=== PATIENT | female | born 1955 ===

== ENCOUNTER 2017-07-23 01:31 | Inpatient (IN) | payer OTHER, MEDICAID ==
[2017-07-23 01:32] VITALS: BMI 24.2
--- NOTE | 2017-07-23 02:06 | C.PDOC ---
History Of Present Illness <Lj Wood - Last Filed: 07/24/17 11:40> <Nely Balderrama - Last Filed: 07/27/17 14:48> 62 year old female with a Hx of metastatic ca presents to the ER with a complaint of intermittent abdominal pain for the past few hours. Patient states it feels like a "accordion is opening and closing" in her abdomen. Denies fever or other complaints at this time. (Lj Wood) History Per: Patient History/Exam Limitations: no limitations Onset/Duration Of Symptoms: Hrs Current Symptoms Are (Timing): Still Present Recent travel outside of the [place]: No <Lj Wood - Last Filed: 07/24/17 11:40> <Nely Balderrama - Last Filed: 07/27/17 14:48> Time Seen by Provider: 07/23/17 02:03 Chief Complaint (Nursing): Medical Clearance Past Medical History Reviewed: Historical Data, Nursing Documentation, Vital Signs - Medical History PMH: Anxiety, Asthma (WHEN ANXIOUS ON ONHALERS LAST ATTACK 5 YRS AGO), Colonic Polyps Surgical History: Family History: States: Unknown Family Hx - Social History Hx Tobacco Use: No Hx Alcohol Use: Yes Hx Substance Use: No - Immunization History Hx Tetanus Toxoid Vaccination: No Hx Influenza Vaccination: No Hx Pneumococcal Vaccination: No <Lj Wood - Last Filed: 07/24/17 11:40> Vital Signs: Last Vital Signs Temp 97.9 F 07/26/17 15:42 Pulse 95 H 07/26/17 15:42 Resp 20 07/26/17 15:42 BP 114/61 07/26/17 15:42 Pulse Ox 97 07/26/17 15:42 Review Of Systems Constitutional: Negative for: Fever, Chills Cardiovascular: Negative for: Chest Pain, Palpitations Gastrointestinal: Positive for: Abdominal Pain. Negative for: Nausea, Vomiting <Lj Wood - Last Filed: 07/24/17 11:40> Physical Exam - Physical Exam Appears: Non-toxic, No Acute Distress Skin: Normal Color, Warm, Dry Head: Atraumatic, Normacephalic Eye(s): bilateral: Normal Inspection Oral Mucosa: Moist Chest: Symmetrical, No Tenderness Cardiovascular: Rhythm Regular Respiratory: Normal Breath Sounds, No Rales, No Rhonchi, No Wheezing Gastrointestinal/Abdominal: Soft, No Tenderness, Distention Neurological/Psych: Oriented x3, Normal Speech, Other (No focal deficits) <Lj Wood - Last Filed: 07/24/17 11:40> ED Course And Treatment - Laboratory Results Result Diagrams: 07/23/17 02:57 07/23/17 15:22 O2 Sat by Pulse Oximetry: 97 (room air) Pulse Ox Interpretation: Normal <Lj Wood - Last Filed: 07/24/17 11:40> - Laboratory Results Result Diagrams: 07/25/17 06:54 07/25/17 06:54 - Physician Consult Information Physician Contacted: Jarad Luna <Nely Balderrama - Last Filed: 07/27/17 14:48> Medical Decision Making <Lj Wood - Last Filed: 07/24/17 11:40> <Nely Balderrama - Last Filed: 07/27/17 14:48> Medical Decision Making: Blood work and urinalysis ordered. Patient refuses pain medication at this time. 7: endorsed to day shift, pending ct and final dispo (Lj Wood) Disposition - Disposition Disposition Time: 07:00 <Lj Wood - Last Filed: 07/24/17 11:40> - Disposition Disposition Time: 11:24 <Nely Balderrama - Last Filed: 07/27/17 14:48> - Disposition Disposition: HOSPITALIZED Condition: FAIR - Clinical Impression Clinical Impression: Failure to thrive, Generalized weakness, Medical assessment, Metastatic cancer , Abdominal pain - Scribe Statement The provider has reviewed the documentation as recorded by the Scribe <Lj Wood - Last Filed: 07/24/17 11:40> <Nely Balderrama - Last Filed: 07/27/17 14:48> - Scribe Statement Hima Weeks All medical record entries made by the Scribe were at my direction and personally dictated by me. I have reviewed the chart and agree that the record accurately reflects my personal performance of the history, physical exam, medical decision making, and the department course for this patient. I have also personally directed, reviewed, and agree with the discharge instructions and disposition. (Lj Wood) Addendum <Lj Wood - Last Filed: 07/24/17 11:40> <Nely Balderrama Trey - Last Filed: 07/27/17 14:48> Addendum: 07/23/17 11:09 Accession No. : [id number] Patient Name / ID : MERLYN PALMER / [id number] Exam Date : 07/23/2017 08:18:55 ( Approved ) Study Comment : Sex / Age : F / 62Y Creator : Patricio Hall MD Dictator : Analytical Engineer : Public Health Director : Patricio Hall MD Approver2 : Report Date : 07/23/2017 11:08:42 My Comment : This report is currently processing and HAS NOT BEEN OFFICIALLY SIGNED BY THE PHYSICIAN - ESTIMATED TIME OF APPROVAL IS 07/23/2017 11:13. PROCEDURE: CT scan of the abdomen pelvis dated 01/13/2017 HISTORY: Abdominal pain. History of malignancy. COMPARISON: Comparison made with CT scan of the abdomen pelvis 01/13/2017 TECHNIQUE: Contiguous axial images of the abdomen pelvis performed following intravenous contrast injection. Oral contrast material not given. Sagittal and coronal reformats provided. This CT exam was performed using one or more of the following dose reduction techniques: Automated exposure control, adjustment of the mA and/or kV according to patient size, and/or use of iterative reconstruction technique. Contrast dose: 100 cc Visipaque 300 contrast material Radiation dose: Total exam DLP = 325.06 mGy-cm. FINDINGS: LOWER THORAX: . There is a small left-sided effusion. Minor bibasilar atelectasis and probably some linear scarring changes are felt to be present. No basilar pneumothorax. Heart size within range of normal. No significant pericardial effusion. LIVER: Liver exhibits relatively normal size measuring approximately 12 cm in CC dimension. Minor diffuse fatty hepatic infiltration. Portal and splenic veins are opacified. Mild central intrahepatic biliary ductal dilatation likely due to mass effect by a very large mass within the nadeen hepatis region that has increased in size. This lesion exhibits some heterogeneous peripheral margins and areas of central and eccentric low-attenuation. The overall size of this lesion measures approximately 14 cm trans times 10 cm AP x 7.6 cm cc. GALLBLADDER AND BILE DUCTS: There is inferolateral displacement of the gallbladder. . PANCREAS: Pancreas is medially compressed and displaced by the aforementioned large metastatic lesion. No obvious significant pancreatic ductal dilatation so far as can be seen. SPLEEN: Spleen exhibits normal size and attenuation pattern. ADRENALS: Unremarkable. KIDNEYS AND URETERS: Kidneys demonstrate symmetric nephrograms. No evidence of nephrolithiasis or hydronephrosis. BLADDER: Grossly unremarkable. REPRODUCTIVE: Enlarged of lobulated bulky uterus with multiple calcifications consistent with uterine fibroids indistinguishable from this patient's history of endometrial carcinoma. There are adjacent bilateral on cystic and/or necrotic peritoneal metastatic implants. APPENDIX: Appendix is not seen with any certainty however no evidence to suggest acute appendicitis BOWEL: Evaluation of the bowel is quite limited due to the lack of oral contrast material as well as multiple metastatic peritoneal implants some of which may make loops of bowel. . Stomach is incompletely distended. . No evidence acute mechanical small bowel obstruction. Stool and air seen throughout the colon. PERITONEUM: Multiple round and elliptical shaped peritoneal implants are again noted some of which have increased in size and others are new since prior study. Findings are consistent with this patient's history of metastatic endometrial carcinoma. . There is moderate amount of free fluid seen within the left upper quadrant of the abdomen and to a lesser degree right upper abdomen surrounding the gallbladder and inferior margin of the liver extending into Murillo's pouch. LYMPH NODES: Probable enlarged some necrotic and or cystic bilateral pelvic sidewall lymphadenopathy/peritoneal implants VASCULATURE: Unremarkable. No aortic aneurysm. . There appears to be compression of the IVC by aforementioned large mass. BONES: Multilevel degenerative spondylosis of the lower thoracic and lumbar spine. . ORIF changes right proximal femur. . There is shallow right acetabulum with the superior subluxation of the right femoral head. OTHER FINDINGS: None. IMPRESSION: There are multiple varying sized predominately rounded intraperitoneal and mesenteric metastatic lesions some of which have increased in size and others no new since prior exam consistent with this patient's history of metastatic endometrial carcinoma. The largest lesion in the nadeen hepatis region compresses the liver, pancreas, gallbladder and IVC. Moderate amount of ascites. Mild central intrahepatic biliary ductal dilatation. Markedly enlarged bulky heterogeneous uterus with numerous calcifications consistent with underlying fibroids as well. Small left effusion. No evidence of acute mechanical bowel obstruction. Discussed patient with hospitalist, agrees with admission to her service for worsening metastatic endometrial cancer, abdominal pain, failure to thrive, generalized weakness. Dr. Kris Lemos consulted and spoken with. (Nely Balderrama) Decision To Admit <Lj Wood - Last Filed: 07/24/17 11:40> - Pt Status Changed To: Hospital Disposition Of: Inpatient - Admit Certification Admit to Inpatient:: After my assessment, the patient will require hospitalization for at least two midnights. This is because of the severity of symptoms shown, intensity of services needed, and/or the medical risk in this patient being treated as an outpatient. - InPatient: Physician Admission Certification: I certify that this patient requires 2 or more midnights of care for the following reason:: see notes - . Bed Request Type: Regular Admitting Physician: Jarad Luna <Nely Balderrama - Last Filed: 07/27/17 14:48> - . Patient Diagnosis: Metastatic cancer, Abdominal pain, Failure to thrive, Generalized weakness
[2017-07-23 03:01] LABS: BASO % 1.3 % (0.0-2.0); EOS % 2.6 % (0.0-4.0); HEMATOCRIT 27.8 % (34.0-47.0); LYMPH # 0.5 K/uL (1.0-4.3); LYMPH % 26.2 % (20.0-40.0); MEAN CELL VOLUME 88.6 fL (81.0-99.0); MEAN CORPUSCULAR HEMOGLOBIN 28.9 pg (27.0-31.0); MEAN CORPUSCULAR HGB CONC 32.6 g/dL (33.0-37.0); MEAN PLATELET VOLUME 7.5 fL (7.2-11.7); MONO # 0.6 K/uL (0.0-0.8); MONO % 37.4 % (0.0-10.0); NRBC % 0.9 % (0.0-2.0); PLATELET COUNT 242 K/uL (130-400); RED CELL DISTRIBUTION WIDTH 20.1 % (11.5-14.5)
[2017-07-23 03:11] LABS: INR 1.2
[2017-07-23 03:17] LABS: WHITE BLOOD COUNT 1.7 K/uL (4.8-10.8)
[2017-07-23 03:34] LABS: ALB/GLOB RATIO 0.8 (1.0-2.1); ALKALINE PHOSPHATASE 702 U/L (38-126); ALT/SGPT 62 U/L (9-52); AST/SGOT 103 U/L (14-36); BILIRUBIN,TOTAL 0.5 mg/dL (0.2-1.3); BLOOD UREA NITROGEN 4 mg/dL (7-17); CARBON DIOXIDE 25 mmol/L (22-30); CHLORIDE 102 mmol/L (98-107); GFR AFRICAN-AMERICAN > 60; GLUCOSE,RANDOM 114 mg/dL (65-105); POTASSIUM 2.8 mmol/L (3.6-5.2); SODIUM 136 mmol/L (132-148); TOTAL PROTEIN 8.2 g/dL (6.3-8.3)
[2017-07-23 03:35] LABS: URINE BILIRUBIN NEGATIVE (NEGATIVE); URINE COLOR Yellow (YELLOW); URINE GLUCOSE (UA) 3+ mg/dL (Normal); URINE KETONE NEGATIVE (NEGATIVE); URINE LEUKOCYTE ESTERASE NEG Leu/uL (Negative); URINE PROTEIN 2+ mg/dL (NEGATIVE); URINE UROBILINOGEN NORMAL mg/dL (0.2-1.0); WBC URINE 5 /hpf (0-5)
[2017-07-23] MEDS ORDERED: Potassium Chloride 20 mEq ER Tab PO STA (03:37)
[2017-07-23] MEDS ORDERED: Potassium Chloride 20 mEq ER Tab PO ONE ×3 (03:43→15:13)
[2017-07-23] MEDS ORDERED: Potassium Chloride 20 mEq 0 MEQ/0 ML BAG IVPB ONE (03:43)
[2017-07-23 03:48] LABS: BASOPHIL 2 % (0-2); EOSINOPHIL 1 % (0-4); LARGE PLATELETS PRESENT; NEUTROPHIL 38 % (50-75); TOTAL CELLS COUNTED 100
[2017-07-23 04:04] LABS: URINE BLOOD NEGATIVE (NEGATIVE)
[2017-07-23] MEDS ORDERED: Iodixanol 320 mg/ml 150 ml Bottle IV ONE (07:13)
--- NOTE | 2017-07-23 11:10 | CT ---
PROCEDURE: CT scan of the abdomen pelvis dated 01/13/2017 HISTORY: Abdominal pain. History of malignancy. COMPARISON: Comparison made with CT scan of the abdomen pelvis 01/13/2017 TECHNIQUE: Contiguous axial images of the abdomen pelvis performed following intravenous contrast injection. Oral contrast material not given. Sagittal and coronal reformats provided. This CT exam was performed using one or more of the following dose reduction techniques: Automated exposure control, adjustment of the mA and/or kV according to patient size, and/or use of iterative reconstruction technique. Contrast dose: 100 cc Visipaque 300 contrast material Radiation dose: Total exam DLP = 325.06 mGy-cm. FINDINGS: LOWER THORAX: . There is a small left-sided effusion. Minor bibasilar atelectasis and probably some linear scarring changes are felt to be present. No basilar pneumothorax. Heart size within range of normal. No significant pericardial effusion. LIVER: Liver exhibits relatively normal size measuring approximately 12 cm in CC dimension. Minor diffuse fatty hepatic infiltration. Portal and splenic veins are opacified. Mild central intrahepatic biliary ductal dilatation likely due to mass effect by a very large mass within the nadeen hepatis region that has increased in size. This lesion exhibits some heterogeneous peripheral margins and areas of central and eccentric low-attenuation. The overall size of this lesion measures approximately 14 cm trans times 10 cm AP x 7.6 cm cc. GALLBLADDER AND BILE DUCTS: There is inferolateral displacement of the gallbladder. . PANCREAS: Pancreas is medially compressed and displaced by the aforementioned large metastatic lesion. No obvious significant pancreatic ductal dilatation so far as can be seen. SPLEEN: Spleen exhibits normal size and attenuation pattern. ADRENALS: Unremarkable. KIDNEYS AND URETERS: Kidneys demonstrate symmetric nephrograms. No evidence of nephrolithiasis or hydronephrosis. BLADDER: Grossly unremarkable. REPRODUCTIVE: Enlarged of lobulated bulky uterus with multiple calcifications consistent with uterine fibroids indistinguishable from this patient's history of endometrial carcinoma. There are adjacent bilateral on cystic and/or necrotic peritoneal metastatic implants. APPENDIX: Appendix is not seen with any certainty however no evidence to suggest acute appendicitis BOWEL: Evaluation of the bowel is quite limited due to the lack of oral contrast material as well as multiple metastatic peritoneal implants some of which may make loops of bowel. . Stomach is incompletely distended. . No evidence acute mechanical small bowel obstruction. Stool and air seen throughout the colon. PERITONEUM: Multiple round and elliptical shaped peritoneal implants are again noted some of which have increased in size and others are new since prior study. Findings are consistent with this patient's history of metastatic endometrial carcinoma. . There is moderate amount of free fluid seen within the left upper quadrant of the abdomen and to a lesser degree right upper abdomen surrounding the gallbladder and inferior margin of the liver extending into Murillo's pouch. LYMPH NODES: Probable enlarged some necrotic and or cystic bilateral pelvic sidewall lymphadenopathy/peritoneal implants VASCULATURE: Unremarkable. No aortic aneurysm. . There appears to be compression of the IVC by aforementioned large mass. BONES: Multilevel degenerative spondylosis of the lower thoracic and lumbar spine. . ORIF changes right proximal femur. . There is shallow right acetabulum with the superior subluxation of the right femoral head. OTHER FINDINGS: None. IMPRESSION: There are multiple varying sized predominately rounded intraperitoneal and mesenteric metastatic lesions some of which have increased in size and others no new since prior exam consistent with this patient's history of metastatic endometrial carcinoma. The largest lesion in the nadeen hepatis region compresses the liver, pancreas, gallbladder and IVC. Moderate amount of ascites. Mild central intrahepatic biliary ductal dilatation. Markedly enlarged bulky heterogeneous uterus with numerous calcifications consistent with underlying fibroids as well. Small left effusion. No evidence of acute mechanical bowel obstruction.
--- NOTE | 2017-07-23 14:44 | CP.PCM.HP ---
<Naz Espinal - Last Filed: 07/23/17 19:38> History of Present Illness - History of Present Illness History of Present Illness: CC: abdominal pain, SOB HPI: Patient is a 62 year old female with a past medical history of metastatic endometrial cancer, breast cancer, ovarian cysts, who presents to the ED with abdominal pain that "feels like an accordion- I don't know how to explain it". Patient also reports having abdominal pain with deep inspiration. These symtpoms started last night, which woke her up. Patient reports she had to milder episodes one week ago that went away quickly. She states that sitting up and laying on her right side lessens her symptoms. Patient denies having chest pain, cough, shortness of breath, nausea, vomiting, leg pain/swelling, and fevers. Heme/Onc: Dr. Lemos PMHx: ovarian cyst; breast cancer (2003), metastatic endometrial cancer ( diagnosed in 2015 when she came into the hospital for abdominal pain) SurgHx: ovarian cyst(s), breast cancer- lump removal (2003), hip surgery ( 1960s) Allergies: PCN Medications: see EMR Present on Admission - Present on Admission Any Indicators Present on Admission: No Review of Systems - Constitutional Constitutional: absent: Fever, Headache, Lethargy - Cardiovascular Cardiovascular: absent: Chest Pain, Dyspnea, Leg Edema, Lightheadedness, Palpitations - Respiratory Respiratory: Pain on Inspiration. absent: Cough, Dyspnea, Excessive Mucous Production - Gastrointestinal Gastrointestinal: Abdominal Pain. absent: Constipation, Diarrhea, Nausea, Vomiting - Musculoskeletal Musculoskeletal: Limited Range of Motion (abdominal pain increased when laying down or laying on left side). absent: Back Pain - Integumentary Integumentary: absent: Rash, Swelling - Neurological Neurological: absent: Dizziness, Headaches, Weakness - Endocrine Endocrine: absent: Fatigue, Palpitations Past Patient History - Past Medical History & Family History Past Medical History?: Yes - Past Social History Smoking Status: Never Smoked - CARDIAC Hx Pacemaker: No - PULMONARY Hx Asthma: Yes (WHEN ANXIOUS ON ONHALERS LAST ATTACK 5 YRS AGO) - NEUROLOGICAL Hx Paralysis: Yes (POLIO) - HEENT Hx HEENT Problems: Yes (TINNITUS) Other/Comment: pt has very dry mouth sts tongue gets stuck to roof of mouth - RENAL Hx Chronic Kidney Disease: No - ENDOCRINE/METABOLIC Hx Endocrine Disorders: No - HEMATOLOGICAL/ONCOLOGICAL Hx Blood Transfusions: No Hx Blood Transfusion Reaction: No - INTEGUMENTARY Hx Dermatological Problems: No - MUSCULOSKELETAL/RHEUMATOLOGICAL Hx Musculoskeletal Disorders: Yes Other/Comment: poliomyelitis - GASTROINTESTINAL Hx Gastrointestinal Disorders: Yes (ABD PAIN) - GENITOURINARY/GYNECOLOGICAL Hx Genitourinary Disorders: Yes Hx Reproductive Disorders: Yes (OVARIAN CYST) Hx Uterine Cancer: Yes - PSYCHIATRIC Hx Anxiety: Yes Hx Substance Use: No - SURGICAL HISTORY Hx Surgeries: Yes (R BREAST, L HIP) - ANESTHESIA Hx Anesthesia Reactions: No Hx Malignant Hyperthermia: No Meds Allergies/Adverse Reactions: Allergies Allergy/AdvReac Type Severity Reaction Status Date / Time penicillin G AdvReac RASH Verified 09/25/15 07:50 Physical Exam - Constitutional Appears: No Acute Distress - Head Exam Head Exam: ATRAUMATIC, NORMAL INSPECTION - Eye Exam Eye Exam: EOMI, Normal appearance - ENT Exam ENT Exam: Mucous Membranes Moist - Respiratory Exam Respiratory Exam: Clear to Auscultation Bilateral, NORMAL BREATHING PATTERN. absent: Rales, Rhonchi, Wheezes, Respiratory Distress - Cardiovascular Exam Cardiovascular Exam: REGULAR RHYTHM, +S1, +S2 - GI/Abdominal Exam GI & Abdominal Exam: Distended (mild distension), Normal Bowel Sounds, Soft. absent: Firm, Guarding, Tenderness - Extremities Exam Extremities exam: Positive for: pedal edema (pitting edema bilaterally), pedal pulses present (diminished). Negative for: calf tenderness, normal inspection - Neurological Exam Neurological exam: Alert, Oriented x3 - Psychiatric Exam Psychiatric exam: Normal Affect, Normal Mood - Skin Skin Exam: Dry, Intact, Normal Color, Warm Results - Vital Signs Recent Vital Signs: Last Vital Signs Temp 97 F L 07/23/17 13:02 Pulse 100 H 07/23/17 13:02 Resp 14 07/23/17 13:02 BP 124/66 07/23/17 13:02 Pulse Ox 100 07/23/17 13:02 - Labs Result Diagrams: 07/23/17 02:57 07/23/17 15:22 Labs: Laboratory Results - last 24 hr 07/23/17 07/23/17 07/23/17 02:07 02:57 02:57 WBC 1.7 L* D RBC 3.14 L Hgb 9.1 L Hct 27.8 L MCV 88.6 MCH 28.9 MCHC 32.6 L RDW 20.1 H Plt Count 242 D MPV 7.5 Neut % (Auto) 32.5 L Lymph % (Auto) 26.2 [place] % (Auto) 37.4 H Eos % (Auto) 2.6 Baso % (Auto) 1.3 Neut # 0.6 L Lymph # 0.5 L [place] # 0.6 Eos # 0.0 Baso # 0.0 Neutrophils % (Manual) 38 L Band Neutrophils % 1 Lymphocytes % (Manual) 27 Monocytes % (Manual) 31 H Eosinophils % (Manual) 1 Basophils % (Manual) 2 Platelet Estimate Normal Large Platelets Present Polychromasia Slight Hypochromasia (manual) Slight Poikilocytosis (manual Slight Anisocytosis (manual) Marked Target Cells Slight PT INR APTT Sodium 136 Potassium 2.8 L Chloride 102 Carbon Dioxide 25 Anion Gap 13 BUN 4 L Creatinine 0.6 L Est GFR ( Amer) > 60 Est GFR (Non-Af Amer) > 60 Random Glucose 114 H Calcium 8.0 L Total Bilirubin 0.5 AST 103 H D ALT 62 H D Alkaline Phosphatase 702 H D Total Protein 8.2 Albumin 3.6 Globulin 4.6 H Albumin/Globulin Ratio 0.8 L Lipase 222 Urine Color Yellow Urine Clarity Clear Urine pH 6.0 Ur Specific [place] 1.011 Urine Protein 2+ H Urine Glucose (UA) 3+ H Urine Ketones Negative Urine Blood Negative Urine Nitrate Negative Urine Bilirubin Negative Urine Urobilinogen Normal Ur Leukocyte Esterase Neg Urine WBC (Auto) 5 Ur Squamous Epith Cells < 1 07/23/17 02:57 WBC RBC Hgb Hct MCV MCH MCHC RDW Plt Count MPV Neut % (Auto) Lymph % (Auto) [place] % (Auto) Eos % (Auto) Baso % (Auto) Neut # Lymph # [place] # Eos # Baso # Neutrophils % (Manual) Band Neutrophils % Lymphocytes % (Manual) Monocytes % (Manual) Eosinophils % (Manual) Basophils % (Manual) Platelet Estimate Large Platelets Polychromasia Hypochromasia (manual) Poikilocytosis (manual Anisocytosis (manual) Target Cells PT 13.4 H INR 1.2 APTT 26 Sodium Potassium Chloride Carbon Dioxide Anion Gap BUN Creatinine Est GFR ( Amer) Est GFR (Non-Af Amer) Random Glucose Calcium Total Bilirubin AST ALT Alkaline Phosphatase Total Protein Albumin Globulin Albumin/Globulin Ratio Lipase Urine Color Urine Clarity Urine pH Ur Specific [place] Urine Protein Urine Glucose (UA) Urine Ketones Urine Blood Urine Nitrate Urine Bilirubin Urine Urobilinogen Ur Leukocyte Esterase Urine WBC (Auto) Ur Squamous Epith Cells Assessment & Plan (1) Shortness of breath Assessment and Plan: R/O PE D-dimer: >5250 CXR: suspect minor bibasilar atelectasis V/Q Scan: ordered; follow up results Consider CT Angio for tomorrow; not ordered today as patient had CT with contrast in the morning. O2 via nasal cannula as needed Status: Acute (2) Abdominal pain Assessment and Plan: Likely secondary to metastatic endometrial cancer. * Abdominal/pelvic CT: intraperitoneal and mesenteric metastatic lesions some of which have increased in size; largest lesion in the nadeen hepatis region compresses the liver, pancreas, gallbladder and IVC; moderate amount of ascites ; mild central intrahepatic biliary ductal dilatation; markedly enlarged bulky heterogenous uterus with numerous calcifications consistent with underlying fibroids; small left effusions; no evidence of acute mechanical bowel obstruction. Status: Acute (3) Metastatic cancer Assessment and Plan: Hem/Onc consulted- Dr. Lemos, help appreciated Status: Acute (4) Change of skin color Assessment and Plan: Jamar complexion of feet bilaterally Vascular surgery consulted- Dr. Eddy, help appreciated Venous dopplers: f/u results Arterial PVR: f/u results Status: Acute (5) Prophylactic measure Assessment and Plan: Lead Care Manager referral Heart healthy diet O2 as needed SCD- hold due to LE edema?skin color changes; r/o DVT/vascular disease PT/OT Status: Acute <Court Timmons V - Last Filed: 07/23/17 22:30> Results - Vital Signs Recent Vital Signs: Last Vital Signs Temp 98.2 F 07/23/17 19:44 Pulse 96 H 07/23/17 22:07 Resp 17 07/23/17 22:07 BP 111/60 07/23/17 22:07 Pulse Ox 98 07/23/17 22:07 - Labs Result Diagrams: 07/23/17 02:57 07/23/17 15:22 Labs: Laboratory Results - last 24 hr 07/23/17 07/23/17 07/23/17 02:07 02:57 02:57 WBC 1.7 L* D RBC 3.14 L Hgb 9.1 L Hct 27.8 L MCV 88.6 MCH 28.9 MCHC 32.6 L RDW 20.1 H Plt Count 242 D MPV 7.5 Neut % (Auto) 32.5 L Lymph % (Auto) 26.2 [place] % (Auto) 37.4 H Eos % (Auto) 2.6 Baso % (Auto) 1.3 Neut # 0.6 L Lymph # 0.5 L [place] # 0.6 Eos # 0.0 Baso # 0.0 Neutrophils % (Manual) 38 L Band Neutrophils % 1 Lymphocytes % (Manual) 27 Monocytes % (Manual) 31 H Eosinophils % (Manual) 1 Basophils % (Manual) 2 Platelet Estimate Normal Large Platelets Present Polychromasia Slight Hypochromasia (manual) Slight Poikilocytosis (manual Slight Anisocytosis (manual) Marked Target Cells Slight PT INR APTT D-Dimer, Quantitative Sodium 136 Potassium 2.8 L Chloride 102 Carbon Dioxide 25 Anion Gap 13 BUN 4 L Creatinine 0.6 L Est GFR ( Amer) > 60 Est GFR (Non-Af Amer) > 60 Random Glucose 114 H Calcium 8.0 L Magnesium Total Bilirubin 0.5 AST 103 H D ALT 62 H D Alkaline Phosphatase 702 H D NT-Pro-B Natriuret Pep Total Protein 8.2 Albumin 3.6 Globulin 4.6 H Albumin/Globulin Ratio 0.8 L Lipase 222 Urine Color Yellow Urine Clarity Clear Urine pH 6.0 Ur Specific [place] 1.011 Urine Protein 2+ H Urine Glucose (UA) 3+ H Urine Ketones Negative Urine Blood Negative Urine Nitrate Negative Urine Bilirubin Negative Urine Urobilinogen Normal Ur Leukocyte Esterase Neg Urine WBC (Auto) 5 Ur Squamous Epith Cells < 1 07/23/17 07/23/17 07/23/17 02:57 02:57 15:15 WBC RBC Hgb Hct MCV MCH MCHC RDW Plt Count MPV Neut % (Auto) Lymph % (Auto) [place] % (Auto) Eos % (Auto) Baso % (Auto) Neut # Lymph # [place] # Eos # Baso # Neutrophils % (Manual) Band Neutrophils % Lymphocytes % (Manual) Monocytes % (Manual) Eosinophils % (Manual) Basophils % (Manual) Platelet Estimate Large Platelets Polychromasia Hypochromasia (manual) Poikilocytosis (manual Anisocytosis (manual) Target Cells PT 13.4 H INR 1.2 APTT 26 D-Dimer, Quantitative > 5250 H Sodium Potassium Chloride Carbon Dioxide Anion Gap BUN Creatinine Est GFR ( Amer) Est GFR (Non-Af Amer) Random Glucose Calcium Magnesium 2.5 H Total Bilirubin AST ALT Alkaline Phosphatase NT-Pro-B Natriuret Pep 183 Total Protein Albumin Globulin Albumin/Globulin Ratio Lipase Urine Color Urine Clarity Urine pH Ur Specific [place] Urine Protein Urine Glucose (UA) Urine Ketones Urine Blood Urine Nitrate Urine Bilirubin Urine Urobilinogen Ur Leukocyte Esterase Urine WBC (Auto) Ur Squamous Epith Cells 07/23/17 15:22 WBC RBC Hgb Hct MCV MCH MCHC RDW Plt Count MPV Neut % (Auto) Lymph % (Auto) [place] % (Auto) Eos % (Auto) Baso % (Auto) Neut # Lymph # [place] # Eos # Baso # Neutrophils % (Manual) Band Neutrophils % Lymphocytes % (Manual) Monocytes % (Manual) Eosinophils % (Manual) Basophils % (Manual) Platelet Estimate Large Platelets Polychromasia Hypochromasia (manual) Poikilocytosis (manual Anisocytosis (manual) Target Cells PT INR APTT D-Dimer, Quantitative Sodium 135 Potassium 3.5 L Chloride 103 Carbon Dioxide 26 Anion Gap 9 L BUN 3 L Creatinine 0.6 L Est GFR ( Amer) > 60 Est GFR (Non-Af Amer) > 60 Random Glucose 92 Calcium 8.0 L Magnesium 2.4 H Total Bilirubin AST ALT Alkaline Phosphatase NT-Pro-B Natriuret Pep Total Protein Albumin Globulin Albumin/Globulin Ratio Lipase Urine Color Urine Clarity Urine pH Ur Specific [place] Urine Protein Urine Glucose (UA) Urine Ketones Urine Blood Urine Nitrate Urine Bilirubin Urine Urobilinogen Ur Leukocyte Esterase Urine WBC (Auto) Ur Squamous Epith Cells Attending/Attestation - Attestation I have personally seen and examined this patient.: Yes I have fully participated in the care of the patient.: Yes I have reviewed all pertinent clinical information: Yes Notes (Text): Patient seen, examined and case discussed with day-time resident. Patient seen with her sister, Jessica, who she permits me to speak her medical information with. Patient diagnosed with endometrial cancer? in 2014 based on an ED admission. Patient completed last chemootherapy, last session last Monday , comes in for abdominal pain, which she describes as this odd feeling. Patient reports it bothers her and she needs to take shallow breathes for it correct itself. Patient reports the jamar appearance of her feet is not new but the whites of the nail bed are new. Patient's potassium repleted while in the ED, Repeat BMP shows K+ improved. Patient had completed CT abdomen w IV contrast at 8am this morning. Given hx of cancer, shortness of breathe would like to rule out PE, d-dimer is positive, patient is not hypoxic on the screen, order for V/Q scan in lieu of CT angio r/o given increased exposure to dye in less than 24 hours. Will need to follow-up with heme-onc in regards to metastatic cancer; if this is a change or not; what type of prognosis she has. Patient's niece who I spoke with later in the evening, gives me the impression that this is palliative chemo treatment. Family has not had a formal code status talk with their sister. Assessment/Plan (1) Shortness of breath Assessment and Plan: * R/O PE * D-dimer: >5250 * CXR: suspect minor bibasilar atelectasis * V/Q Scan: ordered; follow up results; unable to order CT angio given endometrial carcinoma? * O2 via nasal cannula as needed Status: Acute (2) Abdominal pain Assessment and Plan: Likely secondary to metastatic endometrial cancer. * Abdominal/pelvic CT: intraperitoneal and mesenteric metastatic lesions some of which have increased in size; largest lesion in the nadeen hepatis region compresses the liver, pancreas, gallbladder and IVC; moderate amount of ascites ; mild central intrahepatic biliary ductal dilatation; markedly enlarged bulky heterogenous uterus with numerous calcifications consistent with underlying fibroids; small left effusions; no evidence of acute mechanical bowel obstruction. Status: Acute (3) Metastatic cancer Assessment and Plan: * Hem/Onc consulted- Dr. Lemos, help appreciated Status: Acute (4) Change of skin color over the feet Assessment and Plan: * Jamar complexion of feet bilaterally * Vascular surgery consulted- Dr. Eddy, help appreciated * Venous dopplers: f/u results * Arterial PVR: f/u results * on exam, appears to have palpable pedal pulses, sensation intact Status: Acute (5) Electrolyte abnormalities Assessment and Plan: * replete and follow=up Status: Acute (6) Prophylactic measure Assessment and Plan: * Lead Care Manager referral * Heart healthy diet * O2 as needed * SCD- hold due to LE edema?skin color changes; r/o DVT/vascular disease * PT/OT Status: Acute
[2017-07-23 14:59] LABS: MAGNESIUM 2.5 mg/dL (1.6-2.3)
[2017-07-23 16:10] LABS: BLOOD UREA NITROGEN 3 mg/dL (7-17); CARBON DIOXIDE 26 mmol/L (22-30); CHLORIDE 103 mmol/L (98-107); GFR AFRICAN-AMERICAN > 60; GLUCOSE,RANDOM 92 mg/dL (65-105); MAGNESIUM 2.4 mg/dL (1.6-2.3); POTASSIUM 3.5 mmol/L (3.6-5.2); SODIUM 135 mmol/L (132-148)
--- NOTE | 2017-07-23 16:59 | RAD ---
HISTORY: confirm placement of port a cath COMPARISON: No prior. FINDINGS: No change in-situ of right left subclavians left subclavian MediPort tip in the SVC. LUNGS: Suspect minor bibasilar atelectasis. PLEURA: No significant pleural effusion identified, no pneumothorax apparent. CARDIOVASCULAR: Normal. OSSEOUS STRUCTURES: No significant abnormalities. VISUALIZED UPPER ABDOMEN: Normal. OTHER FINDINGS: None. IMPRESSION: Suspect minor bibasilar atelectasis.
--- NOTE | 2017-07-23 19:23 | RAD ---
PROCEDURE: Bilateral feet dated 07/23/2017. HISTORY: Jamar/blue bilateral feet COMPARISON: No prior study available for comparison FINDINGS: BONES: No evidence of acute displaced evidence fracture nor dislocation. . No cortical destructive changes are identified. Diffuse demineralization. The. The diffuse soft tissue swelling left greater than right. If symptoms persist, cellulitis or early osteomyelitis suspected clinically consider followup MRI. Multi articular degenerative osteoarthritis. IMPRESSION: Diffuse soft tissue swelling. Rule out cellulitis. No evidence of acute displaced fracture or dislocation. No definitive cortical destructive changes. Diffuse soft tissue swelling left greater than right. Consider followup MRI if symptoms persist cellulitis or early osteomyelitis suspected clinically.
--- NOTE | 2017-07-23 23:55 | CP.PCM.CON ---
History of Present Illness - History of Present Illness History of Present Illness: Vascular Surgery- Dr. Eddy 62F pmhx of metastatic endometrial cancer currently undergoing chemotherapy, breast, ca, presented to [facility] ED w/ generalized abdominal pain w/ deep inspiration. Pt had similar episodes previously. Surgery was consulted due to cold lower extremities and to asses vascular supply. Pt states hx of numbness along lateral side f R foot. Pt ambulates by wheelchair. Denies hx of leg ulcers , chest pain, shortness of breath, nausea, vomiting, fevers PMH: metastatic endometrial cancer (currently still undergoing chemotherapy; pt unable to remember current drug), breast Ca, ovarian cyst PSH: lumpectomy (2003), ovarian cyst, hip sgx ALL: PCN SocialHx: denies etoh, tobacco, recreational drug use HemeOnc: Dr. Lemos does not see PMD Review of Systems - Review of Systems All systems: reviewed and no additional remarkable complaints except - Constitutional Constitutional: As Per HPI Past Patient History - Past Medical History & Family History Past Medical History?: Yes - Past Social History Smoking Status: Never Smoked - CARDIAC Hx Pacemaker: No - PULMONARY Hx Asthma: Yes (WHEN ANXIOUS ON ONHALERS LAST ATTACK 5 YRS AGO) - NEUROLOGICAL Hx Paralysis: Yes (POLIO) - HEENT Hx HEENT Problems: Yes (TINNITUS) Other/Comment: pt has very dry mouth sts tongue gets stuck to roof of mouth - RENAL Hx Chronic Kidney Disease: No - ENDOCRINE/METABOLIC Hx Endocrine Disorders: No - HEMATOLOGICAL/ONCOLOGICAL Hx Blood Transfusions: No Hx Blood Transfusion Reaction: No - INTEGUMENTARY Hx Dermatological Problems: No - MUSCULOSKELETAL/RHEUMATOLOGICAL Hx Musculoskeletal Disorders: Yes Other/Comment: poliomyelitis - GASTROINTESTINAL Hx Gastrointestinal Disorders: Yes (ABD PAIN) - GENITOURINARY/GYNECOLOGICAL Hx Genitourinary Disorders: Yes Hx Reproductive Disorders: Yes (OVARIAN CYST) Hx Uterine Cancer: Yes - PSYCHIATRIC Hx Anxiety: Yes Hx Substance Use: No - SURGICAL HISTORY Hx Surgeries: Yes (R BREAST, L HIP) - ANESTHESIA Hx Anesthesia Reactions: No Hx Malignant Hyperthermia: No Meds Allergies/Adverse Reactions: Allergies Allergy/AdvReac Type Severity Reaction Status Date / Time penicillin G AdvReac RASH Verified 09/25/15 07:50 - Medications Medications: Current Medications Heparin Sodium (Porcine) (Heparin) 5,000 units SC Q8 HAN Last Admin: 07/23/17 21:38 Dose: 5,000 units Ondansetron HCl (Zofran Inj) 4 mg IVP Q6H PRN PRN Reason: Nausea/Vomiting Physical Exam - Constitutional Appears: Non-toxic, No Acute Distress - Head Exam Head Exam: ATRAUMATIC - Eye Exam Eye Exam: EOMI. absent: Scleral icterus - ENT Exam ENT Exam: Mucous Membranes Moist - Respiratory Exam Respiratory Exam: NORMAL BREATHING PATTERN. absent: Accessory Muscle Use, Chest Wall Tenderness - Cardiovascular Exam Cardiovascular Exam: +S1, +S2. absent: Bradycardia, Tachycardia - GI/Abdominal Exam GI & Abdominal Exam: Soft, Tenderness. absent: Distended, Firm, Guarding, Rigid - Extremities Exam Extremities exam: Positive for: pedal pulses present. Negative for: calf tenderness Additional comments: decreased sensation to light touch around right lateral malleolus +1 pulses DP and popliteal bilateral no signs of feet/leg ulcers bilateral - Neurological Exam Neurological exam: Alert, Oriented x3 - Psychiatric Exam Psychiatric exam: Normal Affect - Skin Skin Exam: Intact, Warm Results - Vital Signs Recent Vital Signs: Last Vital Signs Temp 98.2 F 07/23/17 19:44 Pulse 96 H 07/23/17 22:07 Resp 17 07/23/17 22:07 BP 111/60 07/23/17 22:07 Pulse Ox 98 07/23/17 22:07 - Labs Result Diagrams: 07/23/17 02:57 07/23/17 15:22 Labs: Laboratory Results - last 24 hr 07/23/17 07/23/17 07/23/17 02:07 02:57 02:57 WBC 1.7 L* D RBC 3.14 L Hgb 9.1 L Hct 27.8 L MCV 88.6 MCH 28.9 MCHC 32.6 L RDW 20.1 H Plt Count 242 D MPV 7.5 Neut % (Auto) 32.5 L Lymph % (Auto) 26.2 [place] % (Auto) 37.4 H Eos % (Auto) 2.6 Baso % (Auto) 1.3 Neut # 0.6 L Lymph # 0.5 L [place] # 0.6 Eos # 0.0 Baso # 0.0 Neutrophils % (Manual) 38 L Band Neutrophils % 1 Lymphocytes % (Manual) 27 Monocytes % (Manual) 31 H Eosinophils % (Manual) 1 Basophils % (Manual) 2 Platelet Estimate Normal Large Platelets Present Polychromasia Slight Hypochromasia (manual) Slight Poikilocytosis (manual Slight Anisocytosis (manual) Marked Target Cells Slight PT INR APTT D-Dimer, Quantitative Sodium 136 Potassium 2.8 L Chloride 102 Carbon Dioxide 25 Anion Gap 13 BUN 4 L Creatinine 0.6 L Est GFR ( Amer) > 60 Est GFR (Non-Af Amer) > 60 Random Glucose 114 H Calcium 8.0 L Magnesium Total Bilirubin 0.5 AST 103 H D ALT 62 H D Alkaline Phosphatase 702 H D NT-Pro-B Natriuret Pep Total Protein 8.2 Albumin 3.6 Globulin 4.6 H Albumin/Globulin Ratio 0.8 L Lipase 222 Urine Color Yellow Urine Clarity Clear Urine pH 6.0 Ur Specific [place] 1.011 Urine Protein 2+ H Urine Glucose (UA) 3+ H Urine Ketones Negative Urine Blood Negative Urine Nitrate Negative Urine Bilirubin Negative Urine Urobilinogen Normal Ur Leukocyte Esterase Neg Urine WBC (Auto) 5 Ur Squamous Epith Cells < 1 07/23/17 07/23/17 07/23/17 02:57 02:57 15:15 WBC RBC Hgb Hct MCV MCH MCHC RDW Plt Count MPV Neut % (Auto) Lymph % (Auto) [place] % (Auto) Eos % (Auto) Baso % (Auto) Neut # Lymph # [place] # Eos # Baso # Neutrophils % (Manual) Band Neutrophils % Lymphocytes % (Manual) Monocytes % (Manual) Eosinophils % (Manual) Basophils % (Manual) Platelet Estimate Large Platelets Polychromasia Hypochromasia (manual) Poikilocytosis (manual Anisocytosis (manual) Target Cells PT 13.4 H INR 1.2 APTT 26 D-Dimer, Quantitative > 5250 H Sodium Potassium Chloride Carbon Dioxide Anion Gap BUN Creatinine Est GFR ( Amer) Est GFR (Non-Af Amer) Random Glucose Calcium Magnesium 2.5 H Total Bilirubin AST ALT Alkaline Phosphatase NT-Pro-B Natriuret Pep 183 Total Protein Albumin Globulin Albumin/Globulin Ratio Lipase Urine Color Urine Clarity Urine pH Ur Specific [place] Urine Protein Urine Glucose (UA) Urine Ketones Urine Blood Urine Nitrate Urine Bilirubin Urine Urobilinogen Ur Leukocyte Esterase Urine WBC (Auto) Ur Squamous Epith Cells 07/23/17 15:22 WBC RBC Hgb Hct MCV MCH MCHC RDW Plt Count MPV Neut % (Auto) Lymph % (Auto) [place] % (Auto) Eos % (Auto) Baso % (Auto) Neut # Lymph # [place] # Eos # Baso # Neutrophils % (Manual) Band Neutrophils % Lymphocytes % (Manual) Monocytes % (Manual) Eosinophils % (Manual) Basophils % (Manual) Platelet Estimate Large Platelets Polychromasia Hypochromasia (manual) Poikilocytosis (manual Anisocytosis (manual) Target Cells PT INR APTT D-Dimer, Quantitative Sodium 135 Potassium 3.5 L Chloride 103 Carbon Dioxide 26 Anion Gap 9 L BUN 3 L Creatinine 0.6 L Est GFR ( Amer) > 60 Est GFR (Non-Af Amer) > 60 Random Glucose 92 Calcium 8.0 L Magnesium 2.4 H Total Bilirubin AST ALT Alkaline Phosphatase NT-Pro-B Natriuret Pep Total Protein Albumin Globulin Albumin/Globulin Ratio Lipase Urine Color Urine Clarity Urine pH Ur Specific [place] Urine Protein Urine Glucose (UA) Urine Ketones Urine Blood Urine Nitrate Urine Bilirubin Urine Urobilinogen Ur Leukocyte Esterase Urine WBC (Auto) Ur Squamous Epith Cells Assessment & Plan - Assessment and Plan (Free Text) Assessment: 62F 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 Surjit Rae PGY1
--- NOTE | 2017-07-24 01:20 | NM ---
EXAM: NM Lung Perfusion and Ventilation Scan CLINICAL HISTORY: 62 years old, female; Screening exam; Other screening; Additional info: Elevated d-dimer, HX of cancer, shortness of breat TECHNIQUE: Nuclear Medicine ventilation and perfusion images of the lungs were obtained in multiple projections following inhalation of and injection of Tc99m MAA. 14 mCi of xenon-133 was administered via inhalation. 4 mCi of technetium MAA was administered. COMPARISON: No relevant prior studies available. FINDINGS: Ventilation: Unremarkable. No ventilation defects. Perfusion: Unremarkable. No perfusion defects. Chest x-ray:There is bibasilar atelectasis. IMPRESSION: No findings to suggest pulmonary embolism.
--- NOTE | 2017-07-24 09:51 | CP.PCM.PN ---
<Naz Espinal - Last Filed: 07/24/17 16:04> Subjective - Date & Time of Evaluation Date of Evaluation: 07/24/17 Time of Evaluation: 09:51 - Subjective Subjective: Medicine Progress Note for Dr. Wells Patient was seen and examined at bedside in no acute distress. Patient was sitting up comfortably in bed. Patient reports she has no appetite because her "taste buds are bad and makes food taste bad". Patient reports she has not had a bowel movement in 3 days. Patient denies having chest pain, shortness of breath, abdominal pain, nausea, vomiting, fevers, and headaches. Objective - Vital Signs/Intake and Output Vital Signs (last 24 hours): Temp Pulse Resp BP Pulse Ox 97.7 F 106 H 20 138/75 97 07/24/17 08:49 07/24/17 08:49 07/24/17 08:49 07/24/17 08:49 07/24/17 08:49 Intake and Output: 07/24/17 07/24/17 06:59 18:59 Intake Total 580 Output Total 800 Balance -220 - Medications Medications: Current Medications Heparin Sodium (Porcine) (Heparin) 5,000 units SC Q8 HAN Last Admin: 07/24/17 05:07 Dose: 5,000 units Ondansetron HCl (Zofran Inj) 4 mg IVP Q6H PRN PRN Reason: Nausea/Vomiting - Labs Labs: 07/23/17 02:57 07/23/17 15:22 PT 13.4 SECONDS (9.7-12.2) H 07/23/17 02:57 INR 1.2 07/23/17 02:57 APTT 26 SECONDS (21-34) 07/23/17 02:57 - Constitutional Appears: No Acute Distress - Head Exam Head Exam: ATRAUMATIC, NORMAL INSPECTION - Eye Exam Eye Exam: EOMI, Normal appearance - ENT Exam ENT Exam: Mucous Membranes Moist - Respiratory Exam Respiratory Exam: Clear to Ausculation Bilateral, NORMAL BREATHING PATTERN. absent: Rales, Rhonchi, Wheezes, Respiratory Distress - Cardiovascular Exam Cardiovascular Exam: REGULAR RHYTHM, +S1, +S2 - GI/Abdominal Exam GI & Abdominal Exam: Soft, Tenderness (diffuse mild tenderness with deep palpation ), Normal Bowel Sounds - Extremities Exam Extremities Exam: Pedal Edema. absent: Full ROM (Hx of Polio), Tenderness Additional comments: Skin color changes on feet, bilaterally; toenail abnormalities bilaterally. - Neurological Exam Neurological Exam: Alert, Awake, Oriented x3 - Psychiatric Exam Psychiatric exam: Normal Affect, Normal Mood - Skin Skin Exam: Dry, Intact, Warm Assessment and Plan (1) Shortness of breath Status: Acute (2) Abdominal pain Status: Acute (3) Metastatic cancer Status: Acute (4) Change of skin color Status: Acute (5) Right femoral vein DVT Status: Acute (6) Electrolyte abnormality Status: Acute (7) History of poliomyelitis Status: Acute (8) Prophylactic measure Status: Acute - Assessment and Plan (Free Text) Plan: Assessment & Plan (1) Shortness of breath Assessment and Plan: D-dimer: >5250 CXR: suspect minor bibasilar atelectasis V/Q Scan: no PE Consider CT Angio for tomorrow; not ordered today as patient had CT with contrast in the morning. O2 via nasal cannula as needed Status: Resolved (2) Abdominal pain Assessment and Plan: Likely secondary to metastatic endometrial cancer. * Abdominal/pelvic CT: intraperitoneal and mesenteric metastatic lesions some of which have increased in size; largest lesion in the nadeen hepatis region compresses the liver, pancreas, gallbladder and IVC; moderate amount of ascites ; mild central intrahepatic biliary ductal dilatation; markedly enlarged bulky heterogenous uterus with numerous calcifications consistent with underlying fibroids; small left effusions; no evidence of acute mechanical bowel obstruction. Status: Resovled (3) Metastatic cancer Assessment and Plan: * Hem/Onc consulted- Dr. Lemos, help appreciated Status: Acute (4) Change of skin color (feet) Assessment and Plan: * Jamar complexion of feet bilaterally * Foot Xray: diffuse soft tissue swelling; swelling left greater than right * Vascular surgery consulted- Dr. Eddy, help appreciated * Venous dopplers: right femoral DVT; Left LE-no DVT * Started therapeutic lovenox on 07/24/17 * Arterial PVR: f/u results * Podiatry consulted, Dr. Pino, for toenail care; help appreciated Status: Acute (5) Right femoral vein DVT Assessment and Plan: * Vascular surgery consulted- Dr. Eddy, help appreciated * Venous dopplers: right femoral DVT; Left LE-no DVT * Started therapeutic Lovenox on 07/24/17 * Arterial PVR: f/u results Status: Acute (6) Electrolyte abnormalities Assessment and Plan: * Repleted * Follow up repeat labs Status: Acute (7) History of poliomyelitis Assessment and Plan: * Leg length and upper extremity length discrepancies. Patient used crutches and braces at home for mobility; however, one of the braces does not fit properly at this time. Status: Acute (8) Prophylactic measure Assessment and Plan: * [facility] referral * Heart healthy diet * O2 as needed * C/I SCDs- DVT * PT/OT * Palliative care consult, help appreciated. * Goals of care/Code status discussed with patient; However, Patient does not want to discuss at this time. Status: Acute <Raymon Wells - Last Filed: 07/24/17 20:57> Objective - Vital Signs/Intake and Output Vital Signs (last 24 hours): Temp Pulse Resp BP Pulse Ox 97.9 F 88 20 133/86 100 07/24/17 16:11 07/24/17 18:00 07/24/17 16:11 07/24/17 16:11 07/24/17 16:11 Intake and Output: 07/24/17 07/25/17 18:59 06:59 Intake Total 500 Balance 500 - Medications Medications: Current Medications Enoxaparin Sodium (Lovenox) 60 mg SC Q12 HAN Home Med (Home Med) 1 unit PO DAILY [facility] Potassium Phosphate 15 mmole/ (Sodium Chloride) 255 mls @ 42 mls/hr IV ONCE ONE Stop: 07/24/17 23:48 Ondansetron HCl (Zofran Inj) 4 mg IVP Q6H PRN PRN Reason: Nausea/Vomiting - Labs Labs: 07/24/17 16:36 07/24/17 16:36 PT 13.4 SECONDS (9.7-12.2) H 07/23/17 02:57 INR 1.2 07/23/17 02:57 APTT 26 SECONDS (21-34) 07/23/17 02:57 Attending/Attestation - Attestation I have personally seen and examined this patient.: Yes I have fully participated in the care of the patient.: Yes I have reviewed all pertinent clinical information, including history, physical exam and plan: Yes Notes (Text): 07/24/17 20:50 Patient was seen and examined at 2:30 PM 07/24/17 569 B Exam, assessment and plan were thoroughly gone over with the resident. Also on ROS: NO SOB/Cough NO Abdominal Pain NO n/v/d NO chest pain NO loss of sensation Can not taste her food which leads to her not wanting to eat Also on Exam: Respiratory: Chest Port Cath on Left GI: mildly distended, mild tenderness to palpation diffusely but no guarding/ rebound tenderenss Ext: Left Leg longer than Right Leg, Right Lower Leg greater in circumference than the Left Lower Leg, Left Arm longer than the Right Arm Also on Assessment/Plan: 1). Hypophosphotemia: KPhos 15 mmol IV over 6 hours x 1 dose ordered 2). Hx Bilateral Polio: ambulates using crutches and braces and uses wheelchair. Sensation intact Spoke at length with patient concerning her end of life wishes as well as code status and the importance of thinking about this considering her diagnosis. Patient stated that she did not want to think about it. I explained to patient that I had spoken to Palliative Care Nurse Elizabeth and that she will be by to see her to discuss these issues with her. However, if she did not want to, she did not have to. Raymon Wells D.O.
[2017-07-24 16:59] LABS: EOS # 0.1 K/uL (0.0-0.7); EOS % 2.5 % (0.0-4.0); LYMPH # 0.4 K/uL (1.0-4.3); LYMPH % 16.9 % (20.0-40.0); MEAN CELL VOLUME 89.4 fL (81.0-99.0); MEAN CORPUSCULAR HEMOGLOBIN 28.8 pg (27.0-31.0); MEAN CORPUSCULAR HGB CONC 32.2 g/dL (33.0-37.0); MEAN PLATELET VOLUME 7.6 fL (7.2-11.7); MONO # 0.6 K/uL (0.0-0.8); MONO % 20.8 % (0.0-10.0); PLATELET COUNT 281 K/uL (130-400); RED CELL DISTRIBUTION WIDTH 20.5 % (11.5-14.5); WHITE BLOOD COUNT 2.6 K/uL (4.8-10.8)
[2017-07-24] MEDS ORDERED: Potassium Phosphate 15 MMOLE in Sodium Chloride 0.9% 250 ML IV ONE (17:44)
[2017-07-24 17:45] LABS: ALB/GLOB RATIO 0.9 (1.0-2.1); ALKALINE PHOSPHATASE 908 U/L (38-126); ALT/SGPT 64 U/L (9-52); AST/SGOT 150 U/L (14-36); BILIRUBIN,TOTAL 1.1 mg/dL (0.2-1.3); BLOOD UREA NITROGEN 3 mg/dL (7-17); CALCIUM 8.2 mg/dl (8.6-10.4); CARBON DIOXIDE 23 mmol/L (22-30); CHLORIDE 105 mmol/L (98-107); GFR AFRICAN-AMERICAN > 60; GLUCOSE,RANDOM 86 mg/dL (65-105); POTASSIUM 4.2 mmol/L (3.6-5.2); SODIUM 135 mmol/L (132-148); TOTAL PROTEIN 7.1 g/dL (6.3-8.3)
[2017-07-24 18:46] LABS: EOSINOPHIL 2 % (0-4); NEUTROPHIL 58 % (50-75); TOTAL CELLS COUNTED 100
[2017-07-24] MEDS: Enoxaparin 60 mg Syringe SC SCH (21:41)
[2017-07-25 07:04] LABS: BASO % 0.7 % (0.0-2.0); EOS # 0.1 K/uL (0.0-0.7); EOS % 2.6 % (0.0-4.0); HEMATOCRIT 27.2 % (34.0-47.0); LYMPH # 0.6 K/uL (1.0-4.3); LYMPH % 18.1 % (20.0-40.0); MEAN CELL VOLUME 89.5 fL (81.0-99.0); MEAN CORPUSCULAR HEMOGLOBIN 28.9 pg (27.0-31.0); MEAN CORPUSCULAR HGB CONC 32.3 g/dL (33.0-37.0); MEAN PLATELET VOLUME 7.7 fL (7.2-11.7); MONO # 0.6 K/uL (0.0-0.8); MONO % 18.7 % (0.0-10.0); NRBC % 0.1 % (0.0-2.0); RED CELL DISTRIBUTION WIDTH 20.7 % (11.5-14.5); WHITE BLOOD COUNT 3.1 K/uL (4.8-10.8)
[2017-07-25 07:30] LABS: ALKALINE PHOSPHATASE 782 U/L (38-126); ALT/SGPT 60 U/L (9-52); AST/SGOT 103 U/L (14-36); CALCIUM 7.9 mg/dl (8.6-10.4); CARBON DIOXIDE 22 mmol/L (22-30); CHLORIDE 107 mmol/L (98-107); GFR AFRICAN-AMERICAN > 60; GLUCOSE,RANDOM 83 mg/dL (65-105); POTASSIUM 3.9 mmol/L (3.6-5.2); SODIUM 135 mmol/L (132-148); TOTAL PROTEIN 6.8 g/dL (6.3-8.3)
[2017-07-25 08:20] LABS: BLOOD UREA NITROGEN < 2 mg/dL (7-17)
--- NOTE | 2017-07-25 09:29 | CP.PCM.PN ---
<Naz Espinal - Last Filed: 07/25/17 15:35> Subjective - Date & Time of Evaluation Date of Evaluation: 07/25/17 Time of Evaluation: 09:29 - Subjective Subjective: Medicine Progress Note for Dr. Wells Patient was seen and examined at bedside in no acute distress. Patient was sitting up comfortably in bed. Patient reports she has no pain and feels a little better today. She reports she only has pain when she lays on her right side, and that the pain extends to her abdomen and back. Patient states she still had decreased appetite due to lack of taste. Patient denies having chest pain, palpitations, abdominal pain, nausea, vomiting, fevers, and headaches. Objective - Vital Signs/Intake and Output Vital Signs (last 24 hours): Temp Pulse Resp BP Pulse Ox 97.7 F 90 18 108/58 L 97 07/25/17 08:01 07/25/17 08:01 07/25/17 08:01 07/25/17 08:01 07/25/17 08:01 - Medications Medications: Current Medications Calcium Acetate (Phoslo) 667 mg PO BIDCC HAN Docusate Sodium (Colace) 100 mg PO TID HAN Enoxaparin Sodium (Lovenox) 60 mg SC Q12 HAN Last Admin: 07/24/17 21:41 Dose: 60 mg Home Med (Home Med) 1 unit PO DAILY [facility] Ondansetron HCl (Zofran Inj) 4 mg IVP Q6H PRN PRN Reason: Nausea/Vomiting - Labs Labs: 07/25/17 06:54 07/25/17 06:54 PT 13.4 SECONDS (9.7-12.2) H 07/23/17 02:57 INR 1.2 07/23/17 02:57 APTT 26 SECONDS (21-34) 07/23/17 02:57 - Additional Findings Additional findings: - Constitutional Appears: No Acute Distress - Head Exam Head Exam: ATRAUMATIC, NORMAL INSPECTION - Eye Exam Eye Exam: EOMI, Normal appearance - ENT Exam ENT Exam: Mucous Membranes Moist - Respiratory Exam Respiratory Exam: Clear to Ausculation Bilateral, NORMAL BREATHING PATTERN. absent: Rales, Rhonchi, Wheezes, Respiratory Distress - Cardiovascular Exam Cardiovascular Exam: REGULAR RHYTHM, +S1, +S2 - GI/Abdominal Exam GI & Abdominal Exam: Soft, Tenderness (diffuse mild tenderness with deep palpation ), Normal Bowel Sounds - Extremities Exam Extremities Exam: Pedal Edema. absent: Full ROM (Hx of Polio), Tenderness Additional comments: Skin color changes on feet, bilaterally; toenail abnormalities bilaterally. Left leg and left arm longer than right; right leg is larger in circumference than left. - Neurological Exam Neurological Exam: Alert, Awake, Oriented x3 - Psychiatric Exam Psychiatric exam: Normal Affect, Normal Mood - Skin Skin Exam: Dry, Intact, Warm Assessment and Plan (1) Shortness of breath Status: Acute (2) Abdominal pain Status: Resolved (3) Metastatic cancer Status: Chronic (4) Change of skin color Status: Acute (5) Right femoral vein DVT Status: Acute (6) Electrolyte abnormality Status: Acute (7) History of poliomyelitis Status: Chronic (8) Hypophosphatemia Status: Acute (9) Prophylactic measure Status: Acute - Assessment and Plan (Free Text) Plan: (1) Shortness of breath Assessment and Plan: D-dimer: >5250 CXR: suspect minor bibasilar atelectasis V/Q Scan: no PE Consider CT Angio for tomorrow; not ordered today as patient had CT with contrast in the morning. O2 via nasal cannula as needed Status: Resolved (2) Abdominal pain Assessment and Plan: Likely secondary to metastatic endometrial cancer. * Abdominal/pelvic CT: intraperitoneal and mesenteric metastatic lesions some of which have increased in size; largest lesion in the nadeen hepatis region compresses the liver, pancreas, gallbladder and IVC; moderate amount of ascites ; mild central intrahepatic biliary ductal dilatation; markedly enlarged bulky heterogenous uterus with numerous calcifications consistent with underlying fibroids; small left effusions; no evidence of acute mechanical bowel obstruction. Status: Resolved (3) Metastatic cancer Assessment and Plan: * Hem/Onc consulted- Dr. Lemos, help appreciated Status: Chronic (4) Change of skin color (feet) Assessment and Plan: * Jamar complexion of feet bilaterally * Foot Xray: diffuse soft tissue swelling; swelling left greater than right * Vascular surgery consulted- Dr. Eddy, help appreciated * no intervention at this time * Venous dopplers: right femoral DVT; Left LE-no DVT * Started therapeutic lovenox on 07/24/17 * Arterial PVR: f/u results * Podiatry consulted, Dr. Pino, for toenail care; help appreciated Status: Acute (5) Right femoral vein DVT Assessment and Plan: * Vascular surgery consulted- Dr. Eddy, help appreciated * No intervention at this time * Venous dopplers: right femoral DVT; Left LE-no DVT * Started therapeutic Lovenox on 07/24/17 * Right: acute thrombosis of right proximal femoral vein with mild reduction of venous return. * Left: no DVT Status: Acute (6) Electrolyte abnormalities Assessment and Plan: * Repleted * Follow up repeat labs Status: Acute (7) History of poliomyelitis Assessment and Plan: * Leg length and upper extremity length discrepancies. Patient used crutches and braces at home for mobility; however, one of the braces does not fit properly at this time. Status: Chronic (8) Hypophosphatemia Assessment and Plan: * At admission: 1.0 * Patient was given KPhos 15 mmol IV over 6 hours x 1 dose given on 07/24/17 * Ordered neutraphos once on 07/25/17 * Repeat labs on 07/25/17 showed phosphorous increased to 1.9 * Continue to monitor on AM labs (9) Prophylactic measure Assessment and Plan: * Pediatric Oncologist referral * Heart healthy diet * O2 as needed * C/I SCDs- DVT * PT/OT * Palliative care consult, help appreciated. * Goals of care/Code status discussed with patient; However, Patient does not want to discuss at this time. Status: Acute <Raymon Wells - Last Filed: 07/25/17 19:35> Objective - Vital Signs/Intake and Output Vital Signs (last 24 hours): Temp Pulse Resp BP Pulse Ox 98.9 F 98 H 20 125/71 97 07/25/17 15:40 07/25/17 15:40 07/25/17 15:40 07/25/17 15:40 07/25/17 15:40 Intake and Output: 07/25/17 07/26/17 18:59 06:59 Intake Total 220 Balance 220 - Medications Medications: Current Medications Docusate Sodium (Colace) 100 mg PO TID [facility] Last Admin: 07/25/17 17:38 Dose: Not Given Enoxaparin Sodium (Lovenox) 60 mg SC Q12 [facility] Last Admin: 07/25/17 10:47 Dose: 60 mg Home Med (Home Med) 1 unit PO DAILY [facility] Last Admin: 07/25/17 10:47 Dose: 1 unit Ondansetron HCl (Zofran Inj) 4 mg IVP Q6H PRN PRN Reason: Nausea/Vomiting - Labs Labs: 07/25/17 06:54 07/25/17 06:54 PT 13.4 SECONDS (9.7-12.2) H 07/23/17 02:57 INR 1.2 07/23/17 02:57 APTT 26 SECONDS (21-34) 07/23/17 02:57 Attending/Attestation - Attestation I have personally seen and examined this patient.: Yes I have fully participated in the care of the patient.: Yes I have reviewed all pertinent clinical information, including history, physical exam and plan: Yes Notes (Text): 07/25/17 19:20 Patient was seen and examined at 5:20 PM 07/25/17 569 B Exam, assessment and plan were thoroughly gone over with the resident. Also on ROS: NO SOB/Cough NO Abdominal Pain NO n/v/d NO chest pain NO loss of sensation Can not taste her food which leads to her not wanting to eat. She is tolerating the Ensure Shakes and is requesting more Also on Exam: Respiratory: Chest Port Cath on Left GI: mildly distended, mild tenderness to palpation diffusely but no guarding/ rebound tenderenss Ext: Left Leg longer than Right Leg, Right Lower Leg greater in circumference than the Left Lower Leg, Left Arm longer than the Right Arm Assessments: 1). SOB: resolved 2). Abdominal Pain: mostly if she lays on the Right Side otherwise not present. Likely secondary to metastasis to liver 3). Metastatic Endometrial CA: Exemestane 25 mg PO 1x/day. Next Chemotherapy is scheduled for 07/31/17 at the [facility] 4). Right Femoral DVT: Lovenox 60 mg SC 2x/day. Explained to patient that she will be taught how to administer the Lovenox 07/26/17 and not able to inject herself then will provide Rx for Eliquis. 5). Hypokalemia: resolved 6). Hypophosphotemia: given 15 mmol KPhos 07/24/19 and improved to 1.9. Given Neutrophos x 1 dose 07/25/17. 7). Elevated LFTs: likely secondary to metastasis 8). Leukopenia: likely secondary to chemotherapy. WBC improved to 3.1 07/25/17. 9). Hx Polio: Podiatry has ordered MRI of Right LE for evaluation of peroneal tendons and fascial compartments 10). Anemia of Chronic Disease: likely secondary to the Chemotherapy/Metastatic CA. HgB/Hct are stable 11). Prophylaxis: Colace, Zofran, Protonix, Lovenox Palliative Care Nurse Elizabeth spoke with patient about her wishes. Please see Nurse Bradshaw's full note. Disposition: plan for discharge on 07/26/17 after patient is educated on Lovenox administration. If patient is able to administer Lovenox then we will discharge her on 1.5 mg/kg single daily dose (90 mg). If she is not able to administer the Lovenox then we will discharge on Eliquis. Raymon Wells D.O.
[2017-07-25 09:44] LABS: MAGNESIUM 1.9 mg/dL (1.6-2.3); PHOSPHOROUS 1.9 mg/dL (2.5-4.5)
[2017-07-25] MEDS ORDERED: EXEMESTANE 25 MG PO SCH (10:00)
--- NOTE | 2017-07-25 10:46 | CP.PCM.PN ---
Subjective - Date & Time of Evaluation Date of Evaluation: 07/25/17 Time of Evaluation: 06:45 - Subjective Subjective: Vascular Surgery Pt S&E, NAEO. No compaints at this time. Objective - Vital Signs/Intake and Output Vital Signs (last 24 hours): Temp Pulse Resp BP Pulse Ox 97.7 F 90 18 108/58 L 97 07/25/17 08:01 07/25/17 08:01 07/25/17 08:01 07/25/17 08:01 07/25/17 08:01 - Medications Medications: Current Medications Calcium Acetate (Phoslo) 667 mg PO BIDCC HAN Docusate Sodium (Colace) 100 mg PO TID [facility]AN Enoxaparin Sodium (Lovenox) 60 mg SC Q12 [facility]AN Last Admin: 07/24/17 21:41 Dose: 60 mg Home Med (Home Med) 1 unit PO DAILY [facility] Ondansetron HCl (Zofran Inj) 4 mg IVP Q6H PRN PRN Reason: Nausea/Vomiting - Labs Labs: 07/25/17 06:54 07/25/17 06:54 PT 13.4 SECONDS (9.7-12.2) H 07/23/17 02:57 INR 1.2 07/23/17 02:57 APTT 26 SECONDS (21-34) 07/23/17 02:57 - Constitutional Appears: Non-toxic, No Acute Distress - Head Exam Head Exam: ATRAUMATIC, NORMOCEPHALIC - Eye Exam Eye Exam: EOMI. absent: Scleral icterus - Respiratory Exam Respiratory Exam: NORMAL BREATHING PATTERN. absent: Respiratory Distress - GI/Abdominal Exam GI & Abdominal Exam: Soft. absent: Distended, Tenderness - Extremities Exam Additional comments: +1 pulses DP and popliteal bilateral - Neurological Exam Neurological Exam: Alert, Awake - Skin Skin Exam: Dry, Warm Assessment and Plan - Assessment and Plan (Free Text) Assessment: 62F with RLE DVT and PVD vs chemotherapy neuropathy Plan: US reviewed, DVT in RLE Medical management for DVT Pulses palpable No vascular intervention at this time. D/W Dr. Surjit Sousa PGY4
[2017-07-25] MEDS: Enoxaparin 60 mg Syringe SC SCH ×2 (10:47→21:19)
[2017-07-25] MEDS: EXEMESTANE 25 MG PO SCH (10:47)
--- NOTE | 2017-07-25 11:36 | VASCLAB ---
PROCEDURE: Lower Extremity Venous Duplex Exam. HISTORY: grant complexion of both feet PRIORS: None. TECHNIQUE: Bilateral common femoral, femoral, popliteal and posterior tibial, peroneal and great saphenous veins were evaluated. Flow was assessed with color Doppler, compressibility, assessment of phasic flow and augmentation response. Report prepared by Hima Chou, CHELLY, RVT FINDINGS: RIGHT: 1. Common Femoral Vein: 1.1. Compressibility - Fully compressible: Thrombus - None : Flow - Phasic: Augmentation -Normal: Reflux - None. 2. Femoral Vein: 2.1. Compressibility - Partial: Thrombus - Acute : Flow - Reduced : Augmentation -Reduced: Reflux - None. 3. Popliteal Vein: 3.1. Compressibility - Fully compressible: Thrombus - None : Flow - Phasic: Augmentation -Normal: Reflux - None. 4. Posterior Tibial Vein: 4.1. Compressibility - Fully compressible: Thrombus - None: Flow - Phasic: Augmentation -Normal: Reflux - None. 5. Peroneal Vein: 5.1. Compressibility - Fully compressible: Thrombus - None: Flow - Phasic: Augmentation -Normal: Reflux - None. 6. Great Saphenous Vein: 6.1. Compressibility - Fully compressible: Thrombus - None: Flow - Phasic: Augmentation - Normal: Reflux - None. LEFT: 1. Common Femoral Vein: 1.1. Compressibility - Fully compressible: Thrombus - None: Flow - Phasic: Augmentation -Normal: Reflux - None. 2. Femoral Vein: 2.1. Compressibility - Fully compressible: Thrombus - None: Flow - Phasic: Augmentation -Normal: Reflux - None. 3. Popliteal Vein: 3.1. Compressibility - Fully compressible: Thrombus - None : Flow - Phasic: Augmentation -Normal: Reflux - None. 4. Posterior Tibial Vein: 4.1. Compressibility - Fully compressible: Thrombus - None: Flow - Phasic: Augmentation -Normal: Reflux - None. 5. Peroneal Vein: 5.1. Compressibility - Fully compressible: Thrombus - None: Flow - Phasic: Augmentation -Normal: Reflux - None. 6. Great Saphenous Vein: 6.1. Compressibility - Fully compressible: Thrombus - None: Flow - Phasic: Augmentation - Normal: Reflux - None. OTHER FINDINGS: ANETA Madrigal notified about the findings. Normal flow velocities noted in both anterior and posterior tibial arteries. IMPRESSION: Right: Acute thrombosis of the right proximal femoral vein with mild reduction of the venous return. Left: No evidence of deep or superficial vein thrombosis of the left lower extremity. Normal valve function noted of the left side.
--- NOTE | 2017-07-25 15:03 | CP.PCM.CON ---
History of Present Illness - History of Present Illness History of Present Illness: 62 year old female seen at bedside concerning elongated nails. Pt also reports pedal complaint of right foot pain. Pt has had intermittent periods of pain, graded 4/10 for the last year localized to the outer right foot. Pt has no recall of traumatic injury and no recurrent identifiable causative stimuli. Pt is ambulatory with use of braces bilaterally, and intermittent use of motorized scooter or wheelchair. Pt has been tolerating right side braces less over the past 2 months and is more reliant on scooter and wheel chair. Pt has no other pedal complaints at this time. Past Patient History - Past Medical History & Family History Past Medical History?: Yes - Past Social History Smoking Status: Never Smoked - CARDIAC Hx Cardiac Disorders: No - PULMONARY Hx Asthma: Yes (WHEN ANXIOUS ON ONHALERS LAST ATTACK 5 YRS AGO) - NEUROLOGICAL Hx Paralysis: Yes (POLIO) - HEENT Hx HEENT Problems: Yes (TINNITUS) Other/Comment: pt has very dry mouth sts tongue gets stuck to roof of mouth - RENAL Hx Chronic Kidney Disease: No - ENDOCRINE/METABOLIC Hx Endocrine Disorders: No - HEMATOLOGICAL/ONCOLOGICAL Hx Blood Transfusions: No Hx Blood Transfusion Reaction: No - INTEGUMENTARY Hx Dermatological Problems: No - MUSCULOSKELETAL/RHEUMATOLOGICAL Hx Musculoskeletal Disorders: Yes Hx Falls: No Other/Comment: poliomyelitis - GASTROINTESTINAL Hx Gastrointestinal Disorders: Yes (ABD PAIN) - GENITOURINARY/GYNECOLOGICAL Hx Genitourinary Disorders: Yes Hx Reproductive Disorders: Yes (OVARIAN CYST) Hx Uterine Cancer: Yes - PSYCHIATRIC Hx Anxiety: Yes Hx Substance Use: No - SURGICAL HISTORY Hx Surgeries: Yes (R BREAST, L HIP) - ANESTHESIA Hx Anesthesia Reactions: No Hx Malignant Hyperthermia: No Meds Home Medications: Home Medication List Medication Instructions Recorded Confirmed Type Enoxaparin [Lovenox] 90 mg SQ DAILY #30 syr 07/26/17 Rx Exemestane [Aromasin] 25 mg PO DAILY #30 tab 07/26/17 Rx Allergies/Adverse Reactions: Allergies Allergy/AdvReac Type Severity Reaction Status Date / Time penicillin G AdvReac RASH Verified 09/25/15 07:50 - Medications Medications: Current Medications Docusate Sodium (Colace) 100 mg PO TID [facility] Last Admin: 07/25/17 14:14 Dose: 100 mg Enoxaparin Sodium (Lovenox) 60 mg SC Q12 [facility] Last Admin: 07/25/17 10:47 Dose: 60 mg Home Med (Home Med) 1 unit PO DAILY [facility] Last Admin: 07/25/17 10:47 Dose: 1 unit Ondansetron HCl (Zofran Inj) 4 mg IVP Q6H PRN PRN Reason: Nausea/Vomiting Physical Exam - Constitutional Appears: Well, Non-toxic, No Acute Distress - Extremities Exam Additional comments: Lower extremity focused. DERM: Right foot plantar lateral and weightbearing surface have noted non- blanchable erythematous presentation, which extends to dorso-lateral surface of foot, terminating inferior to ankle joint. This patch is absent callor and fluctuance. Tender to palpation along this dermatological course. No open wounds , lesion, or macerations. Elongated, non-thickened, nail plates noted with mild longitudinal splitting to all 10 nail plates. VASC: DP and PT pulses fully palpable bilaterally. No edema noted bilaterally. Absent pedal hair growth. Neuro: Hypersensation noted to lateral aspect of right foot, disproportionate to stimuli. Protective sensation grossly diminshed bilaterally. MUSK: Bilateral significantly increased arch height with for foot inversion. Significantly decreased muscle strength to pedal, upper leg, and lower leg muscle strength in all 4 cardinal plans. - Neurological Exam Neurological exam: Alert, Oriented x3 - Psychiatric Exam Psychiatric exam: Normal Affect, Normal Mood Results - Vital Signs Recent Vital Signs: Last Vital Signs Temp 97.7 F 07/25/17 08:01 Pulse 90 07/25/17 08:01 Resp 18 07/25/17 08:01 BP 108/58 L 07/25/17 08:01 Pulse Ox 97 07/25/17 08:01 - Labs Result Diagrams: 07/25/17 06:54 07/25/17 06:54 Labs: Laboratory Results - last 24 hr 07/23/17 07/24/17 07/24/17 02:57 16:36 16:36 WBC RBC Hgb Hct MCV MCH MCHC RDW Plt Count MPV Neut % (Auto) Lymph % (Auto) [place] % (Auto) Eos % (Auto) Baso % (Auto) Neut # Lymph # [place] # Eos # Baso # Neutrophils % (Manual) Lymphocytes % (Manual) Monocytes % (Manual) Eosinophils % (Manual) Platelet Estimate Poikilocytosis (manual Anisocytosis (manual) Smear Path Review Sodium 135 Potassium 4.2 Chloride 105 Carbon Dioxide 23 Anion Gap 12 BUN 3 L Creatinine 0.5 L Est GFR ( Amer) > 60 Est GFR (Non-Af Amer) > 60 Random Glucose 86 Calcium 8.2 L Phosphorus 1.0 L* Magnesium 2.0 Total Bilirubin 1.1 AST 150 H D ALT 64 H Alkaline Phosphatase 908 H D Total Protein 7.1 Albumin 3.5 Globulin 3.7 Albumin/Globulin Ratio 0.9 L 07/24/17 07/25/17 07/25/17 16:36 06:54 06:54 WBC 2.6 L D 3.1 L RBC 3.02 L 3.04 L Hgb 8.7 L 8.8 L Hct 27.0 L 27.2 L MCV 89.4 89.5 MCH 28.8 28.9 MCHC 32.2 L 32.3 L RDW 20.5 H 20.7 H Plt Count 281 292 MPV 7.6 7.7 Neut % (Auto) 58.8 59.9 Lymph % (Auto) 16.9 L 18.1 L [place] % (Auto) 20.8 H 18.7 H Eos % (Auto) 2.5 2.6 Baso % (Auto) 1.0 0.7 Neut # 1.6 L 1.8 Lymph # 0.4 L 0.6 L [place] # 0.6 0.6 Eos # 0.1 0.1 Baso # 0.0 0.0 Neutrophils % (Manual) 58 Lymphocytes % (Manual) 22 Monocytes % (Manual) 18 H Eosinophils % (Manual) 2 Platelet Estimate Normal Poikilocytosis (manual Slight Anisocytosis (manual) Slight Smear Path Review Sodium 135 Potassium 3.9 Chloride 107 Carbon Dioxide 22 Anion Gap 11 BUN < 2 L Creatinine 0.5 L Est GFR ( Amer) > 60 Est GFR (Non-Af Amer) > 60 Random Glucose 83 Calcium 7.9 L Phosphorus 1.9 L Magnesium 1.9 Total Bilirubin 1.0 AST 103 H D ALT 60 H Alkaline Phosphatase 782 H Total Protein 6.8 Albumin 3.3 L Globulin 3.5 Albumin/Globulin Ratio 1.0 Assessment & Plan - Assessment and Plan (Free Text) Assessment: 62 year old female with 1) cavus foot type bilaterally 2) elongated nails bilatrally 3) right foot potential neuropraxia Plan: Pt seen and evaluated. Chart, labs, and vitals reviewed. MRI ordered. Discussed with attending, Dr. Pino MRI ordered of right foot to assess musculature of lower exremity All 10 nail plates aseptically debrided to hygienic length. Thank you for allowing podiatry service to partake in the care of this patient. Will continue to follow patient while inhouse. - Date & Time Date: 07/25/17 Time: 11:30
--- NOTE | 2017-07-25 15:47 | CP.PCM.CON ---
History of Present Illness - History of Present Illness History of Present Illness: Palliative care requested for goals of care discussion Patient is a 62 yo female admitted from home with intermittent abdominal pain X few hours. The CT abdomen upon admission was significant for mets. patient also complained of numbness of right lateral foot and cool sensation to touch. The Doppler find thromb to right proximal femoral vein. Vascular surgeon was contacted and no surgical interventions were suggested. Patient is treated empirically. Patient has known Hx of endometrial metastatic cancer diagnosed in 2014. Patient has been on chemo Tx ever since. PMH: metastatic endometrial cancer, anxiety, asthma Soc. Hx: single, lives alone, no children, siblings very supportive Fam. Hx: uncle from lung [place] Review of Systems - Constitutional Constitutional: Weakness - EENT Eyes: absent: As Per HPI, Blind Spots, Blurred Vision, Change in Vision, Decreased Night Vision, Diplopia, Discharge, Dry Eye, Exophthalmos, Floaters, Irritation, Itchy Eyes, Loss of Peripheral Vision, Pain, Photophobia, Requires Corrective Lenses, Sees Flashes, Spots in Vision, Tunnel Vision, Other Visual Disturbances, Loss of Vision, Other Ears: absent: As Per HPI, Decreased Hearing, Ear Discharge, Ear Pain, Tinnitus, Abnormal Hearing, Disequilibrium, Dizziness, Other Nose/Mouth/Throat: absent: As Per HPI, Epistaxis, Nasal Congestion, Nasal Discharge, Nasal Obstruction, Nasal Trauma, Nose Pain, Post Nasal Drip, Sinus Pain, Sinus Pressure, Bleeding Gums, Change in Voice, Dental Pain, Dry Mouth, Dysphagia, Halitosis, Hoarsness, Lip Swelling, Mouth Lesions, Mouth Pain, Odynophagia, Sore Throat, Throat Swelling, Tongue Swelling, Facial Pain, Neck Pain, Neck Mass, Other - Breasts Breasts: absent: As Per HPI, Change in Shape, Mass, Pain, Nipple Discharge, Nipple Inversion, Skin Changes, Swelling, Other - Cardiovascular Cardiovascular: absent: As Per HPI, Acrocyanosis, Chest Pain, Chest Pain at Rest , Chest Pain with Activity, Claudication, Diaphoresis, Dyspnea, Dyspnea on Exertion, Edema, Irregular Heart Rhythm, Pain Radiating to Arm/Neck/Jaw, Leg Edema, Leg Ulcers, Lightheadedness, Orthopnea, Palpitations, Paroxysmal Nocturnal Dyspnea, Pedal Edema, Radiating Pain, Rapid Heart Rate, Slow Heart Rate, Syncope, Other - Respiratory Respiratory: absent: As Per HPI, Cough, Dyspnea, Hemoptysis, Dyspnea on Exertion , Wheezing, Snoring, Stridor, Pain on Inspiration, Chest Congestion, Excessive Mucous Production, Change in Mucous Color, Pain with Coughing, Other - Gastrointestinal Gastrointestinal: Nausea - Genitourinary Genitourinary: absent: As Per HPI, Change in Urinary Stream, Difficulty Urinating, Dysuria, Flank Pain, Hematuria, Pyuria, Nocturia, Urinary Incontinence, Urinary Frequency, Urinary Hesitance, Urinary Urgency, Voiding Freq/Small Amts, Freq UTI, Hx Renal/Bladder Calculi, Hx /Renal Surgery, Bladder Distension, Other - Reproductive: Female Reproductive:Female: Post Menopausal - Menstruation Menstruation: Post Menopausal - Musculoskeletal Musculoskeletal: Numbness, Radiating Pain into Limb - Integumentary Integumentary: Change in Hair - Neurological Neurological: absent: As Per HPI, Abnormal Gait, Abnormal Hearing, Abnormal Movements, Abnormal Speech, Behavioral Changes, Burning Sensations, Confusion, Convulsions, Disequilibrium, Dizziness, Numbness, Focal Weakness, Frequent Falls , Headaches, Lack of Coordination, Loss of Vision, Memory Loss, Paresthesias, Radicular Pain, Restless Legs, Sensory Deficit, Syncope, Tingling, Tremor, Vertigo, Weakness, Other Visual Disturbances, Other - Psychiatric Psychiatric: Anxiety - Endocrine Endocrine: Change in Body Appearance - Hematologic/Lymphatic Hematologic: Easy Bleeding Past Patient History - Past Medical History & Family History Past Medical History?: Yes - Past Social History Smoking Status: Never Smoked - CARDIAC Hx Cardiac Disorders: No - PULMONARY Hx Asthma: Yes (WHEN ANXIOUS ON ONHALERS LAST ATTACK 5 YRS AGO) - NEUROLOGICAL Hx Paralysis: Yes (POLIO) - HEENT Hx HEENT Problems: Yes (TINNITUS) Other/Comment: pt has very dry mouth sts tongue gets stuck to roof of mouth - RENAL Hx Chronic Kidney Disease: No - ENDOCRINE/METABOLIC Hx Endocrine Disorders: No - HEMATOLOGICAL/ONCOLOGICAL Hx Blood Transfusions: No Hx Blood Transfusion Reaction: No - INTEGUMENTARY Hx Dermatological Problems: No - MUSCULOSKELETAL/RHEUMATOLOGICAL Hx Musculoskeletal Disorders: Yes Hx Falls: No Other/Comment: poliomyelitis - GASTROINTESTINAL Hx Gastrointestinal Disorders: Yes (ABD PAIN) - GENITOURINARY/GYNECOLOGICAL Hx Genitourinary Disorders: Yes Hx Reproductive Disorders: Yes (OVARIAN CYST) Hx Uterine Cancer: Yes - PSYCHIATRIC Hx Anxiety: Yes Hx Substance Use: No - SURGICAL HISTORY Hx Surgeries: Yes (R BREAST, L HIP) - ANESTHESIA Hx Anesthesia Reactions: No Hx Malignant Hyperthermia: No Meds Allergies/Adverse Reactions: Allergies Allergy/AdvReac Type Severity Reaction Status Date / Time penicillin G AdvReac RASH Verified 09/25/15 07:50 - Medications Medications: Current Medications Docusate Sodium (Colace) 100 mg PO TID [facility] Last Admin: 07/25/17 14:14 Dose: 100 mg Enoxaparin Sodium (Lovenox) 60 mg SC Q12 [facility] Last Admin: 07/25/17 10:47 Dose: 60 mg Home Med (Home Med) 1 unit PO DAILY [facility] Last Admin: 07/25/17 10:47 Dose: 1 unit Ondansetron HCl (Zofran Inj) 4 mg IVP Q6H PRN PRN Reason: Nausea/Vomiting Physical Exam - Constitutional Appears: Chronically Ill - Head Exam Head Exam: ATRAUMATIC, NORMAL INSPECTION, NORMOCEPHALIC - Eye Exam Eye Exam: EOMI, Normal appearance, PERRL Pupil Exam: NORMAL ACCOMODATION, PERRL - ENT Exam ENT Exam: Mucous Membranes Moist, Normal Exam - Neck Exam Neck exam: Positive for: Normal Inspection - Respiratory Exam Respiratory Exam: Clear to Auscultation Bilateral, NORMAL BREATHING PATTERN - Cardiovascular Exam Cardiovascular Exam: Tachycardia, REGULAR RHYTHM - GI/Abdominal Exam GI & Abdominal Exam: Distended, Soft - Rectal Exam Rectal Exam: Deferred - Extremities Exam Extremities exam: Positive for: pedal edema Additional comments: right lateral foot, subjective poor sensation - Back Exam Back exam: NORMAL INSPECTION - Neurological Exam Neurological exam: Alert, Oriented x3 - Psychiatric Exam Psychiatric exam: Normal Affect, Normal Mood - Skin Skin Exam: Pallor Results - Vital Signs Recent Vital Signs: Last Vital Signs Temp 97.7 F 07/25/17 08:01 Pulse 90 07/25/17 08:01 Resp 18 07/25/17 08:01 BP 108/58 L 07/25/17 08:01 Pulse Ox 97 07/25/17 08:01 - Labs Result Diagrams: 07/25/17 06:54 07/25/17 06:54 Labs: Laboratory Results - last 24 hr 07/24/17 07/24/17 07/24/17 16:36 16:36 16:36 WBC 2.6 L D RBC 3.02 L Hgb 8.7 L Hct 27.0 L MCV 89.4 MCH 28.8 MCHC 32.2 L RDW 20.5 H Plt Count 281 MPV 7.6 Neut % (Auto) 58.8 Lymph % (Auto) 16.9 L [place] % (Auto) 20.8 H Eos % (Auto) 2.5 Baso % (Auto) 1.0 Neut # 1.6 L Lymph # 0.4 L [place] # 0.6 Eos # 0.1 Baso # 0.0 Neutrophils % (Manual) 58 Lymphocytes % (Manual) 22 Monocytes % (Manual) 18 H Eosinophils % (Manual) 2 Platelet Estimate Normal Poikilocytosis (manual Slight Anisocytosis (manual) Slight Sodium 135 Potassium 4.2 Chloride 105 Carbon Dioxide 23 Anion Gap 12 BUN 3 L Creatinine 0.5 L Est GFR ( Amer) > 60 Est GFR (Non-Af Amer) > 60 Random Glucose 86 Calcium 8.2 L Phosphorus 1.0 L* Magnesium 2.0 Total Bilirubin 1.1 AST 150 H D ALT 64 H Alkaline Phosphatase 908 H D Total Protein 7.1 Albumin 3.5 Globulin 3.7 Albumin/Globulin Ratio 0.9 L 07/25/17 07/25/17 06:54 06:54 WBC 3.1 L RBC 3.04 L Hgb 8.8 L Hct 27.2 L MCV 89.5 MCH 28.9 MCHC 32.3 L RDW 20.7 H Plt Count 292 MPV 7.7 Neut % (Auto) 59.9 Lymph % (Auto) 18.1 L [place] % (Auto) 18.7 H Eos % (Auto) 2.6 Baso % (Auto) 0.7 Neut # 1.8 Lymph # 0.6 L [place] # 0.6 Eos # 0.1 Baso # 0.0 Neutrophils % (Manual) Lymphocytes % (Manual) Monocytes % (Manual) Eosinophils % (Manual) Platelet Estimate Poikilocytosis (manual Anisocytosis (manual) Sodium 135 Potassium 3.9 Chloride 107 Carbon Dioxide 22 Anion Gap 11 BUN < 2 L Creatinine 0.5 L Est GFR ( Amer) > 60 Est GFR (Non-Af Amer) > 60 Random Glucose 83 Calcium 7.9 L Phosphorus 1.9 L Magnesium 1.9 Total Bilirubin 1.0 AST 103 H D ALT 60 H Alkaline Phosphatase 782 H Total Protein 6.8 Albumin 3.3 L Globulin 3.5 Albumin/Globulin Ratio 1.0 Assessment & Plan - Assessment and Plan (Free Text) Plan: Palliative consult There is no Advance directive/ Living Will on chart, PPS 40% I reviewed medical records, all diagnostic studies, examined and interviwed patient in the bed. Patient is alert, oriented X 3, in no acute distress, looking chronically ill. Patient denied any acute symptoms. There is a hair loss post chemo Tx. Breath sounds are regular and unlabored. Abdomen is softly distended. Denies constipation. patient reports poor appetite, " eating very, very little". Patient understands those were side effects from chemo Tx. Patient denied abdominal pain. The right foot is with decreased ROM and sensation,but no pain. BP 108/58. WBC 3.1. Goals of care discussed. patient is looking forward more chemo Tx and states not feeling sick. Patient lives alone and reports good support from her siblings. Patient reports being able to attend her own needs such as cooking and cleaning and also taking bus to go for chemo. Code status discussed. Patient was not ready to decide on it but wanted her sister Jessica to be called in case patient loses decision making ability. Impression * This is chronically ill women with advanced cancer * Patient is very stoic and private woman and determined to continue fighting disease * Patient reports good support system at home when she needs it; her siblings are supporting her * Code status discussed but not decided upon yet; patient wants her sister Jessica [phone], to a surrogte decision maker [facility] Suggestion * Would apply all measures to support life * Full Code * Regular discharge home * [place] up as an outpatient with Doctor Lemos.
[2017-07-25 16:58] VITALS: RESP 20
[2017-07-25] MEDS: Potassium & Sodium Phosphate PO ONE ×2 (17:38→21:23)
--- NOTE | 2017-07-25 20:02 | CP.PCM.CON ---
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 The patient recently underwent a change of her chemotherapy due to rising CA125 to ifosfamide. She has been tolerating her treatment fairly well. She does note to a change in taste which has limited her appetite. A CT of the A/P was done in the ER which revealed enlarging intraperitoneal and mesenteric masses causing mass effect in the abdomen. Her abdominal pain has resolved. Past medical history: Stage IV mullerian tract tumor, polio Past surgical history: Portacath Family history: Denies hematologic and oncologic problems Social history: Denies tobacco, alcohol, and illicit drug use. Allergies: Penicillin G Review of systems: All remaining review of systems including HEENT, cardiovacular, respiratory, gastrointestinal, genitourinary, musculoskeletal, dermatologic, neurologic, and psychiatric are negative unless mentioned in the HPI. Past Patient History - Past Medical History & Family History Past Medical History?: Yes - Past Social History Smoking Status: Never Smoked - CARDIAC Hx Cardiac Disorders: No - PULMONARY Hx Asthma: Yes (WHEN ANXIOUS ON ONHALERS LAST ATTACK 5 YRS AGO) - NEUROLOGICAL Hx Paralysis: Yes (POLIO) - HEENT Hx HEENT Problems: Yes (TINNITUS) Other/Comment: pt has very dry mouth sts tongue gets stuck to roof of mouth - RENAL Hx Chronic Kidney Disease: No - ENDOCRINE/METABOLIC Hx Endocrine Disorders: No - HEMATOLOGICAL/ONCOLOGICAL Hx Blood Transfusions: No Hx Blood Transfusion Reaction: No - INTEGUMENTARY Hx Dermatological Problems: No - MUSCULOSKELETAL/RHEUMATOLOGICAL Hx Musculoskeletal Disorders: Yes Hx Falls: No Other/Comment: poliomyelitis - GASTROINTESTINAL Hx Gastrointestinal Disorders: Yes (ABD PAIN) - GENITOURINARY/GYNECOLOGICAL Hx Genitourinary Disorders: Yes Hx Reproductive Disorders: Yes (OVARIAN CYST) Hx Uterine Cancer: Yes - PSYCHIATRIC Hx Anxiety: Yes Hx Substance Use: No - SURGICAL HISTORY Hx Surgeries: Yes (R BREAST, L HIP) - ANESTHESIA Hx Anesthesia Reactions: No Hx Malignant Hyperthermia: No Meds Allergies/Adverse Reactions: Allergies Allergy/AdvReac Type Severity Reaction Status Date / Time penicillin G AdvReac RASH Verified 09/25/15 07:50 - Medications Medications: Current Medications Docusate Sodium (Colace) 100 mg PO TID [facility] Last Admin: 07/25/17 17:38 Dose: Not Given Enoxaparin Sodium (Lovenox) 60 mg SC Q12 [facility] Last Admin: 07/25/17 10:47 Dose: 60 mg Home Med (Home Med) 1 unit PO DAILY [facility] Last Admin: 07/25/17 10:47 Dose: 1 unit Ondansetron HCl (Zofran Inj) 4 mg IVP Q6H PRN PRN Reason: Nausea/Vomiting Pantoprazole Sodium (Protonix Ec Tab) 40 mg PO DAILY [facility] Physical Exam - Head Exam Head Exam: ATRAUMATIC - Eye Exam Eye Exam: Normal appearance - ENT Exam ENT Exam: Mucous Membranes Dry - Respiratory Exam Respiratory Exam: NORMAL BREATHING PATTERN - Cardiovascular Exam Cardiovascular Exam: +S1, +S2 - GI/Abdominal Exam GI & Abdominal Exam: Normal Bowel Sounds - Neurological Exam Neurological exam: Oriented x3 - Psychiatric Exam Psychiatric exam: Normal Affect, Normal Mood - Skin Skin Exam: Warm Results - Vital Signs Recent Vital Signs: Last Vital Signs Temp 98.9 F 07/25/17 15:40 Pulse 98 H 07/25/17 15:40 Resp 20 07/25/17 15:40 BP 125/71 07/25/17 15:40 Pulse Ox 97 07/25/17 15:40 - Labs Result Diagrams: 07/25/17 06:54 07/25/17 06:54 Labs: Laboratory Results - last 24 hr 07/25/17 07/25/17 06:54 06:54 WBC 3.1 L RBC 3.04 L Hgb 8.8 L Hct 27.2 L MCV 89.5 MCH 28.9 MCHC 32.3 L RDW 20.7 H Plt Count 292 MPV 7.7 Neut % (Auto) 59.9 Lymph % (Auto) 18.1 L [place] % (Auto) 18.7 H Eos % (Auto) 2.6 Baso % (Auto) 0.7 Neut # 1.8 Lymph # 0.6 L [place] # 0.6 Eos # 0.1 Baso # 0.0 Sodium 135 Potassium 3.9 Chloride 107 Carbon Dioxide 22 Anion Gap 11 BUN < 2 L Creatinine 0.5 L Est GFR ( Amer) > 60 Est GFR (Non-Af Amer) > 60 Random Glucose 83 Calcium 7.9 L Phosphorus 1.9 L Magnesium 1.9 Total Bilirubin 1.0 AST 103 H D ALT 60 H Alkaline Phosphatase 782 H Total Protein 6.8 Albumin 3.3 L Globulin 3.5 Albumin/Globulin Ratio 1.0 Assessment & Plan (1) Right femoral vein DVT Assessment and Plan: provoked from malignancy agree with therapeutic anticoagulation Status: Acute (2) Leukopenia Assessment and Plan: secondary to chemotherapy improving Status: Acute (3) Anemia Assessment and Plan: chronic disease from malignancy and chemotherapy transfusion support PRN Status: Acute (4) Uterine cancer Assessment and Plan: stage IV CA125 declining on ifosfamide outpatient chemotherapy Thank you for this interesting consult. Status: Acute
--- NOTE | 2017-07-26 07:18 | CP.PCM.DIS ---
<Naz Espinal - Last Filed: 07/26/17 16:11> Provider - Provider Date of Admission: 07/23/17 11:54 Attending physician: Jarad Luna MD Consults: Hem/Onc: Dr. Lemos Vascular Surgery: Dr. Eddy Time Spent in preparation of Discharge (in minutes): 45 Diagnosis - Discharge Diagnosis (1) Shortness of breath Status: Acute (2) Abdominal pain Status: Resolved (3) Metastatic cancer Status: Chronic (4) Change of skin color Status: Acute (5) Right femoral vein DVT Status: Acute (6) Electrolyte abnormality Status: Acute (7) History of poliomyelitis Status: Chronic (8) Hypophosphatemia Status: Acute (9) Prophylactic measure Status: Acute Hospital Course - Lab Results Lab Results: Most Recent Lab Values WBC 3.1 K/uL (4.8-10.8) L 07/25/17 06:54 RBC 3.04 Mil/uL (3.80-5.20) L 07/25/17 06:54 Hgb 8.8 g/dL (11.0-16.0) L 07/25/17 06:54 Hct 27.2 % (34.0-47.0) L 07/25/17 06:54 MCV 89.5 fL (81.0-99.0) 07/25/17 06:54 MCH 28.9 pg (27.0-31.0) 07/25/17 06:54 MCHC 32.3 g/dL (33.0-37.0) L 07/25/17 06:54 RDW 20.7 % (11.5-14.5) H 07/25/17 06:54 Plt Count 292 K/uL (130-400) 07/25/17 06:54 MPV 7.7 fL (7.2-11.7) 07/25/17 06:54 Neut % (Auto) 59.9 % (50.0-75.0) 07/25/17 06:54 Lymph % (Auto) 18.1 % (20.0-40.0) L 07/25/17 06:54 Menard % (Auto) 18.7 % (0.0-10.0) H 07/25/17 06:54 Eos % (Auto) 2.6 % (0.0-4.0) 07/25/17 06:54 Baso % (Auto) 0.7 % (0.0-2.0) 07/25/17 06:54 Neut # 1.8 K/uL (1.8-7.0) 07/25/17 06:54 Lymph # 0.6 K/uL (1.0-4.3) L 07/25/17 06:54 Menard # 0.6 K/uL (0.0-0.8) 07/25/17 06:54 Eos # 0.1 K/uL (0.0-0.7) 07/25/17 06:54 Baso # 0.0 K/uL (0.0-0.2) 07/25/17 06:54 Neutrophils % (Manual) 58 % (50-75) 07/24/17 16:36 Band Neutrophils % 1 % (0-2) 07/23/17 02:57 Lymphocytes % (Manual) 22 % (20-40) 07/24/17 16:36 Monocytes % (Manual) 18 % (0-10) H 07/24/17 16:36 Eosinophils % (Manual) 2 % (0-4) 07/24/17 16:36 Basophils % (Manual) 2 % (0-2) 07/23/17 02:57 Platelet Estimate Normal (NORMAL) 07/24/17 16:36 Large Platelets Present 07/23/17 02:57 Polychromasia Slight 07/23/17 02:57 Hypochromasia (manual) Slight 07/23/17 02:57 Poikilocytosis (manual Slight 07/24/17 16:36 Anisocytosis (manual) Slight 07/24/17 16:36 Target Cells Slight 07/23/17 02:57 Smear Path Review 07/23/17 02:57 PT 13.4 SECONDS (9.7-12.2) H 07/23/17 02:57 INR 1.2 07/23/17 02:57 APTT 26 SECONDS (21-34) 07/23/17 02:57 D-Dimer, Quantitative > 5250 ng/mlDDU (0-243) H 07/23/17 15:15 Sodium 135 mmol/L (132-148) 07/25/17 06:54 Potassium 3.9 mmol/L (3.6-5.2) 07/25/17 06:54 Chloride 107 mmol/L (98-107) 07/25/17 06:54 Carbon Dioxide 22 mmol/L (22-30) 07/25/17 06:54 Anion Gap 11 (10-20) 07/25/17 06:54 BUN < 2 mg/dL (7-17) L 07/25/17 06:54 Creatinine 0.5 mg/dL (0.7-1.2) L 07/25/17 06:54 Est GFR ( Amer) > 60 07/25/17 06:54 Est GFR (Non-Af Amer) > 60 07/25/17 06:54 Random Glucose 83 mg/dL (65-105) 07/25/17 06:54 Calcium 7.9 mg/dl (8.6-10.4) L 07/25/17 06:54 Phosphorus 1.9 mg/dL (2.5-4.5) L 07/25/17 06:54 Magnesium 1.9 mg/dL (1.6-2.3) 07/25/17 06:54 Total Bilirubin 1.0 mg/dL (0.2-1.3) 07/25/17 06:54 AST 103 U/L (14-36) H D 07/25/17 06:54 ALT 60 U/L (9-52) H 07/25/17 06:54 Alkaline Phosphatase 782 U/L (38-126) H 07/25/17 06:54 NT-Pro-B Natriuret Pep 183 pg/mL (0-900) 07/23/17 02:57 Total Protein 6.8 g/dL (6.3-8.3) 07/25/17 06:54 Albumin 3.3 g/dL (3.5-5.0) L 07/25/17 06:54 Globulin 3.5 gm/dL (2.2-3.9) 07/25/17 06:54 Albumin/Globulin Ratio 1.0 (1.0-2.1) 07/25/17 06:54 Lipase 222 U/L (23-300) 07/23/17 02:57 Urine Color Yellow (YELLOW) 07/23/17 02:07 Urine Clarity Clear (Clear) 07/23/17 02:07 Urine pH 6.0 (5.0-8.0) 07/23/17 02:07 Ur Specific [place] 1.011 (1.003-1.030) 07/23/17 02:07 Urine Protein 2+ mg/dL (NEGATIVE) H 07/23/17 02:07 Urine Glucose (UA) 3+ mg/dL (Normal) H 07/23/17 02:07 Urine Ketones Negative mg/dL (NEGATIVE) 07/23/17 02:07 Urine Blood Negative (NEGATIVE) 07/23/17 02:07 Urine Nitrate Negative (NEGATIVE) 07/23/17 02:07 Urine Bilirubin Negative (NEGATIVE) 07/23/17 02:07 Urine Urobilinogen Normal mg/dL (0.2-1.0) 07/23/17 02:07 Ur Leukocyte Esterase Neg Agustín/uL (Negative) 07/23/17 02:07 Urine WBC (Auto) 5 /hpf (0-5) 07/23/17 02:07 Ur Squamous Epith Cells < 1 /hpf (0-5) 07/23/17 02:07 - Hospital Course Hospital Course: CC: abdominal pain, SOB HPI: Patient is a 62 year old female with a past medical history of metastatic endometrial cancer, breast cancer, ovarian cysts, who presents to the ED with abdominal pain that "feels like an accordion- I don't know how to explain it". Patient also reports having abdominal pain with deep inspiration. These symtpoms started last night, which woke her up. Patient reports she had to milder episodes one week ago that went away quickly. She states that sitting up and laying on her right side lessens her symptoms. Patient denies having chest pain, cough, shortness of breath, nausea, vomiting, leg pain/swelling, and fevers. Heme/Onc: Dr. Lemos PMHx: poliomyelitis; ovarian cyst; breast cancer (2004), metastatic endometrial cancer (diagnosed in 2014 when she came into the hospital for abdominal pain) SurgHx: ovarian cyst(1979's), breast cancer- lump removal (2003), hip surgery ( 1960s) Allergies: PCN Medications: see EMR Hospital Course: Patient was admitted on 07/23/17 for abdominal pain and SOB. When examined in the ED, patient complained of abdominal pain that worsened with Inspiration. D-dimer was ordered and results showed elevated d-dimer. VQ scan was ordered (not CTA because patient just previously had abdominal pelvic CT with contrast). VQ scan was negative for PE. Abdominal/pelvic CT was ordered and showed intraperitoneal and mesenteric metastatic lesions some of which have increased in size; largest lesion in the nadeen hepatis region compresses the liver, pancreas, gallbladder and IVC; moderate amount of ascites ; mild central intrahepatic biliary ductal dilatation; markedly enlarged bulky heterogenous uterus with numerous calcifications consistent with underlying fibroids; small left effusions; no evidence of acute mechanical bowel obstruction. Oncology, Dr. Lemos, was consulted for patient's history of metastatic cancer. Patient's abdominal pain resolved shortly after admission. During examination in the ED, patient's lower extremities had a grant complexion. Vascular surgeon, Dr. Eddy was consulted. Venous dopplers were ordered. Patient was found to have a right femoral DVT on dopplers. Therapeutic Lovenox was started. Vascular surgery decided no surgical intervention at this time. On 07/25/17, patient had no complaints and felt well. She stated she still has decreased appetite, therefore, patient was given Ensure. Patient was able to tolerate Ensure and encourage to continue once discharged home. Labs showed the patient was hypokalemic and hypophosphatemic. Patient was given IV and oral supplementation and repeat labs showed improvement in electrolytes. Palliative care was consulted to discuss goals of care with patients. Patient did not want to discuss at length. Patient was seen and examined at bedside in no acute distress today, 07/26/17. Patient feels well and has no complaints. Patient is stable for discharge to home. Patient must continue taking Lovenox daily for right femoral DVT. Nurse instructed patient on how to administer Lovenox. Patient is scheduled for next chemotherapy session next week at [facility]. This is a brief summary of the hospital course. Please see EMR for more details. Discharge Exam - Head Exam Head Exam: ATRAUMATIC - Eye Exam Eye Exam: EOMI, Normal appearance - ENT Exam ENT Exam: Mucous Membranes Moist - Respiratory Exam Respiratory Exam: Clear to PA & Lateral, NORMAL BREATHING PATTERN, UNREMARKABLE. absent: Rales, Rhonchi, Wheezes, Respiratory Distress - Cardiovascular Exam Cardiovascular Exam: REGULAR RHYTHM, +S1, +S2 - GI/Abdominal Exam GI & Abdominal Exam: Normal Bowel Sounds, Soft. absent: Distended, Guarding, Tenderness - Extremities Exam Extremities exam: pedal edema, pedal pulses present Additional comments: Hx/ poliomyelitis; decreased ROM (uses crutches/braces); chronic skin color changes - Neurological Exam Neurological exam: Alert, Oriented x3 - Psychiatric Exam Psychiatric exam: Normal Affect, Normal Mood - Skin Skin Exam: Dry, Intact, Normal Color, Warm Discharge Plan - Discharge Medications Prescriptions: Enoxaparin [Lovenox] 90 mg SQ DAILY #30 syr Exemestane [Aromasin] 25 mg PO DAILY #30 tab - Follow Up Plan Condition: FAIR Disposition: HOME/ ROUTINE Instructions: Enoxaparin (By injection), Exemestane (By mouth), Deep Venous Thrombosis (DC), Ascites (DC), Anemia (DC) Additional Instructions: Patient is stable for discharge to home. Patient must continue all home medications. Patient must start new medication listed below: Lovenox 90mg SC daily- subcutaneous injection daily. (Patient instructed on how to use properly by nurse) Patient is scheduled for next chemotherapy session at [facility] infusion center next week. Patient must follow up with their oncologist, Dr. Lemos, within one week of discharge. Patient must follow up with their PMD within one week of discharge. If symptoms reoccur or worsen, patient should return to the ED. Referrals: Jarad Luna MD [Staff Provider] - <Raymon Wells - Last Filed: 07/26/17 18:47> Provider - Provider Date of Admission: 07/23/17 11:54 Attending physician: Jarad Luna MD Hospital Course - Lab Results Lab Results: Most Recent Lab Values WBC 3.1 K/uL (4.8-10.8) L 07/25/17 06:54 RBC 3.04 Mil/uL (3.80-5.20) L 07/25/17 06:54 Hgb 8.8 g/dL (11.0-16.0) L 07/25/17 06:54 Hct 27.2 % (34.0-47.0) L 07/25/17 06:54 MCV 89.5 fL (81.0-99.0) 07/25/17 06:54 MCH 28.9 pg (27.0-31.0) 07/25/17 06:54 MCHC 32.3 g/dL (33.0-37.0) L 07/25/17 06:54 RDW 20.7 % (11.5-14.5) H 07/25/17 06:54 Plt Count 292 K/uL (130-400) 07/25/17 06:54 MPV 7.7 fL (7.2-11.7) 07/25/17 06:54 Neut % (Auto) 59.9 % (50.0-75.0) 07/25/17 06:54 Lymph % (Auto) 18.1 % (20.0-40.0) L 07/25/17 06:54 Menard % (Auto) 18.7 % (0.0-10.0) H 07/25/17 06:54 Eos % (Auto) 2.6 % (0.0-4.0) 07/25/17 06:54 Baso % (Auto) 0.7 % (0.0-2.0) 07/25/17 06:54 Neut # 1.8 K/uL (1.8-7.0) 07/25/17 06:54 Lymph # 0.6 K/uL (1.0-4.3) L 07/25/17 06:54 Menard # 0.6 K/uL (0.0-0.8) 07/25/17 06:54 Eos # 0.1 K/uL (0.0-0.7) 07/25/17 06:54 Baso # 0.0 K/uL (0.0-0.2) 07/25/17 06:54 Neutrophils % (Manual) 58 % (50-75) 07/24/17 16:36 Band Neutrophils % 1 % (0-2) 07/23/17 02:57 Lymphocytes % (Manual) 22 % (20-40) 07/24/17 16:36 Monocytes % (Manual) 18 % (0-10) H 07/24/17 16:36 Eosinophils % (Manual) 2 % (0-4) 07/24/17 16:36 Basophils % (Manual) 2 % (0-2) 07/23/17 02:57 Platelet Estimate Normal (NORMAL) 07/24/17 16:36 Large Platelets Present 07/23/17 02:57 Polychromasia Slight 07/23/17 02:57 Hypochromasia (manual) Slight 07/23/17 02:57 Poikilocytosis (manual Slight 07/24/17 16:36 Anisocytosis (manual) Slight 07/24/17 16:36 Target Cells Slight 07/23/17 02:57 Smear Path Review 07/23/17 02:57 PT 13.4 SECONDS (9.7-12.2) H 07/23/17 02:57 INR 1.2 07/23/17 02:57 APTT 26 SECONDS (21-34) 07/23/17 02:57 D-Dimer, Quantitative > 5250 ng/mlDDU (0-243) H 07/23/17 15:15 Sodium 135 mmol/L (132-148) 07/25/17 06:54 Potassium 3.9 mmol/L (3.6-5.2) 07/25/17 06:54 Chloride 107 mmol/L (98-107) 07/25/17 06:54 Carbon Dioxide 22 mmol/L (22-30) 07/25/17 06:54 Anion Gap 11 (10-20) 07/25/17 06:54 BUN < 2 mg/dL (7-17) L 07/25/17 06:54 Creatinine 0.5 mg/dL (0.7-1.2) L 07/25/17 06:54 Est GFR ( Amer) > 60 07/25/17 06:54 Est GFR (Non-Af Amer) > 60 07/25/17 06:54 Random Glucose 83 mg/dL (65-105) 07/25/17 06:54 Calcium 7.9 mg/dl (8.6-10.4) L 07/25/17 06:54 Phosphorus 1.9 mg/dL (2.5-4.5) L 07/25/17 06:54 Magnesium 1.9 mg/dL (1.6-2.3) 07/25/17 06:54 Total Bilirubin 1.0 mg/dL (0.2-1.3) 07/25/17 06:54 AST 103 U/L (14-36) H D 07/25/17 06:54 ALT 60 U/L (9-52) H 07/25/17 06:54 Alkaline Phosphatase 782 U/L (38-126) H 07/25/17 06:54 NT-Pro-B Natriuret Pep 183 pg/mL (0-900) 07/23/17 02:57 Total Protein 6.8 g/dL (6.3-8.3) 07/25/17 06:54 Albumin 3.3 g/dL (3.5-5.0) L 07/25/17 06:54 Globulin 3.5 gm/dL (2.2-3.9) 07/25/17 06:54 Albumin/Globulin Ratio 1.0 (1.0-2.1) 07/25/17 06:54 Lipase 222 U/L (23-300) 07/23/17 02:57 Urine Color Yellow (YELLOW) 07/23/17 02:07 Urine Clarity Clear (Clear) 07/23/17 02:07 Urine pH 6.0 (5.0-8.0) 07/23/17 02:07 Ur Specific [place] 1.011 (1.003-1.030) 07/23/17 02:07 Urine Protein 2+ mg/dL (NEGATIVE) H 07/23/17 02:07 Urine Glucose (UA) 3+ mg/dL (Normal) H 07/23/17 02:07 Urine Ketones Negative mg/dL (NEGATIVE) 07/23/17 02:07 Urine Blood Negative (NEGATIVE) 07/23/17 02:07 Urine Nitrate Negative (NEGATIVE) 07/23/17 02:07 Urine Bilirubin Negative (NEGATIVE) 07/23/17 02:07 Urine Urobilinogen Normal mg/dL (0.2-1.0) 07/23/17 02:07 Ur Leukocyte Esterase Neg Agustín/uL (Negative) 07/23/17 02:07 Urine WBC (Auto) 5 /hpf (0-5) 07/23/17 02:07 Ur Squamous Epith Cells < 1 /hpf (0-5) 07/23/17 02:07 Attending/Attestation - Attestation I have personally seen and examined this patient.: Yes I have fully participated in the care of the patient.: Yes I have reviewed all pertinent clinical information, including history, physical exam and plan: Yes Notes (Text): 07/26/17 18:45 Patient was seen and examined at 8:30 AM 07/26/17. Exam, Assessment/Plan, and Discharge Instructions were thoroughly gone over with the resident. Confirmed with patient that she had enough of her home medication. Confirmed with patien that she was to come to infusion center here at [facility] at already scheduled time on 07/31/17 for her next Chemotherapy. Raymon Wells D.O.
[2017-07-26] MEDS ORDERED: Pantoprazole 40 mg EC Tab PO SCH (10:00)
[2017-07-26] MEDS: EXEMESTANE 25 MG PO SCH (11:10)
[2017-07-26] MEDS: Enoxaparin 60 mg Syringe SC SCH (11:11)
--- NOTE | 2017-07-26 11:38 | CP.PCM.PN ---
Subjective - Date & Time of Evaluation Date of Evaluation: 07/26/17 Time of Evaluation: 13:15 - Subjective Subjective: Progress note for Dr. Lemos Patient seen and examined. Patient reports trying to eat more today. Patient reports back pain. Objective - Vital Signs/Intake and Output Vital Signs (last 24 hours): Temp Pulse Resp BP Pulse Ox 98 F 93 H 20 115/71 99 07/26/17 08:31 07/26/17 08:31 07/26/17 08:31 07/26/17 08:31 07/26/17 08:31 - Medications Medications: Current Medications Docusate Sodium (Colace) 100 mg PO TID [facility] Last Admin: 07/26/17 11:10 Dose: 100 mg Enoxaparin Sodium (Lovenox) 60 mg SC Q12 [facility] Last Admin: 07/26/17 11:11 Dose: 60 mg Home Med (Home Med) 1 unit PO DAILY [facility] Last Admin: 07/26/17 11:10 Dose: 1 unit Ondansetron HCl (Zofran Inj) 4 mg IVP Q6H PRN PRN Reason: Nausea/Vomiting Pantoprazole Sodium (Protonix Ec Tab) 40 mg PO DAILY [facility] Last Admin: 07/26/17 11:10 Dose: 40 mg - Labs Labs: 07/25/17 06:54 07/25/17 06:54 PT 13.4 SECONDS (9.7-12.2) H 07/23/17 02:57 INR 1.2 07/23/17 02:57 APTT 26 SECONDS (21-34) 07/23/17 02:57 - Constitutional Appears: Chronically Ill - Head Exam Head Exam: ATRAUMATIC - Eye Exam Eye Exam: EOMI - ENT Exam ENT Exam: Mucous Membranes Moist - Respiratory Exam Respiratory Exam: NORMAL BREATHING PATTERN - Cardiovascular Exam Cardiovascular Exam: +S1, +S2 - GI/Abdominal Exam GI & Abdominal Exam: Soft - Extremities Exam Additional comments: skin color changes to right foot - Neurological Exam Neurological Exam: Alert, Awake - Psychiatric Exam Psychiatric exam: Normal Affect - Skin Skin Exam: Warm Assessment and Plan - Assessment and Plan (Free Text) Assessment: Right femoral vein DVT provoked from malignancy continue therapeutic anticoagulation Leukopenia secondary to chemotherapy improving Anemia chronic disease from malignancy and chemotherapy transfusion support PRN Uterine cancer stage IV CA125 declining on ifosfamide outpatient chemotherapy Patient encouraged to continue dietary supplementation for nutritional support Patient to follow with Dr. Lemos in the office for chemotherapy treatment Plan as per Dr. Lemos
[2017-07-26] MEDS ORDERED: Pneumococcal 23-Valent Vaccine IM ONE (14:21)
[2017-07-26 15:42] VITALS: BP 114/61; PULSE 95; TEMP 97.9; O2SAT 97
--- NOTE | 2017-07-27 14:13 | MRI ---
PROCEDURE: MRI Right Ankle HISTORY: Pain. COMPARISON: None available. TECHNIQUE: Multiecho multiplanar sequences were performed through the right ankle without the use of intravenous contrast. FINDINGS: ANTERIOR EXTENSOR TENDONS: Intact without definitive tear.. MEDIAL FLEXOR TENDONS: Intact without definitive tear.. PERONEAL TENDONS: The upper peroneus brevis tendon is very thin and may be postoperative. The peroneus longus tendon is unremarkable in intrinsic signal overall. The peroneal retinaculum however is mildly edematous potentially reflecting strain or partial tear of the retinaculum. ANTERIOR INFERIOR TIBIOFIBULAR (SYNDESMOSIS): Intact without tear. POSTERIOR INFERIOR TIBIOFIBULAR (SYNDESMOSIS): Intact without tear. ANTERIOR TALOFIBULAR LIGAMENT: Intact without tear. POSTERIOR TALOFIBULAR LIGAMENT: Intact without tear. PLANTAR FASCIA: Unremarkable. SINUS TARSI: Unremarkable. ACHILLES TENDON: Intact without tear. DELTOID LIGAMENT COMPLEX - DEEP: Unremarkable. CALCANEOFIBULAR LIGAMENT: Unremarkable. SPRING (PLANTAR CALCANEO-NAVICULAR) LIGAMENT: Unremarkable. BONES: Normal marrow signal. CARTILAGE: Diminished diffusely throughout the joints of the ankle and hindfoot compatible degenerative joint disease. JOINT FLUID: Normal. MUSCLES: Generally atrophic throughout. OTHER FINDINGS: None . IMPRESSION: No definitive ligament or tendon tear is identified however the peroneal retinaculum appears sprained or possibly partially torn. The peroneus brevis tendon appears retroverted or postoperative. Concordant preliminary report from [facility], 07/26/2017.
--- NOTE | 2017-07-27 14:19 | MRI ---
PROCEDURE: MRI Right Foot HISTORY: Pain. COMPARISON: None available. TECHNIQUE: Multiecho multiplanar sequences were performed through the right foot without the use of intravenous contrast. FINDINGS: BONES: No fracture. Normal marrow signal. MUSCLES: Moderately atrophic but otherwise unremarkable. SOFT TISSUES: Nonspecific subcutaneous fatty edema is appreciated in the midfoot and hindfoot dorsally potentially reflection of limited cellulitis. LISFRANC LIGAMENT: Normal. PLANTAR PLATE: Normal. EXTENSOR TENDONS: Remarkable only for limited increased T2 signal in the sheath related the distal 5th extensor digitorum tendon at the level of the tendon sheath. Consider potential limited tenosynovitis. FLEXOR TENDONS: Intact with no acute tear evident. OTHER FINDINGS: None. IMPRESSION: Potential trace tenosynovitis distal 5th extensor digitorum tendon sheath. No tendon tear appreciated however. Trace cellulitis is identified at the mid and posterior dorsal foot subcutaneous fat/skin. Clinically correlate further. No fracture or bone contusion identified.
== END 2017-07-26 16:41 | disposition home or self-care (01) | DRG 375 ==
LOC: C.ER 01:31 → C.9E 11:54 → C.5S 23:04
PROVIDERS: ADMIT Internal Medicine; ATTEND Internal Medicine
DX: C78.6 Secondary malignant neoplasm of retroperitoneum and peritoneum (principal); C78.7 Secondary malignant neoplasm of liver and intrahepatic bile duct; R18.8 Other ascites; I82.411 Acute embolism and thrombosis of right femoral vein; D64.81 Anemia due to antineoplastic chemotherapy; E83.39 Other disorders of phosphorus metabolism; C54.1 Malignant neoplasm of endometrium; D72.819 Decreased white blood cell count, unspecified; D25.9 Leiomyoma of uterus, unspecified; T45.1X5A Adverse effect of antineoplastic and immunosuppressive drugs, initial encounter; E87.6 Hypokalemia; J45.909 Unspecified asthma, uncomplicated; M21.6X2 Other acquired deformities of left foot; M21.6X1 Other acquired deformities of right foot; L60.2 Onychogryphosis; R62.7 Adult failure to thrive; Z51.5 Encounter for palliative care; Z80.1 Family history of malignant neoplasm of trachea, bronchus and lung; Z85.3 Personal history of malignant neoplasm of breast; Z86.12 Personal history of poliomyelitis; I73.9 Peripheral vascular disease, unspecified; D63.0 Anemia in neoplastic disease

== ENCOUNTER 2017-08-24 12:40 | Inpatient (IN) | payer MEDICARE, MEDICAID ==
[2017-08-24 12:40] VITALS: BMI 30.5
[2017-08-24] MEDS ORDERED: Sodium Chloride 0.9% 1,000 ML IV STA ×2 (13:51→14:39)
--- NOTE | 2017-08-24 14:12 | RAD ---
PROCEDURE: CHEST RADIOGRAPH, 1 VIEW HISTORY: Lethargy, h/o metastatic CA COMPARISON: 07/23/2017 FINDINGS: LUNGS: Clear. PLEURA: No pneumothorax or pleural fluid seen. CARDIOVASCULAR: Normal heart size. Left-sided Port-A-Cath tip cavoatrial junction OSSEOUS STRUCTURES: Bilateral shoulder arthrosis. Diffuse thoracic spondylosis VISUALIZED UPPER ABDOMEN: Normal. OTHER FINDINGS: None. IMPRESSION: No interval acute cardiopulmonary pathology noted
[2017-08-24 14:18] LABS: INR 2.9; PROTHROMBIN TIME 33.9 SECONDS (9.7-12.2)
[2017-08-24 14:21] LABS: HEMOGLOBIN 8.1 g/dL (11.0-16.0); MEAN CORPUSCULAR HEMOGLOBIN 30.1 pg (27.0-31.0); MEAN CORPUSCULAR HGB CONC 31.7 g/dL (33.0-37.0); MEAN PLATELET VOLUME 8.3 fL (7.2-11.7); PLATELET COUNT 450 K/uL (130-400); RBC 2.68 Mil/uL (3.80-5.20)
[2017-08-24 14:22] LABS: MEAN CELL VOLUME 94.8 fL (81.0-99.0); WHITE BLOOD COUNT 21.1 K/uL (4.8-10.8)
--- NOTE | 2017-08-24 14:48 | CT ---
PROCEDURE: CT HEAD WITHOUT CONTRAST. HISTORY: Seizure like activity, lethargy, h/o met. CA. COMPARISON: None available. TECHNIQUE: Axial computed tomography images were obtained through the head/brain without intravenous contrast. Radiation dose: Total exam DLP = 857.63 mGy-cm. This CT exam was performed using one or more of the following dose reduction techniques: Automated exposure control, adjustment of the mA and/or kV according to patient size, and/or use of iterative reconstruction technique. FINDINGS: HEMORRHAGE: No intracranial hemorrhage. BRAIN: No mass effect or edema. Mild diffuse atrophy. No evidence of acute infarct. VENTRICLES: Unremarkable. No hydrocephalus. CALVARIUM: Unremarkable. PARANASAL SINUSES: Unremarkable as visualized. No significant inflammatory changes. MASTOID AIR CELLS: Unremarkable as visualized. No inflammatory changes. OTHER FINDINGS: None. IMPRESSION: No intracranial mass, hemorrhage or evidence of acute infarct.
[2017-08-24 15:01] LABS: LYMPH # 0.2 K/uL (1.0-4.3); MONO # 0.4 K/uL (0.0-0.8); NEUT # 20.5 K/uL (1.8-7.0)
[2017-08-24 15:03] LABS: ANISOCYTOSIS MODERATE; BANDS 1 % (0-2); LYMPHOCYTE 1 % (20-40); MONOCYTE 1 % (0-10); NEUTROPHIL 97 % (50-75); PLATELET ESTIMATE SLIGHTLY INCREASED (NORMAL); POIKILOCYTOSIS SLIGHT; TARGET CELLS SLIGHT; TOTAL CELLS COUNTED 100
[2017-08-24 15:04] LABS: VENOUS BLOOD GAS BASE EXCESS -13.5 mmol/L (0.0-2.0); VENOUS BLOOD GAS PCO2 41 mmHg (40-60); VENOUS BLOOD GAS PO2 27 mm/Hg (30-55); VENOUS BLOOD PH 7.16 (7.32-7.43)
[2017-08-24 15:04] LABS: ALB/GLOB RATIO 0.7 (1.0-2.1); ALBUMIN 2.8 g/dL (3.5-5.0); ALT/SGPT 432 U/L (9-52); BLOOD UREA NITROGEN 10 mg/dL (7-17); CALCIUM 7.4 mg/dl (8.6-10.4); GFR AFRICAN-AMERICAN > 60; GFR NON-AFRICAN AMERICAN > 60; OVALOCYTES SLIGHT
[2017-08-24 15:20] LABS: GRANULAR CAST 18 /lpf (0-1); SQUAMOUS EPITHIAL 1 /hpf (0-5); URINE BACTERIA RARE (<OCC); URINE BILIRUBIN NEGATIVE (NEGATIVE); URINE BLOOD 1+ (NEGATIVE); URINE CLARITY Hazy (Clear); URINE COLOR Yellow (YELLOW); URINE GLUCOSE (UA) 3+ mg/dL (Normal); URINE HYALINE CAST 0-2 /lpf (0-2); URINE LEUKOCYTE ESTERASE NEG Leu/uL (Negative); URINE NITRATE NEGATIVE (NEGATIVE); URINE PROTEIN 2+ mg/dL (NEGATIVE); URINE UROBILINOGEN NORMAL mg/dL (0.2-1.0)
[2017-08-24 15:28] LABS: AST/SGOT 1933 U/L (14-36)
[2017-08-24] MEDS ORDERED: Aztreonam 2 GM in Sodium Chloride 0.9% 100 ML IVPB STA (15:32)
--- NOTE | 2017-08-24 15:47 | CP.PCM.CON ---
<Makayla Espitia - Last Filed: 08/24/17 17:48> History of Present Illness - History of Present Illness History of Present Illness: HPI: 62 year old female with a history of endometrial cancer, breast cancer with ovarian cysts whose sister called EMS after patient was reportedly altered and tired. Sister at bedside states that she visited patient last night and noted that patient appeared to be in pain when she tried cleaning her after she was found incontinent of urine. Last night, she found patient on the floor sitting and moaning after she reportedly fell from her bed. This morning, patient reportedly seemed very tired and her eyes were rolling in the back of her head, which is unusual for her. Sister states that she has not spoken yesterday or today - she typically speaks and takes cares of herself. In the ED , she was found to be hypotensive, tachycardia, hypothermic and was not speaking. Patient was recently admitted here for abdominal pain on 07/23/17 for abdominal pain. She was found to have right femoral DVT at that time and discharged with Lovenox, with no surgical intervention warranted at that time. Abdominal/pelvic CT was ordered on last admission and showed intraperitoneal and mesenteric metastatic lesions some of which have increased in size; largest lesion in the nadeen hepatis region compresses the liver, pancreas, gallbladder and IVC; moderate amount of ascites; mild central intrahepatic biliary ductal dilatation ; markedly enlarged bulky heterogenous uterus with numerous calcifications consistent with underlying fibroids; small left effusions; no evidence of acute mechanical bowel obstruction Heme/Onc: Dr. Lemos PMHx: ovarian cyst; breast cancer (2003), metastatic endometrial cancer ( diagnosed in 2014 when she came into the hospital for abdominal pain), Poliomyelitis SurgHx: ovarian cyst(s), breast cancer- lump removal (2003), hip surgery ( 1960s) Allergies: PCN Medications: see EMR, on chemo (ifosfamide) Social hx: Lives by herself. Denies tobacco, alcohol and illicit drug use. 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 Patient typically takes care of herself, speaks Family hx: no hematologic or oncologic history Review of Systems - Review of Systems Systems not reviewed;Unavailable: Unstable Vital Signs, Altered Mental Status Past Patient History - Infectious Disease Hx of Infectious Diseases: None - Past Medical History & Family History Past Medical History?: Yes - Past Social History Smoking Status: Never Smoked - CARDIAC Hx Cardiac Disorders: No - PULMONARY Hx Asthma: Yes (WHEN ANXIOUS ON ONHALERS LAST ATTACK 5 YRS AGO) - NEUROLOGICAL Hx Paralysis: Yes (POLIO) - HEENT Hx HEENT Problems: Yes (TINNITUS) Other/Comment: pt has very dry mouth sts tongue gets stuck to roof of mouth - RENAL Hx Chronic Kidney Disease: No - ENDOCRINE/METABOLIC Hx Endocrine Disorders: No - HEMATOLOGICAL/ONCOLOGICAL Hx Blood Transfusions: No Hx Blood Transfusion Reaction: No - INTEGUMENTARY Hx Dermatological Problems: No - MUSCULOSKELETAL/RHEUMATOLOGICAL Hx Musculoskeletal Disorders: Yes Hx Falls: No Other/Comment: poliomyelitis - GASTROINTESTINAL Hx Gastrointestinal Disorders: Yes (ABD PAIN) - GENITOURINARY/GYNECOLOGICAL Hx Genitourinary Disorders: Yes Hx Reproductive Disorders: Yes (OVARIAN CYST) Hx Uterine Cancer: Yes - PSYCHIATRIC Hx Anxiety: Yes Hx Substance Use: No - SURGICAL HISTORY Hx Surgeries: Yes (R BREAST, L HIP) - ANESTHESIA Hx Anesthesia: Yes Hx Anesthesia Reactions: No Hx Malignant Hyperthermia: No Meds Allergies/Adverse Reactions: Allergies Allergy/AdvReac Type Severity Reaction Status Date / Time penicillin G AdvReac RASH Verified 08/24/17 12:56 - Medications Medications: Current Medications Aztreonam 2 gm/ Sodium (Chloride) 100 mls @ 200 mls/hr IVPB ONCE STA Stop: 08/24/17 16:01 Physical Exam - Constitutional Appears: Toxic, In Acute Distress (appeared uncomfortable/in pain ), Chronically Ill - Head Exam Head Exam: ATRAUMATIC, NORMAL INSPECTION, NORMOCEPHALIC - ENT Exam ENT Exam: Mucous Membranes Dry - Respiratory Exam Respiratory Exam: Wheezes (b/l ), NORMAL BREATHING PATTERN. absent: Accessory Muscle Use, Rales, Rhonchi - Cardiovascular Exam Cardiovascular Exam: Tachycardia, REGULAR RHYTHM, +S1, +S2 - GI/Abdominal Exam GI & Abdominal Exam: Distended, Normal Bowel Sounds, Soft, Tenderness ( generalized ). absent: Rigid Additional comments: post surgical vertical scar of the lower abdomen - Extremities Exam Extremities exam: Positive for: pedal edema, tenderness. Negative for: normal capillary refill (cap refill approx. 3-4 sec ) Additional comments: Mottling of b/l feet and LEs - Neurological Exam Neurological exam: Altered, Motor Sensory Deficit (history of poliomyelitis ) Additional comments: occasional twitching movements of the face - Skin Skin Exam: Dry, Intact, Mottled (LEs ), Warm (warming blanket on ) Results - Vital Signs Recent Vital Signs: Last Vital Signs Temp 95.2 F L 08/24/17 12:58 Pulse 114 H 08/24/17 15:34 Resp 16 08/24/17 15:34 BP 112/40 L 08/24/17 15:34 Pulse Ox 100 08/24/17 15:34 - Labs Result Diagrams: 08/24/17 14:04 08/24/17 14:04 Labs: Laboratory Results - last 24 hr 08/24/17 08/24/17 08/24/17 14:04 14:04 14:04 WBC 21.1 H D RBC 2.68 L Hgb 8.1 L Hct 25.4 L MCV 94.8 D MCH 30.1 MCHC 31.7 L RDW 29.0 H Plt Count 450 H MPV 8.3 Neut % (Auto) 97.0 H Lymph % (Auto) 1.0 L Henderson % (Auto) 2.0 Eos % (Auto) 0.0 Baso % (Auto) 0.0 Neut # 20.5 H Lymph # 0.2 L Henderson # 0.4 Eos # 0.0 Baso # 0.0 Neutrophils % (Manual) 97 H Band Neutrophils % 1 Lymphocytes % (Manual) 1 L Monocytes % (Manual) 1 Platelet Estimate Slightly increased H Poikilocytosis (manual Slight Anisocytosis (manual) Moderate Target Cells Slight Ovalocytes Slight PT 33.9 H* INR 2.9 APTT 35 H pO2 VBG pH VBG pCO2 VBG HCO3 VBG Total CO2 VBG O2 Sat (Calc) VBG Base Excess VBG Potassium Glucose Lactate Crit Value Called To Crit Value Called By Crit Value Read Back Blood Gas Notified Time Sodium 149 H Potassium 3.1 L Chloride 123 H Carbon Dioxide 16 L Anion Gap 13 BUN 10 Creatinine 0.9 Est GFR ( Amer) > 60 Est GFR (Non-Af Amer) > 60 Random Glucose 100 Calcium 7.4 L Phosphorus 2.5 Magnesium 2.0 Total Bilirubin 1.4 H AST 1933 H ALT 432 H D Alkaline Phosphatase 432 H Troponin I < 0.0120 Total Protein 6.6 Albumin 2.8 L Globulin 3.8 Albumin/Globulin Ratio 0.7 L Venous Blood Potassium Urine Color Urine Clarity Urine pH Ur Specific [place] Urine Protein Urine Glucose (UA) Urine Ketones Urine Blood Urine Nitrate Urine Bilirubin Urine Urobilinogen Ur Leukocyte Esterase Urine WBC (Auto) Urine RBC (Auto) Ur Squamous Epith Cells Urine Bacteria Hyaline Casts Granular Casts (Auto) 08/24/17 08/24/17 14:47 15:00 WBC RBC Hgb Hct MCV MCH MCHC RDW Plt Count MPV Neut % (Auto) Lymph % (Auto) Henderson % (Auto) Eos % (Auto) Baso % (Auto) Neut # Lymph # Henderson # Eos # Baso # Neutrophils % (Manual) Band Neutrophils % Lymphocytes % (Manual) Monocytes % (Manual) Platelet Estimate Poikilocytosis (manual Anisocytosis (manual) Target Cells Ovalocytes PT INR APTT pO2 27 L VBG pH 7.16 L* VBG pCO2 41 VBG HCO3 12.6 VBG Total CO2 15.9 L VBG O2 Sat (Calc) 44.4 VBG Base Excess -13.5 L VBG Potassium 3.1 L Glucose 85 Lactate 4.1 H* Crit Value Called To Bernadine krishnan rn Crit Value Called By Lupe Crit Value Read Back Y Blood Gas Notified Time 1503 Sodium 156.0 H Potassium Chloride 129.0 H Carbon Dioxide Anion Gap BUN Creatinine Est GFR ( Amer) Est GFR (Non-Af Amer) Random Glucose Calcium Phosphorus Magnesium Total Bilirubin AST ALT Alkaline Phosphatase Troponin I Total Protein Albumin Globulin Albumin/Globulin Ratio Venous Blood Potassium 3.1 L Urine Color Yellow Urine Clarity Hazy Urine pH 7.0 Ur Specific [place] 1.012 Urine Protein 2+ H Urine Glucose (UA) 3+ H Urine Ketones Trace Urine Blood 1+ H Urine Nitrate Negative Urine Bilirubin Negative Urine Urobilinogen Normal Ur Leukocyte Esterase Neg Urine WBC (Auto) 3 Urine RBC (Auto) 8 H Ur Squamous Epith Cells 1 Urine Bacteria Rare Hyaline Casts 0-2 Granular Casts (Auto) 18 Assessment & Plan - Assessment and Plan (Free Text) Assessment: 62F with PMH metastatic endometrial cancer, breast cancer, ovarian cysts, recent right femoral DVT on Lovenox, and poliomyelitis presenting with AMS and found to have sepsis of unknown cause at this time Plan: Infectious disease - Sepsis * Temp 95.2 - warming blanket given in ED * Hypotensive 86/54 - bolus 3L of NS * Tachycardic 119 * Lactate 4.1 * WBC 21.1 with bands of 1 * Aztreonam 2g IV Q8H * Blood culturesx2 ordered * Urine culture ordered. Neuro - AMS * Altered, not speaking although usually verbal at baseline * Hx of poliomyelitis - does not ambulate. ambulates with metal prosthesis and wheelchair at home. * CT head: No intracranial mass, hemorrhage or evidence of acute infarct. Cardiovascular - history of DVT * Hypotensive 86/54- bolus 3L of NS * Tachycardic 119 * EKG: Sinus tachycardia at 114 with short ND interval, nonspecific ST-T wave abnormalities * Arterial and venous dopplers of lower extremities ordered. * Vascular surgeon Dr. Eddy consulted, help appreciated. * Spoke with regional vice president surgical sales who says no intervention is likely needed at this time due to adequate arterial supply MSK - s/p fall * Pelvis X Ray: no acute fracture. remodeling of right acetabulum with superior subluxation right femoral head. Respiratory * 100% on O2 sat * VBG: pH 7.16 pCO2 41 pO2 27 HCO3 12.6 * CXR: No interval acute cardiopulmonary pathology noted Hematology/Onc - history of metastatic endometrial CA and breast CA; history of right femoral DVT * H&H 8.1/25.4 * Plt 450 * PT 33.9 * INR 2.9 * APTT 35 * Oncologist Dr. Lemos consulted, help appreciated. * hold home Lovenox 90mg SC daily Fluids, electrolytes and nutrition * Na 149 * K 3.1 * Cl 123 * HCO3 16 * Calcium 7.4 * Phosphorous 2.5 * Mag 2.0 * albumin 2.8 * NS IV fluids GI - intraperitoneal/mesenteric metastatic lesions * Abdominal US ordered * CT Abd/Pel from previous admission (07/23/17) showed intraperitoneal and mesenteric metastatic lesions some of which have increased in size; largest lesion in the nadeen hepatis region compresses the liver, pancreas, gallbladder and IVC Renal * Is & Os * BUN 10 * Cr 0.9 * UA - negative PPX: * GI: protonix 40 mg * 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 <Josue Mak - Last Filed: 08/24/17 18:50> Meds - Medications Medications: Current Medications Aztreonam 2 gm/ Sodium (Chloride) 100 mls @ 200 mls/hr IVPB Q8H HAN Sodium Chloride (Sodium Chloride 0.9%) 1,000 mls @ 100 mls/hr IV .Q10H HAN Last Admin: 08/24/17 18:09 Dose: 100 mls/hr Pantoprazole Sodium (Protonix Inj) 40 mg IVP DAILY [facility] Results - Vital Signs Recent Vital Signs: Last Vital Signs Temp 96.4 F L 08/24/17 15:58 Pulse 123 H 08/24/17 16:38 Resp 20 08/24/17 16:38 BP 119/44 L 08/24/17 16:38 Pulse Ox 100 08/24/17 16:38 - Labs Result Diagrams: 08/24/17 14:04 08/24/17 14:04 Labs: Laboratory Results - last 24 hr 08/24/17 08/24/17 08/24/17 14:04 14:04 14:04 WBC 21.1 H D RBC 2.68 L Hgb 8.1 L Hct 25.4 L MCV 94.8 D MCH 30.1 MCHC 31.7 L RDW 29.0 H Plt Count 450 H MPV 8.3 Neut % (Auto) 97.0 H Lymph % (Auto) 1.0 L Henderson % (Auto) 2.0 Eos % (Auto) 0.0 Baso % (Auto) 0.0 Neut # 20.5 H Lymph # 0.2 L Henderson # 0.4 Eos # 0.0 Baso # 0.0 Neutrophils % (Manual) 97 H Band Neutrophils % 1 Lymphocytes % (Manual) 1 L Monocytes % (Manual) 1 Platelet Estimate Slightly increased H Poikilocytosis (manual Slight Anisocytosis (manual) Moderate Target Cells Slight Ovalocytes Slight PT 33.9 H* INR 2.9 APTT 35 H pO2 VBG pH VBG pCO2 VBG HCO3 VBG Total CO2 VBG O2 Sat (Calc) VBG Base Excess VBG Potassium Glucose Lactate FiO2 Crit Value Called To Crit Value Called By Crit Value Read Back Blood Gas Notified Time Sodium 149 H Potassium 3.1 L Chloride 123 H Carbon Dioxide 16 L Anion Gap 13 BUN 10 Creatinine 0.9 Est GFR ( Amer) > 60 Est GFR (Non-Af Amer) > 60 Random Glucose 100 Calcium 7.4 L Phosphorus 2.5 Magnesium 2.0 Total Bilirubin 1.4 H AST 1933 H ALT 432 H D Alkaline Phosphatase 432 H Troponin I < 0.0120 Total Protein 6.6 Albumin 2.8 L Globulin 3.8 Albumin/Globulin Ratio 0.7 L Venous Blood Potassium Urine Color Urine Clarity Urine pH Ur Specific [place] Urine Protein Urine Glucose (UA) Urine Ketones Urine Blood Urine Nitrate Urine Bilirubin Urine Urobilinogen Ur Leukocyte Esterase Urine WBC (Auto) Urine RBC (Auto) Ur Squamous Epith Cells Urine Bacteria Hyaline Casts Granular Casts (Auto) 08/24/17 08/24/17 08/24/17 14:47 15:00 17:55 WBC RBC Hgb Hct MCV MCH MCHC RDW Plt Count MPV Neut % (Auto) Lymph % (Auto) Henderson % (Auto) Eos % (Auto) Baso % (Auto) Neut # Lymph # Henderson # Eos # Baso # Neutrophils % (Manual) Band Neutrophils % Lymphocytes % (Manual) Monocytes % (Manual) Platelet Estimate Poikilocytosis (manual Anisocytosis (manual) Target Cells Ovalocytes PT INR APTT pO2 27 L 48 VBG pH 7.16 L* 7.25 L VBG pCO2 41 34 L VBG HCO3 12.6 15.5 VBG Total CO2 15.9 L 15.9 L VBG O2 Sat (Calc) 44.4 86.7 H VBG Base Excess -13.5 L -11.3 L VBG Potassium 3.1 L 2.9 L Glucose 85 100 Lactate 4.1 H* 1.6 FiO2 21.0 Crit Value Called To Bernadine krishnan rn Crit Value Called By Lupe Crit Value Read Back Y Blood Gas Notified Time 1503 Sodium 156.0 H 154.0 H Potassium Chloride 129.0 H 130.0 H Carbon Dioxide Anion Gap BUN Creatinine Est GFR ( Amer) Est GFR (Non-Af Amer) Random Glucose Calcium Phosphorus Magnesium Total Bilirubin AST ALT Alkaline Phosphatase Troponin I Total Protein Albumin Globulin Albumin/Globulin Ratio Venous Blood Potassium 3.1 L 2.9 L Urine Color Yellow Urine Clarity Hazy Urine pH 7.0 Ur Specific [place] 1.012 Urine Protein 2+ H Urine Glucose (UA) 3+ H Urine Ketones Trace Urine Blood 1+ H Urine Nitrate Negative Urine Bilirubin Negative Urine Urobilinogen Normal Ur Leukocyte Esterase Neg Urine WBC (Auto) 3 Urine RBC (Auto) 8 H Ur Squamous Epith Cells 1 Urine Bacteria Rare Hyaline Casts 0-2 Granular Casts (Auto) 18 Attending/Attestation - Attestation I have personally seen and examined this patient.: Yes I have fully participated in the care of the patient.: Yes I have reviewed all pertinent clinical information: Yes Notes (Text): 08/24/17 18:49 Today: July The Patient was seen and examined at the bedside, Medical records reviewed, and management issues were discussed and formulated with the house staff. I have reviewed all the relevant clinical, laboratory, hemodynamic, radiographic data and medications Events reviewed Pain issues, skin care, head of the bed elevation, glycemic control were addressed. Agree with above resident's assessment and treatment plans of care as transcribed in Dr. Espitia note.
[2017-08-24] MEDS ORDERED: Sodium Chloride 0.9% 1,000 ML IV ONE (15:50)
[2017-08-24] MEDS ORDERED: Aztreonam 2 GM in Dextrose 5% In Water 100 ML IVPB STA (15:56)
--- NOTE | 2017-08-24 15:57 | PCM.SEPTIC ---
Sepsis Progress Note - Reassessment Type Date of Evaluation: 08/24/17 Time of Evaluation: 18:00 Reassessment Type: Non-invasive reassessment - Non Invasive Reassessment Were the most recent vital sign reviewed: Yes Vital Sign (Latest): Temp Pulse Resp BP Pulse Ox 95.2 F L 114 H 16 112/40 L 100 08/24/17 12:58 08/24/17 15:34 08/24/17 15:34 08/24/17 15:34 08/24/17 15:34 Cardiovascular: Yes: Tachycardia Respiratory: Yes: Normal Breath Sounds. No: Rales, Rhonchi, Wheezing Capillary Refill: Normal (Less than 2 sec) Skin: Normal Color, Warm, Mottled (LEs )
--- NOTE | 2017-08-24 16:01 | C.PDOC ---
Time Seen by Provider: 08/24/17 13:19 Chief Complaint (Nursing): Altered Mental Status History Per: Patient, Family History/Exam Limitations: Clinical Condition Onset/Duration Of Symptoms: Days (1) Current Symptoms Are (Timing): Still Present Usual Baseline: Alert Oriented, Wheelchair Bound Exacerbating Factor(s): Trauma (Fell from bed), Other (Metastatic Cancer) Use Of Anticoag/Antiplatelets: Yes Severity: Severe Recent travel outside of the [place]: No Additional History Per: Prior Records Associated Symptoms: Seizure (?), Disoriented, Confused, Falling, Weakness Past Medical History Reviewed: Historical Data, Nursing Documentation, Vital Signs Vital Signs: Last Vital Signs Temp 95.2 F L 08/24/17 12:58 Pulse 114 H 08/24/17 15:34 Resp 16 08/24/17 15:34 BP 112/40 L 08/24/17 15:34 Pulse Ox 100 08/24/17 15:34 - Medical History PMH: Anxiety, Asthma (WHEN ANXIOUS ON ONHALERS LAST ATTACK 5 YRS AGO), Colonic Polyps, Malignancy (Metastatic Speech Communication Professor cancer) Surgical History: Family History: States: Unknown Family Hx - Social History Hx Tobacco Use: No Hx Alcohol Use: Yes Hx Substance Use: No - Immunization History Hx Tetanus Toxoid Vaccination: No Hx Influenza Vaccination: No Hx Pneumococcal Vaccination: No Review Of Systems Constitutional: Positive for: Weakness Respiratory: Negative for: Cough Gastrointestinal: Negative for: Vomiting Neurological: Positive for: Seizures (?), Altered Mental Status Physical Exam - Physical Exam Appears: Confused, Chronically Ill, Other (Lethargic) Skin: Normal Color, Warm, Dry Head: Atraumatic Eye(s): bilateral: PERRL Oral Mucosa: Dry Neck: Normal ROM, No Step Off Deformity, Supple Cardiovascular: Rhythm Regular (tachycardia) Respiratory: Normal Breath Sounds, No Accessory Muscle Use Gastrointestinal/Abdominal: Tenderness, Distention Neurological/Psych: Eyes Open With Command, Other (Moving b/l extremities) Gait: Unable To Assess ED Course And Treatment - Laboratory Results Result Diagrams: 08/24/17 14:04 08/24/17 14:04 Lab Interpretation: Abnormal Interpretation Of Abnormal: Leukocytosis. Anemia. Lactic acidosis. ECG: Interpreted By Me, Viewed By Me ECG Rhythm: Sinus Tachycardia, Nonspecific Changes Rate From EC O2 Sat by Pulse Oximetry: 100 Pulse Ox Interpretation: Normal - Radiology CXR: Viewed By Me, Read By Radiologist CXR Interpretation: Yes: No Acute Disease Progress Note: Pt was found to be hypotensive, tachycardic and hypothermic in the ED. Code sepsis was activated. - Physician Consult Information Physician Contacted: Josue Mak Outcome Of Conversation: He evaluated pt in the ED and accepted to ICU. Progress - Interventions Interventions:: Observation, Intravenous fluid - Data Reviewed Data Reviewed: Lab, Diagnostic imaging, EKG, Old records - Patient Status Patient status: Partially improved - Critical Care Citical Care: Excluding Proc Time Critical Care Time: 60 minutes - Continuity of Care Discussed patient case with:: Patient, Family-HIPPA compliant, ED Nurse, PMD Discussed pt. case with corporate travel consultant/specialty: Oncology, Pulmonary/Crit. Care - Patient Plan Patient Plan: Admission, ICU Disposition Discussed With DrKurtis: [place] Comment: He accepted pt on his service. Doctor Will See Patient In The: Hospital Counseled Patient/Family Regarding: Studies Performed, Diagnosis - Disposition Disposition: HOSPITALIZED Disposition Time: 16:06 Condition: CRITICAL - Clinical Impression Clinical Impression: Sepsis, On antineoplastic chemotherapy
--- NOTE | 2017-08-24 16:04 | RAD ---
PROCEDURE: Radiographs of the pelvis. HISTORY: Fall COMPARISON: None. FINDINGS: BONES: Pelvic Bones: Unremarkable. Hips: There is remodeling of the right acetabulum with superior subluxation of the right femoral head. JOINTS: Sacroiliac Joints: Unremarkable. Pubic Symphysis: Unremarkable. OTHER FINDINGS: None. IMPRESSION: No acute fracture. Remodeling of right acetabulum with superior subluxation right femoral head.
[2017-08-24 17:58] LABS: VENOUS BLOOD GAS BASE EXCESS -11.3 mmol/L (0.0-2.0); VENOUS BLOOD GAS PCO2 34 mmHg (40-60); VENOUS BLOOD GAS PO2 48 mm/Hg (30-55); VENOUS BLOOD PH 7.25 (7.32-7.43)
--- NOTE | 2017-08-24 18:08 | CP.PCM.CON ---
History of Present Illness - History of Present Illness History of Present Illness: Vascular Surgery Dr. Eddy 62 yo F w/ extensive PMHx was BIBA after pt was found altered by sister. Pt is currently altered and unable to answer questions. History obtained from EMR. Per documentation, the patient seemed to be in pain and not herself last evening when the patient was visited by her sister. The patient was found in the floor and incontinent of urine last evening. This morning when the sister went to check on the patient, the patient was very lethargic, minimally arousable, and nonverbal. In the ED, pt was found to be hypothermic, hypotensive , and tachycardic. Pt was admitted for AMS and sepsis. Surgery is consulted for B/L LE edema and dusky legs. PMHx: ovarian cyst, breast cancer, metastatic endometrial cancer, Poliomyelitis , R femoral DVT Meds: reviewed in chart ALL: PCN PSHx: ovarian cystectomy, lumpectomy, hip surgery SHx: all ADLs, lives alone, wheelchair; denies tobacco, EtOH, drug use FHx: noncontributory Review of Systems - Review of Systems Systems not reviewed;Unavailable: Altered Mental Status Past Patient History - Infectious Disease Hx of Infectious Diseases: None - Past Medical History & Family History Past Medical History?: Yes - Past Social History Smoking Status: Never Smoked - CARDIAC Hx Cardiac Disorders: No - PULMONARY Hx Asthma: Yes (WHEN ANXIOUS ON ONHALERS LAST ATTACK 5 YRS AGO) - NEUROLOGICAL Hx Paralysis: Yes (POLIO) - HEENT Hx HEENT Problems: Yes (TINNITUS) Other/Comment: pt has very dry mouth sts tongue gets stuck to roof of mouth - RENAL Hx Chronic Kidney Disease: No - ENDOCRINE/METABOLIC Hx Endocrine Disorders: No - HEMATOLOGICAL/ONCOLOGICAL Hx Blood Transfusions: No Hx Blood Transfusion Reaction: No - INTEGUMENTARY Hx Dermatological Problems: No - MUSCULOSKELETAL/RHEUMATOLOGICAL Hx Musculoskeletal Disorders: Yes Hx Falls: No Other/Comment: poliomyelitis - GASTROINTESTINAL Hx Gastrointestinal Disorders: Yes (ABD PAIN) - GENITOURINARY/GYNECOLOGICAL Hx Genitourinary Disorders: Yes Hx Reproductive Disorders: Yes (OVARIAN CYST) Hx Uterine Cancer: Yes - PSYCHIATRIC Hx Anxiety: Yes Hx Substance Use: No - SURGICAL HISTORY Hx Surgeries: Yes (R BREAST, L HIP) - ANESTHESIA Hx Anesthesia: Yes Hx Anesthesia Reactions: No Hx Malignant Hyperthermia: No Meds Allergies/Adverse Reactions: Allergies Allergy/AdvReac Type Severity Reaction Status Date / Time penicillin G AdvReac RASH Verified 08/24/17 12:56 - Medications Medications: Current Medications Aztreonam 2 gm/ Sodium (Chloride) 100 mls @ 200 mls/hr IVPB Q8H HAN Sodium Chloride (Sodium Chloride 0.9%) 1,000 mls @ 100 mls/hr IV .Q10H HAN Physical Exam - Constitutional Appears: Non-toxic, Confused, Chronically Ill - Head Exam Head Exam: NORMAL INSPECTION - Eye Exam Eye Exam: Normal appearance, PERRL - ENT Exam ENT Exam: Mucous Membranes Moist - Respiratory Exam Respiratory Exam: NORMAL BREATHING PATTERN. absent: Accessory Muscle Use, Respiratory Distress - Cardiovascular Exam Cardiovascular Exam: Tachycardia - GI/Abdominal Exam GI & Abdominal Exam: Soft. absent: Distended - Extremities Exam Additional comments: 3+ pitting edema B/L palpable DP/PT pulses B/L delayed capillary refill toes dusky but warm B/L LE equally warm - Neurological Exam Neurological exam: Altered - Skin Skin Exam: Dry, Intact, Warm Results - Vital Signs Recent Vital Signs: Last Vital Signs Temp 96.4 F L 08/24/17 15:58 Pulse 123 H 08/24/17 16:38 Resp 20 08/24/17 16:38 BP 119/44 L 08/24/17 16:38 Pulse Ox 100 08/24/17 16:38 - Labs Result Diagrams: 08/24/17 14:04 08/24/17 14:04 Labs: Laboratory Results - last 24 hr 08/24/17 08/24/17 08/24/17 14:04 14:04 14:04 WBC 21.1 H D RBC 2.68 L Hgb 8.1 L Hct 25.4 L MCV 94.8 D MCH 30.1 MCHC 31.7 L RDW 29.0 H Plt Count 450 H MPV 8.3 Neut % (Auto) 97.0 H Lymph % (Auto) 1.0 L [place] % (Auto) 2.0 Eos % (Auto) 0.0 Baso % (Auto) 0.0 Neut # 20.5 H Lymph # 0.2 L [place] # 0.4 Eos # 0.0 Baso # 0.0 Neutrophils % (Manual) 97 H Band Neutrophils % 1 Lymphocytes % (Manual) 1 L Monocytes % (Manual) 1 Platelet Estimate Slightly increased H Poikilocytosis (manual Slight Anisocytosis (manual) Moderate Target Cells Slight Ovalocytes Slight PT 33.9 H* INR 2.9 APTT 35 H pO2 VBG pH VBG pCO2 VBG HCO3 VBG Total CO2 VBG O2 Sat (Calc) VBG Base Excess VBG Potassium Glucose Lactate Crit Value Called To Crit Value Called By Crit Value Read Back Blood Gas Notified Time Sodium 149 H Potassium 3.1 L Chloride 123 H Carbon Dioxide 16 L Anion Gap 13 BUN 10 Creatinine 0.9 Est GFR ( Amer) > 60 Est GFR (Non-Af Amer) > 60 Random Glucose 100 Calcium 7.4 L Phosphorus 2.5 Magnesium 2.0 Total Bilirubin 1.4 H AST 1933 H ALT 432 H D Alkaline Phosphatase 432 H Troponin I < 0.0120 Total Protein 6.6 Albumin 2.8 L Globulin 3.8 Albumin/Globulin Ratio 0.7 L Venous Blood Potassium Urine Color Urine Clarity Urine pH Ur Specific [place] Urine Protein Urine Glucose (UA) Urine Ketones Urine Blood Urine Nitrate Urine Bilirubin Urine Urobilinogen Ur Leukocyte Esterase Urine WBC (Auto) Urine RBC (Auto) Ur Squamous Epith Cells Urine Bacteria Hyaline Casts Granular Casts (Auto) 08/24/17 08/24/17 14:47 15:00 WBC RBC Hgb Hct MCV MCH MCHC RDW Plt Count MPV Neut % (Auto) Lymph % (Auto) [place] % (Auto) Eos % (Auto) Baso % (Auto) Neut # Lymph # [place] # Eos # Baso # Neutrophils % (Manual) Band Neutrophils % Lymphocytes % (Manual) Monocytes % (Manual) Platelet Estimate Poikilocytosis (manual Anisocytosis (manual) Target Cells Ovalocytes PT INR APTT pO2 27 L VBG pH 7.16 L* VBG pCO2 41 VBG HCO3 12.6 VBG Total CO2 15.9 L VBG O2 Sat (Calc) 44.4 VBG Base Excess -13.5 L VBG Potassium 3.1 L Glucose 85 Lactate 4.1 H* Crit Value Called To Bernadine krishnan rn Crit Value Called By Lupe Crit Value Read Back Y Blood Gas Notified Time 1503 Sodium 156.0 H Potassium Chloride 129.0 H Carbon Dioxide Anion Gap BUN Creatinine Est GFR ( Amer) Est GFR (Non-Af Amer) Random Glucose Calcium Phosphorus Magnesium Total Bilirubin AST ALT Alkaline Phosphatase Troponin I Total Protein Albumin Globulin Albumin/Globulin Ratio Venous Blood Potassium 3.1 L Urine Color Yellow Urine Clarity Hazy Urine pH 7.0 Ur Specific [place] 1.012 Urine Protein 2+ H Urine Glucose (UA) 3+ H Urine Ketones Trace Urine Blood 1+ H Urine Nitrate Negative Urine Bilirubin Negative Urine Urobilinogen Normal Ur Leukocyte Esterase Neg Urine WBC (Auto) 3 Urine RBC (Auto) 8 H Ur Squamous Epith Cells 1 Urine Bacteria Rare Hyaline Casts 0-2 Granular Casts (Auto) 18 - Imaging and Cardiology CT scan - head Status: Report reviewed by me Chest x-ray Status: Report reviewed by me Venous US Status: Pending US - abdomen Status: Pending CT scan - abdomen Status: Pending Assessment & Plan - Assessment and Plan (Free Text) Assessment: 62 y/o F w/ AMS consulted for B/L LE edema - Hx of R DVT - avoid SCDs - recommend starting anti-coagulation - f/u LE dopplers - ordered CTA, venous phase to assess IVC and iliac veins - f/u abd US - f/u repeat lactate - cont medical management Pt discussed w/ Dr. Surjit Bagley DO PGY2
[2017-08-24] MEDS: Sodium Chloride 0.9% 1,000 ML IV SCH (18:09)
--- NOTE | 2017-08-24 19:30 | CP.PCM.HP ---
Past Patient History - Infectious Disease Hx of Infectious Diseases: None - Past Medical History & Family History Past Medical History?: Yes - Past Social History Smoking Status: Never Smoked - CARDIAC Hx Cardiac Disorders: No - PULMONARY Hx Asthma: Yes (WHEN ANXIOUS ON ONHALERS LAST ATTACK 5 YRS AGO) - NEUROLOGICAL Hx Paralysis: Yes (POLIO) - HEENT Hx HEENT Problems: Yes (TINNITUS) Other/Comment: pt has very dry mouth sts tongue gets stuck to roof of mouth - RENAL Hx Chronic Kidney Disease: No - ENDOCRINE/METABOLIC Hx Endocrine Disorders: No - HEMATOLOGICAL/ONCOLOGICAL Hx Blood Transfusions: No Hx Blood Transfusion Reaction: No - INTEGUMENTARY Hx Dermatological Problems: No - MUSCULOSKELETAL/RHEUMATOLOGICAL Hx Musculoskeletal Disorders: Yes Hx Falls: No Other/Comment: poliomyelitis - GASTROINTESTINAL Hx Gastrointestinal Disorders: Yes (ABD PAIN) - GENITOURINARY/GYNECOLOGICAL Hx Genitourinary Disorders: Yes Hx Reproductive Disorders: Yes (OVARIAN CYST) Hx Uterine Cancer: Yes - PSYCHIATRIC Hx Anxiety: Yes Hx Substance Use: No - SURGICAL HISTORY Hx Surgeries: Yes (R BREAST, L HIP) - ANESTHESIA Hx Anesthesia: Yes Hx Anesthesia Reactions: No Hx Malignant Hyperthermia: No Meds Allergies/Adverse Reactions: Allergies Allergy/AdvReac Type Severity Reaction Status Date / Time penicillin G AdvReac RASH Verified 08/24/17 12:56 Physical Exam - Constitutional Appears: Well - Head Exam Head Exam: ATRAUMATIC, NORMAL INSPECTION, NORMOCEPHALIC - Eye Exam Eye Exam: EOMI, Normal appearance, PERRL Pupil Exam: NORMAL ACCOMODATION, PERRL - ENT Exam ENT Exam: Mucous Membranes Moist, Normal Exam - Neck Exam Neck exam: Positive for: Normal Inspection - Respiratory Exam Respiratory Exam: Decreased Breath Sounds - Cardiovascular Exam Cardiovascular Exam: REGULAR RHYTHM, +S1, +S2 - GI/Abdominal Exam GI & Abdominal Exam: Diminished Bowel Sounds, Soft - Rectal Exam Rectal Exam: Deferred Results - Vital Signs Recent Vital Signs: Last Vital Signs Temp 96.4 F L 08/24/17 15:58 Pulse 118 H 08/24/17 19:20 Resp 16 08/24/17 19:20 BP 115/36 L 08/24/17 19:04 Pulse Ox 100 08/24/17 19:00 - Labs Result Diagrams: 08/24/17 14:04 08/24/17 14:04 Labs: Laboratory Results - last 24 hr 08/24/17 08/24/17 08/24/17 14:04 14:04 14:04 WBC 21.1 H D RBC 2.68 L Hgb 8.1 L Hct 25.4 L MCV 94.8 D MCH 30.1 MCHC 31.7 L RDW 29.0 H Plt Count 450 H MPV 8.3 Neut % (Auto) 97.0 H Lymph % (Auto) 1.0 L [place] % (Auto) 2.0 Eos % (Auto) 0.0 Baso % (Auto) 0.0 Neut # 20.5 H Lymph # 0.2 L [place] # 0.4 Eos # 0.0 Baso # 0.0 Neutrophils % (Manual) 97 H Band Neutrophils % 1 Lymphocytes % (Manual) 1 L Monocytes % (Manual) 1 Platelet Estimate Slightly increased H Poikilocytosis (manual Slight Anisocytosis (manual) Moderate Target Cells Slight Ovalocytes Slight PT 33.9 H* INR 2.9 APTT 35 H pO2 VBG pH VBG pCO2 VBG HCO3 VBG Total CO2 VBG O2 Sat (Calc) VBG Base Excess VBG Potassium Glucose Lactate FiO2 Crit Value Called To Crit Value Called By Crit Value Read Back Blood Gas Notified Time Sodium 149 H Potassium 3.1 L Chloride 123 H Carbon Dioxide 16 L Anion Gap 13 BUN 10 Creatinine 0.9 Est GFR ( Amer) > 60 Est GFR (Non-Af Amer) > 60 Random Glucose 100 Calcium 7.4 L Phosphorus 2.5 Magnesium 2.0 Total Bilirubin 1.4 H AST 1933 H ALT 432 H D Alkaline Phosphatase 432 H Troponin I < 0.0120 Total Protein 6.6 Albumin 2.8 L Globulin 3.8 Albumin/Globulin Ratio 0.7 L Venous Blood Potassium Urine Color Urine Clarity Urine pH Ur Specific [place] Urine Protein Urine Glucose (UA) Urine Ketones Urine Blood Urine Nitrate Urine Bilirubin Urine Urobilinogen Ur Leukocyte Esterase Urine WBC (Auto) Urine RBC (Auto) Ur Squamous Epith Cells Urine Bacteria Hyaline Casts Granular Casts (Auto) 08/24/17 08/24/17 08/24/17 14:47 15:00 17:55 WBC RBC Hgb Hct MCV MCH MCHC RDW Plt Count MPV Neut % (Auto) Lymph % (Auto) [place] % (Auto) Eos % (Auto) Baso % (Auto) Neut # Lymph # [place] # Eos # Baso # Neutrophils % (Manual) Band Neutrophils % Lymphocytes % (Manual) Monocytes % (Manual) Platelet Estimate Poikilocytosis (manual Anisocytosis (manual) Target Cells Ovalocytes PT INR APTT pO2 27 L 48 VBG pH 7.16 L* 7.25 L VBG pCO2 41 34 L VBG HCO3 12.6 15.5 VBG Total CO2 15.9 L 15.9 L VBG O2 Sat (Calc) 44.4 86.7 H VBG Base Excess -13.5 L -11.3 L VBG Potassium 3.1 L 2.9 L Glucose 85 100 Lactate 4.1 H* 1.6 FiO2 21.0 Crit Value Called To Bernadine krishnan rn Crit Value Called By Lupe Crit Value Read Back Y Blood Gas Notified Time 1503 Sodium 156.0 H 154.0 H Potassium Chloride 129.0 H 130.0 H Carbon Dioxide Anion Gap BUN Creatinine Est GFR ( Amer) Est GFR (Non-Af Amer) Random Glucose Calcium Phosphorus Magnesium Total Bilirubin AST ALT Alkaline Phosphatase Troponin I Total Protein Albumin Globulin Albumin/Globulin Ratio Venous Blood Potassium 3.1 L 2.9 L Urine Color Yellow Urine Clarity Hazy Urine pH 7.0 Ur Specific [place] 1.012 Urine Protein 2+ H Urine Glucose (UA) 3+ H Urine Ketones Trace Urine Blood 1+ H Urine Nitrate Negative Urine Bilirubin Negative Urine Urobilinogen Normal Ur Leukocyte Esterase Neg Urine WBC (Auto) 3 Urine RBC (Auto) 8 H Ur Squamous Epith Cells 1 Urine Bacteria Rare Hyaline Casts 0-2 Granular Casts (Auto) 18
--- NOTE | 2017-08-24 20:01 | US ---
EXAM: US Abdomen Complete EXAM DATE/TIME: 08/24/2017 3:50 PM CLINICAL HISTORY: 62 years old, female; Pain; Abdominal pain; Generalized; Patient HX: [facility] CT 07-23-2017; Additional info: Abdominal pain and distension, poss ascites TECHNIQUE: Real-time ultrasound of the abdomen (complete) with image documentation. COMPARISON: Prior CT abdomen of 07/23/2017. FINDINGS: Gallbladder: Appears sludge-filled. Small amount of fluid seen adjacent to the gallbladder, most likely secondary to the generalized abdominal free fluid rather than representing pericholecystic fluid secondary to acute cholecystitis. No definite shadowing gallstones. No significant gallbladder wall thickening noted. Reportedly negative sonographic Vuong's sign. Common bile duct: Does not appear abnormally dilated, measuring less than 6 mm in diameter. Liver: Demonstrates diffusely increased parenchymal echogenicity, most compatible with fatty infiltration. Normal in size, measuring 14 cm in length. Normal flow seen in the main portal vein on color and Doppler imaging. Other findings: A large, heterogeneous mass measuring 13.8 x 13.6 x 7.2 cm is seen in the right abdomen, abutting the liver. This has a lobulated shape. It has small cystic areas within it centrally, but appears mostly solid. It does not demonstrate significant increased flow/vascularity on color imaging. This mass was also seen on the recent prior abdominal CT. It is of uncertain etiology. Pancreas: Poorly seen due to gas. Right kidney: Demonstrates mild pelviectasis, without randall hydronephrosis, of uncertain clinical significance. Otherwise within normal limits in appearance. Measures 10.8 cm in length. Left kidney: Within normal limits in appearance. Measures 10.9 cm in length. No evidence of hydronephrosis. Spleen: Grossly normal in appearance. Measures 6.6 cm in length. Aorta: Imaged portions appear unremarkable. The distal aorta is obscured by bowel gas. IVC: Poorly seen due to gas. Free fluid: A moderate amount of free fluid is seen, in all 4 quadrants of the abdomen. IMPRESSION: Large 13.8 x 13.6 cm heterogeneous, solid mass in the right abdomen, abutting the liver. This was also seen on a prior CT abdomen of 07/23/2017. It is of uncertain etiology. Neoplasm is not excluded. Moderate abdominal and pelvic free fluid. Sludge-filled gallbladder. There is fluid adjacent to the gallbladder, most likely secondary to the generalized abdominal free fluid. No evidence of gallbladder wall thickening or a positive sonographic Vuong's sign. Recommend clinical correlation. Mild pelviectasis of the right kidney, without randall hydronephrosis. See above for remaining findings.
[2017-08-24] MEDS ORDERED: Vancomycin 1 gm/NS 200 ml 1 GM/200 ML BAG IVPB STA (23:08)
--- NOTE | 2017-08-24 23:13 | CT ---
EXAM: CT Abdomen and Pelvis With Intravenous Contrast EXAM DATE/TIME: 08/24/2017 6:15 PM CLINICAL HISTORY: 62 years old, female; Condition or disease; Mass, lump or swelling and peripheral vascular disease; Generalized; Additional info: B/l le edema TECHNIQUE: Axial computed tomography images of the abdomen and pelvis with intravenous contrast during the arterial phase of enhancement. All CT scans at this facility use one or more dose reduction techniques, viz.: automated exposure control; ma/kV adjustment per patient size (including targeted exams where dose is matched to indication; i.e. head); or iterative reconstruction technique. 0 Coronal and sagittal reformatted images were created and reviewed. CONTRAST: 100 mL of visipaque 320 administered intravenously. COMPARISON: Prior CT abdomen and pelvis of 2017-07-23 FINDINGS: LIMITATIONS: Streak artifact from metallic hardware in the right proximal femur. LOWER THORAX: Small left pleural effusion. VASCULATURE: AORTA: Abdominal aorta is diffusely, mildly small in size, but appears patent. No evidence of aortic dissection. CELIAC TRUNK AND MESENTERIC ARTERIES: No occlusion or significant stenosis. RENAL ARTERIES: Atherosclerotic calcification of the left renal artery is noted, at its origin. No evidence of occlusion. ILIAC ARTERIES: Appear mildly, diffusely small in size, but are patent. No evidence of occlusion. ABDOMEN: LIVER: Liver enhances heterogeneously, most likely secondary to patchy fatty infiltration. This is a new finding. GALLBLADDER AND BILE DUCTS: Sludge in the gallbladder, as seen on the recent abdominal ultrasound. Fluid adjacent to the gallbladder, felt to be secondary to the generalized abdominal free fluid. No evidence of significant pericholecystic inflammatory changes. PANCREAS: See below. No acute abnormality of the pancreas identified. SPLEEN: No acute abnormality of the spleen identified. ADRENALS: No acute abnormality of the adrenal glands identified. KIDNEYS AND URETERS: Bilateral renal scarring. No evidence of hydroureteronephrosis. STOMACH AND BOWEL: No acute abnormality of the stomach, small bowel or colon identified. No evidence of bowel obstruction. APPENDIX: Normal appendix is not seen, however, there are no significant inflammatory changes visualized in the expected location of the appendix to suggest appendicitis. Recommend clinical correlation. PELVIS: BLADDER: Catheter noted within the bladder lumen. REPRODUCTIVE: Stable appearance of an enlarged uterus, containing extensive calcifications and having a lobulated contour. Findings are most likely secondary to uterine fibroids. ABDOMEN and PELVIS: INTRAPERITONEAL SPACE: Abdominal and pelvic free fluid/ascites, moderate to large in amount, and increased in amount compared to the prior CT. Again seen is a large, ovoid, heterogeneously enhancing soft tissue mass in the right abdomen. This abuts the liver inferiorly, the distal stomach on the right, the pancreatic head on the right, and measures 13 x 11 cm maximally. Compared to the prior exam, this mass is stable to mildly enlarged in size. It again displaces the pancreatic head and distal stomach to the left. Again seen are multiple additional, smaller round masses in the abdomen and pelvis. These masses are similar in appearance. There have low density centers and thick soft tissue rims. At least 11 are seen. The largest of these, located in the right pelvis, in the adnexal region, measures 5.7 x 5.0 cm. Compared to the prior CT, these masses are stable to mildly decreased in size. They are highly suspicious for peritoneal metastases. No free air. BONES/JOINTS: Metallic hardware in the right proximal femur. Bony structures appear demineralized. SOFT TISSUES: Diffuse subcutaneous edema/anasarca, a new finding. LYMPH NODES: Mild retroperitoneal lymphadenopathy, not significantly changed in appearance. IMPRESSION: - Compared to a CT of 07/23/2017, there is an increase in the amount of abdominal and pelvic free fluid/ascites, now moderate to large in amount. - Interval development of diffuse subcutaneous edema/anasarca. - Interval development of heterogeneous liver enhancement, most likely secondary to patchy fatty infiltration. - Otherwise, no significant change is seen compared to the prior exam. - Stable appearance of a large 13 x 11 cm heterogeneously enhancing soft tissue mass in the right abdomen, highly suspicious for neoplasm. - Stable appearance of multiple smaller, round masses throughout the abdomen and pelvis, highly suspicious for peritoneal metastases. - See above for remaining findings.
[2017-08-25] MEDS: Aztreonam 2 GM in Sodium Chloride 0.9% 100 ML IVPB SCH ×3 (01:12→17:00)
[2017-08-25] MEDS: Sodium Chloride 0.9% 1,000 ML IV SCH ×2 (03:18→18:31)
[2017-08-25 06:56] LABS: MEAN PLATELET VOLUME 8.3 fL (7.2-11.7)
[2017-08-25 07:34] LABS: INR 3.4
[2017-08-25 07:39] LABS: HEMOGLOBIN 7.1 g/dL (11.0-16.0); MEAN CELL VOLUME 94.6 fL (81.0-99.0); MEAN CORPUSCULAR HEMOGLOBIN 31.3 pg (27.0-31.0); MEAN CORPUSCULAR HGB CONC 33.1 g/dL (33.0-37.0); PLATELET COUNT 393 K/uL (130-400); RBC 2.29 Mil/uL (3.80-5.20); RED CELL DISTRIBUTION WIDTH 28.9 % (11.5-14.5); WHITE BLOOD COUNT 14.6 K/uL (4.8-10.8)
[2017-08-25 07:46] LABS: PROTHROMBIN TIME 40.2 SECONDS (9.7-12.2)
[2017-08-25 07:49] LABS: ALB/GLOB RATIO 0.7 (1.0-2.1); ALBUMIN 2.4 g/dL (3.5-5.0); ALT/SGPT 330 U/L (9-52); AST/SGOT > 750 U/L (14-36); BLOOD UREA NITROGEN 13 mg/dL (7-17); CALCIUM 6.5 mg/dl (8.6-10.4); GFR AFRICAN-AMERICAN > 60; GFR NON-AFRICAN AMERICAN > 60; MAGNESIUM 1.9 mg/dL (1.6-2.3)
--- NOTE | 2017-08-25 07:53 | CP.PCM.PN ---
Subjective - Date & Time of Evaluation Date of Evaluation: 08/25/17 Time of Evaluation: 08:11 - Subjective Subjective: Gen Surg: Dr Eddy Pt S&E. Pt remains disoriented, however is now verbally responding. During examination pt states "yes" to pain in legs and upper back/neck, but denies pain in the abdomen. Unclear if pt is understanding line of questioning as she does not answer anything else and is just continuously shaking. HR was in 140s during examination. Objective - Vital Signs/Intake and Output Vital Signs (last 24 hours): Temp Pulse Resp BP Pulse Ox 97.9 F 126 H 16 120/48 L 100 08/25/17 04:00 08/25/17 07:10 08/25/17 07:10 08/25/17 07:04 08/25/17 07:10 Intake and Output: 08/25/17 08/25/17 06:59 18:59 Intake Total 1300 100 Output Total 510 Balance 790 100 - Medications Medications: Current Medications Enoxaparin Sodium (Lovenox) 40 mg SC DAILY [facility] Gabapentin (Neurontin) 400 mg PO DAILY [facility] Home Med (Alpha Lipoic Acid [Alpha Lipoic Acid]) 300 mg PO BID [facility] Home Med (Exemestane [Aromasin]) 25 mg PO DAILY [facility] Aztreonam 2 gm/ Sodium (Chloride) 100 mls @ 200 mls/hr IVPB Q8H [facility] Last Admin: 08/25/17 01:12 Dose: 200 mls/hr Sodium Chloride (Sodium Chloride 0.9%) 1,000 mls @ 100 mls/hr IV .Q10H [facility] Last Admin: 08/25/17 03:18 Dose: 100 mls/hr Magnesium Oxide (Mag-Ox) 400 mg PO DAILY [facility] Ondansetron HCl (Zofran Tab) 4 mg PO Q4 [facility] Pantoprazole Sodium (Protonix Inj) 40 mg IVP DAILY [facility] - Labs Labs: 08/25/17 06:43 08/25/17 06:43 PT 40.2 SECONDS (9.7-12.2) H* D 08/25/17 06:43 INR 3.4 08/25/17 06:43 APTT 40 SECONDS (21-34) H D 08/25/17 06:43 - Constitutional Appears: Toxic, In Acute Distress - Respiratory Exam Respiratory Exam: absent: Respiratory Distress - Cardiovascular Exam Cardiovascular Exam: Tachycardia, REGULAR RHYTHM - GI/Abdominal Exam GI & Abdominal Exam: Soft. absent: Distended, Firm, Guarding, Rigid - Extremities Exam Extremities Exam: Pedal Edema. absent: Calf Tenderness, Joint Swelling Additional comments: warm b/l pulses palpable - Neurological Exam Neurological Exam: Awake. absent: Alert, Oriented x3 - Psychiatric Exam Psychiatric exam: Agitated - Skin Skin Exam: Normal Color, Warm Assessment and Plan - Assessment and Plan (Free Text) Assessment: 62F with sepsis from unknown source Plan: no active arterial disease noted on CTA edema may be 2/2 IVC compression from mets/cancer no immediate surgical intervention planned will cont to follow search for source of sepsis as per ICU team will d/w Dr Surjit Bowens, PGY3
--- NOTE | 2017-08-25 08:10 | CP.CCUPN ---
<Makayla Espitia - Last Filed: 08/25/17 10:44> CCU Subjective - Physician Review Subjective (Free Text): 08/25/17 10:44 Patient seen and examined at bedside. Patient resting in bed. No acute events over night. Patient with AMS and nonverbal at this time. ROS unattainable. CCU Objective - Vital Signs / Intake & Output Vital Signs (Last 4 hours): Vital Signs Temp Pulse Resp BP Pulse Ox 08/25/17 07:10 126 H 16 100 08/25/17 07:04 132 H 18 120/48 L 100 08/25/17 07:00 129 H 22 100 08/25/17 06:50 118 H 17 100 08/25/17 06:40 125 H 15 100 08/25/17 06:30 120 H 21 100 08/25/17 06:20 121 H 25 H 100 08/25/17 06:10 135 H 12 100 08/25/17 06:03 119 H 21 123/59 L 100 08/25/17 06:00 118 H 21 100 08/25/17 05:50 129 H 18 100 08/25/17 05:40 129 H 21 100 08/25/17 05:30 129 H 16 100 08/25/17 05:20 132 H 18 100 08/25/17 05:10 149 H 20 100 08/25/17 05:06 124 H 15 119/46 L 100 08/25/17 05:00 129 H 16 100 08/25/17 04:50 121 H 14 100 08/25/17 04:40 111 H 11 L 100 08/25/17 04:30 99 H 15 100 08/25/17 04:20 111 H 13 100 08/25/17 04:10 115 H 16 100 08/25/17 04:04 127 H 16 124/40 L 100 08/25/17 04:00 97.9 F 130 H 19 100 Intake and Output (Last 8hrs): Intake & Output 08/24/17 08/25/17 08/25/17 22:59 06:59 14:59 Intake Total 500 900 100 Output Total 350 360 Balance 150 540 100 Weight 120 lb 6.4 oz Intake: Intake, IV Amount 500 900 100 Left Port-A-Cath 500 900 100 Oral 0 Output: Urine 350 360 Urethral ([place]) 350 360 Other: Voiding Method Indwelling Catheter - Physical Exam Physical Exam Limitations: Positive for: Altered Mental Status Head: Positive for: Atraumatic, Normocephalic Extroacular Muscles: Negative for: Gaze Palsy Mouth: Positive for: Moist Mucous Membranes Neck: Negative for: JVD, Lymphadenopathy Respiratory/Chest: Positive for: Clear to Auscultation, Good Air Exchange. Negative for: Wheezes, Rales, Rhonchi Cardiovascular: Positive for: Normal S1, S2, Tachycardic Abdomen: Positive for: Tenderness, Distention, Normal Bowel Sounds. Negative for: Peritoneal Signs, Guarding Upper Extremity: Positive for: Normal Inspection, Tenderness (generalized ). Negative for: Cyanosis, Edema Lower Extremity: Positive for: Edema, Tenderness (generalized ) Neurological: Positive for: Other (GCS=10 ) Skin: Positive for: Warm, Dry, Erythematous (feet b/l ). Negative for: Rashes Psychiatric: Positive for: Alert - Medications Active Medications: Active Medications Generic Name Dose Route Start Last Admin Trade Name Freq PRN Reason Stop Dose Admin Enoxaparin Sodium 40 mg 08/25/17 10:00 Lovenox SC DAILY [facility] Gabapentin 400 mg 08/25/17 10:00 Neurontin PO DAILY HAN Home Med 300 mg 08/25/17 10:00 Alpha Lipoic Acid [Alpha Lipoic Acid] PO BID HAN Home Med 25 mg 08/25/17 10:00 Exemestane [Aromasin] PO DAILY HAN Aztreonam 2 gm/ Sodium 100 mls @ 200 mls/hr 08/25/17 01:00 08/25/17 01:12 Chloride IVPB 200 mls/hr Q8H HAN Administration Sodium Chloride 1,000 mls @ 100 mls/hr 08/24/17 18:00 08/25/17 03:18 Sodium Chloride 0.9% IV 100 mls/hr .Q10H HAN Administration Magnesium Oxide 400 mg 08/25/17 10:00 Mag-Ox PO DAILY HAN Ondansetron HCl 4 mg 08/25/17 00:00 Zofran Tab PO Q4 HAN Pantoprazole Sodium 40 mg 08/25/17 10:00 Protonix Inj IVP DAILY HAN - Patient Studies Lab Studies: Lab Studies 08/25/17 08/25/17 08/25/17 Range/Units 06:43 06:43 06:43 WBC 14.6 H (4.8-10.8) K/uL RBC 2.29 L (3.80-5.20) Mil/uL Hgb 7.1 L (11.0-16.0) g/dL Hct 21.6 L (34.0-47.0) % MCV 94.6 (81.0-99.0) fL MCH 31.3 H (27.0-31.0) pg MCHC 33.1 (33.0-37.0) g/dL RDW 28.9 H (11.5-14.5) % Plt Count 393 (130-400) K/uL MPV 8.3 (7.2-11.7) fL Neut % (Auto) (50.0-75.0) % Lymph % (Auto) (20.0-40.0) % Loving % (Auto) (0.0-10.0) % Eos % (Auto) (0.0-4.0) % Baso % (Auto) (0.0-2.0) % Neut # (1.8-7.0) K/uL Lymph # (1.0-4.3) K/uL Loving # (0.0-0.8) K/uL Eos # (0.0-0.7) K/uL Baso # (0.0-0.2) K/uL Neutrophils % (Manual) (50-75) % Band Neutrophils % (0-2) % Lymphocytes % (Manual) (20-40) % Monocytes % (Manual) (0-10) % Platelet Estimate (NORMAL) Poikilocytosis (manual Anisocytosis (manual) Target Cells Ovalocytes PT 40.2 H* D (9.7-12.2) SECONDS INR 3.4 APTT 40 H D (21-34) SECONDS pO2 (30-55) mm/Hg VBG pH (7.32-7.43) VBG pCO2 (40-60) mmHg VBG HCO3 mmol/L VBG Total CO2 (22-28) mmol/L VBG O2 Sat (Calc) (40-65) % VBG Base Excess (0.0-2.0) mmol/L VBG Potassium (3.6-5.2) mmol/L Glucose (65-105) mg/dl Lactate (0.7-2.1) mmol/L FiO2 % Crit Value Called To Crit Value Called By Crit Value Read Back Blood Gas Notified Time Sodium 151 H (132-148) mmol/L Potassium 2.9 L (3.6-5.2) mmol/L Chloride 130 H (98-107) mmol/L Carbon Dioxide 12 L (22-30) mmol/L Anion Gap 11 (10-20) BUN 13 (7-17) mg/dL Creatinine 0.9 (0.7-1.2) mg/dL Est GFR ( Amer) > 60 Est GFR (Non-Af Amer) > 60 Random Glucose 77 (65-105) mg/dL Calcium 6.5 L (8.6-10.4) mg/dl Phosphorus 2.1 L (2.5-4.5) mg/dL Magnesium 1.9 (1.6-2.3) mg/dL Total Bilirubin 1.0 (0.2-1.3) mg/dL AST > 750 H D (14-36) U/L ALT 330 H D (9-52) U/L Alkaline Phosphatase 360 H (38-126) U/L Troponin I (0.00-0.120) ng/mL Total Protein 5.7 L (6.3-8.3) g/dL Albumin 2.4 L (3.5-5.0) g/dL Globulin 3.3 (2.2-3.9) gm/dL Albumin/Globulin Ratio 0.7 L (1.0-2.1) Venous Blood Potassium (3.6-5.2) mmol/L Urine Color (YELLOW) Urine Clarity (Clear) Urine pH (5.0-8.0) Ur Specific Linch (1.003-1.030) Urine Protein (NEGATIVE) mg/dL Urine Glucose (UA) (Normal) mg/dL Urine Ketones (NEGATIVE) mg/dL Urine Blood (NEGATIVE) Urine Nitrate (NEGATIVE) Urine Bilirubin (NEGATIVE) Urine Urobilinogen (0.2-1.0) mg/dL Ur Leukocyte Esterase (Negative) Agustín/uL Urine WBC (Auto) (0-5) /hpf Urine RBC (Auto) (0-3) /hpf Ur Squamous Epith Cells (0-5) /hpf Urine Bacteria (<OCC) Hyaline Casts (0-2) /lpf Granular Casts (Auto) (0-1) /lpf 08/24/17 08/24/17 08/24/17 Range/Units 17:55 15:00 14:47 WBC (4.8-10.8) K/uL RBC (3.80-5.20) Mil/uL Hgb (11.0-16.0) g/dL Hct (34.0-47.0) % MCV (81.0-99.0) fL MCH (27.0-31.0) pg MCHC (33.0-37.0) g/dL RDW (11.5-14.5) % Plt Count (130-400) K/uL MPV (7.2-11.7) fL Neut % (Auto) (50.0-75.0) % Lymph % (Auto) (20.0-40.0) % Loving % (Auto) (0.0-10.0) % Eos % (Auto) (0.0-4.0) % Baso % (Auto) (0.0-2.0) % Neut # (1.8-7.0) K/uL Lymph # (1.0-4.3) K/uL Loving # (0.0-0.8) K/uL Eos # (0.0-0.7) K/uL Baso # (0.0-0.2) K/uL Neutrophils % (Manual) (50-75) % Band Neutrophils % (0-2) % Lymphocytes % (Manual) (20-40) % Monocytes % (Manual) (0-10) % Platelet Estimate (NORMAL) Poikilocytosis (manual Anisocytosis (manual) Target Cells Ovalocytes PT (9.7-12.2) SECONDS INR APTT (21-34) SECONDS pO2 48 27 L (30-55) mm/Hg VBG pH 7.25 L 7.16 L* (7.32-7.43) VBG pCO2 34 L 41 (40-60) mmHg VBG HCO3 15.5 12.6 mmol/L VBG Total CO2 15.9 L 15.9 L (22-28) mmol/L VBG O2 Sat (Calc) 86.7 H 44.4 (40-65) % VBG Base Excess -11.3 L -13.5 L (0.0-2.0) mmol/L VBG Potassium 2.9 L 3.1 L (3.6-5.2) mmol/L Glucose 100 85 (65-105) mg/dl Lactate 1.6 4.1 H* (0.7-2.1) mmol/L FiO2 21.0 % Crit Value Called To Bernadine krishnan rn Crit Value Called By Lupe Crit Value Read Back Y Blood Gas Notified Time 1503 Sodium 154.0 H 156.0 H (132-148) mmol/L Potassium (3.6-5.2) mmol/L Chloride 130.0 H 129.0 H (98-107) mmol/L Carbon Dioxide (22-30) mmol/L Anion Gap (10-20) BUN (7-17) mg/dL Creatinine (0.7-1.2) mg/dL Est GFR ( Amer) Est GFR (Non-Af Amer) Random Glucose (65-105) mg/dL Calcium (8.6-10.4) mg/dl Phosphorus (2.5-4.5) mg/dL Magnesium (1.6-2.3) mg/dL Total Bilirubin (0.2-1.3) mg/dL AST (14-36) U/L ALT (9-52) U/L Alkaline Phosphatase (38-126) U/L Troponin I (0.00-0.120) ng/mL Total Protein (6.3-8.3) g/dL Albumin (3.5-5.0) g/dL Globulin (2.2-3.9) gm/dL Albumin/Globulin Ratio (1.0-2.1) Venous Blood Potassium 2.9 L 3.1 L (3.6-5.2) mmol/L Urine Color Yellow (YELLOW) Urine Clarity Hazy (Clear) Urine pH 7.0 (5.0-8.0) Ur Specific Linch 1.012 (1.003-1.030) Urine Protein 2+ H (NEGATIVE) mg/dL Urine Glucose (UA) 3+ H (Normal) mg/dL Urine Ketones Trace (NEGATIVE) mg/dL Urine Blood 1+ H (NEGATIVE) Urine Nitrate Negative (NEGATIVE) Urine Bilirubin Negative (NEGATIVE) Urine Urobilinogen Normal (0.2-1.0) mg/dL Ur Leukocyte Esterase Neg (Negative) Agustín/uL Urine WBC (Auto) 3 (0-5) /hpf Urine RBC (Auto) 8 H (0-3) /hpf Ur Squamous Epith Cells 1 (0-5) /hpf Urine Bacteria Rare (<OCC) Hyaline Casts 0-2 (0-2) /lpf Granular Casts (Auto) 18 (0-1) /lpf 08/24/17 08/24/17 08/24/17 Range/Units 14:04 14:04 14:04 WBC 21.1 H D (4.8-10.8) K/uL RBC 2.68 L (3.80-5.20) Mil/uL Hgb 8.1 L (11.0-16.0) g/dL Hct 25.4 L (34.0-47.0) % MCV 94.8 D (81.0-99.0) fL MCH 30.1 (27.0-31.0) pg MCHC 31.7 L (33.0-37.0) g/dL RDW 29.0 H (11.5-14.5) % Plt Count 450 H (130-400) K/uL MPV 8.3 (7.2-11.7) fL Neut % (Auto) 97.0 H (50.0-75.0) % Lymph % (Auto) 1.0 L (20.0-40.0) % Loving % (Auto) 2.0 (0.0-10.0) % Eos % (Auto) 0.0 (0.0-4.0) % Baso % (Auto) 0.0 (0.0-2.0) % Neut # 20.5 H (1.8-7.0) K/uL Lymph # 0.2 L (1.0-4.3) K/uL Loving # 0.4 (0.0-0.8) K/uL Eos # 0.0 (0.0-0.7) K/uL Baso # 0.0 (0.0-0.2) K/uL Neutrophils % (Manual) 97 H (50-75) % Band Neutrophils % 1 (0-2) % Lymphocytes % (Manual) 1 L (20-40) % Monocytes % (Manual) 1 (0-10) % Platelet Estimate Slightly increased H (NORMAL) Poikilocytosis (manual Slight Anisocytosis (manual) Moderate Target Cells Slight Ovalocytes Slight PT 33.9 H* (9.7-12.2) SECONDS INR 2.9 APTT 35 H (21-34) SECONDS pO2 (30-55) mm/Hg VBG pH (7.32-7.43) VBG pCO2 (40-60) mmHg VBG HCO3 mmol/L VBG Total CO2 (22-28) mmol/L VBG O2 Sat (Calc) (40-65) % VBG Base Excess (0.0-2.0) mmol/L VBG Potassium (3.6-5.2) mmol/L Glucose (65-105) mg/dl Lactate (0.7-2.1) mmol/L FiO2 % Crit Value Called To Crit Value Called By Crit Value Read Back Blood Gas Notified Time Sodium 149 H (132-148) mmol/L Potassium 3.1 L (3.6-5.2) mmol/L Chloride 123 H (98-107) mmol/L Carbon Dioxide 16 L (22-30) mmol/L Anion Gap 13 (10-20) BUN 10 (7-17) mg/dL Creatinine 0.9 (0.7-1.2) mg/dL Est GFR ( Amer) > 60 Est GFR (Non-Af Amer) > 60 Random Glucose 100 (65-105) mg/dL Calcium 7.4 L (8.6-10.4) mg/dl Phosphorus 2.5 (2.5-4.5) mg/dL Magnesium 2.0 (1.6-2.3) mg/dL Total Bilirubin 1.4 H (0.2-1.3) mg/dL AST 1933 H (14-36) U/L ALT 432 H D (9-52) U/L Alkaline Phosphatase 432 H (38-126) U/L Troponin I < 0.0120 (0.00-0.120) ng/mL Total Protein 6.6 (6.3-8.3) g/dL Albumin 2.8 L (3.5-5.0) g/dL Globulin 3.8 (2.2-3.9) gm/dL Albumin/Globulin Ratio 0.7 L (1.0-2.1) Venous Blood Potassium (3.6-5.2) mmol/L Urine Color (YELLOW) Urine Clarity (Clear) Urine pH (5.0-8.0) Ur Specific Linch (1.003-1.030) Urine Protein (NEGATIVE) mg/dL Urine Glucose (UA) (Normal) mg/dL Urine Ketones (NEGATIVE) mg/dL Urine Blood (NEGATIVE) Urine Nitrate (NEGATIVE) Urine Bilirubin (NEGATIVE) Urine Urobilinogen (0.2-1.0) mg/dL Ur Leukocyte Esterase (Negative) Agustín/uL Urine WBC (Auto) (0-5) /hpf Urine RBC (Auto) (0-3) /hpf Ur Squamous Epith Cells (0-5) /hpf Urine Bacteria (<OCC) Hyaline Casts (0-2) /lpf Granular Casts (Auto) (0-1) /lpf Laboratory Results - last 24 hr 08/24/17 08/24/17 08/24/17 14:04 14:04 14:04 WBC 21.1 H D RBC 2.68 L Hgb 8.1 L Hct 25.4 L MCV 94.8 D MCH 30.1 MCHC 31.7 L RDW 29.0 H Plt Count 450 H MPV 8.3 Neut % (Auto) 97.0 H Lymph % (Auto) 1.0 L Loving % (Auto) 2.0 Eos % (Auto) 0.0 Baso % (Auto) 0.0 Neut # 20.5 H Lymph # 0.2 L Loving # 0.4 Eos # 0.0 Baso # 0.0 Neutrophils % (Manual) 97 H Band Neutrophils % 1 Lymphocytes % (Manual) 1 L Monocytes % (Manual) 1 Platelet Estimate Slightly increased H Poikilocytosis (manual Slight Anisocytosis (manual) Moderate Target Cells Slight Ovalocytes Slight PT 33.9 H* INR 2.9 APTT 35 H pO2 VBG pH VBG pCO2 VBG HCO3 VBG Total CO2 VBG O2 Sat (Calc) VBG Base Excess VBG Potassium Glucose Lactate FiO2 Crit Value Called To Crit Value Called By Crit Value Read Back Blood Gas Notified Time Sodium 149 H Potassium 3.1 L Chloride 123 H Carbon Dioxide 16 L Anion Gap 13 BUN 10 Creatinine 0.9 Est GFR ( Amer) > 60 Est GFR (Non-Af Amer) > 60 Random Glucose 100 Calcium 7.4 L Phosphorus 2.5 Magnesium 2.0 Total Bilirubin 1.4 H AST 1933 H ALT 432 H D Alkaline Phosphatase 432 H Troponin I < 0.0120 Total Protein 6.6 Albumin 2.8 L Globulin 3.8 Albumin/Globulin Ratio 0.7 L Venous Blood Potassium Urine Color Urine Clarity Urine pH Ur Specific Linch Urine Protein Urine Glucose (UA) Urine Ketones Urine Blood Urine Nitrate Urine Bilirubin Urine Urobilinogen Ur Leukocyte Esterase Urine WBC (Auto) Urine RBC (Auto) Ur Squamous Epith Cells Urine Bacteria Hyaline Casts Granular Casts (Auto) 08/24/17 08/24/17 08/24/17 14:47 15:00 17:55 WBC RBC Hgb Hct MCV MCH MCHC RDW Plt Count MPV Neut % (Auto) Lymph % (Auto) Loving % (Auto) Eos % (Auto) Baso % (Auto) Neut # Lymph # Loving # Eos # Baso # Neutrophils % (Manual) Band Neutrophils % Lymphocytes % (Manual) Monocytes % (Manual) Platelet Estimate Poikilocytosis (manual Anisocytosis (manual) Target Cells Ovalocytes PT INR APTT pO2 27 L 48 VBG pH 7.16 L* 7.25 L VBG pCO2 41 34 L VBG HCO3 12.6 15.5 VBG Total CO2 15.9 L 15.9 L VBG O2 Sat (Calc) 44.4 86.7 H VBG Base Excess -13.5 L -11.3 L VBG Potassium 3.1 L 2.9 L Glucose 85 100 Lactate 4.1 H* 1.6 FiO2 21.0 Crit Value Called To Bernadine krishnan rn Crit Value Called By Lupe Crit Value Read Back Y Blood Gas Notified Time 1503 Sodium 156.0 H 154.0 H Potassium Chloride 129.0 H 130.0 H Carbon Dioxide Anion Gap BUN Creatinine Est GFR ( Amer) Est GFR (Non-Af Amer) Random Glucose Calcium Phosphorus Magnesium Total Bilirubin AST ALT Alkaline Phosphatase Troponin I Total Protein Albumin Globulin Albumin/Globulin Ratio Venous Blood Potassium 3.1 L 2.9 L Urine Color Yellow Urine Clarity Hazy Urine pH 7.0 Ur Specific Linch 1.012 Urine Protein 2+ H Urine Glucose (UA) 3+ H Urine Ketones Trace Urine Blood 1+ H Urine Nitrate Negative Urine Bilirubin Negative Urine Urobilinogen Normal Ur Leukocyte Esterase Neg Urine WBC (Auto) 3 Urine RBC (Auto) 8 H Ur Squamous Epith Cells 1 Urine Bacteria Rare Hyaline Casts 0-2 Granular Casts (Auto) 18 08/25/17 08/25/17 08/25/17 06:43 06:43 06:43 WBC 14.6 H RBC 2.29 L Hgb 7.1 L Hct 21.6 L MCV 94.6 MCH 31.3 H MCHC 33.1 RDW 28.9 H Plt Count 393 MPV 8.3 Neut % (Auto) Lymph % (Auto) Loving % (Auto) Eos % (Auto) Baso % (Auto) Neut # Lymph # Loving # Eos # Baso # Neutrophils % (Manual) Band Neutrophils % Lymphocytes % (Manual) Monocytes % (Manual) Platelet Estimate Poikilocytosis (manual Anisocytosis (manual) Target Cells Ovalocytes PT 40.2 H* D INR 3.4 APTT 40 H D pO2 VBG pH VBG pCO2 VBG HCO3 VBG Total CO2 VBG O2 Sat (Calc) VBG Base Excess VBG Potassium Glucose Lactate FiO2 Crit Value Called To Crit Value Called By Crit Value Read Back Blood Gas Notified Time Sodium 151 H Potassium 2.9 L Chloride 130 H Carbon Dioxide 12 L Anion Gap 11 BUN 13 Creatinine 0.9 Est GFR ( Amer) > 60 Est GFR (Non-Af Amer) > 60 Random Glucose 77 Calcium 6.5 L Phosphorus 2.1 L Magnesium 1.9 Total Bilirubin 1.0 AST > 750 H D ALT 330 H D Alkaline Phosphatase 360 H Troponin I Total Protein 5.7 L Albumin 2.4 L Globulin 3.3 Albumin/Globulin Ratio 0.7 L Venous Blood Potassium Urine Color Urine Clarity Urine pH Ur Specific Linch Urine Protein Urine Glucose (UA) Urine Ketones Urine Blood Urine Nitrate Urine Bilirubin Urine Urobilinogen Ur Leukocyte Esterase Urine WBC (Auto) Urine RBC (Auto) Ur Squamous Epith Cells Urine Bacteria Hyaline Casts Granular Casts (Auto) EKG/Cardiology Studies: Cardiology / EKG Studies 08/24/17 13:52 ELECTROCARDIOGRAM Stat Comment: Mode Of Transportation: BED Reason For Exam: Lethargy, possible seizure Fingerstick Blood Sugar Results: 91 Review of Systems - Review of Systems Systems not reviewed;Unavailable: Altered Mental Status Assessment/Plan - Assessment and Plan (Free Text) Assessment: 62F with PMH metastatic endometrial cancer, breast cancer, ovarian cysts, recent right femoral DVT on Lovenox, and poliomyelitis presenting with AMS and found to have sepsis Plan: Infectious disease - Sepsis * Temp 97.9 * 08/24: 95.2 - warming blanket given in ED * BP improving since yesterday but still hypotensive * bolus 3L of NS in the ED on 08/24 * Tachycardic in the 120s * Lactate 1.6 * On arrival 08/24: 4.1 * WBC 14.6 * On arrival 08/24: 21.1 with bands 1% * f/u procal * ID consulted (Dr. Ibarra) - recs appreciated * Aztreonam 2g IV Q8H * Vanc 1g daily * Blood culturesx2 ordered * Urine culture ordered Neuro - AMS * Altered, not speaking although usually verbal at baseline * Hx of poliomyelitis - does not ambulate. ambulates with metal prosthesis and wheelchair at home. * CT head: No intracranial mass, hemorrhage or evidence of acute infarct. * f/u CSF studies * Ammonia: 51 - hold lactulose for now 2/2 low potassium * Gabapentin 400 mg PO daily Cardiovascular - history of DVT * Hypotensive 86/54- bolus 3L of NS * Tachycardic 119 * EKG: Sinus tachycardia at 114 with short [place] interval, nonspecific ST-T wave abnormalities * Arterial and venous dopplers of lower extremities ordered. * Vascular surgeon Dr. Eddy consulted, help appreciated. * Spoke with surgical scrub tech who says no intervention is likely needed at this time due to adequate arterial supply MSK - s/p fall * Pelvis X Ray: no acute fracture. remodeling of right acetabulum with superior subluxation right femoral head. Respiratory * 100% on RA * VBG 08/24: pH 7.16 pCO2 41 pO2 27 HCO3 12.6 * repeat 08/24: 7.25/34/48/15.5 * CXR: No interval acute cardiopulmonary pathology noted Hematology/Onc - history of metastatic endometrial CA and breast CA; history of right femoral DVT * H&H 7.1/21.6 * Plt 393 * PT/PTT/INR (08/24): 33.9/35/2.9 * repeat 08/25: 40.2/40/3.4 * Oncologist Dr. Lemos consulted, help appreciated. * hold home Lovenox 90mg SC daily Fluids, electrolytes and nutrition * Na 151 * K 2.9 - replaced * Cl 130 * HCO3 12 * Calcium 6.5 * Phosphorous 2.1 * Mag 1.9 * albumin 2.4 * NS IV fluids * NG tube - [facility] - intraperitoneal/mesenteric metastatic lesions * AST/ALT: 1933/432 * 08/25: >750/330 * TBili: 1.0 * Abdominal US (08/24): 13.8 x 13.6 cm heterogenous solid mass in the right abdomen, abutting the liver; moderate abdominal and pelvic free fluid; sludge filled gallbladder; pericholecystic fluid; no gallbladder wall thickening or sonographic Vuong's sign; milk pelviectasis of the right kidney without randall hydronephrosis * CT angio Abd/Pelvis (08/24): Compared to previous CT (resluts below), increase in abdominal/pelvic free fluid, now moderate/large amount; diffuse subcutaneous edema/anasarca; heterogenous liver enhancement, most likely due to patchy fatty infiltration * CT Abd/Pel from previous admission (07/23/17) showed intraperitoneal and mesenteric metastatic lesions some of which have increased in size; largest lesion in the nadeen hepatis region compresses the liver, pancreas, gallbladder and IVC * Zofran 4mg PRN Renal * Fluid balance: +690 * BUN 13 * Cr 0.9 * UA - negative * f/u urine culture PPX: * GI: protonix 40 mg * 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 * Lovenox 40 mg SC daily <Cyril Mojica S - Last Filed: 08/25/17 17:27> CCU Objective - Vital Signs / Intake & Output Vital Signs (Last 4 hours): Vital Signs Temp Pulse Resp BP Pulse Ox 08/25/17 17:04 109/51 L 08/25/17 17:03 130 H 16 100 08/25/17 16:03 139 H 21 120/55 L 98 08/25/17 16:00 98.4 F 08/25/17 15:03 139 H 20 116/57 L 98 08/25/17 14:03 140 H 22 110/51 L 99 Intake and Output (Last 8hrs): Intake & Output 08/25/17 08/25/17 08/25/17 06:59 14:59 22:59 Intake Total 900 1260 460 Output Total 360 280 120 Balance 540 980 340 Weight 120 lb 6.4 oz Intake: Intake, IV Amount 900 1200 400 Left Port-A-Cath 900 1200 400 Tube Feeding 60 60 Output: Urine 360 280 120 Urethral (Adair) 360 280 120 - Medications Active Medications: Active Medications Generic Name Dose Route Start Last Admin Trade Name Freq PRN Reason Stop Dose Admin Enoxaparin Sodium 40 mg 08/25/17 10:00 08/25/17 10:21 Lovenox SC Not Given DAILY [facility] Gabapentin 400 mg 08/25/17 10:00 08/25/17 10:23 Neurontin PO Not Given DAILY [facility] Home Med 300 mg 08/25/17 10:00 Alpha Lipoic Acid [Alpha Lipoic Acid] PO BID HAN Home Med 25 mg 08/25/17 10:00 Exemestane [Aromasin] PO DAILY [facility]AN Aztreonam 2 gm/ Sodium 100 mls @ 200 mls/hr 08/25/17 01:00 08/25/17 09:00 Chloride IVPB 200 mls/hr Q8H HAN Administration Sodium Chloride 1,000 mls @ 100 mls/hr 08/24/17 18:00 08/25/17 03:18 Sodium Chloride 0.9% IV 100 mls/hr .Q10H HAN Administration Potassium Chloride 20 meq/ 110 mls @ 55 mls/hr 08/25/17 12:00 08/25/17 11:30 Sodium Chloride IV 08/25/17 17:59 55 mls/hr Q4 HAN Administration Vancomycin/Sodium Chloride 1 gm in 200 mls @ 133.333 mls/hr 08/25/17 10:30 10:25 Vancomycin 1 Gm/Ns 200 Ml IVPB 08/30/17 10:31 133.333 mls/hr DAILY@1030 HAN Administration Magnesium Oxide 400 mg 08/25/17 10:00 08/25/17 10:23 Mag-Ox PO Not Given DAILY [facility] Ondansetron HCl 4 mg 08/25/17 00:00 Zofran Tab PO Q4 PRN NAUSEA/VOMITING Pantoprazole Sodium 40 mg 08/25/17 10:00 08/25/17 10:25 Protonix Inj IVP 40 mg DAILY HAN Administration - Patient Studies Lab Studies: Microbiology Studies 08/24/17 14:15 Blood Culture - Preliminary Blood NO GROWTH AFTER 24 HOURS 08/24/17 14:45 Blood Culture - Preliminary Blood NO GROWTH AFTER 24 HOURS 08/24/17 15:25 Urine Culture - Final Urine No Growth (<1,000 CFU/ML) Lab Studies 08/25/17 08/25/17 08/25/17 Range/Units 09:43 09:43 06:43 WBC (4.8-10.8) K/uL RBC (3.80-5.20) Mil/uL Hgb (11.0-16.0) g/dL Hct (34.0-47.0) % MCV (81.0-99.0) fL MCH (27.0-31.0) pg MCHC (33.0-37.0) g/dL RDW (11.5-14.5) % Plt Count (130-400) K/uL MPV (7.2-11.7) fL Neut % (Auto) (50.0-75.0) % Lymph % (Auto) (20.0-40.0) % Loving % (Auto) (0.0-10.0) % Eos % (Auto) (0.0-4.0) % Baso % (Auto) (0.0-2.0) % Neut # (1.8-7.0) K/uL Lymph # (1.0-4.3) K/uL Loving # (0.0-0.8) K/uL Eos # (0.0-0.7) K/uL Baso # (0.0-0.2) K/uL Neutrophils % (Manual) (50-75) % Lymphocytes % (Manual) (20-40) % Monocytes % (Manual) (0-10) % Platelet Estimate (NORMAL) Hypochromasia (manual) Poikilocytosis (manual Anisocytosis (manual) Target Cells Mariah Cells PT 40.2 H* D (9.7-12.2) SECONDS INR 3.4 APTT 40 H D (21-34) SECONDS pO2 (30-55) mm/Hg VBG pH (7.32-7.43) VBG pCO2 (40-60) mmHg VBG HCO3 mmol/L VBG Total CO2 (22-28) mmol/L VBG O2 Sat (Calc) (40-65) % VBG Base Excess (0.0-2.0) mmol/L VBG Potassium (3.6-5.2) mmol/L Sodium (132-148) mmol/l Chloride (98-107) mmol/L Glucose (65-105) mg/dl Lactate (0.7-2.1) mmol/L FiO2 % Potassium (3.6-5.2) mmol/L Carbon Dioxide (22-30) mmol/L Anion Gap (10-20) BUN (7-17) mg/dL Creatinine (0.7-1.2) mg/dL Est GFR ( Amer) Est GFR (Non-Af Amer) Random Glucose (65-105) mg/dL Calcium (8.6-10.4) mg/dl Phosphorus (2.5-4.5) mg/dL Magnesium (1.6-2.3) mg/dL Total Bilirubin (0.2-1.3) mg/dL AST (14-36) U/L ALT (9-52) U/L Alkaline Phosphatase (38-126) U/L Ammonia 51 H (9-33) umol/L Total Protein (6.3-8.3) g/dL Albumin (3.5-5.0) g/dL Globulin (2.2-3.9) gm/dL Albumin/Globulin Ratio (1.0-2.1) Procalcitonin 62.48 H (0.19-0.49) NG/ML Venous Blood Potassium (3.6-5.2) mmol/L 08/25/17 08/25/17 08/24/17 Range/Units 06:43 06:43 17:55 WBC 14.6 H (4.8-10.8) K/uL RBC 2.29 L (3.80-5.20) Mil/uL Hgb 7.1 L (11.0-16.0) g/dL Hct 21.6 L (34.0-47.0) % MCV 94.6 (81.0-99.0) fL MCH 31.3 H (27.0-31.0) pg MCHC 33.1 (33.0-37.0) g/dL RDW 28.9 H (11.5-14.5) % Plt Count 393 (130-400) K/uL MPV 8.3 (7.2-11.7) fL Neut % (Auto) 97.0 H (50.0-75.0) % Lymph % (Auto) 2.0 L (20.0-40.0) % Loving % (Auto) 1.0 (0.0-10.0) % Eos % (Auto) 0.0 (0.0-4.0) % Baso % (Auto) 0.0 (0.0-2.0) % Neut # 97.0 H (1.8-7.0) K/uL Lymph # 2.0 (1.0-4.3) K/uL Loving # 1.0 H (0.0-0.8) K/uL Eos # 0.0 (0.0-0.7) K/uL Baso # 0.0 (0.0-0.2) K/uL Neutrophils % (Manual) 97 H (50-75) % Lymphocytes % (Manual) 2 L (20-40) % Monocytes % (Manual) 1 (0-10) % Platelet Estimate Normal (NORMAL) Hypochromasia (manual) Slight Poikilocytosis (manual Slight Anisocytosis (manual) Slight Target Cells Slight Mariah Cells Slight PT (9.7-12.2) SECONDS INR APTT (21-34) SECONDS pO2 48 (30-55) mm/Hg VBG pH 7.25 L (7.32-7.43) VBG pCO2 34 L (40-60) mmHg VBG HCO3 15.5 mmol/L VBG Total CO2 15.9 L (22-28) mmol/L VBG O2 Sat (Calc) 86.7 H (40-65) % VBG Base Excess -11.3 L (0.0-2.0) mmol/L VBG Potassium 2.9 L (3.6-5.2) mmol/L Sodium 151 H 154.0 H (132-148) mmol/l Chloride 130 H 130.0 H (98-107) mmol/L Glucose 100 (65-105) mg/dl Lactate 1.6 (0.7-2.1) mmol/L FiO2 21.0 % Potassium 2.9 L (3.6-5.2) mmol/L Carbon Dioxide 12 L (22-30) mmol/L Anion Gap 11 (10-20) BUN 13 (7-17) mg/dL Creatinine 0.9 (0.7-1.2) mg/dL Est GFR ( Amer) > 60 Est GFR (Non-Af Amer) > 60 Random Glucose 77 (65-105) mg/dL Calcium 6.5 L (8.6-10.4) mg/dl Phosphorus 2.1 L (2.5-4.5) mg/dL Magnesium 1.9 (1.6-2.3) mg/dL Total Bilirubin 1.0 (0.2-1.3) mg/dL AST > 750 H D (14-36) U/L ALT 330 H D (9-52) U/L Alkaline Phosphatase 360 H (38-126) U/L Ammonia (9-33) umol/L Total Protein 5.7 L (6.3-8.3) g/dL Albumin 2.4 L (3.5-5.0) g/dL Globulin 3.3 (2.2-3.9) gm/dL Albumin/Globulin Ratio 0.7 L (1.0-2.1) Procalcitonin (0.19-0.49) NG/ML Venous Blood Potassium 2.9 L (3.6-5.2) mmol/L Laboratory Results - last 24 hr 08/24/17 08/25/17 08/25/17 17:55 06:43 06:43 WBC 14.6 H RBC 2.29 L Hgb 7.1 L Hct 21.6 L MCV 94.6 MCH 31.3 H MCHC 33.1 RDW 28.9 H Plt Count 393 MPV 8.3 Neut % (Auto) 97.0 H Lymph % (Auto) 2.0 L Loving % (Auto) 1.0 Eos % (Auto) 0.0 Baso % (Auto) 0.0 Neut # 97.0 H Lymph # 2.0 Loving # 1.0 H Eos # 0.0 Baso # 0.0 Neutrophils % (Manual) 97 H Lymphocytes % (Manual) 2 L Monocytes % (Manual) 1 Platelet Estimate Normal Hypochromasia (manual) Slight Poikilocytosis (manual Slight Anisocytosis (manual) Slight Target Cells Slight Mariah Cells Slight PT INR APTT pO2 48 VBG pH 7.25 L VBG pCO2 34 L VBG HCO3 15.5 VBG Total CO2 15.9 L VBG O2 Sat (Calc) 86.7 H VBG Base Excess -11.3 L VBG Potassium 2.9 L Sodium 154.0 H 151 H Chloride 130.0 H 130 H Glucose 100 Lactate 1.6 FiO2 21.0 Potassium 2.9 L Carbon Dioxide 12 L Anion Gap 11 BUN 13 Creatinine 0.9 Est GFR ( Amer) > 60 Est GFR (Non-Af Amer) > 60 Random Glucose 77 Calcium 6.5 L Phosphorus 2.1 L Magnesium 1.9 Total Bilirubin 1.0 AST > 750 H D ALT 330 H D Alkaline Phosphatase 360 H Ammonia Total Protein 5.7 L Albumin 2.4 L Globulin 3.3 Albumin/Globulin Ratio 0.7 L Procalcitonin Venous Blood Potassium 2.9 L 08/25/17 08/25/17 08/25/17 06:43 09:43 09:43 WBC RBC Hgb Hct MCV MCH MCHC RDW Plt Count MPV Neut % (Auto) Lymph % (Auto) Loving % (Auto) Eos % (Auto) Baso % (Auto) Neut # Lymph # Loving # Eos # Baso # Neutrophils % (Manual) Lymphocytes % (Manual) Monocytes % (Manual) Platelet Estimate Hypochromasia (manual) Poikilocytosis (manual Anisocytosis (manual) Target Cells Mariah Cells PT 40.2 H* D INR 3.4 APTT 40 H D pO2 VBG pH VBG pCO2 VBG HCO3 VBG Total CO2 VBG O2 Sat (Calc) VBG Base Excess VBG Potassium Sodium Chloride Glucose Lactate FiO2 Potassium Carbon Dioxide Anion Gap BUN Creatinine Est GFR ( Amer) Est GFR (Non-Af Amer) Random Glucose Calcium Phosphorus Magnesium Total Bilirubin AST ALT Alkaline Phosphatase Ammonia 51 H Total Protein Albumin Globulin Albumin/Globulin Ratio Procalcitonin 62.48 H Venous Blood Potassium Attending/Attestation - Attestation I have personally seen and examined this patient.: Yes I have fully participated in the care of the patient.: Yes I have reviewed all pertinent clinical information: Yes Notes (Text): 08/25/17 17:26 patient seen and examined in the intensive care unit. Case discussed with house staff in the morning around Neurology evaluation for change in mental status Continue IV antibiotics per infectious disease Follow-up culture and sensitivity Etiology of sepsis? Continue present treatment for now
[2017-08-25 09:48] LABS: ANISOCYTOSIS SLIGHT; BURR CELLS SLIGHT; HYPOCHROMIC SLIGHT; LYMPHOCYTE 2 % (20-40); MONOCYTE 1 % (0-10); NEUTROPHIL 97 % (50-75); PLATELET ESTIMATE NORMAL (NORMAL); POIKILOCYTOSIS SLIGHT; TOTAL CELLS COUNTED 100
[2017-08-25 09:49] LABS: TARGET CELLS SLIGHT
[2017-08-25] MEDS ORDERED: EXEMESTANE 25 MG PO SCH (10:00)
[2017-08-25] MEDS ORDERED: Pantoprazole 40 mg EC Tab PO SCH (10:00)
[2017-08-25] MEDS ORDERED: ALPHA LIPOIC ACID 300 MG PO SCH (10:00)
[2017-08-25] MEDS ORDERED: Enoxaparin 40 mg Syringe SC SCH (10:00)
[2017-08-25] MEDS ORDERED: Aztreonam 2 GM in Sodium Chloride 0.9% 100 ML IVPB SCH (10:00)
[2017-08-25] MEDS ORDERED: Enoxaparin 80 mg Syringe SC SCH (10:00)
[2017-08-25] MEDS: Magnesium Oxide 400 mg Tab UD PO SCH (10:23)
[2017-08-25] MEDS ORDERED: Vancomycin 1 gm/NS 200 ml 1 GM/200 ML BAG IVPB SCH (10:30)
--- NOTE | 2017-08-25 12:39 | CP.PCM.CON ---
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 The patient recently was treated with chemotherapy on 08/23. She was supposed to be treated with a final day of chemotherapy but did not show. Her sister reports she has been more weak and not eating much. She did find her on the floor of her bedroom and brought her to the hospital. The patient is currently confused and I am unable to obtain further history from her. Past medical, surgical, family, social history cannot be obtained Allergies: Penicillin G Review of systems cannot be obtained. Past Patient History - Infectious Disease Hx of Infectious Diseases: None - Past Medical History & Family History Past Medical History?: Yes - Past Social History Smoking Status: Never Smoked - CARDIAC Hx Cardiac Disorders: No - PULMONARY Hx Asthma: Yes (WHEN ANXIOUS ON ONHALERS LAST ATTACK 5 YRS AGO) - NEUROLOGICAL Hx Paralysis: Yes (POLIO) - HEENT Hx HEENT Problems: Yes (TINNITUS) Other/Comment: pt has very dry mouth sts tongue gets stuck to roof of mouth - RENAL Hx Chronic Kidney Disease: No - ENDOCRINE/METABOLIC Hx Endocrine Disorders: No - HEMATOLOGICAL/ONCOLOGICAL Hx Blood Transfusions: No Hx Blood Transfusion Reaction: No - INTEGUMENTARY Hx Dermatological Problems: No - MUSCULOSKELETAL/RHEUMATOLOGICAL Hx Musculoskeletal Disorders: Yes Hx Falls: No Other/Comment: poliomyelitis - GASTROINTESTINAL Hx Gastrointestinal Disorders: Yes (ABD PAIN) - GENITOURINARY/GYNECOLOGICAL Hx Genitourinary Disorders: Yes Hx Reproductive Disorders: Yes (OVARIAN CYST) Hx Uterine Cancer: Yes - PSYCHIATRIC Hx Anxiety: Yes Hx Substance Use: No - SURGICAL HISTORY Hx Surgeries: Yes (R BREAST, L HIP) - ANESTHESIA Hx Anesthesia: Yes Hx Anesthesia Reactions: No Hx Malignant Hyperthermia: No Meds Allergies/Adverse Reactions: Allergies Allergy/AdvReac Type Severity Reaction Status Date / Time penicillin G AdvReac RASH Verified 08/24/17 12:56 - Medications Medications: Current Medications Enoxaparin Sodium (Lovenox) 40 mg SC DAILY [facility] Last Admin: 08/25/17 10:21 Dose: Not Given Gabapentin (Neurontin) 400 mg PO DAILY [facility] Last Admin: 08/25/17 10:23 Dose: Not Given Home Med (Alpha Lipoic Acid [Alpha Lipoic Acid]) 300 mg PO BID [facility] Home Med (Exemestane [Aromasin]) 25 mg PO DAILY [facility] Aztreonam 2 gm/ Sodium (Chloride) 100 mls @ 200 mls/hr IVPB Q8H [facility] Last Admin: 08/25/17 09:00 Dose: 200 mls/hr Sodium Chloride (Sodium Chloride 0.9%) 1,000 mls @ 100 mls/hr IV .Q10H [facility] Last Admin: 08/25/17 03:18 Dose: 100 mls/hr Potassium Chloride 20 meq/ (Sodium Chloride) 110 mls @ 55 mls/hr IV Q4 [facility] Stop: 08/25/17 17:59 Vancomycin/Sodium Chloride (Vancomycin 1 Gm/Ns 200 Ml) 1 gm in 200 mls @ 133.333 mls/hr IVPB DAILY@1030 [facility] Stop: 08/30/17 10:31 Last Admin: 08/25/17 10:25 Dose: 133.333 mls/hr Magnesium Oxide (Mag-Ox) 400 mg PO DAILY [facility] Last Admin: 08/25/17 10:23 Dose: Not Given Ondansetron HCl (Zofran Tab) 4 mg PO Q4 PRN PRN Reason: NAUSEA/VOMITING Pantoprazole Sodium (Protonix Inj) 40 mg IVP DAILY [facility] Last Admin: 08/25/17 10:25 Dose: 40 mg Physical Exam - Head Exam Head Exam: ATRAUMATIC - Eye Exam Eye Exam: Normal appearance - ENT Exam ENT Exam: Mucous Membranes Dry - Respiratory Exam Respiratory Exam: Decreased Breath Sounds - Cardiovascular Exam Cardiovascular Exam: +S1, +S2 - GI/Abdominal Exam GI & Abdominal Exam: Normal Bowel Sounds - Neurological Exam Neurological exam: Altered - Skin Skin Exam: Warm Results - Vital Signs Recent Vital Signs: Last Vital Signs Temp 98.4 F 08/25/17 08:00 Pulse 110 H 08/25/17 11:04 Resp 14 08/25/17 11:04 BP 105/48 L 08/25/17 11:04 Pulse Ox 100 08/25/17 11:04 - Labs Result Diagrams: 08/25/17 06:43 08/25/17 06:43 Labs: Laboratory Results - last 24 hr 08/24/17 08/24/17 08/24/17 14:04 14:04 14:04 WBC 21.1 H D RBC 2.68 L Hgb 8.1 L Hct 25.4 L MCV 94.8 D MCH 30.1 MCHC 31.7 L RDW 29.0 H Plt Count 450 H MPV 8.3 Neut % (Auto) 97.0 H Lymph % (Auto) 1.0 L Blount % (Auto) 2.0 Eos % (Auto) 0.0 Baso % (Auto) 0.0 Neut # 20.5 H Lymph # 0.2 L Blount # 0.4 Eos # 0.0 Baso # 0.0 Neutrophils % (Manual) 97 H Band Neutrophils % 1 Lymphocytes % (Manual) 1 L Monocytes % (Manual) 1 Platelet Estimate Slightly increased H Hypochromasia (manual) Poikilocytosis (manual Slight Anisocytosis (manual) Moderate Target Cells Slight Ovalocytes Slight Mariah Cells PT 33.9 H* INR 2.9 APTT 35 H pO2 VBG pH VBG pCO2 VBG HCO3 VBG Total CO2 VBG O2 Sat (Calc) VBG Base Excess VBG Potassium Glucose Lactate FiO2 Crit Value Called To Crit Value Called By Crit Value Read Back Blood Gas Notified Time Sodium 149 H Potassium 3.1 L Chloride 123 H Carbon Dioxide 16 L Anion Gap 13 BUN 10 Creatinine 0.9 Est GFR ( Amer) > 60 Est GFR (Non-Af Amer) > 60 Random Glucose 100 Calcium 7.4 L Phosphorus 2.5 Magnesium 2.0 Total Bilirubin 1.4 H AST 1933 H ALT 432 H D Alkaline Phosphatase 432 H Ammonia Troponin I < 0.0120 Total Protein 6.6 Albumin 2.8 L Globulin 3.8 Albumin/Globulin Ratio 0.7 L Procalcitonin Venous Blood Potassium Urine Color Urine Clarity Urine pH Ur Specific [place] Urine Protein Urine Glucose (UA) Urine Ketones Urine Blood Urine Nitrate Urine Bilirubin Urine Urobilinogen Ur Leukocyte Esterase Urine WBC (Auto) Urine RBC (Auto) Ur Squamous Epith Cells Urine Bacteria Hyaline Casts Granular Casts (Auto) 08/24/17 08/24/17 08/24/17 14:47 15:00 17:55 WBC RBC Hgb Hct MCV MCH MCHC RDW Plt Count MPV Neut % (Auto) Lymph % (Auto) [place] % (Auto) Eos % (Auto) Baso % (Auto) Neut # Lymph # Blount # Eos # Baso # Neutrophils % (Manual) Band Neutrophils % Lymphocytes % (Manual) Monocytes % (Manual) Platelet Estimate Hypochromasia (manual) Poikilocytosis (manual Anisocytosis (manual) Target Cells Ovalocytes Mariah Cells PT INR APTT pO2 27 L 48 VBG pH 7.16 L* 7.25 L VBG pCO2 41 34 L VBG HCO3 12.6 15.5 VBG Total CO2 15.9 L 15.9 L VBG O2 Sat (Calc) 44.4 86.7 H VBG Base Excess -13.5 L -11.3 L VBG Potassium 3.1 L 2.9 L Glucose 85 100 Lactate 4.1 H* 1.6 FiO2 21.0 Crit Value Called To Bernadine krishnan rn Crit Value Called By Lupe Crit Value Read Back Y Blood Gas Notified Time 1503 Sodium 156.0 H 154.0 H Potassium Chloride 129.0 H 130.0 H Carbon Dioxide Anion Gap BUN Creatinine Est GFR ( Amer) Est GFR (Non-Af Amer) Random Glucose Calcium Phosphorus Magnesium Total Bilirubin AST ALT Alkaline Phosphatase Ammonia Troponin I Total Protein Albumin Globulin Albumin/Globulin Ratio Procalcitonin Venous Blood Potassium 3.1 L 2.9 L Urine Color Yellow Urine Clarity Hazy Urine pH 7.0 Ur Specific [place] 1.012 Urine Protein 2+ H Urine Glucose (UA) 3+ H Urine Ketones Trace Urine Blood 1+ H Urine Nitrate Negative Urine Bilirubin Negative Urine Urobilinogen Normal Ur Leukocyte Esterase Neg Urine WBC (Auto) 3 Urine RBC (Auto) 8 H Ur Squamous Epith Cells 1 Urine Bacteria Rare Hyaline Casts 0-2 Granular Casts (Auto) 18 08/25/17 08/25/17 08/25/17 06:43 06:43 06:43 WBC 14.6 H RBC 2.29 L Hgb 7.1 L Hct 21.6 L MCV 94.6 MCH 31.3 H MCHC 33.1 RDW 28.9 H Plt Count 393 MPV 8.3 Neut % (Auto) 97.0 H Lymph % (Auto) 2.0 L [place] % (Auto) 1.0 Eos % (Auto) 0.0 Baso % (Auto) 0.0 Neut # 97.0 H Lymph # 2.0 Blount # 1.0 H Eos # 0.0 Baso # 0.0 Neutrophils % (Manual) 97 H Band Neutrophils % Lymphocytes % (Manual) 2 L Monocytes % (Manual) 1 Platelet Estimate Normal Hypochromasia (manual) Slight Poikilocytosis (manual Slight Anisocytosis (manual) Slight Target Cells Slight Ovalocytes [place] Cells Slight PT 40.2 H* D INR 3.4 APTT 40 H D pO2 VBG pH VBG pCO2 VBG HCO3 VBG Total CO2 VBG O2 Sat (Calc) VBG Base Excess VBG Potassium Glucose Lactate FiO2 Crit Value Called To Crit Value Called By Crit Value Read Back Blood Gas Notified Time Sodium 151 H Potassium 2.9 L Chloride 130 H Carbon Dioxide 12 L Anion Gap 11 BUN 13 Creatinine 0.9 Est GFR ( Amer) > 60 Est GFR (Non-Af Amer) > 60 Random Glucose 77 Calcium 6.5 L Phosphorus 2.1 L Magnesium 1.9 Total Bilirubin 1.0 AST > 750 H D ALT 330 H D Alkaline Phosphatase 360 H Ammonia Troponin I Total Protein 5.7 L Albumin 2.4 L Globulin 3.3 Albumin/Globulin Ratio 0.7 L Procalcitonin Venous Blood Potassium Urine Color Urine Clarity Urine pH Ur Specific [place] Urine Protein Urine Glucose (UA) Urine Ketones Urine Blood Urine Nitrate Urine Bilirubin Urine Urobilinogen Ur Leukocyte Esterase Urine WBC (Auto) Urine RBC (Auto) Ur Squamous Epith Cells Urine Bacteria Hyaline Casts Granular Casts (Auto) 08/25/17 08/25/17 09:43 09:43 WBC RBC Hgb Hct MCV MCH MCHC RDW Plt Count MPV Neut % (Auto) Lymph % (Auto) [place] % (Auto) Eos % (Auto) Baso % (Auto) Neut # Lymph # [place] # Eos # Baso # Neutrophils % (Manual) Band Neutrophils % Lymphocytes % (Manual) Monocytes % (Manual) Platelet Estimate Hypochromasia (manual) Poikilocytosis (manual Anisocytosis (manual) Target Cells Ovalocytes [place] Cells PT INR APTT pO2 VBG pH VBG pCO2 VBG HCO3 VBG Total CO2 VBG O2 Sat (Calc) VBG Base Excess VBG Potassium Glucose Lactate FiO2 Crit Value Called To Crit Value Called By Crit Value Read Back Blood Gas Notified Time Sodium Potassium Chloride Carbon Dioxide Anion Gap BUN Creatinine Est GFR ( Amer) Est GFR (Non-Af Amer) Random Glucose Calcium Phosphorus Magnesium Total Bilirubin AST ALT Alkaline Phosphatase Ammonia 51 H Troponin I Total Protein Albumin Globulin Albumin/Globulin Ratio Procalcitonin 62.48 H Venous Blood Potassium Urine Color Urine Clarity Urine pH Ur Specific [place] Urine Protein Urine Glucose (UA) Urine Ketones Urine Blood Urine Nitrate Urine Bilirubin Urine Urobilinogen Ur Leukocyte Esterase Urine WBC (Auto) Urine RBC (Auto) Ur Squamous Epith Cells Urine Bacteria Hyaline Casts Granular Casts (Auto) Assessment & Plan (1) Anemia Assessment and Plan: chronic disease and chemotherapy transfusion support PRN Status: Acute (2) Leukocytosis Assessment and Plan: on antibiotics Status: Acute (3) Coagulopathy Assessment and Plan: likely nutritional vit k PRN Status: Acute (4) Metastatic cancer Assessment and Plan: stage IV mullerian tract cancer on salvage ifosfamide outpatient treatment Thank you for this interesting consult. Status: Chronic
--- NOTE | 2017-08-25 14:43 | VASCLAB ---
PROCEDURE: Lower Extremity Venous Duplex Exam. HISTORY: LE pain and swelling PRIORS: None. TECHNIQUE: Bilateral common femoral, femoral, popliteal and posterior tibial, peroneal and great saphenous veins were evaluated. Flow was assessed with color Doppler, compressibility, assessment of phasic flow and augmentation response. Report prepared by Hima Chou, CHELLY, RVT FINDINGS: RIGHT: 1. Common Femoral Vein: 1.1. Compressibility - Fully compressible: Thrombus - None : Flow - Phasic: Augmentation -Normal: Reflux - None. 2. Femoral Vein: 2.1. Compressibility - Fully compressible: Thrombus - None : Flow - Phasic: Augmentation -Normal: Reflux - None. 3. Popliteal Vein: 3.1. Compressibility - Fully compressible: Thrombus - None : Flow - Phasic: Augmentation -Normal: Reflux - None. 4. Posterior Tibial Vein: 4.1. Compressibility - Fully compressible: Thrombus - None: Flow - Phasic: Augmentation -Normal: Reflux - None. 5. Peroneal Vein: 5.1. Compressibility - Fully compressible: Thrombus - None: Flow - Phasic: Augmentation -Normal: Reflux - None. 6. Great Saphenous Vein: 6.1. Compressibility - Fully compressible: Thrombus - None: Flow - Phasic: Augmentation - Normal: Reflux - None. LEFT: 1. Common Femoral Vein: 1.1. Compressibility - Fully compressible: Thrombus - None: Flow - Phasic: Augmentation -Normal: Reflux - None. 2. Femoral Vein: 2.1. Compressibility - Fully compressible: Thrombus - None: Flow - Phasic: Augmentation -Normal: Reflux - None. 3. Popliteal Vein: 3.1. Compressibility - Fully compressible: Thrombus - None : Flow - Phasic: Augmentation -Normal: Reflux - None. 4. Posterior Tibial Vein: 4.1. Compressibility - Fully compressible: Thrombus - None: Flow - Phasic: Augmentation -Normal: Reflux - None. 5. Peroneal Vein: 5.1. Compressibility - Fully compressible: Thrombus - None: Flow - Phasic: Augmentation -Normal: Reflux - None. 6. Great Saphenous Vein: 6.1. Compressibility - Fully compressible: Thrombus - None: Flow - Phasic: Augmentation - Normal: Reflux - None. OTHER FINDINGS: Right: Technically limited study due to severe swelling limbs. IMPRESSION: Right: No evidence of deep or superficial vein thrombosis of the right lower extremity. Normal valve function noted of the right side. Left: No evidence of deep or superficial vein thrombosis of the left lower extremity. Normal valve function noted of the left side.
--- NOTE | 2017-08-25 14:45 | VASCLAB ---
STUDY DESCRIPTION: HISTORY: LE pain and swelling PRIORS: None. TECHNIQUE: Pulse volume recording waveforms and segmental pressures of bilateral lower extremities at multiple levels were obtained. Ankle Brachial Indices (ABIs) were calculated. Report prepared by CHELLY Chavez, RVT RIGHT LOWER EXTREMITY: * Brachial artery: Pressure - 108 mmHg. * High thigh: Pressure - mmHg: Ratio - : PVR waveform - Reduced * Low thigh: Pressure - mmHg: Ratio - PVR waveform: Reduced * Calf: Pressure - 94 mmHg: Ratio - 0.87 PVR waveform: Reduced * Posterior tibial Artery: Pressure - 70 mmHg: Ratio - 0.65 PVR waveform: Reduced * Dorsalis pedis Artery: Pressure - 81 mmHg: Ratio - 0.75 PVR waveform: Reduced * Great toe: Pressure - mmHg: Ratio - PVR waveform: Ankle brachial index (LAMIN): 0.75 LEFT LOWER EXTREMITY: * Brachial artery: Pressure - mmHg. * High thigh: Pressure - mmHg: Ratio - : PVR waveform - Reduced * Low thigh: Pressure - mmHg: Ratio - PVR waveform: Reduced * Calf: Pressure - 83 mmHg: Ratio - 0.77 PVR waveform: Reduced * Posterior tibial Artery: Pressure - 66 mmHg: Ratio - 0.61 PVR waveform: Reduced * Dorsalis pedis Artery: Pressure - 84 mmHg: Ratio - 0.78 PVR waveform: Reduced * Great toe: Pressure - mmHg: Ratio - PVR waveform: Ankle brachial index (LAMIN): 0.78 OTHER FINDINGS: Right: Left: IMPRESSION: This exam reveals moderately decreased perfusion of both lower extremities, noted at the iliac artery level.
--- NOTE | 2017-08-25 17:53 | CP.PCM.CON ---
History of Present Illness - History of Present Illness History of Present Illness: seen in ICU discussed with team IV rx in progress await LP Dr Tran on board 62 yo F w/ extensive PMHx was BIBA after pt was found altered by sister. Pt is currently altered and unable to answer questions. History obtained from EMR. Per documentation, the patient seemed to be in pain and not herself last evening when the patient was visited by her sister. The patient was found in the floor and incontinent of urine last evening. This morning when the sister went to check on the patient, the patient was very lethargic, minimally arousable, and nonverbal. In the ED, pt was found to be hypothermic, hypotensive , and tachycardic. Pt was admitted for AMS and sepsis. Surgery is consulted for B/L LE edema and dusky legs. PMHx: ovarian cyst, breast cancer, metastatic endometrial cancer, Poliomyelitis , R femoral DVT Meds: reviewed in chart ALL: PCN PSHx: ovarian cystectomy, lumpectomy, hip surgery SHx: all ADLs, lives alone, wheelchair; denies tobacco, EtOH, drug use FHx: noncontributory Review of Systems - Review of Systems Systems not reviewed;Unavailable: Altered Mental Status - Constitutional Constitutional: absent: As Per HPI, Anorexia, Chills, Daytime Sleepiness, Excessive Sweating, Fatigue, Fever, Frequent Falls, Headache, Increased Appetite , Lethargy, Malaise, Night Sweats, Snoring, Sleep Apnea, Weight Gain, Weight Loss, Weakness, Other - EENT Eyes: absent: As Per HPI, Blind Spots, Blurred Vision, Change in Vision, Decreased Night Vision, Diplopia, Discharge, Dry Eye, Exophthalmos, Floaters, Irritation, Itchy Eyes, Loss of Peripheral Vision, Pain, Photophobia, Requires Corrective Lenses, Sees Flashes, Spots in Vision, Tunnel Vision, Other Visual Disturbances, Loss of Vision, Other Ears: absent: As Per HPI, Decreased Hearing, Ear Discharge, Ear Pain, Tinnitus, Abnormal Hearing, Disequilibrium, Dizziness, Other Nose/Mouth/Throat: absent: As Per HPI, Epistaxis, Nasal Congestion, Nasal Discharge, Nasal Obstruction, Nasal Trauma, Nose Pain, Post Nasal Drip, Sinus Pain, Sinus Pressure, Bleeding Gums, Change in Voice, Dental Pain, Dry Mouth, Dysphagia, Halitosis, Hoarsness, Lip Swelling, Mouth Lesions, Mouth Pain, Odynophagia, Sore Throat, Throat Swelling, Tongue Swelling, Facial Pain, Neck Pain, Neck Mass, Other - Breasts Breasts: absent: As Per HPI, Change in Shape, Mass, Pain, Nipple Discharge, Nipple Inversion, Skin Changes, Swelling, Other - Cardiovascular Cardiovascular: absent: As Per HPI, Acrocyanosis, Chest Pain, Chest Pain at Rest , Chest Pain with Activity, Claudication, Diaphoresis, Dyspnea, Dyspnea on Exertion, Edema, Irregular Heart Rhythm, Pain Radiating to Arm/Neck/Jaw, Leg Edema, Leg Ulcers, Lightheadedness, Orthopnea, Palpitations, Paroxysmal Nocturnal Dyspnea, Pedal Edema, Radiating Pain, Rapid Heart Rate, Slow Heart Rate, Syncope, Other - Respiratory Respiratory: absent: As Per HPI, Cough, Dyspnea, Hemoptysis, Dyspnea on Exertion , Wheezing, Snoring, Stridor, Pain on Inspiration, Chest Congestion, Excessive Mucous Production, Change in Mucous Color, Pain with Coughing, Other - Gastrointestinal Gastrointestinal: absent: As Per HPI, Abdominal Pain, Belching, Bloating, Change in Bowel Habits, Change in Stool Character, Coffee Ground Emesis, Constipation, Cramping, Diarrhea, Dyspepsia, Dysphagia, Early Satiety, Excessive Flatus, Fecal Incontinence, Heartburn, Hematemesis, Hematochezia, Loose Stools, Melena, Nausea, Odynophagia, Temesmus, Vomiting, Other - Genitourinary Genitourinary: absent: As Per HPI, Change in Urinary Stream, Difficulty Urinating, Dysuria, Flank Pain, Hematuria, Pyuria, Nocturia, Urinary Incontinence, Urinary Frequency, Urinary Hesitance, Urinary Urgency, Voiding Freq/Small Amts, Freq UTI, Hx Renal/Bladder Calculi, Hx /Renal Surgery, Bladder Distension, Other - Reproductive: Female Reproductive:Female: absent: As Per HPI, Amenorrhea, Amenorrhea/ Control, Currently Menstual, Cycle <21 Days, Cycle >35 Days, Cycle Variable, Menses 1-7 Days, Menses >/= 8 Days, Menses Variable, Cycle > 4 Weeks Between, No Menses for 6 Months, Heavy Menses, Light Menses, Normal Menses, Spotting Between Cycles , S/P Hysterectomy, Menopausal, Post Menopausal, Premenarche, Abnormal Vaginal Bleeding, Dysmenorrhea, Dyspareunia, Genital Lesions, Genital Pruritis, Pelvic Pain, Prolapse Symptoms, Sexual Dysfunction, Vaginal Discharge, Vaginal Dryness , Vaginal Odor, Vaginal Pruritis, Other - Menstruation Menstruation: absent: As Per HPI, Amenorrhea, Amenorrhea/ Control, Currently Menstual, Cycle <21 Days, Cycle >35 Days, Cycle Variable, Menses 1-7 Days, Menses >/= 8 Days, Menses Variable, Cycle > 4 Weeks Between, No Menses for 6 Months, Heavy Menses, Light Menses, Normal Menses, Spotting Between Cycles , S/P Hysterectomy, Menopausal, Post Menopausal, Premenarche, Abnormal Vaginal Bleeding, Dysmenorrhea, Other - Musculoskeletal Musculoskeletal: absent: As Per HPI, Abnormal Gait, Arthralgias, Atrophy, Back Pain, Deformity, Joint Swelling, Limited Range of Motion, Loss of Height, Muscle Cramps, Muscle Weakness, Myalgias, Neck Pain, Numbness, Radiating Pain into Limb, Stiffness, Tingling, Other - Integumentary Integumentary: absent: As Per HPI, Acne, Alopecia, Bleeding Lesions, Change in Hair, Change in Nails, Change in Pigmentation, Changing Lesions, Dry Skin, Erythema, Furuncle, Hirsutism, Lesions, New Lesions, Non-Healing Lesions, Photosensitivity, Pruritus, Rash, Skin Pain, Skin Ulcer, Sores, Striae, Swelling , Unusual Bruising, Wounds, Jaundice, Other - Neurological Neurological: absent: As Per HPI, Abnormal Gait, Abnormal Hearing, Abnormal Movements, Abnormal Speech, Behavioral Changes, Burning Sensations, Confusion, Convulsions, Disequilibrium, Dizziness, Numbness, Focal Weakness, Frequent Falls , Headaches, Lack of Coordination, Loss of Vision, Memory Loss, Paresthesias, Radicular Pain, Restless Legs, Sensory Deficit, Syncope, Tingling, Tremor, Vertigo, Weakness, Other Visual Disturbances, Other - Psychiatric Psychiatric: absent: As Per HPI, Abnormal Sleep Pattern, Anhedonia, Anxiety, Auditory Hallucinations, Behavioral Changes, Change in Appetite, Change in Libido, Confusion, Depression, Difficulty Concentrating, Hallucinations, Homicidal Ideation, Hopelessness, Irritability, Memory Loss, Mood Swings, Panic Attacks, Paranoia, Suicidal Ideation, Visual Hallucinations, Tactile Hallucinations, Other - Endocrine Endocrine: absent: As Per HPI, Change in Body Appearance, Change in Libido, Cold Intolorance, Deepening of Voice, Excessive Sweating, Fatigue, Flushing, Heat Intolorance, Increase in Ring/Shoe/Hat Size, Palpitations, Polydipsia, Polyphagia, Polyuria, Other - Hematologic/Lymphatic Hematologic: absent: As Per HPI, Easy Bleeding, Easy Bruising, Lymphadenopathy, Other Past Patient History - Infectious Disease Hx of Infectious Diseases: None - Past Medical History & Family History Past Medical History?: Yes - Past Social History Smoking Status: Never Smoked - CARDIAC Hx Cardiac Disorders: No - PULMONARY Hx Asthma: Yes (WHEN ANXIOUS ON ONHALERS LAST ATTACK 5 YRS AGO) - NEUROLOGICAL Hx Paralysis: Yes (POLIO) - HEENT Hx HEENT Problems: Yes (TINNITUS) Other/Comment: pt has very dry mouth sts tongue gets stuck to roof of mouth - RENAL Hx Chronic Kidney Disease: No - ENDOCRINE/METABOLIC Hx Endocrine Disorders: No - HEMATOLOGICAL/ONCOLOGICAL Hx Blood Transfusions: No Hx Blood Transfusion Reaction: No - INTEGUMENTARY Hx Dermatological Problems: No - MUSCULOSKELETAL/RHEUMATOLOGICAL Hx Musculoskeletal Disorders: Yes Hx Falls: No Other/Comment: poliomyelitis - GASTROINTESTINAL Hx Gastrointestinal Disorders: Yes (ABD PAIN) - GENITOURINARY/GYNECOLOGICAL Hx Genitourinary Disorders: Yes Hx Reproductive Disorders: Yes (OVARIAN CYST) Hx Uterine Cancer: Yes - PSYCHIATRIC Hx Anxiety: Yes Hx Substance Use: No - SURGICAL HISTORY Hx Surgeries: Yes (R BREAST, L HIP) - ANESTHESIA Hx Anesthesia: Yes Hx Anesthesia Reactions: No Hx Malignant Hyperthermia: No Meds Allergies/Adverse Reactions: Allergies Allergy/AdvReac Type Severity Reaction Status Date / Time penicillin G AdvReac RASH Verified 08/24/17 12:56 - Medications Medications: Current Medications Enoxaparin Sodium (Lovenox) 40 mg SC DAILY [facility] Last Admin: 08/25/17 10:21 Dose: Not Given Gabapentin (Neurontin) 400 mg PO DAILY [facility] Last Admin: 08/25/17 10:23 Dose: Not Given Home Med (Alpha Lipoic Acid [Alpha Lipoic Acid]) 300 mg PO BID [facility] Home Med (Exemestane [Aromasin]) 25 mg PO DAILY [facility] Aztreonam 2 gm/ Sodium (Chloride) 100 mls @ 200 mls/hr IVPB Q8H [facility] Last Admin: 08/25/17 09:00 Dose: 200 mls/hr Sodium Chloride (Sodium Chloride 0.9%) 1,000 mls @ 100 mls/hr IV .Q10H [facility] Last Admin: 08/25/17 03:18 Dose: 100 mls/hr Potassium Chloride 20 meq/ (Sodium Chloride) 110 mls @ 55 mls/hr IV Q4 [facility] Stop: 08/25/17 17:59 Last Admin: 08/25/17 11:30 Dose: 55 mls/hr Vancomycin/Sodium Chloride (Vancomycin 1 Gm/Ns 200 Ml) 1 gm in 200 mls @ 133.333 mls/hr IVPB DAILY@1030 [facility] Stop: 08/30/17 10:31 Last Admin: 08/25/17 10:25 Dose: 133.333 mls/hr Magnesium Oxide (Mag-Ox) 400 mg PO DAILY [facility] Last Admin: 08/25/17 10:23 Dose: Not Given Ondansetron HCl (Zofran Tab) 4 mg PO Q4 PRN PRN Reason: NAUSEA/VOMITING Pantoprazole Sodium (Protonix Inj) 40 mg IVP DAILY [facility] Last Admin: 08/25/17 10:25 Dose: 40 mg Physical Exam - Constitutional Appears: Toxic, Confused, Cachectic, Chronically Ill - Head Exam Head Exam: ATRAUMATIC, NORMOCEPHALIC - Eye Exam Eye Exam: absent: Scleral icterus - ENT Exam ENT Exam: Mucous Membranes Dry, Normal External Ear Exam - Neck Exam Neck exam: Negative for: Lymphadenopathy - Respiratory Exam Respiratory Exam: Decreased Breath Sounds, Rales, Rhonchi - Cardiovascular Exam Cardiovascular Exam: REGULAR RHYTHM, +S1, +S2 - GI/Abdominal Exam GI & Abdominal Exam: Diminished Bowel Sounds, Soft. absent: Tenderness - Rectal Exam Rectal Exam: Deferred - Exam Exam: NORMAL INSPECTION - Extremities Exam Extremities exam: Negative for: pedal edema - Back Exam Back exam: absent: CVA tenderness (L), CVA tenderness (R) - Neurological Exam Neurological exam: Altered - Psychiatric Exam Psychiatric exam: Depressed - Skin Skin Exam: Dry Results - Vital Signs Recent Vital Signs: Last Vital Signs Temp 98.4 F 08/25/17 16:00 Pulse 130 H 08/25/17 17:03 Resp 16 08/25/17 17:03 BP 109/51 L 08/25/17 17:04 Pulse Ox 100 08/25/17 17:03 - Labs Result Diagrams: 08/31/17 06:18 08/31/17 06:20 Labs: Laboratory Results - last 24 hr 08/24/17 08/25/17 08/25/17 17:55 06:43 06:43 WBC 14.6 H RBC 2.29 L Hgb 7.1 L Hct 21.6 L MCV 94.6 MCH 31.3 H MCHC 33.1 RDW 28.9 H Plt Count 393 MPV 8.3 Neut % (Auto) 97.0 H Lymph % (Auto) 2.0 L [place] % (Auto) 1.0 Eos % (Auto) 0.0 Baso % (Auto) 0.0 Neut # 97.0 H Lymph # 2.0 [place] # 1.0 H Eos # 0.0 Baso # 0.0 Neutrophils % (Manual) 97 H Lymphocytes % (Manual) 2 L Monocytes % (Manual) 1 Platelet Estimate Normal Hypochromasia (manual) Slight Poikilocytosis (manual Slight Anisocytosis (manual) Slight Target Cells Slight [place]iah Cells Slight PT INR APTT pO2 48 VBG pH 7.25 L VBG pCO2 34 L VBG HCO3 15.5 VBG Total CO2 15.9 L VBG O2 Sat (Calc) 86.7 H VBG Base Excess -11.3 L VBG Potassium 2.9 L Sodium 154.0 H 151 H Chloride 130.0 H 130 H Glucose 100 Lactate 1.6 FiO2 21.0 Potassium 2.9 L Carbon Dioxide 12 L Anion Gap 11 BUN 13 Creatinine 0.9 Est GFR ( Amer) > 60 Est GFR (Non-Af Amer) > 60 Random Glucose 77 Calcium 6.5 L Phosphorus 2.1 L Magnesium 1.9 Total Bilirubin 1.0 AST > 750 H D ALT 330 H D Alkaline Phosphatase 360 H Ammonia Total Protein 5.7 L Albumin 2.4 L Globulin 3.3 Albumin/Globulin Ratio 0.7 L Procalcitonin Venous Blood Potassium 2.9 L 08/25/17 08/25/17 08/25/17 06:43 09:43 09:43 WBC RBC Hgb Hct MCV MCH MCHC RDW Plt Count MPV Neut % (Auto) Lymph % (Auto) [place] % (Auto) Eos % (Auto) Baso % (Auto) Neut # Lymph # [place] # Eos # Baso # Neutrophils % (Manual) Lymphocytes % (Manual) Monocytes % (Manual) Platelet Estimate Hypochromasia (manual) Poikilocytosis (manual Anisocytosis (manual) Target Cells [place] Cells PT 40.2 H* D INR 3.4 APTT 40 H D pO2 VBG pH VBG pCO2 VBG HCO3 VBG Total CO2 VBG O2 Sat (Calc) VBG Base Excess VBG Potassium Sodium Chloride Glucose Lactate FiO2 Potassium Carbon Dioxide Anion Gap BUN Creatinine Est GFR ( Amer) Est GFR (Non-Af Amer) Random Glucose Calcium Phosphorus Magnesium Total Bilirubin AST ALT Alkaline Phosphatase Ammonia 51 H Total Protein Albumin Globulin Albumin/Globulin Ratio Procalcitonin 62.48 H Venous Blood Potassium Assessment & Plan (1) Change in mental status Status: Acute (2) Coagulopathy Status: Acute (3) Hypernatremia Status: Acute (4) Leukocytosis Status: Acute (5) Metabolic acidemia Status: Acute (6) Metastatic cancer to liver Status: Acute (7) Ovarian ca Status: Acute (8) Pancytopenia Status: Acute - Assessment and Plan (Free Text) Assessment: antibiotics antivirals pending LP and cultures
--- NOTE | 2017-08-25 17:57 | CP.PCM.CON ---
History of Present Illness - History of Present Illness History of Present Illness: seen in icu lp in progress if meningitis confirmed would consider cefepime hi dose or rocephin instead of azactam for better [employer] penetration consider adding acyclovir as well Past Patient History - Infectious Disease Hx of Infectious Diseases: None - Past Medical History & Family History Past Medical History?: Yes - Past Social History Smoking Status: Never Smoked - CARDIAC Hx Cardiac Disorders: No - PULMONARY Hx Asthma: Yes (WHEN ANXIOUS ON ONHALERS LAST ATTACK 5 YRS AGO) - NEUROLOGICAL Hx Paralysis: Yes (POLIO) - HEENT Hx HEENT Problems: Yes (TINNITUS) Other/Comment: pt has very dry mouth sts tongue gets stuck to roof of mouth - RENAL Hx Chronic Kidney Disease: No - ENDOCRINE/METABOLIC Hx Endocrine Disorders: No - HEMATOLOGICAL/ONCOLOGICAL Hx Blood Transfusions: No Hx Blood Transfusion Reaction: No - INTEGUMENTARY Hx Dermatological Problems: No - MUSCULOSKELETAL/RHEUMATOLOGICAL Hx Musculoskeletal Disorders: Yes Hx Falls: No Other/Comment: poliomyelitis - GASTROINTESTINAL Hx Gastrointestinal Disorders: Yes (ABD PAIN) - GENITOURINARY/GYNECOLOGICAL Hx Genitourinary Disorders: Yes Hx Reproductive Disorders: Yes (OVARIAN CYST) Hx Uterine Cancer: Yes - PSYCHIATRIC Hx Anxiety: Yes Hx Substance Use: No - SURGICAL HISTORY Hx Surgeries: Yes (R BREAST, L HIP) - ANESTHESIA Hx Anesthesia: Yes Hx Anesthesia Reactions: No Hx Malignant Hyperthermia: No Meds Allergies/Adverse Reactions: Allergies Allergy/AdvReac Type Severity Reaction Status Date / Time penicillin G AdvReac RASH Verified 08/24/17 12:56 - Medications Medications: Current Medications Enoxaparin Sodium (Lovenox) 40 mg SC DAILY [facility] Last Admin: 08/25/17 10:21 Dose: Not Given Gabapentin (Neurontin) 400 mg PO DAILY [facility] Last Admin: 08/25/17 10:23 Dose: Not Given Home Med (Alpha Lipoic Acid [Alpha Lipoic Acid]) 300 mg PO BID [facility] Home Med (Exemestane [Aromasin]) 25 mg PO DAILY [facility] Aztreonam 2 gm/ Sodium (Chloride) 100 mls @ 200 mls/hr IVPB Q8H [facility] Last Admin: 08/25/17 09:00 Dose: 200 mls/hr Sodium Chloride (Sodium Chloride 0.9%) 1,000 mls @ 100 mls/hr IV .Q10H [facility] Last Admin: 08/25/17 03:18 Dose: 100 mls/hr Potassium Chloride 20 meq/ (Sodium Chloride) 110 mls @ 55 mls/hr IV Q4 [facility] Stop: 08/25/17 17:59 Last Admin: 08/25/17 11:30 Dose: 55 mls/hr Vancomycin HCl 1,000 mg/ (Sodium Chloride) 250 mls @ 166.6 mls/hr IVPB Q12H [facility] Magnesium Oxide (Mag-Ox) 400 mg PO DAILY [facility] Last Admin: 08/25/17 10:23 Dose: Not Given Ondansetron HCl (Zofran Tab) 4 mg PO Q4 PRN PRN Reason: NAUSEA/VOMITING Pantoprazole Sodium (Protonix Inj) 40 mg IVP DAILY [facility] Last Admin: 08/25/17 10:25 Dose: 40 mg Results - Vital Signs Recent Vital Signs: Last Vital Signs Temp 98.4 F 08/25/17 16:00 Pulse 130 H 08/25/17 17:03 Resp 16 08/25/17 17:03 BP 109/51 L 08/25/17 17:04 Pulse Ox 100 08/25/17 17:03 - Labs Result Diagrams: 08/25/17 06:43 08/25/17 06:43 Labs: Laboratory Results - last 24 hr 08/24/17 08/25/17 08/25/17 17:55 06:43 06:43 WBC 14.6 H RBC 2.29 L Hgb 7.1 L Hct 21.6 L MCV 94.6 MCH 31.3 H MCHC 33.1 RDW 28.9 H Plt Count 393 MPV 8.3 Neut % (Auto) 97.0 H Lymph % (Auto) 2.0 L [place] % (Auto) 1.0 Eos % (Auto) 0.0 Baso % (Auto) 0.0 Neut # 97.0 H Lymph # 2.0 [place] # 1.0 H Eos # 0.0 Baso # 0.0 Neutrophils % (Manual) 97 H Lymphocytes % (Manual) 2 L Monocytes % (Manual) 1 Platelet Estimate Normal Hypochromasia (manual) Slight Poikilocytosis (manual Slight Anisocytosis (manual) Slight Target Cells Slight [place] Cells Slight PT INR APTT pO2 48 VBG pH 7.25 L VBG pCO2 34 L VBG HCO3 15.5 VBG Total CO2 15.9 L VBG O2 Sat (Calc) 86.7 H VBG Base Excess -11.3 L VBG Potassium 2.9 L Sodium 154.0 H 151 H Chloride 130.0 H 130 H Glucose 100 Lactate 1.6 FiO2 21.0 Potassium 2.9 L Carbon Dioxide 12 L Anion Gap 11 BUN 13 Creatinine 0.9 Est GFR ( Amer) > 60 Est GFR (Non-Af Amer) > 60 Random Glucose 77 Calcium 6.5 L Phosphorus 2.1 L Magnesium 1.9 Total Bilirubin 1.0 AST > 750 H D ALT 330 H D Alkaline Phosphatase 360 H Ammonia Total Protein 5.7 L Albumin 2.4 L Globulin 3.3 Albumin/Globulin Ratio 0.7 L Procalcitonin Venous Blood Potassium 2.9 L 08/25/17 08/25/17 08/25/17 06:43 09:43 09:43 WBC RBC Hgb Hct MCV MCH MCHC RDW Plt Count MPV Neut % (Auto) Lymph % (Auto) [place] % (Auto) Eos % (Auto) Baso % (Auto) Neut # Lymph # [place] # Eos # Baso # Neutrophils % (Manual) Lymphocytes % (Manual) Monocytes % (Manual) Platelet Estimate Hypochromasia (manual) Poikilocytosis (manual Anisocytosis (manual) Target Cells [place] Cells PT 40.2 H* D INR 3.4 APTT 40 H D pO2 VBG pH VBG pCO2 VBG HCO3 VBG Total CO2 VBG O2 Sat (Calc) VBG Base Excess VBG Potassium Sodium Chloride Glucose Lactate FiO2 Potassium Carbon Dioxide Anion Gap BUN Creatinine Est GFR ( Amer) Est GFR (Non-Af Amer) Random Glucose Calcium Phosphorus Magnesium Total Bilirubin AST ALT Alkaline Phosphatase Ammonia 51 H Total Protein Albumin Globulin Albumin/Globulin Ratio Procalcitonin 62.48 H Venous Blood Potassium
[2017-08-25] MEDS: Acyclovir 500 MG in Sodium Chloride 0.9% 100 ML IV SCH (18:00)
--- NOTE | 2017-08-25 18:18 | CP.PCM.CON ---
History of Present Illness - History of Present Illness History of Present Illness: consult dictated ch mental status ca meningitis Vs infect meningitis L/P done follow the result eeg appropriate antibiotic as per ID mri brain with eugenia Past Patient History - Infectious Disease Hx of Infectious Diseases: None - Past Medical History & Family History Past Medical History?: Yes - Past Social History Smoking Status: Never Smoked - CARDIAC Hx Cardiac Disorders: No - PULMONARY Hx Asthma: Yes (WHEN ANXIOUS ON [place]HALERS LAST ATTACK 5 YRS AGO) - NEUROLOGICAL Hx Paralysis: Yes (POLIO) - HEENT Hx HEENT Problems: Yes (TINNITUS) Other/Comment: pt has very dry mouth sts tongue gets stuck to roof of mouth - RENAL Hx Chronic Kidney Disease: No - ENDOCRINE/METABOLIC Hx Endocrine Disorders: No - HEMATOLOGICAL/ONCOLOGICAL Hx Blood Transfusions: No Hx Blood Transfusion Reaction: No - INTEGUMENTARY Hx Dermatological Problems: No - MUSCULOSKELETAL/RHEUMATOLOGICAL Hx Musculoskeletal Disorders: Yes Hx Falls: No Other/Comment: poliomyelitis - GASTROINTESTINAL Hx Gastrointestinal Disorders: Yes (ABD PAIN) - GENITOURINARY/GYNECOLOGICAL Hx Genitourinary Disorders: Yes Hx Reproductive Disorders: Yes (OVARIAN CYST) Hx Uterine Cancer: Yes - PSYCHIATRIC Hx Anxiety: Yes Hx Substance Use: No - SURGICAL HISTORY Hx Surgeries: Yes (R BREAST, L HIP) - ANESTHESIA Hx Anesthesia: Yes Hx Anesthesia Reactions: No Hx Malignant Hyperthermia: No Meds Allergies/Adverse Reactions: Allergies Allergy/AdvReac Type Severity Reaction Status Date / Time penicillin G AdvReac RASH Verified 08/24/17 12:56 - Medications Medications: Current Medications Enoxaparin Sodium (Lovenox) 40 mg SC DAILY [facility] Last Admin: 08/25/17 10:21 Dose: Not Given Gabapentin (Neurontin) 400 mg PO DAILY [facility] Last Admin: 08/25/17 10:23 Dose: Not Given Home Med (Alpha Lipoic Acid [Alpha Lipoic Acid]) 300 mg PO BID [facility] Home Med (Exemestane [Aromasin]) 25 mg PO DAILY [facility] Aztreonam 2 gm/ Sodium (Chloride) 100 mls @ 200 mls/hr IVPB Q8H [facility] Last Admin: 08/25/17 09:00 Dose: 200 mls/hr Sodium Chloride (Sodium Chloride 0.9%) 1,000 mls @ 100 mls/hr IV .Q10H [facility] Last Admin: 08/25/17 03:18 Dose: 100 mls/hr Vancomycin/Sodium Chloride (Vancomycin 1 Gm/Ns 200 Ml) 1 gm in 200 mls @ 133.333 mls/hr IVPB Q12H [facility] Stop: 08/30/17 22:01 Acyclovir 500 mg/ Sodium (Chloride) 100 mls @ 100 mls/hr IV Q8H [facility] Magnesium Oxide (Mag-Ox) 400 mg PO DAILY [facility] Last Admin: 08/25/17 10:23 Dose: Not Given Ondansetron HCl (Zofran Tab) 4 mg PO Q4 PRN PRN Reason: NAUSEA/VOMITING Pantoprazole Sodium (Protonix Inj) 40 mg IVP DAILY [facility] Last Admin: 08/25/17 10:25 Dose: 40 mg Results - Vital Signs Recent Vital Signs: Last Vital Signs Temp 98.4 F 08/25/17 16:00 Pulse 130 H 08/25/17 17:03 Resp 16 08/25/17 17:03 BP 109/51 L 08/25/17 17:04 Pulse Ox 100 08/25/17 17:03 - Labs Result Diagrams: 08/25/17 06:43 08/25/17 06:43 Labs: Laboratory Results - last 24 hr 08/25/17 08/25/17 08/25/17 06:43 06:43 06:43 WBC 14.6 H RBC 2.29 L Hgb 7.1 L Hct 21.6 L MCV 94.6 MCH 31.3 H MCHC 33.1 RDW 28.9 H Plt Count 393 MPV 8.3 Neut % (Auto) 97.0 H Lymph % (Auto) 2.0 L [place] % (Auto) 1.0 Eos % (Auto) 0.0 Baso % (Auto) 0.0 Neut # 97.0 H Lymph # 2.0 [place] # 1.0 H Eos # 0.0 Baso # 0.0 Neutrophils % (Manual) 97 H Lymphocytes % (Manual) 2 L Monocytes % (Manual) 1 Platelet Estimate Normal Hypochromasia (manual) Slight Poikilocytosis (manual Slight Anisocytosis (manual) Slight Target Cells Slight [place] Cells Slight PT 40.2 H* D INR 3.4 APTT 40 H D Sodium 151 H Potassium 2.9 L Chloride 130 H Carbon Dioxide 12 L Anion Gap 11 BUN 13 Creatinine 0.9 Est GFR ( Amer) > 60 Est GFR (Non-Af Amer) > 60 Random Glucose 77 Calcium 6.5 L Phosphorus 2.1 L Magnesium 1.9 Total Bilirubin 1.0 AST > 750 H D ALT 330 H D Alkaline Phosphatase 360 H Ammonia Total Protein 5.7 L Albumin 2.4 L Globulin 3.3 Albumin/Globulin Ratio 0.7 L Procalcitonin 08/25/17 08/25/17 09:43 09:43 WBC RBC Hgb Hct MCV MCH MCHC RDW Plt Count MPV Neut % (Auto) Lymph % (Auto) [place] % (Auto) Eos % (Auto) Baso % (Auto) Neut # Lymph # [place] # Eos # Baso # Neutrophils % (Manual) Lymphocytes % (Manual) Monocytes % (Manual) Platelet Estimate Hypochromasia (manual) Poikilocytosis (manual Anisocytosis (manual) Target Cells [place] Cells PT INR APTT Sodium Potassium Chloride Carbon Dioxide Anion Gap BUN Creatinine Est GFR ( Amer) Est GFR (Non-Af Amer) Random Glucose Calcium Phosphorus Magnesium Total Bilirubin AST ALT Alkaline Phosphatase Ammonia 51 H Total Protein Albumin Globulin Albumin/Globulin Ratio Procalcitonin 62.48 H
[2017-08-25 18:59] LABS: FLUID TYPE SPINAL FLUID
[2017-08-25 19:33] LABS: CSF APPEARANCE SL CLOUDY (CLEAR); CSF VOLUME 6 mL (0-1)
--- NOTE | 2017-08-25 19:45 | CP.PCM.PN ---
Subjective - Date & Time of Evaluation Date of Evaluation: 08/25/17 Time of Evaluation: 15:40 - Subjective Subjective: clinically same Objective - Vital Signs/Intake and Output Vital Signs (last 24 hours): Temp Pulse Resp BP Pulse Ox 98.4 F 131 H 12 76/60 L 100 08/25/17 16:00 08/25/17 18:05 08/25/17 18:05 08/25/17 18:05 08/25/17 18:05 Intake and Output: 08/25/17 08/26/17 18:59 06:59 Intake Total 2040 220 Output Total 440 40 Balance 1600 180 - Medications Medications: Current Medications Enoxaparin Sodium (Lovenox) 40 mg SC DAILY [facility] Last Admin: 08/25/17 10:21 Dose: Not Given Gabapentin (Neurontin) 400 mg PO DAILY [facility] Last Admin: 08/25/17 10:23 Dose: Not Given Home Med (Alpha Lipoic Acid [Alpha Lipoic Acid]) 300 mg PO BID [facility] Home Med (Exemestane [Aromasin]) 25 mg PO DAILY [facility] Aztreonam 2 gm/ Sodium (Chloride) 100 mls @ 200 mls/hr IVPB Q8H [facility] Last Admin: 08/25/17 17:00 Dose: 200 mls/hr Sodium Chloride (Sodium Chloride 0.9%) 1,000 mls @ 100 mls/hr IV .Q10H [facility] Last Admin: 08/25/17 18:31 Dose: 100 mls/hr Vancomycin/Sodium Chloride (Vancomycin 1 Gm/Ns 200 Ml) 1 gm in 200 mls @ 133.333 mls/hr IVPB Q12H [facility] Stop: 08/30/17 22:01 Acyclovir 500 mg/ Sodium (Chloride) 100 mls @ 100 mls/hr IV Q8H [facility] Last Admin: 08/25/17 18:00 Dose: 100 mls/hr Magnesium Oxide (Mag-Ox) 400 mg PO DAILY [facility] Last Admin: 08/25/17 10:23 Dose: Not Given Ondansetron HCl (Zofran Tab) 4 mg PO Q4 PRN PRN Reason: NAUSEA/VOMITING Pantoprazole Sodium (Protonix Inj) 40 mg IVP DAILY [facility] Last Admin: 08/25/17 10:25 Dose: 40 mg - Labs Labs: 08/25/17 06:43 08/25/17 06:43 PT 40.2 SECONDS (9.7-12.2) H* D 08/25/17 06:43 INR 3.4 08/25/17 06:43 APTT 40 SECONDS (21-34) H D 08/25/17 06:43
[2017-08-25] MEDS: Vancomycin 1 gm/NS 200 ml 1 GM/200 ML BAG IVPB SCH (21:07)
--- NOTE | 2017-08-25 23:24 | CON ---
DATE: 08/25/2017 REASON FOR CONSULTATION: Change in mental status with fever. The patient was brought in to [facility] with history of change in mental status with fever. From neurological point of view, I was called in to evaluate her for further management. The patient was brought in to [facility] by ambulance with her sister stating that there has been change in her mental status which has been new and increase in her fever. From neurological point of view, I was called in to evaluate her for further management. HISTORY OF PRESENT ILLNESS: Ms. Gill Triana is a 62-year-old right-handed unfortunate female presenting with fever, change in mental status and incontinent urination at home. This episode is not associating with any involuntary movements or got bitten tongue or fall. No similar episodes happened in the past. The patient seems to be nonverbal and family decided to bring her to the hospital for further evaluation. In the emergency room, the patient was found to be hypothermic, hypotensive and tachycardic, seems to be septic shock. The patient was hydrated and appropriate antibiotics had been given. 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 PAST SURGICAL HISTORY: Ovarian cystectomy, lumpectomy, hip surgery. PERSONAL HISTORY: Denies smoking or alcohol use. REVIEW OF SYSTEMS: Twelve-point systems had been reviewed. From neuro, change in mental status. MEDICATIONS: Acyclovir, aztreonam, Lovenox, magnesium, Neurontin, pantoprazole, vancomycin, ondansetron. PHYSICAL EXAMINATION VITAL SIGNS: Blood pressure 109/51, mean arterial pressure of 67, respiratory rate 16, temperature febrile with pulse rate was 130. NECK: Rigid. HEART: Heart sounds tachycardia. EXTREMITIES: Both legs are externally rotated with 3+ pitting edema. NEUROLOGICAL: The patient responds to her name, moaning constantly. Eyes are partially open. Responds to visual threat. Pupils reactive to light. No facial asymmetry. Both upper extremities, she could be able to move voluntarily. Deep tendon reflexes are absent throughout. Plantars are mute on both sides. Sensory examination, responds to pain symmetrically on both sides. WORKUP: CT of the head, no acute pathology is noted. Blood workup: WBC 14.6, hemoglobin 7.1, hematocrit 21.6, platelet 393. PT 40.2, INR 3.4, PTT 40. Sodium 151, potassium 2.9, chloride 130, bicarbonate 12, calcium 6.5, phosphorus 2.1, AST more than 750, ALT 330, alkaline phosphatase 330. Urine shows 2+ proteinuria, 3+ glucosuria, 1+ blood, rbc's 8. CONCLUSION: Ms. Gill Triana had been presenting with change in mental status, fever and urinary incontinence with significant risk factor of breast cancer and endometrial cancer, all raised the possibility of carcinomatous meningitis or infectious cause meningitis should be ruled out. Poliomyelitis is a preexisting condition. PROCEDURE NOTE: After obtaining consent, the patient was kept right lateral position. Under sterile precaution, L3-L4 is located and spinal tap was performed by me with the help of resident. CSF was collected, initially it was hemorrhagic and fourth tube became cleared up somewhat. The patient tolerated well and the patient was kept flattened position. CSF had been sent for protein, glucose, cell count, cytology, all viral bacteria cultures including cytology. The patient will be treated properly by antibiotic as per ID and the patient should get proper hydration. The patient also recommended to have electroencephalogram to rule out any electrographic seizures. Reginald Badillo MD
[2017-08-26] MEDS: Aztreonam 2 GM in Sodium Chloride 0.9% 100 ML IVPB SCH ×3 (00:58→19:00)
[2017-08-26] MEDS: Acyclovir 500 MG in Sodium Chloride 0.9% 100 ML IV SCH ×4 (02:23→19:08)
[2017-08-26 06:35] LABS: MEAN CELL VOLUME 95.9 fL (81.0-99.0); MEAN CORPUSCULAR HEMOGLOBIN 31.1 pg (27.0-31.0); MEAN CORPUSCULAR HGB CONC 32.4 g/dL (33.0-37.0); MEAN PLATELET VOLUME 8.3 fL (7.2-11.7); PLATELET COUNT 343 K/uL (130-400); RBC 2.11 Mil/uL (3.80-5.20); RED CELL DISTRIBUTION WIDTH 29.6 % (11.5-14.5); WHITE BLOOD COUNT 10.2 K/uL (4.8-10.8)
[2017-08-26 06:36] LABS: INR 3.4
[2017-08-26 06:41] LABS: PROTHROMBIN TIME 39.5 SECONDS (9.7-12.2)
[2017-08-26 06:53] LABS: ALB/GLOB RATIO 0.7 (1.0-2.1); ALBUMIN 2.3 g/dL (3.5-5.0); CALCIUM 6.5 mg/dl (8.6-10.4)
[2017-08-26 07:00] LABS: HEMOGLOBIN 6.5 g/dL (11.0-16.0)
[2017-08-26 07:13] LABS: HEPATITIS B SURFACE AG NEGATIVE (NEGATIVE)
[2017-08-26 07:19] LABS: HEPATITIS A IGM NEGATIVE (NEGATIVE); HEPATITIS B CORE AB Negative (NEGATIVE)
[2017-08-26 07:31] LABS: HEPATITIS C ANTIBODY Negative (NEGATIVE)
[2017-08-26] MEDS ORDERED: Potassium Phosphate 3 mmol/ml Inj IV ONE (07:37)
--- NOTE | 2017-08-26 07:55 | CP.PCM.CON ---
<Ruchi Wells - Last Filed: 08/26/17 13:37> History of Present Illness - History of Present Illness History of Present Illness: Initial PGY4 GI Consult Gill Triana is a 62F w/ hx of endometrial cancer who presented to the hospital for weakness and altered mental status. She was found by her sister who called EMS after patient was reportedly altered and tired. In the ED, she was found to be hypotensive, tachycardia, hypothermic and was not speaking. Patient was recently admitted here for abdominal pain on 07/23/17 for abdominal pain. She was found to have right femoral DVT at that time and discharged with Lovenox, with no surgical intervention warranted at that time. Abdominal/pelvic CT was ordered on last admission and showed intraperitoneal and mesenteric metastatic lesions some of which have increased in size; largest lesion in the nadeen hepatis region compresses the liver, pancreas, gallbladder and IVC; moderate amount of ascites; mild central intrahepatic biliary ductal dilatation; markedly enlarged bulky heterogenous uterus with numerous calcifications consistent with underlying fibroids; small left effusions; no evidence of acute mechanical bowel obstruction. Pt was taken to the ICU for hypotension likely 2/ 2 sepsis of unknown source. She was started on broad spectrum antibiotic. GI was consulted for elevated liver enzymes. She is mildly confused but able to answer questions. She denies any abd pain, nausea, and vomiting. RN reports improvement in mentation since yesterday. + Bm small with blood or melena. She is current;y on tube feeds. A repeat CT tobi on 08/24/17 revealed no change of the lesion in the liver fossa, but there is still large amount of ascities. PMHx: ovarian cyst; breast cancer (2004), metastatic endometrial cancer ( diagnosed in 2014 when she came into the hospital for abdominal pain), Poliomyelitis SurgHx: ovarian cyst(1979's), breast cancer- lump removal (2003), hip surgery ( 1960s) Social hx: Lives by herself. Denies tobacco, alcohol and illicit drug use. 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 Family hx: no hematologic or oncologic history ROS: 12-point ROS conducted neg other than above Past Patient History - Infectious Disease Hx of Infectious Diseases: None - Past Medical History & Family History Past Medical History?: Yes - Past Social History Smoking Status: Never Smoked - CARDIAC Hx Cardiac Disorders: No - PULMONARY Hx Asthma: Yes (WHEN ANXIOUS ON ONHALERS LAST ATTACK 5 YRS AGO) - NEUROLOGICAL Hx Paralysis: Yes (POLIO) - HEENT Hx HEENT Problems: Yes (TINNITUS) Other/Comment: pt has very dry mouth sts tongue gets stuck to roof of mouth - RENAL Hx Chronic Kidney Disease: No - ENDOCRINE/METABOLIC Hx Endocrine Disorders: No - HEMATOLOGICAL/ONCOLOGICAL Hx Blood Transfusions: No Hx Blood Transfusion Reaction: No - INTEGUMENTARY Hx Dermatological Problems: No - MUSCULOSKELETAL/RHEUMATOLOGICAL Hx Musculoskeletal Disorders: Yes Hx Falls: No Other/Comment: poliomyelitis - GASTROINTESTINAL Hx Gastrointestinal Disorders: Yes (ABD PAIN) - GENITOURINARY/GYNECOLOGICAL Hx Genitourinary Disorders: Yes Hx Reproductive Disorders: Yes (OVARIAN CYST) Hx Uterine Cancer: Yes - PSYCHIATRIC Hx Anxiety: Yes Hx Substance Use: No - SURGICAL HISTORY Hx Surgeries: Yes (R BREAST, L HIP) - ANESTHESIA Hx Anesthesia: Yes Hx Anesthesia Reactions: No Hx Malignant Hyperthermia: No Meds Allergies/Adverse Reactions: Allergies Allergy/AdvReac Type Severity Reaction Status Date / Time penicillin G AdvReac RASH Verified 08/24/17 12:56 - Medications Medications: Current Medications Gabapentin (Neurontin) 400 mg PO DAILY [facility] Last Admin: 08/25/17 10:23 Dose: Not Given Home Med (Alpha Lipoic Acid [Alpha Lipoic Acid]) 300 mg PO BID [facility] Home Med (Exemestane [Aromasin]) 25 mg PO DAILY [facility] Aztreonam 2 gm/ Sodium (Chloride) 100 mls @ 200 mls/hr IVPB Q8H [facility] Last Admin: 08/26/17 00:58 Dose: 200 mls/hr Sodium Chloride (Sodium Chloride 0.9%) 1,000 mls @ 100 mls/hr IV .Q10H [facility] Last Admin: 08/26/17 00:00 Dose: Not Given Vancomycin/Sodium Chloride (Vancomycin 1 Gm/Ns 200 Ml) 1 gm in 200 mls @ 133.333 mls/hr IVPB Q12H [facility] Stop: 08/30/17 22:01 Last Admin: 08/25/17 21:07 Dose: 133.333 mls/hr Acyclovir 500 mg/ Sodium (Chloride) 100 mls @ 100 mls/hr IV Q8H [facility] Last Admin: 08/26/17 02:23 Dose: 100 mls/hr Magnesium Oxide (Mag-Ox) 400 mg PO DAILY [facility] Last Admin: 08/25/17 10:23 Dose: Not Given Pantoprazole Sodium (Protonix Inj) 40 mg IVP DAILY [facility] Last Admin: 08/25/17 10:25 Dose: 40 mg Potassium Phosphate (Potassium Phosphate) 15 mmole IV ONCE ONE Stop: 08/26/17 07:38 Physical Exam - Constitutional Appears: Well, No Acute Distress, Confused - Head Exam Head Exam: ATRAUMATIC, NORMOCEPHALIC - Eye Exam Eye Exam: Normal appearance - ENT Exam ENT Exam: Mucous Membranes Moist - Respiratory Exam Respiratory Exam: Clear to Auscultation Bilateral, NORMAL BREATHING PATTERN. absent: Rales, Rhonchi, Wheezes, Respiratory Distress - Cardiovascular Exam Cardiovascular Exam: REGULAR RHYTHM, +S1, +S2 - GI/Abdominal Exam GI & Abdominal Exam: Distended. absent: Guarding, Organomegaly, Rigid, Tenderness Additional comments: + fluid wave - Rectal Exam Rectal Exam: absent: Black Stool, Bloody Stool - Extremities Exam Extremities exam: Negative for: joint swelling, pedal edema - Neurological Exam Neurological exam: Alert Additional comments: oriented x3 but still confused - Psychiatric Exam Additional comments: could not assess - Skin Skin Exam: Dry, Intact, Normal Color, Warm Results - Vital Signs Recent Vital Signs: Last Vital Signs Temp 98 F 08/26/17 04:00 Pulse 125 H 08/26/17 06:40 Resp 17 08/26/17 06:40 BP 117/56 L 08/26/17 06:04 Pulse Ox 100 08/26/17 06:40 - Labs Result Diagrams: 08/26/17 06:24 08/26/17 06:19 Labs: Laboratory Results - last 24 hr 08/25/17 08/25/17 08/25/17 06:43 09:43 09:43 WBC RBC Hgb Hct MCV MCH MCHC RDW Plt Count MPV Neut % (Auto) 97.0 H Lymph % (Auto) 2.0 L Norman % (Auto) 1.0 Eos % (Auto) 0.0 Baso % (Auto) 0.0 Neut # 97.0 H Lymph # 2.0 Norman # 1.0 H Eos # 0.0 Baso # 0.0 Neutrophils % (Manual) 97 H Lymphocytes % (Manual) 2 L Monocytes % (Manual) 1 Platelet Estimate Normal Hypochromasia (manual) Slight Poikilocytosis (manual Slight Anisocytosis (manual) Slight Target Cells Slight [place] Cells Slight PT INR APTT Sodium Potassium Chloride Carbon Dioxide Anion Gap BUN Creatinine Est GFR ( Amer) Est GFR (Non-Af Amer) Random Glucose Calcium Phosphorus Magnesium Total Bilirubin AST ALT Alkaline Phosphatase Ammonia 51 H Total Protein Albumin Globulin Albumin/Globulin Ratio Procalcitonin 62.48 H Fluid Type CSF Volume CSF Appearance CSF WBC CSF RBC CSF Total Cell Counted CSF Neutrophils CSF Monos/Macrophages CSF Comment CSF Glucose CSF Total Protein CSF Cryptococcus Ag Hepatitis A IgM Ab Hep Bs Antigen Hep B Core IgM Ab Hepatitis C Antibody Influenza Typ A,B (EIA) 08/25/17 08/25/17 08/25/17 18:57 19:05 19:12 WBC RBC Hgb Hct MCV MCH MCHC RDW Plt Count MPV Neut % (Auto) Lymph % (Auto) [place] % (Auto) Eos % (Auto) Baso % (Auto) Neut # Lymph # [place] # Eos # Baso # Neutrophils % (Manual) Lymphocytes % (Manual) Monocytes % (Manual) Platelet Estimate Hypochromasia (manual) Poikilocytosis (manual Anisocytosis (manual) Target Cells Mariah Cells PT INR APTT Sodium Potassium Chloride Carbon Dioxide Anion Gap BUN Creatinine Est GFR ( Amer) Est GFR (Non-Af Amer) Random Glucose Calcium Phosphorus Magnesium Total Bilirubin AST ALT Alkaline Phosphatase Ammonia Total Protein Albumin Globulin Albumin/Globulin Ratio Procalcitonin Fluid Type Spinal fluid CSF Volume 6 H CSF Appearance Sl cloudy CSF WBC 6.0 H CSF RBC 1436.0 H CSF Total Cell Counted TEST NOT PERFORMED CSF Neutrophils 100 H CSF Monos/Macrophages TEST NOT PERFORMED CSF Comment CSF Glucose 66 CSF Total Protein 156.0 H* CSF Cryptococcus Ag Hepatitis A IgM Ab Hep Bs Antigen Hep B Core IgM Ab Hepatitis C Antibody Influenza Typ A,B (EIA) Negative for flu a/b 08/25/17 08/26/17 08/26/17 20:00 06:19 06:19 WBC RBC Hgb Hct MCV MCH MCHC RDW Plt Count MPV Neut % (Auto) Lymph % (Auto) [place] % (Auto) Eos % (Auto) Baso % (Auto) Neut # Lymph # [place] # Eos # Baso # Neutrophils % (Manual) Lymphocytes % (Manual) Monocytes % (Manual) Platelet Estimate Hypochromasia (manual) Poikilocytosis (manual Anisocytosis (manual) Target Cells Mariah Cells PT INR APTT Sodium 156 H Potassium 3.0 L Chloride 136 H Carbon Dioxide 12 L Anion Gap 11 BUN 19 H Creatinine 1.2 Est GFR ( Amer) 55 Est GFR (Non-Af Amer) 45 Random Glucose 155 H Calcium 6.5 L Phosphorus 1.6 L Magnesium 2.0 Total Bilirubin 0.8 AST 332 H D ALT 219 H D Alkaline Phosphatase 407 H Ammonia Total Protein 5.4 L Albumin 2.3 L Globulin 3.1 Albumin/Globulin Ratio 0.7 L Procalcitonin Fluid Type CSF Volume CSF Appearance CSF WBC CSF RBC CSF Total Cell Counted CSF Neutrophils CSF Monos/Macrophages CSF Comment CSF Glucose CSF Total Protein CSF Cryptococcus Ag Negative Hepatitis A IgM Ab Negative Hep Bs Antigen Negative Hep B Core IgM Ab Negative Hepatitis C Antibody Negative Influenza Typ A,B (EIA) 08/26/17 08/26/17 06:24 06:24 WBC 10.2 RBC 2.11 L Hgb 6.5 L* Hct 20.2 L MCV 95.9 MCH 31.1 H MCHC 32.4 L RDW 29.6 H Plt Count 343 MPV 8.3 Neut % (Auto) Lymph % (Auto) Norman % (Auto) Eos % (Auto) Baso % (Auto) Neut # Lymph # [place] # Eos # Baso # Neutrophils % (Manual) Lymphocytes % (Manual) Monocytes % (Manual) Platelet Estimate Hypochromasia (manual) Poikilocytosis (manual Anisocytosis (manual) Target Cells Mariah Cells PT 39.5 H* INR 3.4 APTT 41 H Sodium Potassium Chloride Carbon Dioxide Anion Gap BUN Creatinine Est GFR ( Amer) Est GFR (Non-Af Amer) Random Glucose Calcium Phosphorus Magnesium Total Bilirubin AST ALT Alkaline Phosphatase Ammonia Total Protein Albumin Globulin Albumin/Globulin Ratio Procalcitonin Fluid Type CSF Volume CSF Appearance CSF WBC CSF RBC CSF Total Cell Counted CSF Neutrophils CSF Monos/Macrophages CSF Comment CSF Glucose CSF Total Protein CSF Cryptococcus Ag Hepatitis A IgM Ab Hep Bs Antigen Hep B Core IgM Ab Hepatitis C Antibody Influenza Typ A,B (EIA) Assessment & Plan - Assessment and Plan (Free Text) Assessment: Gill Triana is a 62F w/ hx of endometrial cancer with liver and bone mets who presented to the ER for weakness and AMS. Pt was found to be lethargic and septic. GI was consulted for elevated LFTs, etiology likely shock liver vs medication induced, r/o acute viral infection Elevated LFTs likely shock liver vs medication induced, r/o acute viral infection macrocytic anemia; etiology bone marrow suppression from chemo? Liver lesion in nadeen hepatica Large volume ascities Plan: -continue abx as per ID -maintain MAP > 65 -can consider an abd paracentesis for diagnostic and therapeutic reasons -would recommend maintaining hgb > 7, especially in the setting of hypotenson and chemo -CT angio reviewed, no change in lesion around liver -waiting CEA levels -awaiting hem/onc recommendations -consider talk with family for goals of care -continue tube feeds as tolerated via NG -send for acute hepatitis panel will D/W Dr. Vargas <Sam HERNANDEZ,Jessie - Last Filed: 08/26/17 13:54> Meds - Medications Medications: Current Medications Gabapentin (Neurontin) 400 mg PO DAILY [facility] Last Admin: 08/26/17 13:14 Dose: 400 mg Home Med (Alpha Lipoic Acid [Alpha Lipoic Acid]) 300 mg PO BID [facility] Home Med (Exemestane [Aromasin]) 25 mg PO DAILY [facility] Aztreonam 2 gm/ Sodium (Chloride) 100 mls @ 200 mls/hr IVPB Q8H [facility] Last Admin: 08/26/17 09:00 Dose: 200 mls/hr Sodium Chloride (Sodium Chloride 0.9%) 1,000 mls @ 100 mls/hr IV .Q10H [facility] Last Admin: 08/26/17 10:41 Dose: Not Given Vancomycin/Sodium Chloride (Vancomycin 1 Gm/Ns 200 Ml) 1 gm in 200 mls @ 133.333 mls/hr IVPB Q12H [facility] Stop: 08/30/17 22:01 Last Admin: 08/26/17 10:39 Dose: 133.333 mls/hr Acyclovir 500 mg/ Sodium (Chloride) 100 mls @ 100 mls/hr IV Q8H [facility] Last Admin: 08/26/17 10:00 Dose: 100 mls/hr Potassium Phosphate 15 mmole/ (Sodium Chloride) 255 mls @ 42.5 mls/hr IVPB ONCE ONE Stop: 08/26/17 15:59 Last Admin: 08/26/17 10:37 Dose: 42.5 mls/hr Magnesium Oxide (Mag-Ox) 400 mg PO DAILY [facility] Last Admin: 08/26/17 10:00 Dose: 400 mg Pantoprazole Sodium (Protonix Susp) 40 mg PO DAILY [facility] Results - Vital Signs Recent Vital Signs: Last Vital Signs Temp 98.3 F 08/26/17 13:32 Pulse 105 H 08/26/17 13:32 Resp 19 08/26/17 13:32 BP 124/70 08/26/17 13:32 Pulse Ox 100 08/26/17 12:10 - Labs Result Diagrams: 08/26/17 06:24 08/26/17 06:19 Labs: Laboratory Results - last 24 hr 08/25/17 08/25/17 08/25/17 18:57 19:05 19:12 WBC RBC Hgb Hct MCV MCH MCHC RDW Plt Count MPV Neut % (Auto) Lymph % (Auto) [place] % (Auto) Eos % (Auto) Baso % (Auto) Neut # Lymph # [place] # Eos # Baso # Neutrophils % (Manual) Band Neutrophils % Lymphocytes % (Manual) Monocytes % (Manual) Toxic Granulation Platelet Estimate Polychromasia Hypochromasia (manual) Poikilocytosis (manual Anisocytosis (manual) Macrocytosis (manual) Target Cells Mariah Cells Schistocytes PT INR APTT Sodium Potassium Chloride Carbon Dioxide Anion Gap BUN Creatinine Est GFR ( Amer) Est GFR (Non-Af Amer) POC Glucose (mg/dL) Random Glucose Calcium Phosphorus Magnesium Total Bilirubin AST ALT Alkaline Phosphatase Total Protein Albumin Globulin Albumin/Globulin Ratio Procalcitonin Fluid Type Spinal fluid CSF Volume 6 H CSF Appearance Sl cloudy CSF WBC 6.0 H CSF RBC 1436.0 H CSF Total Cell Counted TEST NOT PERFORMED CSF Neutrophils 100 H CSF Monos/Macrophages TEST NOT PERFORMED CSF Comment CSF Glucose 66 CSF Total Protein 156.0 H* CSF Cryptococcus Ag Hepatitis A IgM Ab Hep Bs Antigen Hep B Core IgM Ab Hepatitis C Antibody HIV 1&2 Antibody Screen Influenza Typ A,B (EIA) Negative for flu a/b Blood Type Antibody Screen 08/25/17 08/26/17 08/26/17 20:00 06:19 06:19 WBC RBC Hgb Hct MCV MCH MCHC RDW Plt Count MPV Neut % (Auto) Lymph % (Auto) [place] % (Auto) Eos % (Auto) Baso % (Auto) Neut # Lymph # [place] # Eos # Baso # Neutrophils % (Manual) Band Neutrophils % Lymphocytes % (Manual) Monocytes % (Manual) Toxic Granulation Platelet Estimate Polychromasia Hypochromasia (manual) Poikilocytosis (manual Anisocytosis (manual) Macrocytosis (manual) Target Cells [place] Cells Schistocytes PT INR APTT Sodium Potassium Chloride Carbon Dioxide Anion Gap BUN Creatinine Est GFR ( Amer) Est GFR (Non-Af Amer) POC Glucose (mg/dL) Random Glucose Calcium Phosphorus Magnesium Total Bilirubin AST ALT Alkaline Phosphatase Total Protein Albumin Globulin Albumin/Globulin Ratio Procalcitonin Fluid Type CSF Volume CSF Appearance CSF WBC CSF RBC CSF Total Cell Counted CSF Neutrophils CSF Monos/Macrophages CSF Comment CSF Glucose CSF Total Protein CSF Cryptococcus Ag Negative Hepatitis A IgM Ab Negative Hep Bs Antigen Negative Hep B Core IgM Ab Negative Hepatitis C Antibody Negative HIV 1&2 Antibody Screen Negative Influenza Typ A,B (EIA) Blood Type Antibody Screen 08/26/17 08/26/17 08/26/17 06:19 06:19 06:24 WBC 10.2 RBC 2.11 L Hgb 6.5 L* Hct 20.2 L MCV 95.9 MCH 31.1 H MCHC 32.4 L RDW 29.6 H Plt Count 343 MPV 8.3 Neut % (Auto) 96.0 H Lymph % (Auto) 3.0 L [place] % (Auto) 1.0 Eos % (Auto) 0.0 Baso % (Auto) 0.0 Neut # 9.8 H Lymph # 0.3 L [place] # 0.1 Eos # 0.0 Baso # 0.0 Neutrophils % (Manual) 96 H Band Neutrophils % 1 Lymphocytes % (Manual) 2 L Monocytes % (Manual) 1 Toxic Granulation Present Platelet Estimate Normal Polychromasia Slight Hypochromasia (manual) Moderate Poikilocytosis (manual Slight Anisocytosis (manual) Marked Macrocytosis (manual) Slight Target Cells Slight [place] Cells Slight Schistocytes Slight PT INR APTT Sodium 156 H Potassium 3.0 L Chloride 136 H Carbon Dioxide 12 L Anion Gap 11 BUN 19 H Creatinine 1.2 Est GFR ( Amer) 55 Est GFR (Non-Af Amer) 45 POC Glucose (mg/dL) Random Glucose 155 H Calcium 6.5 L Phosphorus 1.6 L Magnesium 2.0 Total Bilirubin 0.8 AST 332 H D ALT 219 H D Alkaline Phosphatase 407 H Total Protein 5.4 L Albumin 2.3 L Globulin 3.1 Albumin/Globulin Ratio 0.7 L Procalcitonin 44.30 H Fluid Type CSF Volume CSF Appearance CSF WBC CSF RBC CSF Total Cell Counted CSF Neutrophils CSF Monos/Macrophages CSF Comment CSF Glucose CSF Total Protein CSF Cryptococcus Ag Hepatitis A IgM Ab Hep Bs Antigen Hep B Core IgM Ab Hepatitis C Antibody HIV 1&2 Antibody Screen Influenza Typ A,B (EIA) Blood Type Antibody Screen 08/26/17 08/26/17 08/26/17 06:24 09:12 11:38 WBC RBC Hgb Hct MCV MCH MCHC RDW Plt Count MPV Neut % (Auto) Lymph % (Auto) [place] % (Auto) Eos % (Auto) Baso % (Auto) Neut # Lymph # [place] # Eos # Baso # Neutrophils % (Manual) Band Neutrophils % Lymphocytes % (Manual) Monocytes % (Manual) Toxic Granulation Platelet Estimate Polychromasia Hypochromasia (manual) Poikilocytosis (manual Anisocytosis (manual) Macrocytosis (manual) Target Cells Mariah Cells Schistocytes PT 39.5 H* INR 3.4 APTT 41 H Sodium Potassium Chloride Carbon Dioxide Anion Gap BUN Creatinine Est GFR ( Amer) Est GFR (Non-Af Amer) POC Glucose (mg/dL) 153 H Random Glucose Calcium Phosphorus Magnesium Total Bilirubin AST ALT Alkaline Phosphatase Total Protein Albumin Globulin Albumin/Globulin Ratio Procalcitonin Fluid Type CSF Volume CSF Appearance CSF WBC CSF RBC CSF Total Cell Counted CSF Neutrophils CSF Monos/Macrophages CSF Comment CSF Glucose CSF Total Protein CSF Cryptococcus Ag Hepatitis A IgM Ab Hep Bs Antigen Hep B Core IgM Ab Hepatitis C Antibody HIV 1&2 Antibody Screen Influenza Typ A,B (EIA) Blood Type B POSITIVE Antibody Screen Negative Attending/Attestation - Attestation I have personally seen and examined this patient.: Yes I have fully participated in the care of the patient.: Yes I have reviewed all pertinent clinical information: Yes Notes (Text): 08/26/17 13:50 Patient seen at bedside in MICU. This is a 62F w/ hx of endometrial cancer with liver and bone mets who presented to the ER for weakness and AMS. Pt was found to be lethargic and septic secondary to meningitis. GI was consulted for elevated LFTs, etiology likely shock liver vs medication induced which are downtrending. Patient was alert today and answering questions appropriately. Continue antibiotics as per ID and MICU. Will send auto immune and hepatitis panel for elevated LFT although it will not change current management. Ascites is likely malignant due to peritoneal mets. Can drain for comfort. Maintain Hb above 7/21. No s/s of acute GI bleeding. Rectal with brown stool. CTA reviewed with no thrombus/ liver findings. Large peritoneal mets abutting liver. Discuss goals of care with family. Continue feeds/ diet as tolerated
--- NOTE | 2017-08-26 08:42 | CP.PCM.PN ---
Subjective - Date & Time of Evaluation Date of Evaluation: 08/26/17 Time of Evaluation: 08:37 - Subjective Subjective: vasc Sx: Dr Eddy Pt S&E. JEANNE. Pt is more awake today, now speaking clearly but making no coherent sense. No longer appears in distress. No longer shaking. No apparent pain to lower extremities. Objective - Vital Signs/Intake and Output Vital Signs (last 24 hours): Temp Pulse Resp BP Pulse Ox 98 F 125 H 17 117/56 L 100 08/26/17 04:00 08/26/17 06:40 08/26/17 06:40 08/26/17 06:04 08/26/17 06:40 Intake and Output: 08/26/17 08/26/17 06:59 18:59 Intake Total 1590 120 Output Total 490 Balance 1100 120 - Medications Medications: Current Medications Gabapentin (Neurontin) [address] [facility] Last Admin: 08/25/17 10:23 Dose: Not Given Home Med (Alpha Lipoic Acid [Alpha Lipoic Acid]) [address] [facility] Home Med (Exemestane [Aromasin]) [address] [facility] Aztreonam 2 gm/ Sodium (Chloride) 100 mls @ 200 mls/hr IVPB Q8H [facility] Last Admin: 08/26/17 00:58 Dose: 200 mls/hr Sodium Chloride (Sodium Chloride 0.9%) 1,000 mls @ 100 mls/hr IV .Q10H [facility] Last Admin: 08/26/17 00:00 Dose: Not Given Vancomycin/Sodium Chloride (Vancomycin 1 Gm/Ns 200 Ml) 1 gm in 200 mls @ 133.333 mls/hr IVPB Q12H [facility] Stop: 08/30/17 22:01 Last Admin: 08/25/17 21:07 Dose: 133.333 mls/hr Acyclovir 500 mg/ Sodium (Chloride) 100 mls @ 100 mls/hr IV Q8H [facility] Last Admin: 08/26/17 02:23 Dose: 100 mls/hr Magnesium Oxide (Mag-Ox) [address] [facility] Last Admin: 08/25/17 10:23 Dose: Not Given Pantoprazole Sodium (Protonix Inj) [address] [facility] Last Admin: 08/25/17 10:25 Dose: 40 mg Potassium Phosphate (Potassium Phosphate) 15 mmole IV ONCE ONE Stop: 12/30/17 07:38 - Labs Labs: 08/26/17 06:24 08/26/17 06:19 PT 39.5 SECONDS (9.7-12.2) H* 08/26/17 06:24 INR 3.4 08/26/17 06:24 APTT 41 SECONDS (21-34) H 08/26/17 06:24 - Constitutional Appears: No Acute Distress, Chronically Ill - Respiratory Exam Respiratory Exam: absent: Respiratory Distress - Cardiovascular Exam Cardiovascular Exam: Tachycardia - GI/Abdominal Exam GI & Abdominal Exam: Soft. absent: Distended, Tenderness - Extremities Exam Extremities Exam: Pedal Edema Assessment and Plan - Assessment and Plan (Free Text) Assessment: 62F with presumably meningitis; sx consulted for b/l leg edema Plan: work-up negative for DVT or significant arterial disease swelling may be chronic secondary to IVC compression from mets pt appears to have meningitis no surgical intervention needed, will sign off please reconsult as necessary d/w Dr Surjit Bowens, PGY3
--- NOTE | 2017-08-26 09:39 | CP.CCUPN ---
CCU Subjective - Physician Review Events Since Last Encounter (Free Text): 08/26/17 09:36 Patient seen and examined in the intensive care unit. Patient is much more awake and talkative status post lumbar puncture No active bleeding Hemoglobin dropped Afebrile No chest pain or shortness of breath CCU Objective - Vital Signs / Intake & Output Vital Signs (Last 4 hours): Vital Signs Pulse Resp BP Pulse Ox 08/26/17 06:40 125 H 17 100 08/26/17 06:30 127 H 11 L 100 08/26/17 06:20 120 H 18 100 08/26/17 06:10 123 H 17 100 08/26/17 06:04 117 H 21 117/56 L 100 08/26/17 06:00 113 H 15 100 08/26/17 05:50 123 H 13 100 08/26/17 05:40 120 H 20 100 Intake and Output (Last 8hrs): Intake & Output 08/25/17 08/26/17 08/26/17 22:59 06:59 14:59 Intake Total 1460 910 120 Output Total 330 320 Balance 1130 590 120 Weight 106 lb 3.2 oz Intake: Intake, IV Amount 1300 750 100 Left Port-A-Cath 1300 750 100 Tube Feeding 160 160 20 Output: Urine 330 320 Urethral ([place]) 330 320 - Physical Exam Head: Positive for: Atraumatic, Normocephalic Extroacular Muscles: Negative for: Gaze Palsy Mouth: Positive for: Moist Mucous Membranes Neck: Negative for: JVD, Lymphadenopathy Respiratory/Chest: Positive for: Clear to Auscultation, Good Air Exchange. Negative for: Wheezes, Rales, Rhonchi Cardiovascular: Positive for: Normal S1, S2, Tachycardic Abdomen: Positive for: Tenderness, Distention, Normal Bowel Sounds. Negative for: Peritoneal Signs, Guarding Upper Extremity: Positive for: Normal Inspection, Tenderness (generalized ). Negative for: Cyanosis, Edema Lower Extremity: Positive for: Edema, Tenderness (generalized ) Neurological: Positive for: Other (GCS=10 ) Skin: Positive for: Warm, Dry, Erythematous (feet b/l ). Negative for: Rashes Psychiatric: Positive for: Alert - Medications Active Medications: Active Medications Generic Name Dose Route Start Last Admin Trade Name Freq PRN Reason Stop Dose Admin Gabapentin 400 mg 08/25/17 10:00 08/25/17 10:23 Neurontin PO Not Given DAILY HAN Home Med 300 mg 08/25/17 10:00 Alpha Lipoic Acid [Alpha Lipoic Acid] PO BID HAN Home Med 25 mg 08/25/17 10:00 Exemestane [Aromasin] PO DAILY HAN Aztreonam 2 gm/ Sodium 100 mls @ 200 mls/hr 08/25/17 01:00 08/26/17 00:58 Chloride IVPB 200 mls/hr Q8H HAN Administration Sodium Chloride 1,000 mls @ 100 mls/hr 08/24/17 18:00 08/26/17 00:00 Sodium Chloride 0.9% IV Not Given .Q10H HAN Vancomycin/Sodium Chloride 1 gm in 200 mls @ 133.333 mls/hr 08/25/17 22:00 21:07 Vancomycin 1 Gm/Ns 200 Ml IVPB 08/30/17 22:01 133.333 mls/hr Q12H HAN Administration Acyclovir 500 mg/ Sodium 100 mls @ 100 mls/hr 08/25/17 18:00 08/26/17 02:23 Chloride IV 100 mls/hr Q8H HAN Administration Potassium Phosphate 15 mmole/ 255 mls @ 42.5 mls/hr 08/26/17 10:00 Sodium Chloride IVPB 08/26/17 15:59 ONCE ONE Magnesium Oxide 400 mg 08/25/17 10:00 08/25/17 10:23 Mag-Ox PO Not Given DAILY [facility] Pantoprazole Sodium 40 mg 08/25/17 10:00 08/25/17 10:25 Protonix Inj IVP 40 mg DAILY HAN Administration - Patient Studies Lab Studies: Microbiology Studies 08/25/17 19:55 Gram Stain - Final Cerebral Spinal Fluid 08/25/17 20:00 Lia Ink - Final Cerebral Spinal Fluid 08/24/17 14:15 Blood Culture - Preliminary Blood NO GROWTH AFTER 24 HOURS 08/24/17 14:45 Blood Culture - Preliminary Blood NO GROWTH AFTER 24 HOURS 08/24/17 15:25 Urine Culture - Final Urine No Growth (<1,000 CFU/ML) Lab Studies 08/26/17 08/26/17 08/26/17 Range/Units 06:24 06:24 06:19 WBC 10.2 (4.8-10.8) K/uL RBC 2.11 L (3.80-5.20) Mil/uL Hgb 6.5 L* (11.0-16.0) g/dL Hct 20.2 L (34.0-47.0) % MCV 95.9 (81.0-99.0) fL MCH 31.1 H (27.0-31.0) pg MCHC 32.4 L (33.0-37.0) g/dL RDW 29.6 H (11.5-14.5) % Plt Count 343 (130-400) K/uL MPV 8.3 (7.2-11.7) fL Neut % (Auto) (50.0-75.0) % Lymph % (Auto) (20.0-40.0) % Burn[place] % (Auto) (0.0-10.0) % Eos % (Auto) (0.0-4.0) % Baso % (Auto) (0.0-2.0) % Neut # (1.8-7.0) K/uL Lymph # (1.0-4.3) K/uL Burnet # (0.0-0.8) K/uL Eos # (0.0-0.7) K/uL Baso # (0.0-0.2) K/uL Neutrophils % (Manual) (50-75) % Lymphocytes % (Manual) (20-40) % Monocytes % (Manual) (0-10) % Platelet Estimate (NORMAL) Hypochromasia (manual) Poikilocytosis (manual Anisocytosis (manual) Target Cells Mariah Cells PT 39.5 H* (9.7-12.2) SECONDS INR 3.4 APTT 41 H (21-34) SECONDS Sodium 156 H (132-148) mmol/L Potassium 3.0 L (3.6-5.2) mmol/L Chloride 136 H (98-107) mmol/L Carbon Dioxide 12 L (22-30) mmol/L Anion Gap 11 (10-20) BUN 19 H (7-17) mg/dL Creatinine 1.2 (0.7-1.2) mg/dL Est GFR ( Amer) 55 Est GFR (Non-Af Amer) 45 Random Glucose 155 H (65-105) mg/dL Calcium 6.5 L (8.6-10.4) mg/dl Phosphorus 1.6 L (2.5-4.5) mg/dL Magnesium 2.0 (1.6-2.3) mg/dL Total Bilirubin 0.8 (0.2-1.3) mg/dL AST 332 H D (14-36) U/L ALT 219 H D (9-52) U/L Alkaline Phosphatase 407 H (38-126) U/L Ammonia (9-33) umol/L Total Protein 5.4 L (6.3-8.3) g/dL Albumin 2.3 L (3.5-5.0) g/dL Globulin 3.1 (2.2-3.9) gm/dL Albumin/Globulin Ratio 0.7 L (1.0-2.1) Procalcitonin (0.19-0.49) NG/ML Fluid Type CSF Volume (0-1) mL CSF Appearance (CLEAR) CSF WBC (0.0-5.0) /mm3 CSF RBC (0.0-0.0) /mm3 CSF Total Cell Counted CSF Neutrophils (0-0) % CSF Monos/Macrophages CSF Comment CSF Glucose (40-70) mg/dL CSF Total Protein (12-60) mg/dL CSF Cryptococcus Ag (NEGATIVE) Hepatitis A IgM Ab (NEGATIVE) Hep Bs Antigen (NEGATIVE) Hep B Core IgM Ab (NEGATIVE) Hepatitis C Antibody (NEGATIVE) Influenza Typ A,B (EIA) (NEGATIVE) 08/26/17 08/26/17 08/25/17 Range/Units 06:19 06:19 20:00 WBC (4.8-10.8) K/uL RBC (3.80-5.20) Mil/uL Hgb (11.0-16.0) g/dL Hct (34.0-47.0) % MCV (81.0-99.0) fL MCH (27.0-31.0) pg MCHC (33.0-37.0) g/dL RDW (11.5-14.5) % Plt Count (130-400) K/uL MPV (7.2-11.7) fL Neut % (Auto) (50.0-75.0) % Lymph % (Auto) (20.0-40.0) % Burn[place] % (Auto) (0.0-10.0) % Eos % (Auto) (0.0-4.0) % Baso % (Auto) (0.0-2.0) % Neut # (1.8-7.0) K/uL Lymph # (1.0-4.3) K/uL [place] # (0.0-0.8) K/uL Eos # (0.0-0.7) K/uL Baso # (0.0-0.2) K/uL Neutrophils % (Manual) (50-75) % Lymphocytes % (Manual) (20-40) % Monocytes % (Manual) (0-10) % Platelet Estimate (NORMAL) Hypochromasia (manual) Poikilocytosis (manual Anisocytosis (manual) Target Cells Mariah Cells PT (9.7-12.2) SECONDS INR APTT (21-34) SECONDS Sodium (132-148) mmol/L Potassium (3.6-5.2) mmol/L Chloride (98-107) mmol/L Carbon Dioxide (22-30) mmol/L Anion Gap (10-20) BUN (7-17) mg/dL Creatinine (0.7-1.2) mg/dL Est GFR ( Amer) Est GFR (Non-Af Amer) Random Glucose (65-105) mg/dL Calcium (8.6-10.4) mg/dl Phosphorus (2.5-4.5) mg/dL Magnesium (1.6-2.3) mg/dL Total Bilirubin (0.2-1.3) mg/dL AST (14-36) U/L ALT (9-52) U/L Alkaline Phosphatase (38-126) U/L Ammonia (9-33) umol/L Total Protein (6.3-8.3) g/dL Albumin (3.5-5.0) g/dL Globulin (2.2-3.9) gm/dL Albumin/Globulin Ratio (1.0-2.1) Procalcitonin 44.30 H (0.19-0.49) NG/ML Fluid Type CSF Volume (0-1) mL CSF Appearance (CLEAR) CSF WBC (0.0-5.0) /mm3 CSF RBC (0.0-0.0) /mm3 CSF Total Cell Counted CSF Neutrophils (0-0) % CSF Monos/Macrophages CSF Comment CSF Glucose (40-70) mg/dL CSF Total Protein (12-60) mg/dL CSF Cryptococcus Ag Negative (NEGATIVE) Hepatitis A IgM Ab Negative (NEGATIVE) Hep Bs Antigen Negative (NEGATIVE) Hep B Core IgM Ab Negative (NEGATIVE) Hepatitis C Antibody Negative (NEGATIVE) Influenza Typ A,B (EIA) (NEGATIVE) 08/25/17 08/25/17 08/25/17 Range/Units 19:12 19:05 18:57 WBC (4.8-10.8) K/uL RBC (3.80-5.20) Mil/uL Hgb (11.0-16.0) g/dL Hct (34.0-47.0) % MCV (81.0-99.0) fL MCH (27.0-31.0) pg MCHC (33.0-37.0) g/dL RDW (11.5-14.5) % Plt Count (130-400) K/uL MPV (7.2-11.7) fL Neut % (Auto) (50.0-75.0) % Lymph % (Auto) (20.0-40.0) % [place] % (Auto) (0.0-10.0) % Eos % (Auto) (0.0-4.0) % Baso % (Auto) (0.0-2.0) % Neut # (1.8-7.0) K/uL Lymph # (1.0-4.3) K/uL [place] # (0.0-0.8) K/uL Eos # (0.0-0.7) K/uL Baso # (0.0-0.2) K/uL Neutrophils % (Manual) (50-75) % Lymphocytes % (Manual) (20-40) % Monocytes % (Manual) (0-10) % Platelet Estimate (NORMAL) Hypochromasia (manual) Poikilocytosis (manual Anisocytosis (manual) Target Cells [place] Cells PT (9.7-12.2) SECONDS INR APTT (21-34) SECONDS Sodium (132-148) mmol/L Potassium (3.6-5.2) mmol/L Chloride (98-107) mmol/L Carbon Dioxide (22-30) mmol/L Anion Gap (10-20) BUN (7-17) mg/dL Creatinine (0.7-1.2) mg/dL Est GFR ( Amer) Est GFR (Non-Af Amer) Random Glucose (65-105) mg/dL Calcium (8.6-10.4) mg/dl Phosphorus (2.5-4.5) mg/dL Magnesium (1.6-2.3) mg/dL Total Bilirubin (0.2-1.3) mg/dL AST (14-36) U/L ALT (9-52) U/L Alkaline Phosphatase (38-126) U/L Ammonia (9-33) umol/L Total Protein (6.3-8.3) g/dL Albumin (3.5-5.0) g/dL Globulin (2.2-3.9) gm/dL Albumin/Globulin Ratio (1.0-2.1) Procalcitonin (0.19-0.49) NG/ML Fluid Type Spinal fluid CSF Volume 6 H (0-1) mL CSF Appearance Sl cloudy (CLEAR) CSF WBC 6.0 H (0.0-5.0) /mm3 CSF RBC 1436.0 H (0.0-0.0) /mm3 CSF Total Cell Counted TEST NOT PERFORMED CSF Neutrophils 100 H (0-0) % CSF Monos/Macrophages TEST NOT PERFORMED CSF Comment CSF Glucose 66 (40-70) mg/dL CSF Total Protein 156.0 H* (12-60) mg/dL CSF Cryptococcus Ag (NEGATIVE) Hepatitis A IgM Ab (NEGATIVE) Hep Bs Antigen (NEGATIVE) Hep B Core IgM Ab (NEGATIVE) Hepatitis C Antibody (NEGATIVE) Influenza Typ A,B (EIA) Negative for flu a/b (NEGATIVE) 08/25/17 08/25/17 08/25/17 Range/Units 09:43 09:43 06:43 WBC (4.8-10.8) K/uL RBC (3.80-5.20) Mil/uL Hgb (11.0-16.0) g/dL Hct (34.0-47.0) % MCV (81.0-99.0) fL MCH (27.0-31.0) pg MCHC (33.0-37.0) g/dL RDW (11.5-14.5) % Plt Count (130-400) K/uL MPV (7.2-11.7) fL Neut % (Auto) 97.0 H (50.0-75.0) % Lymph % (Auto) 2.0 L (20.0-40.0) % [place] % (Auto) 1.0 (0.0-10.0) % Eos % (Auto) 0.0 (0.0-4.0) % Baso % (Auto) 0.0 (0.0-2.0) % Neut # 97.0 H (1.8-7.0) K/uL Lymph # 2.0 (1.0-4.3) K/uL Burnet # 1.0 H (0.0-0.8) K/uL Eos # 0.0 (0.0-0.7) K/uL Baso # 0.0 (0.0-0.2) K/uL Neutrophils % (Manual) 97 H (50-75) % Lymphocytes % (Manual) 2 L (20-40) % Monocytes % (Manual) 1 (0-10) % Platelet Estimate Normal (NORMAL) Hypochromasia (manual) Slight Poikilocytosis (manual Slight Anisocytosis (manual) Slight Target Cells Slight [place] Cells Slight PT (9.7-12.2) SECONDS INR APTT (21-34) SECONDS Sodium (132-148) mmol/L Potassium (3.6-5.2) mmol/L Chloride (98-107) mmol/L Carbon Dioxide (22-30) mmol/L Anion Gap (10-20) BUN (7-17) mg/dL Creatinine (0.7-1.2) mg/dL Est GFR ( Amer) Est GFR (Non-Af Amer) Random Glucose (65-105) mg/dL Calcium (8.6-10.4) mg/dl Phosphorus (2.5-4.5) mg/dL Magnesium (1.6-2.3) mg/dL Total Bilirubin (0.2-1.3) mg/dL AST (14-36) U/L ALT (9-52) U/L Alkaline Phosphatase (38-126) U/L Ammonia 51 H (9-33) umol/L Total Protein (6.3-8.3) g/dL Albumin (3.5-5.0) g/dL Globulin (2.2-3.9) gm/dL Albumin/Globulin Ratio (1.0-2.1) Procalcitonin 62.48 H (0.19-0.49) NG/ML Fluid Type CSF Volume (0-1) mL CSF Appearance (CLEAR) CSF WBC (0.0-5.0) /mm3 CSF RBC (0.0-0.0) /mm3 CSF Total Cell Counted CSF Neutrophils (0-0) % CSF Monos/Macrophages CSF Comment CSF Glucose (40-70) mg/dL CSF Total Protein (12-60) mg/dL CSF Cryptococcus Ag (NEGATIVE) Hepatitis A IgM Ab (NEGATIVE) Hep Bs Antigen (NEGATIVE) Hep B Core IgM Ab (NEGATIVE) Hepatitis C Antibody (NEGATIVE) Influenza Typ A,B (EIA) (NEGATIVE) Laboratory Results - last 24 hr 08/25/17 08/25/17 08/25/17 06:43 09:43 09:43 WBC RBC Hgb Hct MCV MCH MCHC RDW Plt Count MPV Neut % (Auto) 97.0 H Lymph % (Auto) 2.0 L Burnet % (Auto) 1.0 Eos % (Auto) 0.0 Baso % (Auto) 0.0 Neut # 97.0 H Lymph # 2.0 Burnet # 1.0 H Eos # 0.0 Baso # 0.0 Neutrophils % (Manual) 97 H Lymphocytes % (Manual) 2 L Monocytes % (Manual) 1 Platelet Estimate Normal Hypochromasia (manual) Slight Poikilocytosis (manual Slight Anisocytosis (manual) Slight Target Cells Slight [place] Cells Slight PT INR APTT Sodium Potassium Chloride Carbon Dioxide Anion Gap BUN Creatinine Est GFR ( Amer) Est GFR (Non-Af Amer) Random Glucose Calcium Phosphorus Magnesium Total Bilirubin AST ALT Alkaline Phosphatase Ammonia 51 H Total Protein Albumin Globulin Albumin/Globulin Ratio Procalcitonin 62.48 H Fluid Type CSF Volume CSF Appearance CSF WBC CSF RBC CSF Total Cell Counted CSF Neutrophils CSF Monos/Macrophages CSF Comment CSF Glucose CSF Total Protein CSF Cryptococcus Ag Hepatitis A IgM Ab Hep Bs Antigen Hep B Core IgM Ab Hepatitis C Antibody Influenza Typ A,B (EIA) 08/25/17 08/25/17 08/25/17 18:57 19:05 19:12 WBC RBC Hgb Hct MCV MCH MCHC RDW Plt Count MPV Neut % (Auto) Lymph % (Auto) Burnet % (Auto) Eos % (Auto) Baso % (Auto) Neut # Lymph # Burnet # Eos # Baso # Neutrophils % (Manual) Lymphocytes % (Manual) Monocytes % (Manual) Platelet Estimate Hypochromasia (manual) Poikilocytosis (manual Anisocytosis (manual) Target Cells [place] Cells PT INR APTT Sodium Potassium Chloride Carbon Dioxide Anion Gap BUN Creatinine Est GFR ( Amer) Est GFR (Non-Af Amer) Random Glucose Calcium Phosphorus Magnesium Total Bilirubin AST ALT Alkaline Phosphatase Ammonia Total Protein Albumin Globulin Albumin/Globulin Ratio Procalcitonin Fluid Type Spinal fluid CSF Volume 6 H CSF Appearance Sl cloudy CSF WBC 6.0 H CSF RBC 1436.0 H CSF Total Cell Counted TEST NOT PERFORMED CSF Neutrophils 100 H CSF Monos/Macrophages TEST NOT PERFORMED CSF Comment CSF Glucose 66 CSF Total Protein 156.0 H* CSF Cryptococcus Ag Hepatitis A IgM Ab Hep Bs Antigen Hep B Core IgM Ab Hepatitis C Antibody Influenza Typ A,B (EIA) Negative for flu a/b 08/25/17 08/26/17 08/26/17 20:00 06:19 06:19 WBC RBC Hgb Hct MCV MCH MCHC RDW Plt Count MPV Neut % (Auto) Lymph % (Auto) [place] % (Auto) Eos % (Auto) Baso % (Auto) Neut # Lymph # [place] # Eos # Baso # Neutrophils % (Manual) Lymphocytes % (Manual) Monocytes % (Manual) Platelet Estimate Hypochromasia (manual) Poikilocytosis (manual Anisocytosis (manual) Target Cells Mariah Cells PT INR APTT Sodium Potassium Chloride Carbon Dioxide Anion Gap BUN Creatinine Est GFR ( Amer) Est GFR (Non-Af Amer) Random Glucose Calcium Phosphorus Magnesium Total Bilirubin AST ALT Alkaline Phosphatase Ammonia Total Protein Albumin Globulin Albumin/Globulin Ratio Procalcitonin 44.30 H Fluid Type CSF Volume CSF Appearance CSF WBC CSF RBC CSF Total Cell Counted CSF Neutrophils CSF Monos/Macrophages CSF Comment CSF Glucose CSF Total Protein CSF Cryptococcus Ag Negative Hepatitis A IgM Ab Negative Hep Bs Antigen Negative Hep B Core IgM Ab Negative Hepatitis C Antibody Negative Influenza Typ A,B (EIA) 08/26/17 08/26/17 08/26/17 06:19 06:24 06:24 WBC 10.2 RBC 2.11 L Hgb 6.5 L* Hct 20.2 L MCV 95.9 MCH 31.1 H MCHC 32.4 L RDW 29.6 H Plt Count 343 MPV 8.3 Neut % (Auto) Lymph % (Auto) [place] % (Auto) Eos % (Auto) Baso % (Auto) Neut # Lymph # [place] # Eos # Baso # Neutrophils % (Manual) Lymphocytes % (Manual) Monocytes % (Manual) Platelet Estimate Hypochromasia (manual) Poikilocytosis (manual Anisocytosis (manual) Target Cells Mariah Cells PT 39.5 H* INR 3.4 APTT 41 H Sodium 156 H Potassium 3.0 L Chloride 136 H Carbon Dioxide 12 L Anion Gap 11 BUN 19 H Creatinine 1.2 Est GFR ( Amer) 55 Est GFR (Non-Af Amer) 45 Random Glucose 155 H Calcium 6.5 L Phosphorus 1.6 L Magnesium 2.0 Total Bilirubin 0.8 AST 332 H D ALT 219 H D Alkaline Phosphatase 407 H Ammonia Total Protein 5.4 L Albumin 2.3 L Globulin 3.1 Albumin/Globulin Ratio 0.7 L Procalcitonin Fluid Type CSF Volume CSF Appearance CSF WBC CSF RBC CSF Total Cell Counted CSF Neutrophils CSF Monos/Macrophages CSF Comment CSF Glucose CSF Total Protein CSF Cryptococcus Ag Hepatitis A IgM Ab Hep Bs Antigen Hep B Core IgM Ab Hepatitis C Antibody Influenza Typ A,B (EIA) Fingerstick Blood Sugar Results: 91 Review of Systems - Review of Systems Systems not reviewed;Unavailable: Uncooperative Assessment/Plan (1) Change in mental status Current Visit: Yes Status: Acute Comment: most likely secondary to meningitis Status post lumbar puncture with elevated protein Continue IV antibiotics Neurology follow-up Continue ICU observation (2) Anemia Current Visit: No Status: Acute Comment: transfuse packed RBCs (3) Leukocytosis Current Visit: Yes Status: Acute (4) Metastatic cancer Current Visit: No Status: Chronic
[2017-08-26 09:44] LABS: LYMPH # 0.3 K/uL (1.0-4.3); NEUT # 9.8 K/uL (1.8-7.0)
[2017-08-26 09:45] LABS: MONO # 0.1 K/uL (0.0-0.8)
[2017-08-26 09:46] LABS: ANISOCYTOSIS MARKED; BANDS 1 % (0-2); LYMPHOCYTE 2 % (20-40); MONOCYTE 1 % (0-10); NEUTROPHIL 96 % (50-75); PLATELET ESTIMATE NORMAL (NORMAL); TOTAL CELLS COUNTED 100
[2017-08-26 09:47] LABS: BURR CELLS SLIGHT; HYPOCHROMIC MODERATE; POIKILOCYTOSIS SLIGHT; POLYCHROMIC SLIGHT; SCHISTOCYTES SLIGHT; TARGET CELLS SLIGHT
[2017-08-26 09:48] LABS: TOXIC GRANULATION PRESENT
[2017-08-26] MEDS ORDERED: Potassium Phosphate 15 MMOLE in Sodium Chloride 0.9% 250 ML IVPB ONE (10:00)
[2017-08-26] MEDS: Magnesium Oxide 400 mg Tab UD PO SCH (10:00)
[2017-08-26] MEDS: Vancomycin 1 gm/NS 200 ml 1 GM/200 ML BAG IVPB SCH ×2 (10:39→21:19)
[2017-08-26] MEDS: Sodium Chloride 0.9% 1,000 ML IV SCH ×3 (10:41→19:32)
--- NOTE | 2017-08-26 10:51 | CP.PCM.CON ---
History of Present Illness - History of Present Illness History of Present Illness: Palliative consult requested for goals of care discussion Patient is a 62 yo lady admitted from home post fall, found on the bathroon floor by her sister. Patient was disoriented and confused t that time. Head CT negative. US abdomen showed large solid mass abutting in liver. CT Pelvis was significant for large free fluid and anasarca. Those findings are consistent with patien's known metastatic endometrial cancer, diagnosed 2014. Patient was treated by chemo Tx and fallowed by Doctor Canelo. Her last chemo was on . There was one last chemo scheduled, but patient did not attend it due to event. Upon admission WBC 14.6, dropped to 10.2, treated with Azactam IV, Vanco IV, and Zovirax IV. There is significant hypocalcemia , hypophosphoremia, and anemia. Hb 6.6 down from 7.1. PMH: ANALYSIS SPECIALIST cancer stage IV diagnosed in 2014 and treated with chemo Tx, anxiety, asthma, soc. Hx: lives alone, sister Jessica involved in care Fam. Hx: no obtainable from the patient Review of Systems - Review of Systems Review of Systems: ROS obtained from nursing. Per nursing patient is more alert today. Past Patient History - Infectious Disease Hx of Infectious Diseases: None - Past Medical History & Family History Past Medical History?: Yes - Past Social History Smoking Status: Never Smoked - CARDIAC Hx Cardiac Disorders: No - PULMONARY Hx Asthma: Yes (WHEN ANXIOUS ON ONHALERS LAST ATTACK 5 YRS AGO) - NEUROLOGICAL Hx Paralysis: Yes (POLIO) - HEENT Hx HEENT Problems: Yes (TINNITUS) Other/Comment: pt has very dry mouth sts tongue gets stuck to roof of mouth - RENAL Hx Chronic Kidney Disease: No - ENDOCRINE/METABOLIC Hx Endocrine Disorders: No - HEMATOLOGICAL/ONCOLOGICAL Hx Blood Transfusions: No Hx Blood Transfusion Reaction: No - INTEGUMENTARY Hx Dermatological Problems: No - MUSCULOSKELETAL/RHEUMATOLOGICAL Hx Musculoskeletal Disorders: Yes Hx Falls: No Other/Comment: poliomyelitis - GASTROINTESTINAL Hx Gastrointestinal Disorders: Yes (ABD PAIN) - GENITOURINARY/GYNECOLOGICAL Hx Genitourinary Disorders: Yes Hx Reproductive Disorders: Yes (OVARIAN CYST) Hx Uterine Cancer: Yes - PSYCHIATRIC Hx Anxiety: Yes Hx Substance Use: No - SURGICAL HISTORY Hx Surgeries: Yes (R BREAST, L HIP) - ANESTHESIA Hx Anesthesia: Yes Hx Anesthesia Reactions: No Hx Malignant Hyperthermia: No Meds Allergies/Adverse Reactions: Allergies Allergy/AdvReac Type Severity Reaction Status Date / Time penicillin G AdvReac RASH Verified 08/24/17 12:56 - Medications Medications: Current Medications Gabapentin (Neurontin) 400 mg PO DAILY [facility] Last Admin: 08/25/17 10:23 Dose: Not Given Home Med (Alpha Lipoic Acid [Alpha Lipoic Acid]) 300 mg PO BID [facility] Home Med (Exemestane [Aromasin]) 25 mg PO DAILY [facility] Aztreonam 2 gm/ Sodium (Chloride) 100 mls @ 200 mls/hr IVPB Q8H [facility] Last Admin: 08/26/17 00:58 Dose: 200 mls/hr Sodium Chloride (Sodium Chloride 0.9%) 1,000 mls @ 100 mls/hr IV .Q10H [facility] Last Admin: 08/26/17 10:41 Dose: Not Given Vancomycin/Sodium Chloride (Vancomycin 1 Gm/Ns 200 Ml) 1 gm in 200 mls @ 133.333 mls/hr IVPB Q12H [facility] Stop: 08/30/17 22:01 Last Admin: 08/26/17 10:39 Dose: 133.333 mls/hr Acyclovir 500 mg/ Sodium (Chloride) 100 mls @ 100 mls/hr IV Q8H [facility] Last Admin: 08/26/17 10:00 Dose: 100 mls/hr Potassium Phosphate 15 mmole/ (Sodium Chloride) 255 mls @ 42.5 mls/hr IVPB ONCE ONE Stop: 08/26/17 15:59 Last Admin: 08/26/17 10:37 Dose: 42.5 mls/hr Magnesium Oxide (Mag-Ox) 400 mg PO DAILY [facility] Last Admin: 08/25/17 10:23 Dose: Not Given Pantoprazole Sodium (Protonix Inj) 40 mg IVP DAILY [facility] Last Admin: 08/25/17 10:25 Dose: 40 mg Physical Exam - Constitutional Appears: Chronically Ill - Head Exam Head Exam: ATRAUMATIC, NORMAL INSPECTION, NORMOCEPHALIC - Eye Exam Eye Exam: EOMI, Normal appearance, PERRL Pupil Exam: NORMAL ACCOMODATION, PERRL - ENT Exam ENT Exam: Mucous Membranes Dry - Neck Exam Neck exam: Positive for: Normal Inspection - Respiratory Exam Respiratory Exam: Decreased Breath Sounds, NORMAL BREATHING PATTERN - Cardiovascular Exam Cardiovascular Exam: REGULAR RHYTHM - GI/Abdominal Exam GI & Abdominal Exam: Hypoactive Bowel Sounds - Rectal Exam Rectal Exam: Deferred - Extremities Exam Extremities exam: Positive for: pedal edema - Back Exam Back exam: NORMAL INSPECTION - Neurological Exam Neurological exam: Alert, Altered - Psychiatric Exam Psychiatric exam: Anxious - Skin Skin Exam: Pallor Results - Vital Signs Recent Vital Signs: Last Vital Signs Temp 98 F 08/26/17 10:30 Pulse 105 H 08/26/17 10:30 Resp 19 08/26/17 10:30 BP 125/68 08/26/17 10:30 Pulse Ox 100 08/26/17 06:40 - Labs Result Diagrams: 08/26/17 06:24 08/26/17 06:19 Labs: Laboratory Results - last 24 hr 08/25/17 08/25/17 08/25/17 09:43 18:57 19:05 WBC RBC Hgb Hct MCV MCH MCHC RDW Plt Count MPV Neut % (Auto) Lymph % (Auto) Pope % (Auto) Eos % (Auto) Baso % (Auto) Neut # Lymph # Pope # Eos # Baso # Neutrophils % (Manual) Band Neutrophils % Lymphocytes % (Manual) Monocytes % (Manual) Toxic Granulation Platelet Estimate Polychromasia Hypochromasia (manual) Poikilocytosis (manual Anisocytosis (manual) Macrocytosis (manual) Target Cells Mariah Cells Schistocytes PT INR APTT Sodium Potassium Chloride Carbon Dioxide Anion Gap BUN Creatinine Est GFR ( Amer) Est GFR (Non-Af Amer) Random Glucose Calcium Phosphorus Magnesium Total Bilirubin AST ALT Alkaline Phosphatase Total Protein Albumin Globulin Albumin/Globulin Ratio Procalcitonin 62.48 H Fluid Type Spinal fluid CSF Volume 6 H CSF Appearance Sl cloudy CSF WBC 6.0 H CSF RBC 1436.0 H CSF Total Cell Counted TEST NOT PERFORMED CSF Neutrophils 100 H CSF Monos/Macrophages TEST NOT PERFORMED CSF Comment CSF Glucose 66 CSF Total Protein 156.0 H* CSF Cryptococcus Ag Hepatitis A IgM Ab Hep Bs Antigen Hep B Core IgM Ab Hepatitis C Antibody HIV 1&2 Antibody Screen Influenza Typ A,B (EIA) Blood Type Antibody Screen 08/25/17 08/25/17 08/26/17 19:12 20:00 06:19 WBC RBC Hgb Hct MCV MCH MCHC RDW Plt Count MPV Neut % (Auto) Lymph % (Auto) Pope % (Auto) Eos % (Auto) Baso % (Auto) Neut # Lymph # Pope # Eos # Baso # Neutrophils % (Manual) Band Neutrophils % Lymphocytes % (Manual) Monocytes % (Manual) Toxic Granulation Platelet Estimate Polychromasia Hypochromasia (manual) Poikilocytosis (manual Anisocytosis (manual) Macrocytosis (manual) Target Cells [place] Cells Schistocytes PT INR APTT Sodium Potassium Chloride Carbon Dioxide Anion Gap BUN Creatinine Est GFR ( Amer) Est GFR (Non-Af Amer) Random Glucose Calcium Phosphorus Magnesium Total Bilirubin AST ALT Alkaline Phosphatase Total Protein Albumin Globulin Albumin/Globulin Ratio Procalcitonin Fluid Type CSF Volume CSF Appearance CSF WBC CSF RBC CSF Total Cell Counted CSF Neutrophils CSF Monos/Macrophages CSF Comment CSF Glucose CSF Total Protein CSF Cryptococcus Ag Negative Hepatitis A IgM Ab Negative Hep Bs Antigen Negative Hep B Core IgM Ab Negative Hepatitis C Antibody Negative HIV 1&2 Antibody Screen Influenza Typ A,B (EIA) Negative for flu a/b Blood Type Antibody Screen 08/26/17 08/26/17 08/26/17 06:19 06:19 06:19 WBC RBC Hgb Hct MCV MCH MCHC RDW Plt Count MPV Neut % (Auto) Lymph % (Auto) Pope % (Auto) Eos % (Auto) Baso % (Auto) Neut # Lymph # Pope # Eos # Baso # Neutrophils % (Manual) Band Neutrophils % Lymphocytes % (Manual) Monocytes % (Manual) Toxic Granulation Platelet Estimate Polychromasia Hypochromasia (manual) Poikilocytosis (manual Anisocytosis (manual) Macrocytosis (manual) Target Cells Mariah Cells Schistocytes PT INR APTT Sodium 156 H Potassium 3.0 L Chloride 136 H Carbon Dioxide 12 L Anion Gap 11 BUN 19 H Creatinine 1.2 Est GFR ( Amer) 55 Est GFR (Non-Af Amer) 45 Random Glucose 155 H Calcium 6.5 L Phosphorus 1.6 L Magnesium 2.0 Total Bilirubin 0.8 AST 332 H D ALT 219 H D Alkaline Phosphatase 407 H Total Protein 5.4 L Albumin 2.3 L Globulin 3.1 Albumin/Globulin Ratio 0.7 L Procalcitonin 44.30 H Fluid Type CSF Volume CSF Appearance CSF WBC CSF RBC CSF Total Cell Counted CSF Neutrophils CSF Monos/Macrophages CSF Comment CSF Glucose CSF Total Protein CSF Cryptococcus Ag Hepatitis A IgM Ab Hep Bs Antigen Hep B Core IgM Ab Hepatitis C Antibody HIV 1&2 Antibody Screen Negative Influenza Typ A,B (EIA) Blood Type Antibody Screen 08/26/17 08/26/17 08/26/17 06:24 06:24 09:12 WBC 10.2 RBC 2.11 L Hgb 6.5 L* Hct 20.2 L MCV 95.9 MCH 31.1 H MCHC 32.4 L RDW 29.6 H Plt Count 343 MPV 8.3 Neut % (Auto) 96.0 H Lymph % (Auto) 3.0 L Pope % (Auto) 1.0 Eos % (Auto) 0.0 Baso % (Auto) 0.0 Neut # 9.8 H Lymph # 0.3 L Pope # 0.1 Eos # 0.0 Baso # 0.0 Neutrophils % (Manual) 96 H Band Neutrophils % 1 Lymphocytes % (Manual) 2 L Monocytes % (Manual) 1 Toxic Granulation Present Platelet Estimate Normal Polychromasia Slight Hypochromasia (manual) Moderate Poikilocytosis (manual Slight Anisocytosis (manual) Marked Macrocytosis (manual) Slight Target Cells Slight Mariah Cells Slight Schistocytes Slight PT 39.5 H* INR 3.4 APTT 41 H Sodium Potassium Chloride Carbon Dioxide Anion Gap BUN Creatinine Est GFR ( Amer) Est GFR (Non-Af Amer) Random Glucose Calcium Phosphorus Magnesium Total Bilirubin AST ALT Alkaline Phosphatase Total Protein Albumin Globulin Albumin/Globulin Ratio Procalcitonin Fluid Type CSF Volume CSF Appearance CSF WBC CSF RBC CSF Total Cell Counted CSF Neutrophils CSF Monos/Macrophages CSF Comment CSF Glucose CSF Total Protein CSF Cryptococcus Ag Hepatitis A IgM Ab Hep Bs Antigen Hep B Core IgM Ab Hepatitis C Antibody HIV 1&2 Antibody Screen Influenza Typ A,B (EIA) Blood Type B POSITIVE Antibody Screen Negative Assessment & Plan - Assessment and Plan (Free Text) Assessment: palliative consult I Code status Full Code, there is no advance directive on chart, PPS 10% I reviewed medical documentation, all diagnostic studies, examined and interviewed patient in the bed. Interview was limited due to patient condition. Patient is alert, speech is clear, and is no acute distress. Patient knew she was at [facility]. Patient appears anxious with affect that is angry , repeatedly asking the same questions , requesting to talk to her sister " right now and in person". Patient was reassured by the nurse, her sister was on her way. Patient is not able to engage in meaningful conversation. However, per nursing, patient appears more alert today. Skin is pale. Breath sounds are diminished, RR regular. Abdomen large and softly distended, hypoactive bowel sounds, denies pain.There is significant pitting edema of LEs. BP 125/68, HR 105, afebrile. Impression * This is a very sick patient with advanced endometriosis cancer * This deadly disease has left impact on patient's physical and emotional health * Due to still present AMS patient is unable to fully engage in goals of care discussion, nor to express her feelings; instead patient act in angry manners * Patient's wishes for the end of life care are not known * Per nursing, sister Jessica was involved in care and visits daily Suggestions * This patient should be made DNR/DNI to avoid further suffering from aggressive interventions that most likely will not bring about any improvemnt in quality life nor would save her life * Would correct electrolyte imbalance * Patient needs to be frequently reassured of her safety to make her more calm I will martin to meet with patient's sister for Code status discussion
--- NOTE | 2017-08-26 15:22 | CP.PCM.PN ---
Subjective - Date & Time of Evaluation Date of Evaluation: 08/26/17 Time of Evaluation: 14:20 - Subjective Subjective: clinicallyt same Objective - Vital Signs/Intake and Output Vital Signs (last 24 hours): Temp Pulse Resp BP Pulse Ox 98.3 F 105 H 19 124/70 100 08/26/17 13:32 08/26/17 13:32 08/26/17 13:32 08/26/17 13:32 08/26/17 12:10 Intake and Output: 08/26/17 08/26/17 06:59 18:59 Intake Total 1590 540 Output Total 490 210 Balance 1100 330 - Medications Medications: Current Medications Gabapentin (Neurontin) 400 mg PO DAILY [facility] Last Admin: 08/26/17 13:14 Dose: 400 mg Home Med (Alpha Lipoic Acid [Alpha Lipoic Acid]) 300 mg PO BID [facility] Home Med (Exemestane [Aromasin]) 25 mg PO DAILY [facility] Aztreonam 2 gm/ Sodium (Chloride) 100 mls @ 200 mls/hr IVPB Q8H [facility] Last Admin: 08/26/17 09:00 Dose: 200 mls/hr Sodium Chloride (Sodium Chloride 0.9%) 1,000 mls @ 100 mls/hr IV .Q10H [facility] Last Admin: 08/26/17 10:41 Dose: Not Given Vancomycin/Sodium Chloride (Vancomycin 1 Gm/Ns 200 Ml) 1 gm in 200 mls @ 133.333 mls/hr IVPB Q12H [facility] Stop: 08/30/17 22:01 Last Admin: 08/26/17 10:39 Dose: 133.333 mls/hr Acyclovir 500 mg/ Sodium (Chloride) 100 mls @ 100 mls/hr IV Q8H [facility] Last Admin: 08/26/17 10:00 Dose: 100 mls/hr Potassium Phosphate 15 mmole/ (Sodium Chloride) 255 mls @ 42.5 mls/hr IVPB ONCE ONE Stop: 08/26/17 15:59 Last Admin: 08/26/17 10:37 Dose: 42.5 mls/hr Magnesium Oxide (Mag-Ox) 400 mg PO DAILY [facility] Last Admin: 08/26/17 10:00 Dose: 400 mg Pantoprazole Sodium (Protonix Susp) 40 mg PO DAILY [facility] - Labs Labs: 08/26/17 06:24 08/26/17 06:19 PT 39.5 SECONDS (9.7-12.2) H* 08/26/17 06:24 INR 3.4 08/26/17 06:24 APTT 41 SECONDS (21-34) H 08/26/17 06:24
--- NOTE | 2017-08-26 15:49 | MRI ---
PROCEDURE: MRI BRAIN WITHOUT CONTRAST HISTORY: AMS COMPARISON: Comparison is made with the previous CT dated 08/24/2017 TECHNIQUE: Multiplanar, multisequence MR images of the brain were obtained without intravenous contrast enhancement. FINDINGS: HEMORRHAGE: None DWI: No evidence of an acute or early subacute infarction. BRAIN PARENCHYMA: No mass effect or edema. Mild volume loss is noted. VENTRICLES: Unremarkable. No hydrocephalus. CRANIUM: Unremarkable. ORBITS: Grossly unremarkable. PARANASAL SINUSES/MASTOIDS: Clear VASCULAR SYSTEM: Skull base flow voids intact. OTHER FINDINGS: None. IMPRESSION: No evidence of acute infarction or acute pathology in the brain. No evidence of mass lesion mass effect or midline shift. Mild volume loss.
--- NOTE | 2017-08-26 20:36 | CP.PCM.PN ---
Subjective - Date & Time of Evaluation Date of Evaluation: 08/26/17 Time of Evaluation: 18:20 - Subjective Subjective: More alert and responsive today. Objective - Vital Signs/Intake and Output Vital Signs (last 24 hours): Temp Pulse Resp BP Pulse Ox 98 F 120 H 20 120/48 L 99 08/26/17 16:00 08/26/17 19:30 08/26/17 19:30 08/26/17 19:04 08/26/17 19:30 Intake and Output: 08/26/17 08/27/17 18:59 06:59 Intake Total 780 120 Output Total 310 Balance 470 120 - Medications Medications: Current Medications Gabapentin (Neurontin) 400 mg PO DAILY [facility] Last Admin: 08/26/17 13:14 Dose: 400 mg Home Med (Alpha Lipoic Acid [Alpha Lipoic Acid]) 300 mg PO BID [facility] Home Med (Exemestane [Aromasin]) 25 mg PO DAILY [facility] Aztreonam 2 gm/ Sodium (Chloride) 100 mls @ 200 mls/hr IVPB Q8H [facility] Last Admin: 08/26/17 19:00 Dose: 200 mls/hr Sodium Chloride (Sodium Chloride 0.9%) 1,000 mls @ 100 mls/hr IV .Q10H [facility] Last Admin: 08/26/17 19:32 Dose: 100 mls/hr Vancomycin/Sodium Chloride (Vancomycin 1 Gm/Ns 200 Ml) 1 gm in 200 mls @ 133.333 mls/hr IVPB Q12H [facility] Stop: 08/30/17 22:01 Last Admin: 08/26/17 10:39 Dose: 133.333 mls/hr Acyclovir 500 mg/ Sodium (Chloride) 100 mls @ 100 mls/hr IV Q8H [facility] Last Admin: 08/26/17 19:08 Dose: 100 mls/hr Magnesium Oxide (Mag-Ox) 400 mg PO DAILY [facility] Last Admin: 08/26/17 10:00 Dose: 400 mg Pantoprazole Sodium (Protonix Susp) 40 mg PO DAILY [facility] - Labs Labs: 08/26/17 06:24 08/26/17 06:19 PT 39.5 SECONDS (9.7-12.2) H* 08/26/17 06:24 INR 3.4 08/26/17 06:24 APTT 41 SECONDS (21-34) H 08/26/17 06:24 - Head Exam Head Exam: ATRAUMATIC - Eye Exam Eye Exam: Normal appearance - ENT Exam ENT Exam: Mucous Membranes Dry - Respiratory Exam Respiratory Exam: NORMAL BREATHING PATTERN - Cardiovascular Exam Cardiovascular Exam: +S1, +S2 - GI/Abdominal Exam GI & Abdominal Exam: Normal Bowel Sounds - Extremities Exam Extremities Exam: Pedal Edema Assessment and Plan (1) Anemia Assessment & Plan: chronic disease and chemotherapy effect recommend transfusion support Status: Acute (2) Coagulopathy Assessment & Plan: nutritional Status: Acute (3) Metastatic cancer Assessment & Plan: stage IV on ifosfamide Status: Chronic
[2017-08-27] MEDS: Aztreonam 2 GM in Sodium Chloride 0.9% 100 ML IVPB SCH ×3 (01:06→17:15)
[2017-08-27] MEDS: Acyclovir 500 MG in Sodium Chloride 0.9% 100 ML IV SCH ×3 (02:00→18:12)
[2017-08-27] MEDS: Sodium Chloride 0.9% 1,000 ML IV SCH (06:45)
[2017-08-27 07:16] LABS: ALB/GLOB RATIO 0.7 (1.0-2.1); ALBUMIN 2.4 g/dL (3.5-5.0); CALCIUM 6.7 mg/dl (8.6-10.4)
[2017-08-27 07:38] LABS: BASO # 0.1 K/uL (0.0-0.2); BASO % 0.6 % (0.0-2.0); EOS # 0.1 K/uL (0.0-0.7); EOS % 1.4 % (0.0-4.0); LYMPH # 0.8 K/uL (1.0-4.3); LYMPH % 9.2 % (20.0-40.0); MEAN CELL VOLUME 93.8 fL (81.0-99.0); MEAN CORPUSCULAR HEMOGLOBIN 30.5 pg (27.0-31.0); MEAN CORPUSCULAR HGB CONC 32.5 g/dL (33.0-37.0); MEAN PLATELET VOLUME 8.8 fL (7.2-11.7); MONO # 0.5 K/uL (0.0-0.8); NEUT # 7.3 K/uL (1.8-7.0); NEUT % 82.8 % (50.0-75.0); NRBC % 0.1 % (0.0-2.0); PLATELET COUNT 226 K/uL (130-400); RBC 2.61 Mil/uL (3.80-5.20); WHITE BLOOD COUNT 8.8 K/uL (4.8-10.8)
[2017-08-27 08:26] LABS: ANISOCYTOSIS SLIGHT; LYMPHOCYTE 7 % (20-40); MONOCYTE 3 % (0-10); NEUTROPHIL 90 % (50-75); PLATELET ESTIMATE NORMAL (NORMAL); TOTAL CELLS COUNTED 100
[2017-08-27 08:27] LABS: BURR CELLS SLIGHT; GIANT PLATELETS PRESENT; HYPOCHROMIC SLIGHT; LARGE PLATELETS PRESENT; POIKILOCYTOSIS SLIGHT; POLYCHROMIC SLIGHT; TARGET CELLS SLIGHT
[2017-08-27 08:28] LABS: TOXIC GRANULATION PRESENT
--- NOTE | 2017-08-27 09:27 | CP.PCM.PN ---
<Ruchi Wells - Last Filed: 08/27/17 09:39> Subjective - Date & Time of Evaluation Date of Evaluation: 08/27/17 Time of Evaluation: 09:10 - Subjective Subjective: PGY4 GI Follow-up Pt seen and examined bedside No acute overnight events getting tube feeds neg BM alert and speaking, though still confused ROS: 10 point ROS conducted ,neg other than above Objective - Vital Signs/Intake and Output Vital Signs (last 24 hours): Temp Pulse Resp BP Pulse Ox 98.5 F 121 H 22 157/80 H 100 08/27/17 08:00 08/27/17 08:50 08/27/17 08:50 08/27/17 08:04 08/27/17 08:50 Intake and Output: 08/27/17 08/27/17 06:59 18:59 Intake Total 1390 220 Output Total 1100 45 Balance 290 175 - Medications Medications: Current Medications Gabapentin (Neurontin) 400 mg PO DAILY [facility] Last Admin: 08/26/17 13:14 Dose: 400 mg Home Med (Alpha Lipoic Acid [Alpha Lipoic Acid]) 300 mg PO BID [facility] Home Med (Exemestane [Aromasin]) 25 mg PO DAILY [facility] Aztreonam 2 gm/ Sodium (Chloride) 100 mls @ 200 mls/hr IVPB Q8H [facility] Last Admin: 08/27/17 01:06 Dose: 200 mls/hr Sodium Chloride (Sodium Chloride 0.9%) 1,000 mls @ 100 mls/hr IV .Q10H [facility] Last Admin: 08/27/17 06:45 Dose: 100 mls/hr Vancomycin/Sodium Chloride (Vancomycin 1 Gm/Ns 200 Ml) 1 gm in 200 mls @ 133.333 mls/hr IVPB Q12H [facility] Stop: 08/30/17 22:01 Last Admin: 08/26/17 21:19 Dose: 133.333 mls/hr Acyclovir 500 mg/ Sodium (Chloride) 100 mls @ 100 mls/hr IV Q8H [facility] Last Admin: 08/27/17 02:00 Dose: 100 mls/hr Potassium Chloride (Potassium Chloride 20 Meq/100 Ml) 20 meq in 100 mls @ 50 mls/hr IVPB Q2H [facility] Stop: 08/27/17 11:59 Last Admin: 08/27/17 07:43 Dose: 50 mls/hr Magnesium Oxide (Mag-Ox) 400 mg PO DAILY [facility] Last Admin: 08/26/17 10:00 Dose: 400 mg Pantoprazole Sodium (Protonix Susp) 40 mg PO DAILY [facility] - Labs Labs: 08/27/17 06:52 08/27/17 06:51 PT 39.5 SECONDS (9.7-12.2) H* 08/26/17 06:24 INR 3.4 08/26/17 06:24 APTT 41 SECONDS (21-34) H 08/26/17 06:24 - Constitutional Appears: No Acute Distress, Chronically Ill - Head Exam Head Exam: ATRAUMATIC, NORMOCEPHALIC - Eye Exam Eye Exam: Normal appearance - ENT Exam ENT Exam: Mucous Membranes Moist Additional comments: NG in place - Neck Exam Neck Exam: Normal Inspection - Respiratory Exam Respiratory Exam: Clear to Ausculation Bilateral, NORMAL BREATHING PATTERN. absent: Rales, Rhonchi, Wheezes, Respiratory Distress - Cardiovascular Exam Cardiovascular Exam: REGULAR RHYTHM, +S1, +S2 - GI/Abdominal Exam GI & Abdominal Exam: Distended, Hypoactive Bowel Sounds. absent: Tenderness - Extremities Exam Extremities Exam: absent: Joint Swelling, Pedal Edema - Neurological Exam Neurological Exam: Alert, Awake, Oriented x3 - Psychiatric Exam Psychiatric exam: Normal Affect, Normal Mood - Skin Skin Exam: Dry, Intact, Normal Color, Warm Assessment and Plan - Assessment and Plan (Free Text) Assessment: Gill Triana is a 62F w/ hx of endometrial cancer with liver and bone mets who presented to the ER for weakness and AMS. Pt was found to be lethargic and septic. GI was consulted for elevated LFTs, etiology likely shock liver vs medication induced, r/o acute viral infection Elevated LFTs likely shock liver (improving) macrocytic anemia; etiology bone marrow suppression from chemo? Liver lesion in nadeen hepatica Large volume ascities Plan: -continue abx as per ID -LFTs improving -maintain MAP > 65 -can consider an abd paracentesis for diagnostic and therapeutic reasons -would recommend maintaining hgb > 7, especially in the setting of hypotenson and chemo -CT angio reviewed, no change in lesion around liver -waiting CEA levels -agree with palliative care recommendations -continue tube feeds as tolerated via NG -as per RN, they will try swallow eval today -start bowel regiment, miralax BID, since no BM in 2 days D/W Dr. Vargas <Jessie Vargas MD - Last Filed: 08/27/17 14:14> Objective - Vital Signs/Intake and Output Vital Signs (last 24 hours): Temp Pulse Resp BP Pulse Ox 98.5 F 140 H 18 165/86 H 100 08/27/17 08:00 08/27/17 11:50 08/27/17 11:50 08/27/17 11:04 08/27/17 11:50 Intake and Output: 08/27/17 08/27/17 06:59 18:59 Intake Total 1390 970 Output Total 1100 170 Balance 290 800 - Medications Medications: Current Medications Gabapentin (Neurontin) 400 mg PO DAILY [facility] Last Admin: 08/27/17 10:28 Dose: 400 mg Home Med (Alpha Lipoic Acid [Alpha Lipoic Acid]) 300 mg PO BID [facility] Home Med (Exemestane [Aromasin]) 25 mg PO DAILY [facility] Aztreonam 2 gm/ Sodium (Chloride) 100 mls @ 200 mls/hr IVPB Q8H [facility] Last Admin: 08/27/17 08:45 Dose: 200 mls/hr Sodium Chloride (Sodium Chloride 0.9%) 1,000 mls @ 100 mls/hr IV .Q10H [facility] Last Admin: 08/27/17 06:45 Dose: 100 mls/hr Vancomycin/Sodium Chloride (Vancomycin 1 Gm/Ns 200 Ml) 1 gm in 200 mls @ 133.333 mls/hr IVPB Q12H [facility] Stop: 08/30/17 22:01 Last Admin: 08/27/17 10:27 Dose: 133.333 mls/hr Acyclovir 500 mg/ Sodium (Chloride) 100 mls @ 100 mls/hr IV Q8H [facility] Last Admin: 08/27/17 10:28 Dose: 100 mls/hr Potassium Chloride/Dextrose (Potassium Chl 20 Meq In D5w) 1,000 mls @ 75 mls/ hr IV .[id number] [facility] Last Admin: 08/27/17 10:27 Dose: 75 mls/hr Magnesium Oxide (Mag-Ox) 400 mg PO DAILY [facility] Last Admin: 08/27/17 10:28 Dose: 400 mg Pantoprazole Sodium (Protonix Susp) 40 mg PO DAILY [facility] Last Admin: 08/27/17 10:29 Dose: 40 mg Polyethylene Glycol (Miralax) 17 gm PO BID [facility] Last Admin: 08/27/17 10:28 Dose: 17 gm Potassium Chloride (K-Dur 20 Meq Er Tab) 40 meq PO Q4 [facility] Stop: 08/28/17 00:01 - Labs Labs: 08/27/17 06:52 08/27/17 06:51 PT 39.5 SECONDS (9.7-12.2) H* 08/26/17 06:24 INR 3.4 08/26/17 06:24 APTT 41 SECONDS (21-34) H 08/26/17 06:24 Attending/Attestation - Attestation I have personally seen and examined this patient.: Yes I have fully participated in the care of the patient.: Yes I have reviewed all pertinent clinical information, including history, physical exam and plan: Yes Notes (Text): 08/27/17 14:13 Patient seen at bedside in MICU. This is a 62F w/ hx of endometrial cancer with liver and bone mets who presented to the ER for weakness and AMS. Pt was found to be lethargic and septic secondary to meningitis. GI was consulted for elevated LFTs, etiology likely shock liver vs medication induced which are downtrending daily. Patient was alert today and answering questions appropriately. Continue antibiotics as per ID and MICU. Hepatitis panel unremarkable. Ascites is likely malignant due to peritoneal mets. Can drain for comfort. Maintain Hb above 7/21. No s/s of acute GI bleeding. Rectal with brown stool. CTA reviewed with no thrombus/ liver findings. Large peritoneal mets abutting liver. Discuss goals of care with family. Continue feeds/ diet as tolerated. Will sign off now. Thank you for letting us participate in the care of your patient.
[2017-08-27] MEDS: Potassium Ch 20mEq in D5W 1,000 ML IV SCH (10:27)
[2017-08-27] MEDS: Vancomycin 1 gm/NS 200 ml 1 GM/200 ML BAG IVPB SCH ×2 (10:27→21:15)
[2017-08-27] MEDS: POLYETHYLENE GLYCOL 3350 17 GM/Dose PACKET PO SCH ×2 (10:28→18:13)
[2017-08-27] MEDS: Magnesium Oxide 400 mg Tab UD PO SCH (10:28)
[2017-08-27] MEDS: Pantoprazole 40 mg Susp UD PO SCH (10:29)
[2017-08-27 15:25] LABS: ALB/GLOB RATIO 0.7 (1.0-2.1); ALBUMIN 2.5 g/dL (3.5-5.0); CALCIUM 6.9 mg/dl (8.6-10.4)
[2017-08-27] MEDS ORDERED: Potassium Chloride 20 mEq ER Tab PO SCH (16:00)
--- NOTE | 2017-08-27 17:42 | CP.PCM.PN ---
Subjective - Date & Time of Evaluation Date of Evaluation: 08/27/17 Time of Evaluation: 09:00 - Subjective Subjective: events noted no new positive cultures Objective - Vital Signs/Intake and Output Vital Signs (last 24 hours): Temp Pulse Resp BP Pulse Ox 98.1 F 133 H 21 154/94 H 100 08/27/17 12:00 08/27/17 17:30 08/27/17 17:30 08/27/17 17:04 08/27/17 17:30 Intake and Output: 08/27/17 08/27/17 06:59 18:59 Intake Total 1390 1370 Output Total 1100 345 Balance 290 1025 - Medications Medications: Current Medications Gabapentin (Neurontin) 400 mg PO DAILY [facility] Last Admin: 08/27/17 10:28 Dose: 400 mg Home Med (Alpha Lipoic Acid [Alpha Lipoic Acid]) 300 mg PO BID [facility] Home Med (Exemestane [Aromasin]) 25 mg PO DAILY [facility] Aztreonam 2 gm/ Sodium (Chloride) 100 mls @ 200 mls/hr IVPB Q8H [facility] Last Admin: 08/27/17 08:45 Dose: 200 mls/hr Sodium Chloride (Sodium Chloride 0.9%) 1,000 mls @ 100 mls/hr IV .Q10H [facility] Last Admin: 08/27/17 06:45 Dose: 100 mls/hr Vancomycin/Sodium Chloride (Vancomycin 1 Gm/Ns 200 Ml) 1 gm in 200 mls @ 133.333 mls/hr IVPB Q12H [facility] Stop: 08/30/17 22:01 Last Admin: 08/27/17 10:27 Dose: 133.333 mls/hr Acyclovir 500 mg/ Sodium (Chloride) 100 mls @ 100 mls/hr IV Q8H [facility] Last Admin: 08/27/17 10:28 Dose: 100 mls/hr Potassium Chloride/Dextrose (Potassium Chl 20 Meq In D5w) 1,000 mls @ 75 mls/ hr IV .[id number] [facility] Last Admin: 08/27/17 10:27 Dose: 75 mls/hr Magnesium Oxide (Mag-Ox) 400 mg PO DAILY [facility] Last Admin: 08/27/17 10:28 Dose: 400 mg Pantoprazole Sodium (Protonix Susp) 40 mg PO DAILY [facility] Last Admin: 12/31/17 10:29 Dose: 40 mg Polyethylene Glycol (Miralax) 17 gm PO BID [facility] Last Admin: 08/27/17 10:28 Dose: 17 gm Potassium Chloride (Potassium Chloride Oral Soln) 40 meq PO Q4H [facility] Stop: 08/28/17 00:01 - Labs Labs: 08/27/17 06:52 08/27/17 14:42 PT 39.5 SECONDS (9.7-12.2) H* 08/26/17 06:24 INR 3.4 08/26/17 06:24 APTT 41 SECONDS (21-34) H 08/26/17 06:24 - Constitutional Appears: Non-toxic, Cachectic, Chronically Ill - Head Exam Head Exam: NORMOCEPHALIC - Eye Exam Eye Exam: absent: Scleral icterus - ENT Exam ENT Exam: Mucous Membranes Dry - Neck Exam Neck Exam: absent: Lymphadenopathy - Respiratory Exam Respiratory Exam: Decreased Breath Sounds - Cardiovascular Exam Cardiovascular Exam: REGULAR RHYTHM - GI/Abdominal Exam GI & Abdominal Exam: Distended, Soft - Rectal Exam Rectal Exam: Deferred - Exam Exam: NORMAL INSPECTION - Extremities Exam Extremities Exam: absent: Pedal Edema - Back Exam Back Exam: absent: CVA tenderness (L), CVA tenderness (R) - Neurological Exam Neurological Exam: Altered - Psychiatric Exam Psychiatric exam: Depressed Assessment and Plan - Assessment and Plan (Free Text) Plan: Gill Triana is a 62F w/ hx of endometrial cancer with liver and bone mets who presented to the ER for weakness and AMS. Pt was found to be lethargic and septic. iv rx in progress- empiric- await HSV PCR from CSF
[2017-08-27] MEDS: Potassium Chloride 20 mEq/15 ml LIQ UD PO SCH ×2 (18:12→19:37)
--- NOTE | 2017-08-27 18:49 | CP.PCM.PN ---
Subjective - Date & Time of Evaluation Date of Evaluation: 08/27/17 Time of Evaluation: 14:00 Objective - Vital Signs/Intake and Output Vital Signs (last 24 hours): Temp Pulse Resp BP Pulse Ox 98.3 F 145 H 15 159/94 H 100 08/27/17 16:00 08/27/17 18:40 08/27/17 18:40 08/27/17 18:04 08/27/17 18:40 Intake and Output: 08/27/17 08/27/17 06:59 18:59 Intake Total 1390 1795 Output Total 1100 470 Balance 290 1325 - Medications Medications: Current Medications Gabapentin (Neurontin) 400 mg PO DAILY [facility] Last Admin: 08/27/17 10:28 Dose: 400 mg Home Med (Alpha Lipoic Acid [Alpha Lipoic Acid]) 300 mg PO BID [facility] Home Med (Exemestane [Aromasin]) 25 mg PO DAILY [facility] Aztreonam 2 gm/ Sodium (Chloride) 100 mls @ 200 mls/hr IVPB Q8H [facility] Last Admin: 08/27/17 17:15 Dose: 200 mls/hr Vancomycin/Sodium Chloride (Vancomycin 1 Gm/Ns 200 Ml) 1 gm in 200 mls @ 133.333 mls/hr IVPB Q12H [facility] Stop: 08/30/17 22:01 Last Admin: 08/27/17 10:27 Dose: 133.333 mls/hr Acyclovir 500 mg/ Sodium (Chloride) 100 mls @ 100 mls/hr IV Q8H [facility] Last Admin: 08/27/17 18:12 Dose: 100 mls/hr Potassium Chloride/Dextrose (Potassium Chl 20 Meq In D5w) 1,000 mls @ 75 mls/ hr IV .[id number] [facility] Last Admin: 08/27/17 10:27 Dose: 75 mls/hr Magnesium Oxide (Mag-Ox) 400 mg PO DAILY [facility] Last Admin: 08/27/17 10:28 Dose: 400 mg Pantoprazole Sodium (Protonix Susp) 40 mg PO DAILY [facility] Last Admin: 08/27/17 10:29 Dose: 40 mg Polyethylene Glycol (Miralax) 17 gm PO BID [facility] Last Admin: 08/27/17 18:13 Dose: Not Given Potassium Chloride (Potassium Chloride Oral Soln) 40 meq PO Q4H [facility] Stop: 08/28/17 00:01 Last Admin: 12/31/17 18:12 Dose: 40 meq - Labs Labs: 08/27/17 06:52 08/27/17 14:42 PT 39.5 SECONDS (9.7-12.2) H* 08/26/17 06:24 INR 3.4 08/26/17 06:24 APTT 41 SECONDS (21-34) H 08/26/17 06:24
--- NOTE | 2017-08-27 18:58 | CP.CCUPN ---
CCU Subjective - Physician Review Events Since Last Encounter (Free Text): 08/27/17 18:55 Alert and oriented no complaints CCU Objective - Vital Signs / Intake & Output Vital Signs (Last 4 hours): Vital Signs Temp Pulse Resp BP Pulse Ox 08/27/17 18:40 145 H 15 100 08/27/17 18:30 139 H 15 100 08/27/17 18:20 143 H 21 100 08/27/17 18:10 143 H 20 100 08/27/17 18:04 142 H 17 159/94 H 100 08/27/17 18:00 139 H 19 100 08/27/17 17:50 140 H 23 100 08/27/17 17:40 132 H 17 100 08/27/17 17:30 133 H 21 100 08/27/17 17:20 139 H 18 100 08/27/17 17:10 138 H 17 100 08/27/17 17:04 144 H 15 154/94 H 100 08/27/17 17:00 138 H 19 100 08/27/17 16:50 136 H 22 100 08/27/17 16:40 136 H 18 100 08/27/17 16:30 136 H 22 100 08/27/17 16:20 138 H 17 100 08/27/17 16:10 145 H 15 100 08/27/17 16:04 139 H 14 146/94 H 100 08/27/17 16:00 98.3 F 136 H 16 100 08/27/17 15:50 144 H 15 100 08/27/17 15:40 142 H 18 100 08/27/17 15:30 133 H 16 100 08/27/17 15:20 135 H 22 100 08/27/17 15:10 135 H 20 100 08/27/17 15:04 138 H 18 149/104 H 100 08/27/17 15:00 136 H 16 100 Intake and Output (Last 8hrs): Intake & Output 08/27/17 08/27/17 08/27/17 06:59 14:59 22:59 Intake Total 810 1295 500 Output Total 800 300 170 Balance 10 995 330 Weight 126 lb Intake: Intake, IV Amount 750 1050 300 L Port Y Site 400 Left Port-A-Cath 750 650 300 Oral 245 200 Tube Feeding 60 Output: Urine 800 300 170 Urethral ([place]) 800 300 170 Stool 0 - Physical Exam Head: Positive for: Atraumatic, Normocephalic Extroacular Muscles: Negative for: Gaze Palsy Mouth: Positive for: Moist Mucous Membranes Neck: Negative for: JVD, Lymphadenopathy Respiratory/Chest: Positive for: Clear to Auscultation, Good Air Exchange. Negative for: Wheezes, Rales, Rhonchi Cardiovascular: Positive for: Normal S1, S2, Tachycardic Abdomen: Positive for: Tenderness, Distention, Normal Bowel Sounds. Negative for: Peritoneal Signs, Guarding Upper Extremity: Positive for: Normal Inspection, Tenderness (generalized ). Negative for: Cyanosis, Edema Lower Extremity: Positive for: Edema, Tenderness (generalized ) Neurological: Positive for: Other (GCS=10 ) Skin: Positive for: Warm, Dry, Erythematous (feet b/l ). Negative for: Rashes Psychiatric: Positive for: Alert - Medications Active Medications: Active Medications Generic Name Dose Route Start Last Admin Trade Name Freq PRN Reason Stop Dose Admin Gabapentin 400 mg 08/25/17 10:00 08/27/17 10:28 Neurontin PO 400 mg DAILY [facility] Administration Home Med 300 mg 08/25/17 10:00 Alpha Lipoic Acid [Alpha Lipoic Acid] PO BID [facility] Home Med 25 mg 08/25/17 10:00 Exemestane [Aromasin] PO DAILY [facility] Aztreonam 2 gm/ Sodium 100 mls @ 200 mls/hr 08/25/17 01:00 08/27/17 17:15 Chloride IVPB 200 mls/hr Q8H [facility] Administration Vancomycin/Sodium Chloride 1 gm in 200 mls @ 133.333 mls/hr 08/25/17 22:00 10:27 Vancomycin 1 Gm/Ns 200 Ml IVPB 08/30/17 22:01 133.333 mls/hr Q12H [facility] Administration Acyclovir 500 mg/ Sodium 100 mls @ 100 mls/hr 08/25/17 18:00 08/27/17 18:12 Chloride IV 100 mls/hr Q8H [facility] Administration Potassium Chloride/Dextrose 1,000 mls @ 75 mls/hr 08/27/17 10:00 08/27/17 10: 27 Potassium Chl 20 Meq In D5w IV 75 mls/hr .[id number] [facility] Administration Magnesium Oxide 400 mg 08/25/17 10:00 08/27/17 10:28 Mag-Ox PO 400 mg DAILY [facility] Administration Pantoprazole Sodium 40 mg 08/27/17 10:00 08/27/17 10:29 Protonix Susp PO 40 mg DAILY [facility] Administration Polyethylene Glycol 17 gm 08/27/17 10:00 08/27/17 18:13 Miralax PO Not Given BID [facility] Potassium Chloride 40 meq 08/27/17 16:00 08/27/17 18:12 Potassium Chloride Oral Soln PO 08/28/17 00:01 40 meq Q4H [facility] Administration - Patient Studies Lab Studies: Microbiology Studies 08/24/17 14:15 Blood Culture - Preliminary Blood NO GROWTH AFTER 3 DAYS 08/24/17 14:45 Blood Culture - Preliminary Blood NO GROWTH AFTER 3 DAYS 08/25/17 19:55 Gram Stain - Final Cerebral Spinal Fluid CSF Culture - Preliminary NO GROWTH AFTER 2 DAYS Lab Studies 08/27/17 08/27/17 08/27/17 Range/Units 14:42 06:52 06:51 WBC 8.8 (4.8-10.8) K/uL RBC 2.61 L (3.80-5.20) Mil/uL Hgb 8.0 L (11.0-16.0) g/dL Hct 24.5 L (34.0-47.0) % MCV 93.8 D (81.0-99.0) fL MCH 30.5 (27.0-31.0) pg MCHC 32.5 L (33.0-37.0) g/dL RDW 26.0 H (11.5-14.5) % Plt Count 226 D (130-400) K/uL MPV 8.8 (7.2-11.7) fL Neut % (Auto) 82.8 H (50.0-75.0) % Lymph % (Auto) 9.2 L (20.0-40.0) % [place] % (Auto) 6.0 (0.0-10.0) % Eos % (Auto) 1.4 (0.0-4.0) % Baso % (Auto) 0.6 (0.0-2.0) % Neut # 7.3 H (1.8-7.0) K/uL Lymph # 0.8 L (1.0-4.3) K/uL [place] # 0.5 (0.0-0.8) K/uL Eos # 0.1 (0.0-0.7) K/uL Baso # 0.1 (0.0-0.2) K/uL Neutrophils % (Manual) 90 H (50-75) % Lymphocytes % (Manual) 7 L (20-40) % Monocytes % (Manual) 3 (0-10) % Toxic Granulation Present Platelet Estimate Normal (NORMAL) Large Platelets Present Giant Platelets Present Polychromasia Slight Hypochromasia (manual) Slight Poikilocytosis (manual Slight Anisocytosis (manual) Slight Macrocytosis (manual) Slight Target Cells Slight Mariah Cells Slight Sodium 166 H* 167 H* (132-148) mmol/L Potassium 3.4 L 2.6 L (3.6-5.2) mmol/L Chloride 149 H 146 H (98-107) mmol/L Carbon Dioxide 11 L* 12 L (22-30) mmol/L Anion Gap 10 11 (10-20) BUN 20 H 20 H (7-17) mg/dL Creatinine 1.3 H 1.3 H (0.7-1.2) mg/dL Est GFR ( Amer) 50 50 Est GFR (Non-Af Amer) 41 41 Random Glucose 141 H 129 H (65-105) mg/dL Calcium 6.9 L 6.7 L (8.6-10.4) mg/dl Phosphorus 1.8 L (2.5-4.5) mg/dL Magnesium 2.0 (1.6-2.3) mg/dL Total Bilirubin 1.3 1.0 (0.2-1.3) mg/dL AST 123 H D 158 H D (14-36) U/L ALT 147 H 157 H D (9-52) U/L Alkaline Phosphatase 521 H 511 H D (38-126) U/L Total Protein 6.2 L 5.8 L (6.3-8.3) g/dL Albumin 2.5 L 2.4 L (3.5-5.0) g/dL Globulin 3.7 3.4 (2.2-3.9) gm/dL Albumin/Globulin Ratio 0.7 L 0.7 L (1.0-2.1) Laboratory Results - last 24 hr 08/27/17 08/27/17 08/27/17 06:51 06:52 14:42 WBC 8.8 RBC 2.61 L Hgb 8.0 L Hct 24.5 L MCV 93.8 D MCH 30.5 MCHC 32.5 L RDW 26.0 H Plt Count 226 D MPV 8.8 Neut % (Auto) 82.8 H Lymph % (Auto) 9.2 L [place] % (Auto) 6.0 Eos % (Auto) 1.4 Baso % (Auto) 0.6 Neut # 7.3 H Lymph # 0.8 L [place] # 0.5 Eos # 0.1 Baso # 0.1 Neutrophils % (Manual) 90 H Lymphocytes % (Manual) 7 L Monocytes % (Manual) 3 Toxic Granulation Present Platelet Estimate Normal Large Platelets Present Giant Platelets Present Polychromasia Slight Hypochromasia (manual) Slight Poikilocytosis (manual Slight Anisocytosis (manual) Slight Macrocytosis (manual) Slight Target Cells Slight [place] Cells Slight Sodium 167 H* 166 H* Potassium 2.6 L 3.4 L Chloride 146 H 149 H Carbon Dioxide 12 L 11 L* Anion Gap 11 10 BUN 20 H 20 H Creatinine 1.3 H 1.3 H Est GFR ( Amer) 50 50 Est GFR (Non-Af Amer) 41 41 Random Glucose 129 H 141 H Calcium 6.7 L 6.9 L Phosphorus 1.8 L Magnesium 2.0 Total Bilirubin 1.0 1.3 AST 158 H D 123 H D ALT 157 H D 147 H Alkaline Phosphatase 511 H D 521 H Total Protein 5.8 L 6.2 L Albumin 2.4 L 2.5 L Globulin 3.4 3.7 Albumin/Globulin Ratio 0.7 L 0.7 L Fingerstick Blood Sugar Results: 91 Review of Systems - Review of Systems All systems: reviewed and no additional remarkable complaints except (no complaints) Critical Care Progress Note - Nutrition Nutrition: Nutrition Category Date Time Status Dysphagia/Modified Consistency Diet [DIET] Diets 08/28/17 Breakfast Active Assessment/Plan (1) Change in mental status Assessment and plan: Patient was treated for presumptive Herpes encephalitis, still awaiting CSF PCR results.Continue acyclovir and Azactam. ID consult Dr. Ibarra following. Hypernatremia, started on D5W with 20 of potassium chloride at 75 mls per hour. Palliative care consulted for her metastatic breast carcinoma. Patient is clinically stable, will downgrade once sodium back to normal Current Visit: Yes Status: Acute Comment: most likely secondary to meningitis Status post lumbar puncture with elevated protein Continue IV antibiotics Neurology follow-up Continue ICU observation
[2017-08-28] MEDS: Aztreonam 2 GM in Sodium Chloride 0.9% 100 ML IVPB SCH ×3 (00:39→17:20)
[2017-08-28] MEDS: Potassium Chloride 20 mEq/15 ml LIQ UD PO SCH (00:40)
[2017-08-28] MEDS: Potassium Ch 20mEq in D5W 1,000 ML IV SCH ×4 (00:41→22:52)
[2017-08-28] MEDS: Acyclovir 500 MG in Sodium Chloride 0.9% 100 ML IV SCH ×3 (01:53→17:21)
[2017-08-28 06:55] LABS: INR 1.5; PROTHROMBIN TIME 17.2 SECONDS (9.7-12.2)
[2017-08-28 07:11] LABS: HEMOGLOBIN 7.3 g/dL (11.0-16.0); MEAN CELL VOLUME 95.5 fL (81.0-99.0); MEAN CORPUSCULAR HEMOGLOBIN 30.6 pg (27.0-31.0); MEAN CORPUSCULAR HGB CONC 32.1 g/dL (33.0-37.0); MEAN PLATELET VOLUME 9.2 fL (7.2-11.7); PLATELET COUNT 114 K/uL (130-400); RBC 2.39 Mil/uL (3.80-5.20); RED CELL DISTRIBUTION WIDTH 26.7 % (11.5-14.5); WHITE BLOOD COUNT 4.4 K/uL (4.8-10.8)
[2017-08-28 07:37] LABS: ALB/GLOB RATIO 0.7 (1.0-2.1); ALBUMIN 2.3 g/dL (3.5-5.0); CALCIUM 7.3 mg/dl (8.6-10.4); MAGNESIUM 1.9 mg/dL (1.6-2.3)
[2017-08-28] MEDS: POLYETHYLENE GLYCOL 3350 17 GM/Dose PACKET PO SCH ×2 (09:42→17:17)
[2017-08-28] MEDS: Magnesium Oxide 400 mg Tab UD PO SCH (10:07)
[2017-08-28] MEDS: Pantoprazole 40 mg Susp UD PO SCH (10:07)
[2017-08-28 11:06] LABS: LYMPH # 0.2 K/uL (1.0-4.3); NEUT # 4.2 K/uL (1.8-7.0)
[2017-08-28] MEDS: Vancomycin 1 gm/NS 200 ml 1 GM/200 ML BAG IVPB SCH ×2 (11:06→21:40)
[2017-08-28 11:08] LABS: EOSINOPHIL 1 % (0-4); LYMPHOCYTE 4 % (20-40); MONOCYTE 1 % (0-10); NEUTROPHIL 94 % (50-75); TOTAL CELLS COUNTED 100
[2017-08-28 11:09] LABS: ANISOCYTOSIS MARKED; BURR CELLS SLIGHT; PLATELET ESTIMATE SLIGHTLY DECREASED (NORMAL); POIKILOCYTOSIS SLIGHT; POLYCHROMIC SLIGHT
[2017-08-28 11:10] LABS: HYPOCHROMIC SLIGHT; OVALOCYTES SLIGHT; TARGET CELLS SLIGHT
[2017-08-28 11:11] LABS: LARGE PLATELETS PRESENT; SCHISTOCYTES SLIGHT; TOXIC GRANULATION PRESENT
--- NOTE | 2017-08-28 13:31 | CP.PCM.CON ---
History of Present Illness - History of Present Illness History of Present Illness: History of Present Illness: HPI: 62 year old female with a history of endometrial cancer, breast cancer with ovarian cysts whose sister called EMS after patient was reportedly altered and tired. Sister at bedside states that she visited patient last night and noted that patient appeared to be in pain when she tried cleaning her after she was found incontinent of urine. Last night, she found patient on the floor sitting and moaning after she reportedly fell from her bed. This morning, patient reportedly seemed very tired and her eyes were rolling in the back of her head, which is unusual for her. Sister states that she has not spoken yesterday or today - she typically speaks and takes cares of herself. In the ED , she was found to be hypotensive, tachycardia, hypothermic and was not speaking. Patient was recently admitted here for abdominal pain on 07/23/17 for abdominal pain. She was found to have right femoral DVT at that time and discharged with Lovenox, with no surgical intervention warranted at that time. Abdominal/pelvic CT was ordered on last admission and showed intraperitoneal and mesenteric metastatic lesions some of which have increased in size; largest lesion in the nadeen hepatis region compresses the liver, pancreas, gallbladder and IVC; moderate amount of ascites; mild central intrahepatic biliary ductal dilatation ; markedly enlarged bulky heterogenous uterus with numerous calcifications consistent with underlying fibroids; small left effusions; no evidence of acute mechanical bowel obstruction Heme/Onc: Dr. Lemos PMHx: ovarian cyst; breast cancer (2004), metastatic endometrial cancer ( diagnosed in 2014 when she came into the hospital for abdominal pain), Poliomyelitis SurgHx: ovarian cyst(s), breast cancer- lump removal (2003), hip surgery ( 1960s) Allergies: PCN Medications: see EMR, on chemo (ifosfamide) Social hx: Lives by herself. Denies tobacco, alcohol and illicit drug use. 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 Patient typically takes care of herself, speaks Family hx: no hematologic or oncologic history Renal consult requested due to increasing hypernatremia Review of lytes reveal RTA and fanconi- like sundrome likely due to CTX agents K repleted; hypernatremia worsening likely exacerbated by fair UO- 1820ml/ last 24 hrs AMS etiology unclear Review of Systems - Review of Systems Systems not reviewed;Unavailable: Altered Mental Status Past Patient History - Infectious Disease Hx of Infectious Diseases: None - Past Medical History & Family History Past Medical History?: Yes Past Family History: Reviewed and not pertinent - Past Social History Smoking Status: Never Smoked Chewing Tobacco Use: No Cigar Use: No Drugs: Denies - CARDIAC Hx Cardiac Disorders: No - PULMONARY Hx Asthma: Yes (WHEN ANXIOUS ON ONHALERS LAST ATTACK 5 YRS AGO) - NEUROLOGICAL Hx Paralysis: Yes (POLIO) - HEENT Hx HEENT Problems: Yes (TINNITUS) Other/Comment: pt has very dry mouth sts tongue gets stuck to roof of mouth - RENAL Hx Chronic Kidney Disease: No - ENDOCRINE/METABOLIC Hx Endocrine Disorders: No - HEMATOLOGICAL/ONCOLOGICAL Hx Blood Transfusions: No Hx Blood Transfusion Reaction: No - INTEGUMENTARY Hx Dermatological Problems: No - MUSCULOSKELETAL/RHEUMATOLOGICAL Hx Musculoskeletal Disorders: Yes Hx Falls: No Other/Comment: poliomyelitis - GASTROINTESTINAL Hx Gastrointestinal Disorders: Yes (ABD PAIN) - GENITOURINARY/GYNECOLOGICAL Hx Genitourinary Disorders: Yes Hx Reproductive Disorders: Yes (OVARIAN CYST) Hx Uterine Cancer: Yes - PSYCHIATRIC Hx Anxiety: Yes Hx Substance Use: No - SURGICAL HISTORY Hx Surgeries: Yes (R BREAST, L HIP) - ANESTHESIA Hx Anesthesia: Yes Hx Anesthesia Reactions: No Hx Malignant Hyperthermia: No Meds Allergies/Adverse Reactions: Allergies Allergy/AdvReac Type Severity Reaction Status Date / Time penicillin G AdvReac RASH Verified 08/24/17 12:56 - Medications Medications: Current Medications Gabapentin (Neurontin) 400 mg PO DAILY [facility] Last Admin: 08/28/17 10:06 Dose: 400 mg Home Med (Alpha Lipoic Acid [Alpha Lipoic Acid]) 300 mg PO BID [facility] Home Med (Exemestane [Aromasin]) 25 mg PO DAILY [facility] Aztreonam 2 gm/ Sodium (Chloride) 100 mls @ 200 mls/hr IVPB Q8H [facility] Last Admin: 08/28/17 08:30 Dose: 200 mls/hr Vancomycin/Sodium Chloride (Vancomycin 1 Gm/Ns 200 Ml) 1 gm in 200 mls @ 133.333 mls/hr IVPB Q12H [facility] Stop: 08/30/17 22:01 Last Admin: 08/28/17 11:06 Dose: 133.333 mls/hr Acyclovir 500 mg/ Sodium (Chloride) 100 mls @ 100 mls/hr IV Q8H [facility] Last Admin: 08/28/17 10:05 Dose: 100 mls/hr Potassium Chloride/Dextrose (Potassium Chl 20 Meq In D5w) 1,000 mls @ 75 mls/ hr IV .[id number] [facility] Last Admin: 08/28/17 00:41 Dose: 75 mls/hr Magnesium Oxide (Mag-Ox) 400 mg PO DAILY [facility] Last Admin: 08/28/17 10:07 Dose: 400 mg Pantoprazole Sodium (Protonix Susp) 40 mg PO DAILY [facility] Last Admin: 08/28/17 10:07 Dose: 40 mg Polyethylene Glycol (Miralax) 17 gm PO BID [facility] Last Admin: 08/28/17 09:42 Dose: Not Given Physical Exam - Constitutional Appears: Confused, Cachectic, Chronically Ill - Head Exam Head Exam: ATRAUMATIC, NORMAL INSPECTION - Eye Exam Eye Exam: EOMI, Normal appearance - Neck Exam Neck exam: Positive for: Normal Inspection. Negative for: Tenderness - Respiratory Exam Respiratory Exam: Clear to Auscultation Bilateral, NORMAL BREATHING PATTERN - Cardiovascular Exam Cardiovascular Exam: REGULAR RHYTHM, +S1 - GI/Abdominal Exam GI & Abdominal Exam: Soft. absent: Tenderness - Extremities Exam Extremities exam: Positive for: normal inspection. Negative for: tenderness - Neurological Exam Neurological exam: Alert, CN II-XII Intact - Skin Skin Exam: Dry, Warm Results - Vital Signs Recent Vital Signs: Last Vital Signs Temp 98 F 08/28/17 04:00 Pulse 145 H 08/28/17 12:20 Resp 16 08/28/17 12:20 BP 111/62 08/28/17 12:04 Pulse Ox 100 08/28/17 12:20 - Labs Result Diagrams: 08/28/17 06:43 08/28/17 06:43 Labs: Laboratory Results - last 24 hr 08/27/17 08/28/17 08/28/17 14:42 06:43 06:43 WBC 4.4 L RBC 2.39 L Hgb 7.3 L Hct 22.8 L MCV 95.5 MCH 30.6 MCHC 32.1 L RDW 26.7 H Plt Count 114 L D MPV 9.2 Neut % (Auto) 95.0 H Lymph % (Auto) 4.0 L [place] % (Auto) 0.0 Eos % (Auto) 1.0 Baso % (Auto) 0.0 Neut # 4.2 Lymph # 0.2 L [place] # 0.0 Eos # 0.0 Baso # 0.0 Neutrophils % (Manual) 94 H Lymphocytes % (Manual) 4 L Monocytes % (Manual) 1 Eosinophils % (Manual) 1 Toxic Granulation Present Platelet Estimate Slightly decreased L Large Platelets Present Polychromasia Slight Hypochromasia (manual) Slight Poikilocytosis (manual Slight Anisocytosis (manual) Marked Macrocytosis (manual) Slight Target Cells Slight Ovalocytes Slight Mariah Cells Slight Schistocytes Slight PT 17.2 H D INR 1.5 D APTT 32 D Sodium 166 H* Potassium 3.4 L Chloride 149 H Carbon Dioxide 11 L* Anion Gap 10 BUN 20 H Creatinine 1.3 H Est GFR ( Amer) 50 Est GFR (Non-Af Amer) 41 Random Glucose 141 H Calcium 6.9 L Magnesium Total Bilirubin 1.3 AST 123 H D ALT 147 H Alkaline Phosphatase 521 H Total Protein 6.2 L Albumin 2.5 L Globulin 3.7 Albumin/Globulin Ratio 0.7 L Urine Osmolality Ur Random Creatinine Ur Random Sodium Stool Occult Blood 08/28/17 08/28/17 08/28/17 06:43 06:49 11:23 WBC RBC Hgb Hct MCV MCH MCHC RDW Plt Count MPV Neut % (Auto) Lymph % (Auto) [place] % (Auto) Eos % (Auto) Baso % (Auto) Neut # Lymph # [place] # Eos # Baso # Neutrophils % (Manual) Lymphocytes % (Manual) Monocytes % (Manual) Eosinophils % (Manual) Toxic Granulation Platelet Estimate Large Platelets Polychromasia Hypochromasia (manual) Poikilocytosis (manual Anisocytosis (manual) Macrocytosis (manual) Target Cells Ovalocytes [place] Cells Schistocytes PT INR APTT Sodium 170 H* Potassium 4.4 Chloride 152 H Carbon Dioxide 10 L* Anion Gap 12 BUN 22 H Creatinine 1.3 H Est GFR ( Amer) 50 Est GFR (Non-Af Amer) 41 Random Glucose 123 H Calcium 7.3 L Magnesium 1.9 Total Bilirubin 1.2 AST 88 H D ALT 115 H D Alkaline Phosphatase 516 H Total Protein 5.7 L Albumin 2.3 L Globulin 3.4 Albumin/Globulin Ratio 0.7 L Urine Osmolality 282 L Ur Random Creatinine 14.0 Ur Random Sodium 34 Stool Occult Blood Positive H Assessment & Plan (1) Ovarian ca Status: Acute (2) Metastatic cancer to liver Status: Acute (3) Hypernatremia Status: Acute (4) Type II RTA Status: Acute (5) Metastatic cancer Status: Chronic - Assessment and Plan (Free Text) Plan: Would increase free water flushes Increase D5W IVF urine lytes, ua check mag, phos
--- NOTE | 2017-08-28 15:13 | CP.PCM.PN ---
Subjective - Date & Time of Evaluation Date of Evaluation: 08/28/17 Time of Evaluation: 09:20 - Subjective Subjective: clinically same Objective - Vital Signs/Intake and Output Vital Signs (last 24 hours): Temp Pulse Resp BP Pulse Ox 98 F 145 H 16 111/62 100 08/28/17 04:00 08/28/17 12:20 08/28/17 12:20 08/28/17 12:04 08/28/17 12:20 Intake and Output: 08/28/17 08/28/17 06:59 18:59 Intake Total 1350 975 Output Total 1350 Balance 0 975 - Medications Medications: Current Medications Gabapentin (Neurontin) 400 mg PO DAILY [facility] Last Admin: 08/28/17 10:06 Dose: 400 mg Home Med (Alpha Lipoic Acid [Alpha Lipoic Acid]) 300 mg PO BID [facility] Home Med (Exemestane [Aromasin]) 25 mg PO DAILY [facility] Aztreonam 2 gm/ Sodium (Chloride) 100 mls @ 200 mls/hr IVPB Q8H [facility] Last Admin: 08/28/17 08:30 Dose: 200 mls/hr Vancomycin/Sodium Chloride (Vancomycin 1 Gm/Ns 200 Ml) 1 gm in 200 mls @ 133.333 mls/hr IVPB Q12H [facility] Stop: 08/30/17 22:01 Last Admin: 08/28/17 11:06 Dose: 133.333 mls/hr Acyclovir 500 mg/ Sodium (Chloride) 100 mls @ 100 mls/hr IV Q8H [facility] Last Admin: 08/28/17 10:05 Dose: 100 mls/hr Potassium Chloride/Dextrose (Potassium Chl 20 Meq In D5w) 1,000 mls @ 125 mls/ hr IV .Q8H [facility] Magnesium Oxide (Mag-Ox) 400 mg PO DAILY [facility] Last Admin: 08/28/17 10:07 Dose: 400 mg Pantoprazole Sodium (Protonix Susp) 40 mg PO DAILY [facility] Last Admin: 08/28/17 10:07 Dose: 40 mg Polyethylene Glycol (Miralax) 17 gm PO BID [facility] Last Admin: 08/28/17 09:42 Dose: Not Given Sodium Bicarbonate (Sodium Bicarbonate Tab) 650 mg PO Q6 [facility] - Labs Labs: 08/28/17 06:43 08/28/17 06:43 PT 17.2 SECONDS (9.7-12.2) H D 08/28/17 06:43 INR 1.5 D 08/28/17 06:43 APTT 32 SECONDS (21-34) D 08/28/17 06:43 - Constitutional Appears: Well - Head Exam Head Exam: ATRAUMATIC, NORMAL INSPECTION, NORMOCEPHALIC - Eye Exam Eye Exam: EOMI, Normal appearance, PERRL Pupil Exam: NORMAL ACCOMODATION, PERRL - ENT Exam ENT Exam: Mucous Membranes Moist, Normal Exam - Neck Exam Neck Exam: Full ROM, Normal Inspection. absent: Lymphadenopathy - Respiratory Exam Respiratory Exam: Decreased Breath Sounds - Cardiovascular Exam Cardiovascular Exam: REGULAR RHYTHM, +S1, +S2 - GI/Abdominal Exam GI & Abdominal Exam: Soft, Diminished Bowel Sounds - Rectal Exam Rectal Exam: Deferred Assessment and Plan - Assessment and Plan (Free Text) Plan: Patient sodium has gone up so patient will received IV fluid with the correction inside Sodium bicarbonate a tablet Follow-up with surgical DrKurtis Follow-up with [place] Follow-up with the neurology Follow-up with Dr. Ibarra Status post MRI negative Patient SGOT SGPT is relatively got improved
[2017-08-28 15:47] LABS: FREE T4 0.6 ng/dL (0.78-2.19)
--- NOTE | 2017-08-28 17:46 | CP.CCUPN ---
CCU Subjective - Physician Review Events Since Last Encounter (Free Text): 08/28/17 17:46 patient appears more ill today, no complaints. CCU Objective - Vital Signs / Intake & Output Vital Signs (Last 4 hours): Vital Signs Temp Pulse Resp BP Pulse Ox 08/28/17 17:20 143 H 17 100 08/28/17 17:10 156 H 23 100 08/28/17 17:04 69 20 145/80 100 08/28/17 17:00 139 H 100 08/28/17 16:50 142 H 100 08/28/17 16:40 141 H 100 08/28/17 16:30 146 H 99 08/28/17 16:20 144 H 100 08/28/17 16:10 140 H 100 08/28/17 16:04 140 H 134/82 100 08/28/17 16:00 98.7 F 139 H 100 08/28/17 15:50 144 H 100 08/28/17 15:40 145 H 100 08/28/17 15:30 144 H 100 08/28/17 15:20 142 H 100 08/28/17 15:10 139 H 100 08/28/17 15:04 141 H 132/84 100 08/28/17 15:00 139 H 100 08/28/17 14:50 141 H 100 08/28/17 14:40 139 H 100 08/28/17 14:30 149 H 100 08/28/17 14:20 143 H 100 08/28/17 14:10 141 H 100 08/28/17 14:04 139 H 121/79 100 08/28/17 14:00 141 H 100 08/28/17 13:50 143 H 18 100 Intake and Output (Last 8hrs): Intake & Output 08/28/17 08/28/17 08/28/17 06:59 14:59 22:59 Intake Total 800 1350 625 Output Total 800 335 125 Balance 0 1015 500 Weight 125 lb 14.4 oz Intake: Intake, IV Amount 800 1100 375 L Port Y Site 200 400 Left Port-A-Cath 600 700 375 Oral 0 250 250 Output: Urine 800 335 125 Urethral ([place]) 800 335 125 Other: # Bowel Movements 1 1 1 - Physical Exam Head: Positive for: Atraumatic, Normocephalic Extroacular Muscles: Negative for: Gaze Palsy Mouth: Positive for: Moist Mucous Membranes Neck: Negative for: JVD, Lymphadenopathy Respiratory/Chest: Positive for: Clear to Auscultation, Good Air Exchange. Negative for: Wheezes, Rales, Rhonchi Cardiovascular: Positive for: Normal S1, S2, Tachycardic Abdomen: Positive for: Tenderness, Distention, Normal Bowel Sounds. Negative for: Peritoneal Signs, Guarding Upper Extremity: Positive for: Normal Inspection, Tenderness (generalized ). Negative for: Cyanosis, Edema Lower Extremity: Positive for: Edema, Tenderness (generalized ) Neurological: Positive for: Other (GCS=10 ) Skin: Positive for: Warm, Dry, Erythematous (feet b/l ). Negative for: Rashes Psychiatric: Positive for: Alert - Medications Active Medications: Active Medications Generic Name Dose Route Start Last Admin Trade Name Freq PRN Reason Stop Dose Admin Gabapentin 400 mg 08/25/17 10:00 08/28/17 10:06 Neurontin PO 400 mg DAILY [facility] Administration Home Med 300 mg 08/25/17 10:00 Alpha Lipoic Acid [Alpha Lipoic Acid] PO BID [facility] Home Med 25 mg 08/25/17 10:00 Exemestane [Aromasin] PO DAILY [facility] Aztreonam 2 gm/ Sodium 100 mls @ 200 mls/hr 08/25/17 01:00 08/28/17 17:20 Chloride IVPB 200 mls/hr Q8H [facility] Administration Vancomycin/Sodium Chloride 1 gm in 200 mls @ 133.333 mls/hr 08/25/17 22:00 11:06 Vancomycin 1 Gm/Ns 200 Ml IVPB 08/30/17 22:01 133.333 mls/hr Q12H [facility] Administration Acyclovir 500 mg/ Sodium 100 mls @ 100 mls/hr 08/25/17 18:00 08/28/17 17:21 Chloride IV 100 mls/hr Q8H [facility] Administration Potassium Chloride/Dextrose 1,000 mls @ 125 mls/hr 08/28/17 14:00 08/28/17 14 :21 Potassium Chl 20 Meq In D5w IV 125 mls/hr .Q8H [facility] Administration Magnesium Oxide 400 mg 08/25/17 10:00 08/28/17 10:07 Mag-Ox PO 400 mg DAILY [facility] Administration Pantoprazole Sodium 40 mg 08/27/17 10:00 08/28/17 10:07 Protonix Susp PO 40 mg DAILY [facility] Administration Polyethylene Glycol 17 gm 08/27/17 10:00 08/28/17 17:17 Miralax PO Not Given BID [facility] Sodium Bicarbonate 650 mg 08/28/17 18:00 08/28/17 17:20 Sodium Bicarbonate Tab PO 650 mg Q6 [facility] Administration - Patient Studies Lab Studies: Microbiology Studies 08/24/17 14:15 Blood Culture - Preliminary Blood NO GROWTH AFTER 4 DAYS 08/24/17 14:45 Blood Culture - Preliminary Blood NO GROWTH AFTER 4 DAYS 08/25/17 19:55 Gram Stain - Final Cerebral Spinal Fluid CSF Culture - Preliminary NO GROWTH AFTER 3 DAYS Lab Studies 08/28/17 08/28/17 08/28/17 Range/Units 14:53 14:53 11:23 WBC (4.8-10.8) K/uL RBC (3.80-5.20) Mil/uL Hgb (11.0-16.0) g/dL Hct (34.0-47.0) % MCV (81.0-99.0) fL MCH (27.0-31.0) pg MCHC (33.0-37.0) g/dL RDW (11.5-14.5) % Plt Count (130-400) K/uL MPV (7.2-11.7) fL Neut % (Auto) (50.0-75.0) % Lymph % (Auto) (20.0-40.0) % [place] % (Auto) (0.0-10.0) % Eos % (Auto) (0.0-4.0) % Baso % (Auto) (0.0-2.0) % Neut # (1.8-7.0) K/uL Lymph # (1.0-4.3) K/uL [facility] # (0.0-0.8) K/uL Eos # (0.0-0.7) K/uL Baso # (0.0-0.2) K/uL Neutrophils % (Manual) (50-75) % Lymphocytes % (Manual) (20-40) % Monocytes % (Manual) (0-10) % Eosinophils % (Manual) (0-4) % Toxic Granulation Platelet Estimate (NORMAL) Large Platelets Polychromasia Hypochromasia (manual) Poikilocytosis (manual Anisocytosis (manual) Macrocytosis (manual) Target Cells Ovalocytes [place] Cells Schistocytes PT (9.7-12.2) SECONDS INR APTT (21-34) SECONDS Sodium (132-148) mmol/L Potassium (3.6-5.2) mmol/L Chloride (98-107) mmol/L Carbon Dioxide (22-30) mmol/L Anion Gap (10-20) BUN (7-17) mg/dL Creatinine (0.7-1.2) mg/dL Est GFR ( Amer) Est GFR (Non-Af Amer) Random Glucose (65-105) mg/dL Serum Osmolality 359 H (272-300) mosm/kg Calcium (8.6-10.4) mg/dl Magnesium (1.6-2.3) mg/dL Total Bilirubin (0.2-1.3) mg/dL AST (14-36) U/L ALT (9-52) U/L Alkaline Phosphatase (38-126) U/L Total Protein (6.3-8.3) g/dL Albumin (3.5-5.0) g/dL Globulin (2.2-3.9) gm/dL Albumin/Globulin Ratio (1.0-2.1) Free T4 0.60 L (0.78-2.19) ng/dL TSH 3rd Generation 2.50 (0.46-4.68) mIU/L Prolactin 24.1 H (3.0-18.9) ng/mL Urine Osmolality 282 L (300-1000) mosm/kg Ur Random Creatinine 14.0 mg/dL Ur Random Sodium 34 mmol/L Stool Occult Blood (NEGATIVE) 08/28/17 08/28/17 08/28/17 Range/Units 06:49 06:43 06:43 WBC (4.8-10.8) K/uL RBC (3.80-5.20) Mil/uL Hgb (11.0-16.0) g/dL Hct (34.0-47.0) % MCV (81.0-99.0) fL MCH (27.0-31.0) pg MCHC (33.0-37.0) g/dL RDW (11.5-14.5) % Plt Count (130-400) K/uL MPV (7.2-11.7) fL Neut % (Auto) (50.0-75.0) % Lymph % (Auto) (20.0-40.0) % [place] % (Auto) (0.0-10.0) % Eos % (Auto) (0.0-4.0) % Baso % (Auto) (0.0-2.0) % Neut # (1.8-7.0) K/uL Lymph # (1.0-4.3) K/uL [facility] # (0.0-0.8) K/uL Eos # (0.0-0.7) K/uL Baso # (0.0-0.2) K/uL Neutrophils % (Manual) (50-75) % Lymphocytes % (Manual) (20-40) % Monocytes % (Manual) (0-10) % Eosinophils % (Manual) (0-4) % Toxic Granulation Platelet Estimate (NORMAL) Large Platelets Polychromasia Hypochromasia (manual) Poikilocytosis (manual Anisocytosis (manual) Macrocytosis (manual) Target Cells Ovalocytes [place] Cells Schistocytes PT 17.2 H D (9.7-12.2) SECONDS INR 1.5 D APTT 32 D (21-34) SECONDS Sodium 170 H* (132-148) mmol/L Potassium 4.4 (3.6-5.2) mmol/L Chloride 152 H (98-107) mmol/L Carbon Dioxide 10 L* (22-30) mmol/L Anion Gap 12 (10-20) BUN 22 H (7-17) mg/dL Creatinine 1.3 H (0.7-1.2) mg/dL Est GFR ( Amer) 50 Est GFR (Non-Af Amer) 41 Random Glucose 123 H (65-105) mg/dL Serum Osmolality (272-300) mosm/kg Calcium 7.3 L (8.6-10.4) mg/dl Magnesium 1.9 (1.6-2.3) mg/dL Total Bilirubin 1.2 (0.2-1.3) mg/dL AST 88 H D (14-36) U/L ALT 115 H D (9-52) U/L Alkaline Phosphatase 516 H (38-126) U/L Total Protein 5.7 L (6.3-8.3) g/dL Albumin 2.3 L (3.5-5.0) g/dL Globulin 3.4 (2.2-3.9) gm/dL Albumin/Globulin Ratio 0.7 L (1.0-2.1) Free T4 (0.78-2.19) ng/dL TSH 3rd Generation (0.46-4.68) mIU/L Prolactin (3.0-18.9) ng/mL Urine Osmolality (300-1000) mosm/kg Ur Random Creatinine mg/dL Ur Random Sodium mmol/L Stool Occult Blood Positive H (NEGATIVE) 08/28/17 Range/Units 06:43 WBC 4.4 L (4.8-10.8) K/uL RBC 2.39 L (3.80-5.20) Mil/uL Hgb 7.3 L (11.0-16.0) g/dL Hct 22.8 L (34.0-47.0) % MCV 95.5 (81.0-99.0) fL MCH 30.6 (27.0-31.0) pg MCHC 32.1 L (33.0-37.0) g/dL RDW 26.7 H (11.5-14.5) % Plt Count 114 L D (130-400) K/uL MPV 9.2 (7.2-11.7) fL Neut % (Auto) 95.0 H (50.0-75.0) % Lymph % (Auto) 4.0 L (20.0-40.0) % [facility] % (Auto) 0.0 (0.0-10.0) % Eos % (Auto) 1.0 (0.0-4.0) % Baso % (Auto) 0.0 (0.0-2.0) % Neut # 4.2 (1.8-7.0) K/uL Lymph # 0.2 L (1.0-4.3) K/uL [facility] # 0.0 (0.0-0.8) K/uL Eos # 0.0 (0.0-0.7) K/uL Baso # 0.0 (0.0-0.2) K/uL Neutrophils % (Manual) 94 H (50-75) % Lymphocytes % (Manual) 4 L (20-40) % Monocytes % (Manual) 1 (0-10) % Eosinophils % (Manual) 1 (0-4) % Toxic Granulation Present Platelet Estimate Slightly decreased L (NORMAL) Large Platelets Present Polychromasia Slight Hypochromasia (manual) Slight Poikilocytosis (manual Slight Anisocytosis (manual) Marked Macrocytosis (manual) Slight Target Cells Slight Ovalocytes Slight Mariah Cells Slight Schistocytes Slight PT (9.7-12.2) SECONDS INR APTT (21-34) SECONDS Sodium (132-148) mmol/L Potassium (3.6-5.2) mmol/L Chloride (98-107) mmol/L Carbon Dioxide (22-30) mmol/L Anion Gap (10-20) BUN (7-17) mg/dL Creatinine (0.7-1.2) mg/dL Est GFR ( Amer) Est GFR (Non-Af Amer) Random Glucose (65-105) mg/dL Serum Osmolality (272-300) mosm/kg Calcium (8.6-10.4) mg/dl Magnesium (1.6-2.3) mg/dL Total Bilirubin (0.2-1.3) mg/dL AST (14-36) U/L ALT (9-52) U/L Alkaline Phosphatase (38-126) U/L Total Protein (6.3-8.3) g/dL Albumin (3.5-5.0) g/dL Globulin (2.2-3.9) gm/dL Albumin/Globulin Ratio (1.0-2.1) Free T4 (0.78-2.19) ng/dL TSH 3rd Generation (0.46-4.68) mIU/L Prolactin (3.0-18.9) ng/mL Urine Osmolality (300-1000) mosm/kg Ur Random Creatinine mg/dL Ur Random Sodium mmol/L Stool Occult Blood (NEGATIVE) Laboratory Results - last 24 hr 08/28/17 08/28/17 08/28/17 06:43 06:43 06:43 WBC 4.4 L RBC 2.39 L Hgb 7.3 L Hct 22.8 L MCV 95.5 MCH 30.6 MCHC 32.1 L RDW 26.7 H Plt Count 114 L D MPV 9.2 Neut % (Auto) 95.0 H Lymph % (Auto) 4.[address] [place] % (Auto) 0.0 Eos % (Auto) 1.0 Baso % (Auto) 0.0 Neut # 4.2 Lymph # 0.[address] [place] # 0.0 Eos # 0.0 Baso # 0.0 Neutrophils % (Manual) 94 H Lymphocytes % (Manual) 4 L Monocytes % (Manual) 1 Eosinophils % (Manual) 1 Toxic Granulation Present Platelet Estimate Slightly decreased L Large Platelets Present Polychromasia Slight Hypochromasia (manual) Slight Poikilocytosis (manual Slight Anisocytosis (manual) Marked Macrocytosis (manual) Slight Target Cells Slight Ovalocytes Slight [place] Cells Slight Schistocytes Slight PT 17.2 H D INR 1.5 D APTT 32 D Sodium 170 H* Potassium 4.4 Chloride 152 H Carbon Dioxide 10 L* Anion Gap 12 BUN 22 H Creatinine 1.3 H Est GFR ( Amer) 50 Est GFR (Non-Af Amer) 41 Random Glucose 123 H Serum Osmolality Calcium 7.3 L Magnesium 1.9 Total Bilirubin 1.2 AST 88 H D ALT 115 H D Alkaline Phosphatase 516 H Total Protein 5.7 L Albumin 2.3 L Globulin 3.4 Albumin/Globulin Ratio 0.7 L Free T4 TSH 3rd Generation Prolactin Urine Osmolality Ur Random Creatinine Ur Random Sodium Stool Occult Blood 08/28/17 08/28/17 08/28/17 06:49 11:23 14:53 WBC RBC Hgb Hct MCV MCH MCHC RDW Plt Count MPV Neut % (Auto) Lymph % (Auto) [facility] % (Auto) Eos % (Auto) Baso % (Auto) Neut # Lymph # [facility] # Eos # Baso # Neutrophils % (Manual) Lymphocytes % (Manual) Monocytes % (Manual) Eosinophils % (Manual) Toxic Granulation Platelet Estimate Large Platelets Polychromasia Hypochromasia (manual) Poikilocytosis (manual Anisocytosis (manual) Macrocytosis (manual) Target Cells Ovalocytes [place] Cells Schistocytes PT INR APTT Sodium Potassium Chloride Carbon Dioxide Anion Gap BUN Creatinine Est GFR ( Amer) Est GFR (Non-Af Amer) Random Glucose Serum Osmolality 359 H Calcium Magnesium Total Bilirubin AST ALT Alkaline Phosphatase Total Protein Albumin Globulin Albumin/Globulin Ratio Free T4 0.60 L TSH 3rd Generation 2.50 Prolactin Urine Osmolality 282 L Ur Random Creatinine 14.0 Ur Random Sodium 34 Stool Occult Blood Positive H 08/28/17 14:53 WBC RBC Hgb Hct MCV MCH MCHC RDW Plt Count MPV Neut % (Auto) Lymph % (Auto) [place] % (Auto) Eos % (Auto) Baso % (Auto) Neut # Lymph # [facility] # Eos # Baso # Neutrophils % (Manual) Lymphocytes % (Manual) Monocytes % (Manual) Eosinophils % (Manual) Toxic Granulation Platelet Estimate Large Platelets Polychromasia Hypochromasia (manual) Poikilocytosis (manual Anisocytosis (manual) Macrocytosis (manual) Target Cells Ovalocytes [place] Cells Schistocytes PT INR APTT Sodium Potassium Chloride Carbon Dioxide Anion Gap BUN Creatinine Est GFR ( Amer) Est GFR (Non-Af Amer) Random Glucose Serum Osmolality Calcium Magnesium Total Bilirubin AST ALT Alkaline Phosphatase Total Protein Albumin Globulin Albumin/Globulin Ratio Free T4 TSH 3rd Generation Prolactin 24.1 H Urine Osmolality Ur Random Creatinine Ur Random Sodium Stool Occult Blood Fingerstick Blood Sugar Results: 91 Critical Care Progress Note - Nutrition Nutrition: Nutrition Category Date Time Status Dysphagia/Modified Consistency Diet [DIET] Diets 08/28/17 Breakfast Active Assessment/Plan (1) Change in mental status Assessment and plan: Patient was treated for presumptive Herpes encephalitis, still awaiting CSF PCR results.Continue acyclovir and Azactam. ID consult Dr. Ibarra following. Hypernatremia, started on D5W with 20 of potassium chloride at 75 mls per hour. Palliative care consulted for her metastatic breast carcinoma. Patient is clinically worse today, very ill appearing. Worsening hypernatremia, Renal consulted, continue D5W, possible RTA with hypovolemic hyponatremia. Must also consider DI. Spoke to sister about DNR/DNI and hospice considerations. Current Visit: Yes Status: Acute Comment: most likely secondary to meningitis Status post lumbar puncture with elevated protein Continue IV antibiotics Neurology follow-up Continue ICU observation
[2017-08-28 18:56] LABS: URINE BACTERIA RARE (<OCC); URINE BILIRUBIN NEGATIVE (NEGATIVE); URINE BLOOD 3+ (NEGATIVE); URINE CLARITY Hazy (Clear); URINE COLOR Yellow (YELLOW); URINE GLUCOSE (UA) 3+ mg/dL (Normal); URINE LEUKOCYTE ESTERASE TRACE Leu/uL (Negative); URINE NITRATE NEGATIVE (NEGATIVE); URINE PROTEIN 2+ mg/dL (NEGATIVE); URINE UROBILINOGEN NORMAL mg/dL (0.2-1.0)
--- NOTE | 2017-08-28 19:40 | PN ---
DATE: ATTENDING PHYSICIAN: Isadora Wells MD SUBJECTIVE: The patient is in bed. Her sister is at bedside. As per family, the patient's mental state is significantly better than the day of admission, more coherent than before, although the patient is still dysarthric and the patient denies photophobia, phonophobia, nausea, or vomiting. The patient had the spinal tap. The spinal tap was consistent with significant amount of red blood cells secondary to most likely traumatic spinal tap, 6 white blood cells, 100% neutrophils and 156 protein, glucose 60. Unfortunately, there was no blood glucose at the same time, although the patient's blood sugar was in 150 or close. PAST MEDICAL HISTORY: Ovarian cyst, breast cancer in 2004, metastatic endometrial cancer diagnosed in 2015, poliomyelitis, paraplegia from the poliomyelitis, bedridden, not ambulating, with bilateral foot drops, status post hip surgery. PHYSICAL EXAMINATION: MENTAL STATE: The patient is awake, alert, partially oriented to person as per family, disoriented to time and place. CRANIAL NERVES: Pupils symmetrically reactive. No gaze preference. No facial asymmetry. Corneal reflex intact, blink to threat. Motor: Moves her upper extremities against gravity. Bilateral lower extremities paralyzed secondary to polio. IMAGING: The patient had MRI of the brain, did not reveal acute finding or meningeal enhancement, although the CAT scan is consistent with significant parasagittal calcifications and probably small questionable meningioma in the right frontal region parasagittal. LABORATORY DATA: CSF as mentioned before. Current labs; white blood cells 2.39, hemoglobin 7.3, hematocrit 22.8, MCHC 32, RDW 26. PT 17.2, INR 1.5, PTT 32. Sodium 170, potassium 4.4, chloride 152, carbon dioxide 10, BUN 22, creatinine 1.3. Glucose; random glucose 123. Calcium 7.3, alkaline phosphatase 516, total protein 5.7, albumin 2.3, globulin 3.4. Urine osmolality 282. Stool occult blood positive. IMPRESSION: Change in mental state, probably multifactorial, most likely metabolic and hypoxic-anoxic secondary to severe anemia and hypernatremia. Carcinomatous meningitis cannot be excluded entirely despite no enhancement in the base of the skull and spinal tap protein is high and the yield from spinal tap for carcinomatous meningitis from first spinal tap is 50% and up to 3 spinal taps is 80% and concerning encephalitis secondary to viral infection; herpes encephalitis, the patient is already on acyclovir. Because of the significant calcifications, I would do parathyroid hormone in addition to prolactin and thyroid profile. Thank you for the consultation and Dr. Badillo will follow up the patient tomorrow. Jay Gonzalez MD
[2017-08-28 22:32] LABS: ABG ALLEN TEST POS; ARTERIAL BLOOD GAS HCO3 12.3 mmol/L (21-28); ARTERIAL BLOOD GAS O2 SAT 99.9 % (95-98); ARTERIAL BLOOD GAS PCO2 18 mm/Hg (35-45); ARTERIAL BLOOD GAS PH 7.27 (7.35-7.45); ARTERIAL BLOOD GAS PO2 171 mm/Hg (80-100); ARTERIAL BLOOD GAS TCO2 8.9 mmol/L (22-28)
[2017-08-28 22:49] LABS: MEAN CELL VOLUME 94.1 fL (81.0-99.0); MEAN CORPUSCULAR HEMOGLOBIN 30.8 pg (27.0-31.0); MEAN CORPUSCULAR HGB CONC 32.7 g/dL (33.0-37.0); PLATELET COUNT 58 K/uL (130-400); RBC 2.03 Mil/uL (3.80-5.20); RED CELL DISTRIBUTION WIDTH 26.5 % (11.5-14.5)
[2017-08-28 22:55] LABS: HEMOGLOBIN 6.3 g/dL (11.0-16.0)
[2017-08-28 23:14] LABS: ALB/GLOB RATIO 0.7 (1.0-2.1); ALBUMIN 2.2 g/dL (3.5-5.0); CALCIUM 7.4 mg/dl (8.6-10.4); MAGNESIUM 1.9 mg/dL (1.6-2.3)
[2017-08-28] MEDS ORDERED: Pantoprazole 80 MG in Sodium Chloride 0.9% 100 ML IVP SCH (23:15)
[2017-08-28 23:45] LABS: LYMPHOCYTE 9 % (20-40); MONOCYTE 1 % (0-10); NEUTROPHIL 90 % (50-75); TOTAL CELLS COUNTED 100
[2017-08-28 23:46] LABS: ANISOCYTOSIS SLIGHT; PLATELET ESTIMATE DECREASED (NORMAL); POIKILOCYTOSIS SLIGHT
[2017-08-28 23:47] LABS: HYPOCHROMIC SLIGHT; TARGET CELLS SLIGHT
[2017-08-28 23:48] LABS: BURR CELLS SLIGHT; LARGE PLATELETS PRESENT; SCHISTOCYTES SLIGHT
[2017-08-29] MEDS: Aztreonam 2 GM in Sodium Chloride 0.9% 100 ML IVPB SCH ×3 (00:07→16:05)
[2017-08-29] MEDS: Acyclovir 500 MG in Sodium Chloride 0.9% 100 ML IV SCH ×3 (01:11→17:05)
[2017-08-29 06:38] LABS: HEMOGLOBIN 7.8 g/dL (11.0-16.0); MEAN CELL VOLUME 91.6 fL (81.0-99.0); MEAN CORPUSCULAR HEMOGLOBIN 30.8 pg (27.0-31.0); MEAN CORPUSCULAR HGB CONC 33.6 g/dL (33.0-37.0); MEAN PLATELET VOLUME 9.1 fL (7.2-11.7); RBC 2.55 Mil/uL (3.80-5.20); RED CELL DISTRIBUTION WIDTH 19.5 % (11.5-14.5)
[2017-08-29 06:47] LABS: WHITE BLOOD COUNT 1.2 K/uL (4.8-10.8)
[2017-08-29] MEDS: Potassium Ch 20mEq in D5W 1,000 ML IV SCH (06:59)
[2017-08-29 07:09] LABS: ALB/GLOB RATIO 0.7 (1.0-2.1); ALBUMIN 2.1 g/dL (3.5-5.0); CALCIUM 7.1 mg/dl (8.6-10.4); MAGNESIUM 1.7 mg/dL (1.6-2.3)
--- NOTE | 2017-08-29 09:01 | PN ---
DATE: 08/29/2017 LOCATION: The patient's room number ICU bed 3. NEUROLOGICAL PROBLEM: Possible encephalitis (infectious versus malignant process). PHYSICAL EXAMINATION VITAL SIGNS: Blood pressure 140/74, mean arterial pressure of 106, respiratory rate 18, temperature afebrile with pulse rate is 140. NEUROLOGIC: The patient is awake, moving both upper extremities; however, significant weakness of the upper extremities. She could not able to hold upper not even 3 seconds. Her speech is not communicable; however, she is trying to make words out. Good eye contact. Extraocular movement intact. Her workup of spinal tap had been reviewed, been on antibiotic. Further recommended workup is still on progress. Her MRI of the brain is very poor quality and I would like her to have MRI of the brain as well as the neck to rule out her proximal weakness of the arm, which should have been a problem for her neck as well. Continue the present management. The patient will be followed closely with you. Reginald Badillo MD
[2017-08-29 09:52] LABS: LYMPH # 0.2 K/uL (1.0-4.3)
[2017-08-29] MEDS: POLYETHYLENE GLYCOL 3350 17 GM/Dose PACKET PO SCH ×2 (10:17→17:07)
[2017-08-29] MEDS: Vancomycin 1 gm/NS 200 ml 1 GM/200 ML BAG IVPB SCH (10:18)
[2017-08-29] MEDS: Magnesium Oxide 400 mg Tab UD PO SCH (10:22)
[2017-08-29] MEDS ORDERED: DEXTROSE 5% IV SCH (11:30)
[2017-08-29] MEDS ORDERED: WATER IV SCH (11:30)
[2017-08-29] MEDS ORDERED: SODIUM BICARBONATE IV SCH (11:30)
--- NOTE | 2017-08-29 11:45 | CP.PCM.PN ---
Subjective - Date & Time of Evaluation Date of Evaluation: 08/29/17 Time of Evaluation: 15:20 - Subjective Subjective: clinically same Objective - Vital Signs/Intake and Output Vital Signs (last 24 hours): Temp Pulse Resp BP Pulse Ox 98.4 F 132 H 17 157/87 H 100 08/29/17 08:00 08/29/17 09:00 08/29/17 09:00 08/29/17 09:00 08/29/17 09:00 Intake and Output: 08/29/17 08/29/17 06:59 18:59 Intake Total 3200 475 Output Total 1855 390 Balance 1345 85 - Medications Medications: Current Medications Gabapentin (Neurontin) 400 mg PO DAILY [facility] Last Admin: 08/29/17 10:22 Dose: 400 mg Home Med (Exemestane [Aromasin]) 25 mg PO DAILY [facility] Aztreonam 2 gm/ Sodium (Chloride) 100 mls @ 200 mls/hr IVPB Q8H [facility] Last Admin: 08/29/17 09:08 Dose: 200 mls/hr Vancomycin/Sodium Chloride (Vancomycin 1 Gm/Ns 200 Ml) 1 gm in 200 mls @ 133.333 mls/hr IVPB Q12H [facility] Stop: 08/30/17 22:01 Last Admin: 08/29/17 10:18 Dose: Not Given Acyclovir 500 mg/ Sodium (Chloride) 100 mls @ 100 mls/hr IV Q8H [facility] Last Admin: 08/29/17 10:23 Dose: 100 mls/hr Sodium Bicarbonate 50 meq/ (Dextrose) 1,050 mls @ 100 mls/hr IV .[id number] [facility] Magnesium Oxide (Mag-Ox) 400 mg PO DAILY [facility] Last Admin: 08/29/17 10:22 Dose: 400 mg Pantoprazole Sodium (Protonix Inj) 40 mg IVP Q12H [facility] Last Admin: 08/29/17 02:27 Dose: 40 mg Polyethylene Glycol (Miralax) 17 gm PO BID [facility] Last Admin: 08/29/17 10:17 Dose: Not Given Sodium Bicarbonate (Sodium Bicarbonate Tab) 650 mg PO Q6 [facility] Last Admin: 08/29/17 05:38 Dose: 650 mg - Labs Labs: 08/29/17 06:20 08/29/17 06:20 PT 17.2 SECONDS (9.7-12.2) H D 08/28/17 06:43 INR 1.5 D 08/28/17 06:43 APTT 32 SECONDS (21-34) D 08/28/17 06:43 - Constitutional Appears: Well - Head Exam Head Exam: ATRAUMATIC, NORMAL INSPECTION, NORMOCEPHALIC - Eye Exam Eye Exam: EOMI, Normal appearance, PERRL Pupil Exam: NORMAL ACCOMODATION, PERRL - ENT Exam ENT Exam: Mucous Membranes Moist, Normal Exam - Neck Exam Neck Exam: Full ROM, Normal Inspection. absent: Lymphadenopathy - Respiratory Exam Respiratory Exam: Decreased Breath Sounds - Cardiovascular Exam Cardiovascular Exam: REGULAR RHYTHM, +S1, +S2 - GI/Abdominal Exam GI & Abdominal Exam: Soft, Diminished Bowel Sounds - Rectal Exam Rectal Exam: Deferred
--- NOTE | 2017-08-29 12:18 | CP.PCM.PN ---
Subjective - Date & Time of Evaluation Date of Evaluation: 08/27/17 Time of Evaluation: 17:00 - Subjective Subjective: Awake, no complaints. Objective - Vital Signs/Intake and Output Vital Signs (last 24 hours): Temp Pulse Resp BP Pulse Ox 98.4 F 130 H 15 136/82 100 08/29/17 08:00 08/29/17 11:00 08/29/17 11:00 08/29/17 11:00 08/29/17 11:00 Intake and Output: 08/29/17 08/29/17 06:59 18:59 Intake Total 3200 855 Output Total 1855 585 Balance 1345 270 - Medications Medications: Current Medications Gabapentin (Neurontin) 400 mg PO DAILY [facility] Last Admin: 08/29/17 10:22 Dose: 400 mg Home Med (Exemestane [Aromasin]) 25 mg PO DAILY [facility] Aztreonam 2 gm/ Sodium (Chloride) 100 mls @ 200 mls/hr IVPB Q8H [facility] Last Admin: 08/29/17 09:08 Dose: 200 mls/hr Vancomycin/Sodium Chloride (Vancomycin 1 Gm/Ns 200 Ml) 1 gm in 200 mls @ 133.333 mls/hr IVPB Q12H [facility] Stop: 08/30/17 22:01 Last Admin: 08/29/17 10:18 Dose: Not Given Acyclovir 500 mg/ Sodium (Chloride) 100 mls @ 100 mls/hr IV Q8H [facility] Last Admin: 08/29/17 10:23 Dose: 100 mls/hr Sodium Bicarbonate 50 meq/ (Dextrose) 1,000 mls @ 100 mls/hr IV .Q10H [facility] Magnesium Oxide (Mag-Ox) 400 mg PO DAILY [facility] Last Admin: 08/29/17 10:22 Dose: 400 mg Pantoprazole Sodium (Protonix Inj) 40 mg IVP Q12H [facility] Last Admin: 08/29/17 02:27 Dose: 40 mg Polyethylene Glycol (Miralax) 17 gm PO BID [facility] Last Admin: 08/29/17 10:17 Dose: Not Given Sodium Bicarbonate (Sodium Bicarbonate Tab) 650 mg PO Q6 [facility] Last Admin: 08/29/17 05:38 Dose: 650 mg - Labs Labs: 08/29/17 06:20 08/29/17 06:20 PT 17.2 SECONDS (9.7-12.2) H D 08/28/17 06:43 INR 1.5 D 08/28/17 06:43 APTT 32 SECONDS (21-34) D 08/28/17 06:43 - Head Exam Head Exam: ATRAUMATIC - Eye Exam Eye Exam: Normal appearance - ENT Exam ENT Exam: Mucous Membranes Dry - Respiratory Exam Respiratory Exam: Decreased Breath Sounds - Cardiovascular Exam Cardiovascular Exam: +S1, +S2 - GI/Abdominal Exam GI & Abdominal Exam: Normal Bowel Sounds Assessment and Plan (1) Anemia Assessment & Plan: chronic disease, chemotherapy transfusion support PRN Status: Acute (2) Coagulopathy Assessment & Plan: nutritional, improving Status: Acute (3) Metastatic cancer Assessment & Plan: on outpatient ifosfamide supportive care palliative care eval. Status: Chronic
--- NOTE | 2017-08-29 12:21 | CP.PCM.PN ---
Subjective - Date & Time of Evaluation Date of Evaluation: 08/29/17 Time of Evaluation: 12:00 - Subjective Subjective: Awake, fatigued. Objective - Vital Signs/Intake and Output Vital Signs (last 24 hours): Temp Pulse Resp BP Pulse Ox 98.4 F 130 H 15 136/82 100 08/29/17 08:00 08/29/17 11:00 08/29/17 11:00 08/29/17 11:00 08/29/17 11:00 Intake and Output: 08/29/17 08/29/17 06:59 18:59 Intake Total 3200 855 Output Total 1855 585 Balance 1345 270 - Medications Medications: Current Medications Gabapentin (Neurontin) 400 mg PO DAILY [facility] Last Admin: 08/29/17 10:22 Dose: 400 mg Home Med (Exemestane [Aromasin]) 25 mg PO DAILY [facility] Aztreonam 2 gm/ Sodium (Chloride) 100 mls @ 200 mls/hr IVPB Q8H [facility] Last Admin: 08/29/17 09:08 Dose: 200 mls/hr Vancomycin/Sodium Chloride (Vancomycin 1 Gm/Ns 200 Ml) 1 gm in 200 mls @ 133.333 mls/hr IVPB Q12H [facility] Stop: 08/30/17 22:01 Last Admin: 08/29/17 10:18 Dose: Not Given Acyclovir 500 mg/ Sodium (Chloride) 100 mls @ 100 mls/hr IV Q8H [facility] Last Admin: 08/29/17 10:23 Dose: 100 mls/hr Sodium Bicarbonate 50 meq/ (Dextrose) 1,000 mls @ 100 mls/hr IV .Q10H [facility] Magnesium Oxide (Mag-Ox) 400 mg PO DAILY [facility] Last Admin: 08/29/17 10:22 Dose: 400 mg Pantoprazole Sodium (Protonix Inj) 40 mg IVP Q12H [facility] Last Admin: 08/29/17 02:27 Dose: 40 mg Polyethylene Glycol (Miralax) 17 gm PO BID [facility] Last Admin: 08/29/17 10:17 Dose: Not Given Sodium Bicarbonate (Sodium Bicarbonate Tab) 650 mg PO Q6 [facility] Last Admin: 08/29/17 05:38 Dose: 650 mg - Labs Labs: 08/29/17 06:20 08/29/17 06:20 PT 17.2 SECONDS (9.7-12.2) H D 08/28/17 06:43 INR 1.5 D 08/28/17 06:43 APTT 32 SECONDS (21-34) D 08/28/17 06:43 - Head Exam Head Exam: ATRAUMATIC - Eye Exam Eye Exam: Normal appearance - ENT Exam ENT Exam: Mucous Membranes Dry - Respiratory Exam Respiratory Exam: Decreased Breath Sounds - Cardiovascular Exam Cardiovascular Exam: +S1, +S2 - GI/Abdominal Exam GI & Abdominal Exam: Normal Bowel Sounds Assessment and Plan (1) Thrombocytopenia Assessment & Plan: likely secondary to chemotherapy transfusion support if plt < 10,000 will add fibrinogen Status: Acute (2) Anemia Assessment & Plan: chronic disease, chemotherapy transfusion support PRN Status: Acute (3) Coagulopathy Assessment & Plan: improving add fibrinogen Status: Acute (4) Metastatic cancer Assessment & Plan: on ifosfamide supportive care Status: Chronic
--- NOTE | 2017-08-29 14:29 | CP.PCM.PN ---
Subjective - Date & Time of Evaluation Date of Evaluation: 08/29/17 Time of Evaluation: 10:00 - Subjective Subjective: Patient remains alert, confused, unable to lead meaningful conversation. Patient looks for words, appears angry and easily agitated. patient looks weak and chronically ill. WBC dropped to 1.2, Hb 7.8 after blood transfusion. Doctor Canelo fallows the patient. Goals of care and Code status discussed with sister Jessica and caity Albarran. They both are aware of patient's condition. Per niece Avis, the visible decline in condition was seen in the last 5 -6 months when patient become more weak. They both asked for " open" conversation and how much patient had left to leave. I shared the opinion that patient's condition was seen as poor , not curable and that prognosis is most likely terminal , but within unknown time frame. Avis, who spoke most of the time was very clear that they would not want use of any aggressive measures. family was debiting between CPR and DNI. I corrected their knowledge that if patient Codes, the CPR alone most likely will not be sufficient and intubation would have to fallow . In general I suggested to the family, that patient's condition is unfortunately terminal, and discussed comfort care and Hospice with them. Family agreed and before POLST is signed, they would want to talk to Doctor Lemos regarding further chemo Tx. This was shared with Doctor Martin ,the ICU attending. 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 cancer * Family is aware of severity of condition and is leaning toward comfort care only; * Family needs more reassurance from Doctor Lemos in terms of futility of further aggressive chemo Tx before POLST is signed Suggestion * Patient would benefit from DNR/DNI status * After Doctor Lemos discusses the prognosis with family, I will continue Code status discussion * Continue supportive care Objective - Vital Signs/Intake and Output Vital Signs (last 24 hours): Temp Pulse Resp BP Pulse Ox 98.4 F 107 H 19 123/64 100 08/29/17 12:00 08/29/17 14:00 08/29/17 14:00 08/29/17 14:00 08/29/17 14:00 Intake and Output: 08/29/17 08/29/17 06:59 18:59 Intake Total 3200 1155 Output Total 1855 1020 Balance 1345 135 - Medications Medications: Current Medications Famotidine (Pepcid) 20 mg IVP Q12 [facility] Gabapentin (Neurontin) 400 mg PO DAILY [facility] Last Admin: 08/29/17 10:22 Dose: 400 mg Home Med (Exemestane [Aromasin]) 25 mg PO DAILY [facility] Aztreonam 2 gm/ Sodium (Chloride) 100 mls @ 200 mls/hr IVPB Q8H [facility] Last Admin: 08/29/17 09:08 Dose: 200 mls/hr Vancomycin/Sodium Chloride (Vancomycin 1 Gm/Ns 200 Ml) 1 gm in 200 mls @ 133.333 mls/hr IVPB Q12H [facility] Stop: 08/30/17 22:01 Last Admin: 08/29/17 10:18 Dose: Not Given Acyclovir 500 mg/ Sodium (Chloride) 100 mls @ 100 mls/hr IV Q8H [facility] Last Admin: 08/29/17 10:23 Dose: 100 mls/hr Sodium Bicarbonate 50 meq/ (Dextrose) 1,000 mls @ 100 mls/hr IV .Q10H [facility] Last Admin: 08/29/17 12:26 Dose: 100 mls/hr Magnesium Oxide (Mag-Ox) 400 mg PO DAILY [facility] Last Admin: 08/29/17 10:22 Dose: 400 mg Polyethylene Glycol (Miralax) 17 gm PO BID [facility] Last Admin: 08/29/17 10:17 Dose: Not Given - Labs Labs: 08/29/17 06:20 08/29/17 06:20 PT 17.2 SECONDS (9.7-12.2) H D 08/28/17 06:43 INR 1.5 D 08/28/17 06:43 APTT 32 SECONDS (21-34) D 08/28/17 06:43
--- NOTE | 2017-08-29 14:57 | CP.CCUPN ---
<Makayla Espitia - Last Filed: 08/29/17 14:23> CCU Subjective - Physician Review Subjective (Free Text): 08/25/17 10:44 Patient seen and examined at bedside. Patient resting in bed. No acute events over night. Patient with AMS and nonverbal at this time. ROS unattainable. CCU Objective - Vital Signs / Intake & Output Vital Signs (Last 4 hours): Vital Signs Temp Pulse Resp BP Pulse Ox 08/29/17 14:00 107 H 19 123/64 100 08/29/17 13:00 119 H 14 109/60 100 08/29/17 12:00 98.4 F 132 H 15 136/81 100 08/29/17 11:00 130 H 15 136/82 100 Intake and Output (Last 8hrs): Intake & Output 08/28/17 08/29/17 08/29/17 22:59 06:59 14:59 Intake Total 1450 2500 1155 Output Total 5275 399 7686 Balance 385 1545 135 Weight 131 lb 1.6 oz Intake: Intake, IV Amount 1200 1200 1125 L Port Y Site 200 200 200 Left Port-A-Cath 1000 1000 925 Oral 250 Blood Product 650 Red Blood Cells Cpd As1 325 Lr Unit [id number] Other 650 30 Red Blood Cells Cpd As1 50 Lr Unit [id number] Output: Urine 765 755 820 Urethral ([place]) 765 755 820 Stool 300 200 200 Other: # Bowel Movements 1 1 1 - Physical Exam Head: Positive for: Atraumatic, Normocephalic Extroacular Muscles: Negative for: Gaze Palsy Mouth: Positive for: Moist Mucous Membranes Neck: Negative for: JVD, Lymphadenopathy Respiratory/Chest: Positive for: Clear to Auscultation, Good Air Exchange. Negative for: Wheezes, Rales, Rhonchi Cardiovascular: Positive for: Normal S1, S2, Tachycardic Abdomen: Positive for: Tenderness, Distention, Normal Bowel Sounds. Negative for: Peritoneal Signs, Guarding Upper Extremity: Positive for: Normal Inspection, Tenderness (generalized ). Negative for: Cyanosis, Edema Lower Extremity: Positive for: Edema, Tenderness (generalized ) Neurological: Positive for: Other (GCS=10 ) Skin: Positive for: Warm, Dry, Erythematous (feet b/l ). Negative for: Rashes Psychiatric: Positive for: Alert - Medications Active Medications: Active Medications Generic Name Dose Route Start Last Admin Trade Name Digna PRN Reason Stop Dose Admin Famotidine 20 mg 08/29/17 22:00 Pepcid IVP Q12 HAN Gabapentin 400 mg 08/25/17 10:00 08/29/17 10:22 Neurontin PO 400 mg DAILY HAN Administration Home Med 25 mg 08/25/17 10:00 Exemestane [Aromasin] PO DAILY HAN Aztreonam 2 gm/ Sodium 100 mls @ 200 mls/hr 08/25/17 01:00 08/29/17 09:08 Chloride IVPB 200 mls/hr Q8H HAN Administration Vancomycin/Sodium Chloride 1 gm in 200 mls @ 133.333 mls/hr 08/25/17 22:00 10:18 Vancomycin 1 Gm/Ns 200 Ml IVPB 08/30/17 22:01 Not Given Q12H HAN Acyclovir 500 mg/ Sodium 100 mls @ 100 mls/hr 08/25/17 18:00 08/29/17 10:23 Chloride IV 100 mls/hr Q8H HAN Administration Sodium Bicarbonate 50 meq/ 1,000 mls @ 100 mls/hr 08/29/17 11:30 08/29/17 12: 26 Dextrose IV 100 mls/hr .Q10H HAN Administration Magnesium Oxide 400 mg 08/25/17 10:00 08/29/17 10:22 Mag-Ox PO 400 mg DAILY HAN Administration Polyethylene Glycol 17 gm 08/27/17 10:00 08/29/17 10:17 Miralax PO Not Given BID HAN - Patient Studies Lab Studies: Microbiology Studies 08/25/17 19:55 Gram Stain - Final Cerebral Spinal Fluid CSF Culture - Preliminary NO GROWTH AFTER 4 DAYS 08/24/17 14:15 Blood Culture - Preliminary Blood NO GROWTH AFTER 4 DAYS 08/24/17 14:45 Blood Culture - Preliminary Blood NO GROWTH AFTER 4 DAYS Lab Studies 08/29/17 08/29/17 08/29/17 Range/Units 06:20 06:20 06:20 WBC 1.2 L* (4.8-10.8) K/uL RBC 2.55 L (3.80-5.20) Mil/uL Hgb 7.8 L (11.0-16.0) g/dL Hct 23.3 L (34.0-47.0) % MCV 91.6 D (81.0-99.0) fL MCH 30.8 (27.0-31.0) pg MCHC 33.6 (33.0-37.0) g/dL RDW 19.5 H (11.5-14.5) % Plt Count 35 L D (130-400) K/uL MPV 9.1 (7.2-11.7) fL Neut % (Auto) 84.0 H (50.0-75.0) % Lymph % (Auto) 14.0 L (20.0-40.0) % [place] % (Auto) 0.0 (0.0-10.0) % Eos % (Auto) 0.0 (0.0-4.0) % Baso % (Auto) 2.0 (0.0-2.0) % Neut # 1.0 L (1.8-7.0) K/uL Lymph # 0.2 L (1.0-4.3) K/uL [place] # 0.0 (0.0-0.8) K/uL Eos # 0.0 (0.0-0.7) K/uL Baso # 0.0 (0.0-0.2) K/uL Neutrophils % (Manual) (50-75) % Lymphocytes % (Manual) (20-40) % Monocytes % (Manual) (0-10) % Platelet Estimate (NORMAL) Large Platelets Hypochromasia (manual) Poikilocytosis (manual Anisocytosis (manual) Macrocytosis (manual) Target Cells [place] Cells Schistocytes Puncture Site pCO2 (35-45) mm/Hg pO2 (80-100) mm/Hg HCO3 (21-28) mmol/L ABG pH (7.35-7.45) ABG Total CO2 (22-28) mmol/L ABG O2 Saturation (95-98) % ABG Base Excess (-2.0-3.0) mmol/L Ranjith Test ABG Potassium (3.6-5.2) mmol/L A-a O2 Difference mm/Hg Respiratory Index Sodium 164 H* (132-148) mmol/l Chloride 147 H (98-107) mmol/L Glucose (65-105) mg/dl Lactate (0.7-2.1) mmol/L FiO2 % Crit Value Called To Crit Value Called By Crit Value Read Back Blood Gas Notified Time Potassium 3.8 (3.6-5.2) mmol/L Carbon Dioxide 9 L* (22-30) mmol/L Anion Gap 11 (10-20) BUN 24 H (7-17) mg/dL Creatinine 1.4 H (0.7-1.2) mg/dL Est GFR ( Amer) 46 Est GFR (Non-Af Amer) 38 Random Glucose 139 H (65-105) mg/dL Serum Osmolality (272-300) mosm/kg Calcium 7.1 L (8.6-10.4) mg/dl Phosphorus 1.7 L (2.5-4.5) mg/dL Magnesium 1.7 (1.6-2.3) mg/dL Total Bilirubin 1.4 H (0.2-1.3) mg/dL AST 89 H (14-36) U/L ALT 85 H (9-52) U/L Alkaline Phosphatase 586 H (38-126) U/L Total Protein 5.2 L (6.3-8.3) g/dL Albumin 2.1 L (3.5-5.0) g/dL Globulin 3.1 (2.2-3.9) gm/dL Albumin/Globulin Ratio 0.7 L (1.0-2.1) Free T4 (0.78-2.19) ng/dL TSH 3rd Generation (0.46-4.68) mIU/L Prolactin (3.0-18.9) ng/mL Arterial Blood Potassium (3.6-5.2) mmol/L Urine Color (YELLOW) Urine Clarity (Clear) Urine pH (5.0-8.0) Ur Specific [place] (1.003-1.030) Urine Protein (NEGATIVE) mg/dL Urine Glucose (UA) (Normal) mg/dL Urine Ketones (NEGATIVE) mg/dL Urine Blood (NEGATIVE) Urine Nitrate (NEGATIVE) Urine Bilirubin (NEGATIVE) Urine Urobilinogen (0.2-1.0) mg/dL Ur Leukocyte Esterase (Negative) Agustín/uL Urine WBC (Auto) (0-5) /hpf Urine RBC (Auto) (0-3) /hpf Urine Bacteria (<OCC) Urine Osmolality (300-1000) mosm/kg Ur Random Sodium mmol/L Ur Random Potassium mmol/L Ur Random Calcium mg/dL Vancomycin Trough 71.4 H (5.0-10.0) ug/mL Blood Type Antibody Screen 08/28/17 08/28/17 08/28/17 Range/Units 22:33 22:33 22:33 WBC 2.0 L* D (4.8-10.8) K/uL RBC 2.03 L (3.80-5.20) Mil/uL Hgb 6.3 L* (11.0-16.0) g/dL Hct 19.2 L (34.0-47.0) % MCV 94.1 (81.0-99.0) fL MCH 30.8 (27.0-31.0) pg MCHC 32.7 L (33.0-37.0) g/dL RDW 26.5 H (11.5-14.5) % Plt Count 58 L D (130-400) K/uL MPV 9.0 (7.2-11.7) fL Neut % (Auto) (50.0-75.0) % Lymph % (Auto) (20.0-40.0) % [place] % (Auto) (0.0-10.0) % Eos % (Auto) (0.0-4.0) % Baso % (Auto) (0.0-2.0) % Neut # (1.8-7.0) K/uL Lymph # (1.0-4.3) K/uL [place] # (0.0-0.8) K/uL Eos # (0.0-0.7) K/uL Baso # (0.0-0.2) K/uL Neutrophils % (Manual) 90 H (50-75) % Lymphocytes % (Manual) 9 L (20-40) % Monocytes % (Manual) 1 (0-10) % Platelet Estimate Decreased L (NORMAL) Large Platelets Present Hypochromasia (manual) Slight Poikilocytosis (manual Slight Anisocytosis (manual) Slight Macrocytosis (manual) Slight Target Cells Slight Mariah Cells Slight Schistocytes Slight Puncture Site pCO2 (35-45) mm/Hg pO2 (80-100) mm/Hg HCO3 (21-28) mmol/L ABG pH (7.35-7.45) ABG Total CO2 (22-28) mmol/L ABG O2 Saturation (95-98) % ABG Base Excess (-2.0-3.0) mmol/L Ranjith Test ABG Potassium (3.6-5.2) mmol/L A-a O2 Difference mm/Hg Respiratory Index Sodium 165 H* (132-148) mmol/l Chloride 148 H (98-107) mmol/L Glucose (65-105) mg/dl Lactate (0.7-2.1) mmol/L FiO2 % Crit Value Called To Crit Value Called By Crit Value Read Back Blood Gas Notified Time Potassium 4.2 (3.6-5.2) mmol/L Carbon Dioxide 9 L* (22-30) mmol/L Anion Gap 13 (10-20) BUN 24 H (7-17) mg/dL Creatinine 1.4 H (0.7-1.2) mg/dL Est GFR ( Amer) 46 Est GFR (Non-Af Amer) 38 Random Glucose 143 H (65-105) mg/dL Serum Osmolality (272-300) mosm/kg Calcium 7.4 L (8.6-10.4) mg/dl Phosphorus 1.7 L (2.5-4.5) mg/dL Magnesium 1.9 (1.6-2.3) mg/dL Total Bilirubin 1.1 (0.2-1.3) mg/dL AST 92 H (14-36) U/L ALT 92 H (9-52) U/L Alkaline Phosphatase 654 H D (38-126) U/L Total Protein 5.5 L (6.3-8.3) g/dL Albumin 2.2 L (3.5-5.0) g/dL Globulin 3.2 (2.2-3.9) gm/dL Albumin/Globulin Ratio 0.7 L (1.0-2.1) Free T4 (0.78-2.19) ng/dL TSH 3rd Generation (0.46-4.68) mIU/L Prolactin (3.0-18.9) ng/mL Arterial Blood Potassium (3.6-5.2) mmol/L Urine Color (YELLOW) Urine Clarity (Clear) Urine pH (5.0-8.0) Ur Specific [place] (1.003-1.030) Urine Protein (NEGATIVE) mg/dL Urine Glucose (UA) (Normal) mg/dL Urine Ketones (NEGATIVE) mg/dL Urine Blood (NEGATIVE) Urine Nitrate (NEGATIVE) Urine Bilirubin (NEGATIVE) Urine Urobilinogen (0.2-1.0) mg/dL Ur Leukocyte Esterase (Negative) Agustín/uL Urine WBC (Auto) (0-5) /hpf Urine RBC (Auto) (0-3) /hpf Urine Bacteria (<OCC) Urine Osmolality (300-1000) mosm/kg Ur Random Sodium 31 mmol/L Ur Random Potassium 35.2 mmol/L Ur Random Calcium < 1.0 mg/dL Vancomycin Trough (5.0-10.0) ug/mL Blood Type Antibody Screen 08/28/17 08/28/17 08/28/17 Range/Units 22:25 18:25 18:25 WBC (4.8-10.8) K/uL RBC (3.80-5.20) Mil/uL Hgb (11.0-16.0) g/dL Hct (34.0-47.0) % MCV (81.0-99.0) fL MCH (27.0-31.0) pg MCHC (33.0-37.0) g/dL RDW (11.5-14.5) % Plt Count (130-400) K/uL MPV (7.2-11.7) fL Neut % (Auto) (50.0-75.0) % Lymph % (Auto) (20.0-40.0) % [place] % (Auto) (0.0-10.0) % Eos % (Auto) (0.0-4.0) % Baso % (Auto) (0.0-2.0) % Neut # (1.8-7.0) K/uL Lymph # (1.0-4.3) K/uL [place] # (0.0-0.8) K/uL Eos # (0.0-0.7) K/uL Baso # (0.0-0.2) K/uL Neutrophils % (Manual) (50-75) % Lymphocytes % (Manual) (20-40) % Monocytes % (Manual) (0-10) % Platelet Estimate (NORMAL) Large Platelets Hypochromasia (manual) Poikilocytosis (manual Anisocytosis (manual) Macrocytosis (manual) Target Cells [place] Cells Schistocytes Puncture Site Rba pCO2 18 L* (35-45) mm/Hg pO2 171 H (80-100) mm/Hg HCO3 12.3 L (21-28) mmol/L ABG pH 7.27 L (7.35-7.45) ABG Total CO2 8.9 L (22-28) mmol/L ABG O2 Saturation 99.9 H (95-98) % ABG Base Excess -16.2 L (-2.0-3.0) mmol/L Ranjith Test Pos ABG Potassium 4.1 (3.6-5.2) mmol/L A-a O2 Difference 35.0 mm/Hg Respiratory Index 0.2 Sodium 168.0 H* (132-148) mmol/l Chloride 150.0 H (98-107) mmol/L Glucose 146 H (65-105) mg/dl Lactate 0.9 (0.7-2.1) mmol/L FiO2 32.0 % Crit Value Called To Dr gonzales Crit Value Called By [facility] Crit Value Read Back Y Blood Gas Notified Time 2230 Potassium (3.6-5.2) mmol/L Carbon Dioxide (22-30) mmol/L Anion Gap (10-20) BUN (7-17) mg/dL Creatinine (0.7-1.2) mg/dL Est GFR ( Amer) Est GFR (Non-Af Amer) Random Glucose (65-105) mg/dL Serum Osmolality (272-300) mosm/kg Calcium (8.6-10.4) mg/dl Phosphorus (2.5-4.5) mg/dL Magnesium (1.6-2.3) mg/dL Total Bilirubin (0.2-1.3) mg/dL AST (14-36) U/L ALT (9-52) U/L Alkaline Phosphatase (38-126) U/L Total Protein (6.3-8.3) g/dL Albumin (3.5-5.0) g/dL Globulin (2.2-3.9) gm/dL Albumin/Globulin Ratio (1.0-2.1) Free T4 (0.78-2.19) ng/dL TSH 3rd Generation (0.46-4.68) mIU/L Prolactin (3.0-18.9) ng/mL Arterial Blood Potassium 4.1 (3.6-5.2) mmol/L Urine Color Yellow (YELLOW) Urine Clarity Hazy (Clear) Urine pH 5.0 (5.0-8.0) Ur Specific [place] 1.010 (1.003-1.030) Urine Protein 2+ H (NEGATIVE) mg/dL Urine Glucose (UA) 3+ H (Normal) mg/dL Urine Ketones Negative (NEGATIVE) mg/dL Urine Blood 3+ H (NEGATIVE) Urine Nitrate Negative (NEGATIVE) Urine Bilirubin Negative (NEGATIVE) Urine Urobilinogen Normal (0.2-1.0) mg/dL Ur Leukocyte Esterase Trace (Negative) Agustín/uL Urine WBC (Auto) 5 (0-5) /hpf Urine RBC (Auto) 52 H (0-3) /hpf Urine Bacteria Rare (<OCC) Urine Osmolality 291 L (300-1000) mosm/kg Ur Random Sodium 31 mmol/L Ur Random Potassium 36.0 mmol/L Ur Random Calcium mg/dL Vancomycin Trough (5.0-10.0) ug/mL Blood Type Antibody Screen 08/28/17 08/28/17 08/26/17 Range/Units 14:53 14:53 09:12 WBC (4.8-10.8) K/uL RBC (3.80-5.20) Mil/uL Hgb (11.0-16.0) g/dL Hct (34.0-47.0) % MCV (81.0-99.0) fL MCH (27.0-31.0) pg MCHC (33.0-37.0) g/dL RDW (11.5-14.5) % Plt Count (130-400) K/uL MPV (7.2-11.7) fL Neut % (Auto) (50.0-75.0) % Lymph % (Auto) (20.0-40.0) % [place] % (Auto) (0.0-10.0) % Eos % (Auto) (0.0-4.0) % Baso % (Auto) (0.0-2.0) % Neut # (1.8-7.0) K/uL Lymph # (1.0-4.3) K/uL [place] # (0.0-0.8) K/uL Eos # (0.0-0.7) K/uL Baso # (0.0-0.2) K/uL Neutrophils % (Manual) (50-75) % Lymphocytes % (Manual) (20-40) % Monocytes % (Manual) (0-10) % Platelet Estimate (NORMAL) Large Platelets Hypochromasia (manual) Poikilocytosis (manual Anisocytosis (manual) Macrocytosis (manual) Target Cells [place] Cells Schistocytes Puncture Site pCO2 (35-45) mm/Hg pO2 (80-100) mm/Hg HCO3 (21-28) mmol/L ABG pH (7.35-7.45) ABG Total CO2 (22-28) mmol/L ABG O2 Saturation (95-98) % ABG Base Excess (-2.0-3.0) mmol/L Ranjith Test ABG Potassium (3.6-5.2) mmol/L A-a O2 Difference mm/Hg Respiratory Index Sodium (132-148) mmol/l Chloride (98-107) mmol/L Glucose (65-105) mg/dl Lactate (0.7-2.1) mmol/L FiO2 % Crit Value Called To Crit Value Called By Crit Value Read Back Blood Gas Notified Time Potassium (3.6-5.2) mmol/L Carbon Dioxide (22-30) mmol/L Anion Gap (10-20) BUN (7-17) mg/dL Creatinine (0.7-1.2) mg/dL Est GFR ( Amer) Est GFR (Non-Af Amer) Random Glucose (65-105) mg/dL Serum Osmolality 359 H (272-300) mosm/kg Calcium (8.6-10.4) mg/dl Phosphorus (2.5-4.5) mg/dL Magnesium (1.6-2.3) mg/dL Total Bilirubin (0.2-1.3) mg/dL AST (14-36) U/L ALT (9-52) U/L Alkaline Phosphatase (38-126) U/L Total Protein (6.3-8.3) g/dL Albumin (3.5-5.0) g/dL Globulin (2.2-3.9) gm/dL Albumin/Globulin Ratio (1.0-2.1) Free T4 0.60 L (0.78-2.19) ng/dL TSH 3rd Generation 2.50 (0.46-4.68) mIU/L Prolactin 24.1 H (3.0-18.9) ng/mL Arterial Blood Potassium (3.6-5.2) mmol/L Urine Color (YELLOW) Urine Clarity (Clear) Urine pH (5.0-8.0) Ur Specific [place] (1.003-1.030) Urine Protein (NEGATIVE) mg/dL Urine Glucose (UA) (Normal) mg/dL Urine Ketones (NEGATIVE) mg/dL Urine Blood (NEGATIVE) Urine Nitrate (NEGATIVE) Urine Bilirubin (NEGATIVE) Urine Urobilinogen (0.2-1.0) mg/dL Ur Leukocyte Esterase (Negative) Agustín/uL Urine WBC (Auto) (0-5) /hpf Urine RBC (Auto) (0-3) /hpf Urine Bacteria (<OCC) Urine Osmolality (300-1000) mosm/kg Ur Random Sodium mmol/L Ur Random Potassium mmol/L Ur Random Calcium mg/dL Vancomycin Trough (5.0-10.0) ug/mL Blood Type B POSITIVE Antibody Screen Negative Laboratory Results - last 24 hr 08/26/17 08/28/17 08/28/17 09:12 14:53 14:53 WBC RBC Hgb Hct MCV MCH MCHC RDW Plt Count MPV Neut % (Auto) Lymph % (Auto) [place] % (Auto) Eos % (Auto) Baso % (Auto) Neut # Lymph # [place] # Eos # Baso # Neutrophils % (Manual) Lymphocytes % (Manual) Monocytes % (Manual) Platelet Estimate Large Platelets Hypochromasia (manual) Poikilocytosis (manual Anisocytosis (manual) Macrocytosis (manual) Target Cells [place] Cells Schistocytes Puncture Site pCO2 pO2 HCO3 ABG pH ABG Total CO2 ABG O2 Saturation ABG Base Excess Ranjith Test ABG Potassium A-a O2 Difference Respiratory Index Sodium Chloride Glucose Lactate FiO2 Crit Value Called To Crit Value Called By Crit Value Read Back Blood Gas Notified Time Potassium Carbon Dioxide Anion Gap BUN Creatinine Est GFR ( Amer) Est GFR (Non-Af Amer) Random Glucose Serum Osmolality 359 H Calcium Phosphorus Magnesium Total Bilirubin AST ALT Alkaline Phosphatase Total Protein Albumin Globulin Albumin/Globulin Ratio Free T4 0.60 L TSH 3rd Generation 2.50 Prolactin 24.1 H Arterial Blood Potassium Urine Color Urine Clarity Urine pH Ur Specific [place] Urine Protein Urine Glucose (UA) Urine Ketones Urine Blood Urine Nitrate Urine Bilirubin Urine Urobilinogen Ur Leukocyte Esterase Urine WBC (Auto) Urine RBC (Auto) Urine Bacteria Urine Osmolality Ur Random Sodium Ur Random Potassium Ur Random Calcium Vancomycin Trough Blood Type B POSITIVE Antibody Screen Negative 08/28/17 08/28/17 08/28/17 18:25 18:25 22:25 WBC RBC Hgb Hct MCV MCH MCHC RDW Plt Count MPV Neut % (Auto) Lymph % (Auto) [place] % (Auto) Eos % (Auto) Baso % (Auto) Neut # Lymph # [place] # Eos # Baso # Neutrophils % (Manual) Lymphocytes % (Manual) Monocytes % (Manual) Platelet Estimate Large Platelets Hypochromasia (manual) Poikilocytosis (manual Anisocytosis (manual) Macrocytosis (manual) Target Cells Mar[place] Cells Schistocytes Puncture Site Rba pCO2 18 L* pO2 171 H HCO3 12.3 L ABG pH 7.27 L ABG Total CO2 8.9 L ABG O2 Saturation 99.9 H ABG Base Excess -16.2 L Ranjith Test Pos ABG Potassium 4.1 A-a O2 Difference 35.0 Respiratory Index 0.2 Sodium 168.0 H* Chloride 150.0 H Glucose 146 H Lactate 0.9 FiO2 32.0 Crit Value Called To Dr gonzales Crit Value Called By [facility] Crit Value Read Back Y Blood Gas Notified Time 2230 Potassium Carbon Dioxide Anion Gap BUN Creatinine Est GFR ( Amer) Est GFR (Non-Af Amer) Random Glucose Serum Osmolality Calcium Phosphorus Magnesium Total Bilirubin AST ALT Alkaline Phosphatase Total Protein Albumin Globulin Albumin/Globulin Ratio Free T4 TSH 3rd Generation Prolactin Arterial Blood Potassium 4.1 Urine Color Yellow Urine Clarity Hazy Urine pH 5.0 Ur Specific [place] 1.010 Urine Protein 2+ H Urine Glucose (UA) 3+ H Urine Ketones Negative Urine Blood 3+ H Urine Nitrate Negative Urine Bilirubin Negative Urine Urobilinogen Normal Ur Leukocyte Esterase Trace Urine WBC (Auto) 5 Urine RBC (Auto) 52 H Urine Bacteria Rare Urine Osmolality 291 L Ur Random Sodium 31 Ur Random Potassium 36.0 Ur Random Calcium Vancomycin Trough Blood Type Antibody Screen 08/28/17 08/28/17 08/28/17 22:33 22:33 22:33 WBC 2.0 L* D RBC 2.03 L Hgb 6.3 L* Hct 19.2 L MCV 94.1 MCH 30.8 MCHC 32.7 L RDW 26.5 H Plt Count 58 L D MPV 9.0 Neut % (Auto) Lymph % (Auto) [place] % (Auto) Eos % (Auto) Baso % (Auto) Neut # Lymph # [place] # Eos # Baso # Neutrophils % (Manual) 90 H Lymphocytes % (Manual) 9 L Monocytes % (Manual) 1 Platelet Estimate Decreased L Large Platelets Present Hypochromasia (manual) Slight Poikilocytosis (manual Slight Anisocytosis (manual) Slight Macrocytosis (manual) Slight Target Cells Slight Mariah Cells Slight Schistocytes Slight Puncture Site pCO2 pO2 HCO3 ABG pH ABG Total CO2 ABG O2 Saturation ABG Base Excess Ranjith Test ABG Potassium A-a O2 Difference Respiratory Index Sodium 165 H* Chloride 148 H Glucose Lactate FiO2 Crit Value Called To Crit Value Called By Crit Value Read Back Blood Gas Notified Time Potassium 4.2 Carbon Dioxide 9 L* Anion Gap 13 BUN 24 H Creatinine 1.4 H Est GFR ( Amer) 46 Est GFR (Non-Af Amer) 38 Random Glucose 143 H Serum Osmolality Calcium 7.4 L Phosphorus 1.7 L Magnesium 1.9 Total Bilirubin 1.1 AST 92 H ALT 92 H Alkaline Phosphatase 654 H D Total Protein 5.5 L Albumin 2.2 L Globulin 3.2 Albumin/Globulin Ratio 0.7 L Free T4 TSH 3rd Generation Prolactin Arterial Blood Potassium Urine Color Urine Clarity Urine pH Ur Specific [place] Urine Protein Urine Glucose (UA) Urine Ketones Urine Blood Urine Nitrate Urine Bilirubin Urine Urobilinogen Ur Leukocyte Esterase Urine WBC (Auto) Urine RBC (Auto) Urine Bacteria Urine Osmolality Ur Random Sodium 31 Ur Random Potassium 35.2 Ur Random Calcium < 1.0 Vancomycin Trough Blood Type Antibody Screen 08/29/17 08/29/17 08/29/17 06:20 06:20 06:20 WBC 1.2 L* RBC 2.55 L Hgb 7.8 L Hct 23.3 L MCV 91.6 D MCH 30.8 MCHC 33.6 RDW 19.5 H Plt Count 35 L D MPV 9.1 Neut % (Auto) 84.0 H Lymph % (Auto) 14.0 L [place] % (Auto) 0.0 Eos % (Auto) 0.0 Baso % (Auto) 2.0 Neut # 1.0 L Lymph # 0.2 L [place] # 0.0 Eos # 0.0 Baso # 0.0 Neutrophils % (Manual) Lymphocytes % (Manual) Monocytes % (Manual) Platelet Estimate Large Platelets Hypochromasia (manual) Poikilocytosis (manual Anisocytosis (manual) Macrocytosis (manual) Target Cells Mariah Cells Schistocytes Puncture Site pCO2 pO2 HCO3 ABG pH ABG Total CO2 ABG O2 Saturation ABG Base Excess Ranjith Test ABG Potassium A-a O2 Difference Respiratory Index Sodium 164 H* Chloride 147 H Glucose Lactate FiO2 Crit Value Called To Crit Value Called By Crit Value Read Back Blood Gas Notified Time Potassium 3.8 Carbon Dioxide 9 L* Anion Gap 11 BUN 24 H Creatinine 1.4 H Est GFR ( Amer) 46 Est GFR (Non-Af Amer) 38 Random Glucose 139 H Serum Osmolality Calcium 7.1 L Phosphorus 1.7 L Magnesium 1.7 Total Bilirubin 1.4 H AST 89 H ALT 85 H Alkaline Phosphatase 586 H Total Protein 5.2 L Albumin 2.1 L Globulin 3.1 Albumin/Globulin Ratio 0.7 L Free T4 TSH 3rd Generation Prolactin Arterial Blood Potassium Urine Color Urine Clarity Urine pH Ur Specific [place] Urine Protein Urine Glucose (UA) Urine Ketones Urine Blood Urine Nitrate Urine Bilirubin Urine Urobilinogen Ur Leukocyte Esterase Urine WBC (Auto) Urine RBC (Auto) Urine Bacteria Urine Osmolality Ur Random Sodium Ur Random Potassium Ur Random Calcium Vancomycin Trough 71.4 H Blood Type Antibody Screen Fingerstick Blood Sugar Results: 91 Critical Care Progress Note - Nutrition Nutrition: Nutrition Category Date Time Status NPO Diet [DIET] Diets 08/29/17 Breakfast Active Assessment/Plan - Assessment and Plan (Free Text) Assessment: 62F with PMH metastatic endometrial cancer, breast cancer, ovarian cysts, recent right femoral DVT on Lovenox, and poliomyelitis presenting with AMS and found to be septic Plan: Infectious disease - Sepsis * Afebrile * 08/24: 95.2 - warming blanket given in ED * BP currently 123/64 * bolus 3L of NS in the ED on 08/24 * Tachycardic * Lactate 0.9 (08/28/17) * 08/24: 1.6 * On arrival 08/24: 4.1 * WBC: 1.2 (08/29/17) * 08/25: 14.6 * On arrival 08/24: 21.1 with bands 1% * procal: 44.30 (08/26), 62.48 (08/25) * ID consulted (Dr. Ibarra) - recs appreciated * Aztreonam 2g IV Q8H * Acyclovir 500 mg IV Q8h * 08/29/17: Hold Vanc 1g daily due to high vanc trough (71.4) * Blood cultures x2 negative * Urine culture negative * MRSA negative * CSF culture negative * CSF armin ink negative * Hep panel - negative * HIV negative * Flu negative Neuro - AMS (encephalitis vs metastatic disease) * Neuro consulted (Dr. Badillo) - recs appreciated * Altered, not speaking although usually verbal at baseline * Hx of poliomyelitis - does not ambulate. ambulates with metal prosthesis and wheelchair at home. * CT head: No intracranial mass, hemorrhage or evidence of acute infarct. * CSF studies: * Appearance: cloudy * WBC: 6 * RBC: 1436.0 * Neutrophils: 100 * Glucose 66 * Protein 156 * Cryptococcus Ag negative * f/u cytology * culture negative * armin ink negative * Ammonia: 51 - hold lactulose for now 09/29 low potassium * Gabapentin 400 mg PO daily Cardiovascular - history of DVT * currently normotensive * Tachycardic * EKG on admission: Sinus tachycardia at 114 with short MT interval, nonspecific ST-T wave abnormalities * Venous duplex LE: negative bilaterally * Arterial Doppler LE: LAMIN 0.75 (right) and 0.78 (left) * Vascular surgeon Dr. Eddy consulted, help appreciated. * Spoke with certified surgical assistant who says no intervention is likely needed at this time due to adequate arterial supply MSK - s/p fall * Pelvis X Ray: no acute fracture. remodeling of right acetabulum with superior subluxation right femoral head. Respiratory * 100% on RA * VBG 08/24: pH 7.16 pCO2 41 pO2 27 HCO3 12.6 * repeat 08/24: 7.25/34/48/15.5 * ABG (08/28/17): 7.27/18/171/12.3 * CXR: No interval acute cardiopulmonary pathology noted Hematology/Onc - history of metastatic endometrial CA and breast CA; history of right femoral DVT * H&H 7.1/21.6 * Plt 393 * PT/PTT/INR (08/24): 33.9/35/2.9 * repeat 08/25: 40.2/40/3.4 * 08/28/17: 17.2/32/1.5 * f/u fibrinogen * Oncologist Dr. Lemos consulted, help appreciated. * hold home Lovenox 90mg SC daily * Granix 480mcg x1 dose (08/29/17) Fluids, electrolytes and nutrition * Na 164 * consider vasopressin trial * Cl 147 * HCO3 9 * Calcium 7.1 * Phosphorous 1.7 * albumin 2.1 * Fluids: D5 w/ sodium bicarb @100cc/h * NG tube - [facility] - intraperitoneal/mesenteric metastatic lesions * AST/ALT: 89/85 - trending down * 08/24: 1933/432 * 08/25: >750/330 * TBili: 1.4 * Abdominal US (08/24): 13.8 x 13.6 cm heterogenous solid mass in the right abdomen, abutting the liver; moderate abdominal and pelvic free fluid; sludge filled gallbladder; pericholecystic fluid; no gallbladder wall thickening or sonographic Vuong's sign; milk pelviectasis of the right kidney without randall hydronephrosis * CT angio Abd/Pelvis (08/24): Compared to previous CT (resluts below), increase in abdominal/pelvic free fluid, now moderate/large amount; diffuse subcutaneous edema/anasarca; heterogenous liver enhancement, most likely due to patchy fatty infiltration * CT Abd/Pel from previous admission (07/23/17) showed intraperitoneal and mesenteric metastatic lesions some of which have increased in size; largest lesion in the nadeen hepatis region compresses the liver, pancreas, gallbladder and IVC * Zofran 4mg PRN Renal * Fluid balance: +2945 * BUN 24 * Cr 1.4 * UA - negative * urine culture - negative PPX: * GI: protonix 40 mg * 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 * Hold Lovenox 40 mg SC daily Palliative care consult - will f/u with Nicole <Mario Levy - Last Filed: 08/29/17 17:03> CCU Objective - Vital Signs / Intake & Output Vital Signs (Last 4 hours): Vital Signs Temp Pulse Resp BP Pulse Ox 08/29/17 16:00 98.1 F 108 H 16 105/69 100 08/29/17 15:00 106 H 14 113/61 100 08/29/17 14:00 107 H 19 123/64 100 Intake and Output (Last 8hrs): Intake & Output 08/29/17 08/29/17 08/29/17 06:59 14:59 22:59 Intake Total 2500 1155 200 Output Total 955 1020 215 Balance 1545 135 -15 Weight 131 lb 1.6 oz Intake: Intake, IV Amount 1200 1125 200 L Port Y Site 200 200 Left External Jugular 100 Left Port-A-Cath 1000 925 100 Blood Product 650 Red Blood Cells Cpd As1 325 Lr Unit [id number] Other 650 30 Red Blood Cells Cpd As1 50 Lr Unit [id number] Output: Urine 755 820 215 Urethral ([place]) 755 820 215 Stool 200 200 Other: # Bowel Movements 1 1 - Medications Active Medications: Active Medications Generic Name Dose Route Start Last Admin Trade Name Aroldoq PRN Reason Stop Dose Admin Famotidine 20 mg 08/29/17 22:00 Pepcid IVP Q12 HAN Gabapentin 400 mg 08/25/17 10:00 08/29/17 10:22 Neurontin PO 400 mg DAILY HAN Administration Home Med 25 mg 08/25/17 10:00 Exemestane [Aromasin] PO DAILY HAN Aztreonam 2 gm/ Sodium 100 mls @ 200 mls/hr 08/25/17 01:00 08/29/17 16:05 Chloride IVPB 200 mls/hr Q8H HAN Administration Acyclovir 500 mg/ Sodium 100 mls @ 100 mls/hr 08/25/17 18:00 08/29/17 10:23 Chloride IV 100 mls/hr Q8H HAN Administration Sodium Bicarbonate 50 meq/ 1,000 mls @ 100 mls/hr 08/29/17 11:30 08/29/17 12: 26 Dextrose IV 100 mls/hr .Q10H HAN Administration Magnesium Oxide 400 mg 08/25/17 10:00 08/29/17 10:22 Mag-Ox PO 400 mg DAILY HAN Administration Polyethylene Glycol 17 gm 08/27/17 10:00 08/29/17 10:17 Miralax PO Not Given BID HAN - Patient Studies Lab Studies: Microbiology Studies 12/28/17 14:15 Blood Culture - Final Blood NO GROWTH AFTER 5 DAYS Gram Stain - Final TEST NOT PERFORMED 08/24/17 14:45 Blood Culture - Final Blood NO GROWTH AFTER 5 DAYS Gram Stain - Final TEST NOT PERFORMED 08/25/17 19:55 Gram Stain - Final Cerebral Spinal Fluid CSF Culture - Preliminary NO GROWTH AFTER 4 DAYS Lab Studies 08/29/17 08/29/17 08/29/17 Range/Units 06:20 06:20 06:20 WBC 1.2 L* (4.8-10.8) K/uL RBC 2.55 L (3.80-5.20) Mil/uL Hgb 7.8 L (11.0-16.0) g/dL Hct 23.3 L (34.0-47.0) % MCV 91.6 D (81.0-99.0) fL MCH 30.8 (27.0-31.0) pg MCHC 33.6 (33.0-37.0) g/dL RDW 19.5 H (11.5-14.5) % Plt Count 35 L D (130-400) K/uL MPV 9.1 (7.2-11.7) fL Neut % (Auto) 84.0 H (50.0-75.0) % Lymph % (Auto) 14.0 L (20.0-40.0) % [place] % (Auto) 0.0 (0.0-10.0) % Eos % (Auto) 0.0 (0.0-4.0) % Baso % (Auto) 2.0 (0.0-2.0) % Neut # 1.0 L (1.8-7.0) K/uL Lymph # 0.2 L (1.0-4.3) K/uL [place] # 0.0 (0.0-0.8) K/uL Eos # 0.0 (0.0-0.7) K/uL Baso # 0.0 (0.0-0.2) K/uL Neutrophils % (Manual) (50-75) % Lymphocytes % (Manual) (20-40) % Monocytes % (Manual) (0-10) % Platelet Estimate (NORMAL) Large Platelets Hypochromasia (manual) Poikilocytosis (manual Anisocytosis (manual) Macrocytosis (manual) Target Cells Mariah Cells Schistocytes Puncture Site pCO2 (35-45) mm/Hg pO2 (80-100) mm/Hg HCO3 (21-28) mmol/L ABG pH (7.35-7.45) ABG Total CO2 (22-28) mmol/L ABG O2 Saturation (95-98) % ABG Base Excess (-2.0-3.0) mmol/L Ranjith Test ABG Potassium (3.6-5.2) mmol/L A-a O2 Difference mm/Hg Respiratory Index Sodium 164 H* (132-148) mmol/l Chloride 147 H (98-107) mmol/L Glucose (65-105) mg/dl Lactate (0.7-2.1) mmol/L FiO2 % Crit Value Called To Crit Value Called By Crit Value Read Back Blood Gas Notified Time Potassium 3.8 (3.6-5.2) mmol/L Carbon Dioxide 9 L* (22-30) mmol/L Anion Gap 11 (10-20) BUN 24 H (7-17) mg/dL Creatinine 1.4 H (0.7-1.2) mg/dL Est GFR ( Amer) 46 Est GFR (Non-Af Amer) 38 Random Glucose 139 H (65-105) mg/dL Calcium 7.1 L (8.6-10.4) mg/dl Phosphorus 1.7 L (2.5-4.5) mg/dL Magnesium 1.7 (1.6-2.3) mg/dL Total Bilirubin 1.4 H (0.2-1.3) mg/dL AST 89 H (14-36) U/L ALT 85 H (9-52) U/L Alkaline Phosphatase 586 H (38-126) U/L Total Protein 5.2 L (6.3-8.3) g/dL Albumin 2.1 L (3.5-5.0) g/dL Globulin 3.1 (2.2-3.9) gm/dL Albumin/Globulin Ratio 0.7 L (1.0-2.1) Arterial Blood Potassium (3.6-5.2) mmol/L Urine Color (YELLOW) Urine Clarity (Clear) Urine pH (5.0-8.0) Ur Specific [place] (1.003-1.030) Urine Protein (NEGATIVE) mg/dL Urine Glucose (UA) (Normal) mg/dL Urine Ketones (NEGATIVE) mg/dL Urine Blood (NEGATIVE) Urine Nitrate (NEGATIVE) Urine Bilirubin (NEGATIVE) Urine Urobilinogen (0.2-1.0) mg/dL Ur Leukocyte Esterase (Negative) Agustín/uL Urine WBC (Auto) (0-5) /hpf Urine RBC (Auto) (0-3) /hpf Urine Bacteria (<OCC) Urine Osmolality (300-1000) mosm/kg Ur Random Sodium mmol/L Ur Random Potassium mmol/L Ur Random Calcium mg/dL Vancomycin Trough 71.4 H (5.0-10.0) ug/mL Blood Type Antibody Screen 08/28/17 08/28/17 08/28/17 Range/Units 22:33 22:33 22:33 WBC 2.0 L* D (4.8-10.8) K/uL RBC 2.03 L (3.80-5.20) Mil/uL Hgb 6.3 L* (11.0-16.0) g/dL Hct 19.2 L (34.0-47.0) % MCV 94.1 (81.0-99.0) fL MCH 30.8 (27.0-31.0) pg MCHC 32.7 L (33.0-37.0) g/dL RDW 26.5 H (11.5-14.5) % Plt Count 58 L D (130-400) K/uL MPV 9.0 (7.2-11.7) fL Neut % (Auto) (50.0-75.0) % Lymph % (Auto) (20.0-40.0) % [place] % (Auto) (0.0-10.0) % Eos % (Auto) (0.0-4.0) % Baso % (Auto) (0.0-2.0) % Neut # (1.8-7.0) K/uL Lymph # (1.0-4.3) K/uL [place] # (0.0-0.8) K/uL Eos # (0.0-0.7) K/uL Baso # (0.0-0.2) K/uL Neutrophils % (Manual) 90 H (50-75) % Lymphocytes % (Manual) 9 L (20-40) % Monocytes % (Manual) 1 (0-10) % Platelet Estimate Decreased L (NORMAL) Large Platelets Present Hypochromasia (manual) Slight Poikilocytosis (manual Slight Anisocytosis (manual) Slight Macrocytosis (manual) Slight Target Cells Slight [place] Cells Slight Schistocytes Slight Puncture Site pCO2 (35-45) mm/Hg pO2 (80-100) mm/Hg HCO3 (21-28) mmol/L ABG pH (7.35-7.45) ABG Total CO2 (22-28) mmol/L ABG O2 Saturation (95-98) % ABG Base Excess (-2.0-3.0) mmol/L Ranjith Test ABG Potassium (3.6-5.2) mmol/L A-a O2 Difference mm/Hg Respiratory Index Sodium 165 H* (132-148) mmol/l Chloride 148 H (98-107) mmol/L Glucose (65-105) mg/dl Lactate (0.7-2.1) mmol/L FiO2 % Crit Value Called To Crit Value Called By Crit Value Read Back Blood Gas Notified Time Potassium 4.2 (3.6-5.2) mmol/L Carbon Dioxide 9 L* (22-30) mmol/L Anion Gap 13 (10-20) BUN 24 H (7-17) mg/dL Creatinine 1.4 H (0.7-1.2) mg/dL Est GFR ( Amer) 46 Est GFR (Non-Af Amer) 38 Random Glucose 143 H (65-105) mg/dL Calcium 7.4 L (8.6-10.4) mg/dl Phosphorus 1.7 L (2.5-4.5) mg/dL Magnesium 1.9 (1.6-2.3) mg/dL Total Bilirubin 1.1 (0.2-1.3) mg/dL AST 92 H (14-36) U/L ALT 92 H (9-52) U/L Alkaline Phosphatase 654 H D (38-126) U/L Total Protein 5.5 L (6.3-8.3) g/dL Albumin 2.2 L (3.5-5.0) g/dL Globulin 3.2 (2.2-3.9) gm/dL Albumin/Globulin Ratio 0.7 L (1.0-2.1) Arterial Blood Potassium (3.6-5.2) mmol/L Urine Color (YELLOW) Urine Clarity (Clear) Urine pH (5.0-8.0) Ur Specific [place] (1.003-1.030) Urine Protein (NEGATIVE) mg/dL Urine Glucose (UA) (Normal) mg/dL Urine Ketones (NEGATIVE) mg/dL Urine Blood (NEGATIVE) Urine Nitrate (NEGATIVE) Urine Bilirubin (NEGATIVE) Urine Urobilinogen (0.2-1.0) mg/dL Ur Leukocyte Esterase (Negative) Agustín/uL Urine WBC (Auto) (0-5) /hpf Urine RBC (Auto) (0-3) /hpf Urine Bacteria (<OCC) Urine Osmolality (300-1000) mosm/kg Ur Random Sodium 31 mmol/L Ur Random Potassium 35.2 mmol/L Ur Random Calcium < 1.0 mg/dL Vancomycin Trough (5.0-10.0) ug/mL Blood Type Antibody Screen 08/28/17 08/28/17 08/28/17 Range/Units 22:25 18:25 18:25 WBC (4.8-10.8) K/uL RBC (3.80-5.20) Mil/uL Hgb (11.0-16.0) g/dL Hct (34.0-47.0) % MCV (81.0-99.0) fL MCH (27.0-31.0) pg MCHC (33.0-37.0) g/dL RDW (11.5-14.5) % Plt Count (130-400) K/uL MPV (7.2-11.7) fL Neut % (Auto) (50.0-75.0) % Lymph % (Auto) (20.0-40.0) % [place] % (Auto) (0.0-10.0) % Eos % (Auto) (0.0-4.0) % Baso % (Auto) (0.0-2.0) % Neut # (1.8-7.0) K/uL Lymph # (1.0-4.3) K/uL [place] # (0.0-0.8) K/uL Eos # (0.0-0.7) K/uL Baso # (0.0-0.2) K/uL Neutrophils % (Manual) (50-75) % Lymphocytes % (Manual) (20-40) % Monocytes % (Manual) (0-10) % Platelet Estimate (NORMAL) Large Platelets Hypochromasia (manual) Poikilocytosis (manual Anisocytosis (manual) Macrocytosis (manual) Target Cells [place] Cells Schistocytes Puncture Site Rba pCO2 18 L* (35-45) mm/Hg pO2 171 H (80-100) mm/Hg HCO3 12.3 L (21-28) mmol/L ABG pH 7.27 L (7.35-7.45) ABG Total CO2 8.9 L (22-28) mmol/L ABG O2 Saturation 99.9 H (95-98) % ABG Base Excess -16.2 L (-2.0-3.0) mmol/L Ranjith Test Pos ABG Potassium 4.1 (3.6-5.2) mmol/L A-a O2 Difference 35.0 mm/Hg Respiratory Index 0.2 Sodium 168.0 H* (132-148) mmol/l Chloride 150.0 H (98-107) mmol/L Glucose 146 H (65-105) mg/dl Lactate 0.9 (0.7-2.1) mmol/L FiO2 32.0 % Crit Value Called To Dr gonzales Crit Value Called By [facility] Crit Value Read Back Y Blood Gas Notified Time 2230 Potassium (3.6-5.2) mmol/L Carbon Dioxide (22-30) mmol/L Anion Gap (10-20) BUN (7-17) mg/dL Creatinine (0.7-1.2) mg/dL Est GFR ( Amer) Est GFR (Non-Af Amer) Random Glucose (65-105) mg/dL Calcium (8.6-10.4) mg/dl Phosphorus (2.5-4.5) mg/dL Magnesium (1.6-2.3) mg/dL Total Bilirubin (0.2-1.3) mg/dL AST (14-36) U/L ALT (9-52) U/L Alkaline Phosphatase (38-126) U/L Total Protein (6.3-8.3) g/dL Albumin (3.5-5.0) g/dL Globulin (2.2-3.9) gm/dL Albumin/Globulin Ratio (1.0-2.1) Arterial Blood Potassium 4.1 (3.6-5.2) mmol/L Urine Color Yellow (YELLOW) Urine Clarity Hazy (Clear) Urine pH 5.0 (5.0-8.0) Ur Specific [place] 1.010 (1.003-1.030) Urine Protein 2+ H (NEGATIVE) mg/dL Urine Glucose (UA) 3+ H (Normal) mg/dL Urine Ketones Negative (NEGATIVE) mg/dL Urine Blood 3+ H (NEGATIVE) Urine Nitrate Negative (NEGATIVE) Urine Bilirubin Negative (NEGATIVE) Urine Urobilinogen Normal (0.2-1.0) mg/dL Ur Leukocyte Esterase Trace (Negative) Agustín/uL Urine WBC (Auto) 5 (0-5) /hpf Urine RBC (Auto) 52 H (0-3) /hpf Urine Bacteria Rare (<OCC) Urine Osmolality 291 L (300-1000) mosm/kg Ur Random Sodium 31 mmol/L Ur Random Potassium 36.0 mmol/L Ur Random Calcium mg/dL Vancomycin Trough (5.0-10.0) ug/mL Blood Type Antibody Screen 08/26/17 Range/Units 09:12 WBC (4.8-10.8) K/uL RBC (3.80-5.20) Mil/uL Hgb (11.0-16.0) g/dL Hct (34.0-47.0) % MCV (81.0-99.0) fL MCH (27.0-31.0) pg MCHC (33.0-37.0) g/dL RDW (11.5-14.5) % Plt Count (130-400) K/uL MPV (7.2-11.7) fL Neut % (Auto) (50.0-75.0) % Lymph % (Auto) (20.0-40.0) % [place] % (Auto) (0.0-10.0) % Eos % (Auto) (0.0-4.0) % Baso % (Auto) (0.0-2.0) % Neut # (1.8-7.0) K/uL Lymph # (1.0-4.3) K/uL [place] # (0.0-0.8) K/uL Eos # (0.0-0.7) K/uL Baso # (0.0-0.2) K/uL Neutrophils % (Manual) (50-75) % Lymphocytes % (Manual) (20-40) % Monocytes % (Manual) (0-10) % Platelet Estimate (NORMAL) Large Platelets Hypochromasia (manual) Poikilocytosis (manual Anisocytosis (manual) Macrocytosis (manual) Target Cells Mariah Cells Schistocytes Puncture Site pCO2 (35-45) mm/Hg pO2 (80-100) mm/Hg HCO3 (21-28) mmol/L ABG pH (7.35-7.45) ABG Total CO2 (22-28) mmol/L ABG O2 Saturation (95-98) % ABG Base Excess (-2.0-3.0) mmol/L Ranjith Test ABG Potassium (3.6-5.2) mmol/L A-a O2 Difference mm/Hg Respiratory Index Sodium (132-148) mmol/l Chloride (98-107) mmol/L Glucose (65-105) mg/dl Lactate (0.7-2.1) mmol/L FiO2 % Crit Value Called To Crit Value Called By Crit Value Read Back Blood Gas Notified Time Potassium (3.6-5.2) mmol/L Carbon Dioxide (22-30) mmol/L Anion Gap (10-20) BUN (7-17) mg/dL Creatinine (0.7-1.2) mg/dL Est GFR ( Amer) Est GFR (Non-Af Amer) Random Glucose (65-105) mg/dL Calcium (8.6-10.4) mg/dl Phosphorus (2.5-4.5) mg/dL Magnesium (1.6-2.3) mg/dL Total Bilirubin (0.2-1.3) mg/dL AST (14-36) U/L ALT (9-52) U/L Alkaline Phosphatase (38-126) U/L Total Protein (6.3-8.3) g/dL Albumin (3.5-5.0) g/dL Globulin (2.2-3.9) gm/dL Albumin/Globulin Ratio (1.0-2.1) Arterial Blood Potassium (3.6-5.2) mmol/L Urine Color (YELLOW) Urine Clarity (Clear) Urine pH (5.0-8.0) Ur Specific [place] (1.003-1.030) Urine Protein (NEGATIVE) mg/dL Urine Glucose (UA) (Normal) mg/dL Urine Ketones (NEGATIVE) mg/dL Urine Blood (NEGATIVE) Urine Nitrate (NEGATIVE) Urine Bilirubin (NEGATIVE) Urine Urobilinogen (0.2-1.0) mg/dL Ur Leukocyte Esterase (Negative) Agustín/uL Urine WBC (Auto) (0-5) /hpf Urine RBC (Auto) (0-3) /hpf Urine Bacteria (<OCC) Urine Osmolality (300-1000) mosm/kg Ur Random Sodium mmol/L Ur Random Potassium mmol/L Ur Random Calcium mg/dL Vancomycin Trough (5.0-10.0) ug/mL Blood Type B POSITIVE Antibody Screen Negative Laboratory Results - last 24 hr 08/26/17 08/28/17 08/28/17 09:12 18:25 18:25 WBC RBC Hgb Hct MCV MCH MCHC RDW Plt Count MPV Neut % (Auto) Lymph % (Auto) [place] % (Auto) Eos % (Auto) Baso % (Auto) Neut # Lymph # [place] # Eos # Baso # Neutrophils % (Manual) Lymphocytes % (Manual) Monocytes % (Manual) Platelet Estimate Large Platelets Hypochromasia (manual) Poikilocytosis (manual Anisocytosis (manual) Macrocytosis (manual) Target Cells [place] Cells Schistocytes Puncture Site pCO2 pO2 HCO3 ABG pH ABG Total CO2 ABG O2 Saturation ABG Base Excess Ranjith Test ABG Potassium A-a O2 Difference Respiratory Index Sodium Chloride Glucose Lactate FiO2 Crit Value Called To Crit Value Called By Crit Value Read Back Blood Gas Notified Time Potassium Carbon Dioxide Anion Gap BUN Creatinine Est GFR ( Amer) Est GFR (Non-Af Amer) Random Glucose Calcium Phosphorus Magnesium Total Bilirubin AST ALT Alkaline Phosphatase Total Protein Albumin Globulin Albumin/Globulin Ratio Arterial Blood Potassium Urine Color Yellow Urine Clarity Hazy Urine pH 5.0 Ur Specific [place] 1.010 Urine Protein 2+ H Urine Glucose (UA) 3+ H Urine Ketones Negative Urine Blood 3+ H Urine Nitrate Negative Urine Bilirubin Negative Urine Urobilinogen Normal Ur Leukocyte Esterase Trace Urine WBC (Auto) 5 Urine RBC (Auto) 52 H Urine Bacteria Rare Urine Osmolality 291 L Ur Random Sodium 31 Ur Random Potassium 36.0 Ur Random Calcium Vancomycin Trough Blood Type B POSITIVE Antibody Screen Negative 08/28/17 08/28/17 08/28/17 22:25 22:33 22:33 WBC 2.0 L* D RBC 2.03 L Hgb 6.3 L* Hct 19.2 L MCV 94.1 MCH 30.8 MCHC 32.7 L RDW 26.5 H Plt Count 58 L D MPV 9.0 Neut % (Auto) Lymph % (Auto) [place] % (Auto) Eos % (Auto) Baso % (Auto) Neut # Lymph # [place] # Eos # Baso # Neutrophils % (Manual) 90 H Lymphocytes % (Manual) 9 L Monocytes % (Manual) 1 Platelet Estimate Decreased L Large Platelets Present Hypochromasia (manual) Slight Poikilocytosis (manual Slight Anisocytosis (manual) Slight Macrocytosis (manual) Slight Target Cells Slight [place] Cells Slight Schistocytes Slight Puncture Site Rba pCO2 18 L* pO2 171 H HCO3 12.3 L ABG pH 7.27 L ABG Total CO2 8.9 L ABG O2 Saturation 99.9 H ABG Base Excess -16.2 L Ranjith Test Pos ABG Potassium 4.1 A-a O2 Difference 35.0 Respiratory Index 0.2 Sodium 168.0 H* 165 H* Chloride 150.0 H 148 H Glucose 146 H Lactate 0.9 FiO2 32.0 Crit Value Called To Dr gonzales Crit Value Called By [facility] Crit Value Read Back Y Blood Gas Notified Time 2230 Potassium 4.2 Carbon Dioxide 9 L* Anion Gap 13 BUN 24 H Creatinine 1.4 H Est GFR ( Amer) 46 Est GFR (Non-Af Amer) 38 Random Glucose 143 H Calcium 7.4 L Phosphorus 1.7 L Magnesium 1.9 Total Bilirubin 1.1 AST 92 H ALT 92 H Alkaline Phosphatase 654 H D Total Protein 5.5 L Albumin 2.2 L Globulin 3.2 Albumin/Globulin Ratio 0.7 L Arterial Blood Potassium 4.1 Urine Color Urine Clarity Urine pH Ur Specific [place] Urine Protein Urine Glucose (UA) Urine Ketones Urine Blood Urine Nitrate Urine Bilirubin Urine Urobilinogen Ur Leukocyte Esterase Urine WBC (Auto) Urine RBC (Auto) Urine Bacteria Urine Osmolality Ur Random Sodium Ur Random Potassium Ur Random Calcium Vancomycin Trough Blood Type Antibody Screen 08/28/17 08/29/1708/29/18 22:33 06:20 06:20 WBC RBC Hgb Hct MCV MCH MCHC RDW Plt Count MPV Neut % (Auto) Lymph % (Auto) [place] % (Auto) Eos % (Auto) Baso % (Auto) Neut # Lymph # [place] # Eos # Baso # Neutrophils % (Manual) Lymphocytes % (Manual) Monocytes % (Manual) Platelet Estimate Large Platelets Hypochromasia (manual) Poikilocytosis (manual Anisocytosis (manual) Macrocytosis (manual) Target Cells Mariah Cells Schistocytes Puncture Site pCO2 pO2 HCO3 ABG pH ABG Total CO2 ABG O2 Saturation ABG Base Excess Ranjith Test ABG Potassium A-a O2 Difference Respiratory Index Sodium 164 H* Chloride 147 H Glucose Lactate FiO2 Crit Value Called To Crit Value Called By Crit Value Read Back Blood Gas Notified Time Potassium 3.8 Carbon Dioxide 9 L* Anion Gap 11 BUN 24 H Creatinine 1.4 H Est GFR ( Amer) 46 Est GFR (Non-Af Amer) 38 Random Glucose 139 H Calcium 7.1 L Phosphorus 1.7 L Magnesium 1.7 Total Bilirubin 1.4 H AST 89 H ALT 85 H Alkaline Phosphatase 586 H Total Protein 5.2 L Albumin 2.1 L Globulin 3.1 Albumin/Globulin Ratio 0.7 L Arterial Blood Potassium Urine Color Urine Clarity Urine pH Ur Specific [place] Urine Protein Urine Glucose (UA) Urine Ketones Urine Blood Urine Nitrate Urine Bilirubin Urine Urobilinogen Ur Leukocyte Esterase Urine WBC (Auto) Urine RBC (Auto) Urine Bacteria Urine Osmolality Ur Random Sodium 31 Ur Random Potassium 35.2 Ur Random Calcium < 1.0 Vancomycin Trough 71.4 H Blood Type Antibody Screen 08/29/17 06:20 WBC 1.2 L* RBC 2.55 L Hgb 7.8 L Hct 23.3 L MCV 91.6 D MCH 30.8 MCHC 33.6 RDW 19.5 H Plt Count 35 L D MPV 9.1 Neut % (Auto) 84.0 H Lymph % (Auto) 14.0 L [place] % (Auto) 0.0 Eos % (Auto) 0.0 Baso % (Auto) 2.0 Neut # 1.0 L Lymph # 0.2 L [place] # 0.0 Eos # 0.0 Baso # 0.0 Neutrophils % (Manual) Lymphocytes % (Manual) Monocytes % (Manual) Platelet Estimate Large Platelets Hypochromasia (manual) Poikilocytosis (manual Anisocytosis (manual) Macrocytosis (manual) Target Cells Mariah Cells Schistocytes Puncture Site pCO2 pO2 HCO3 ABG pH ABG Total CO2 ABG O2 Saturation ABG Base Excess Ranjith Test ABG Potassium A-a O2 Difference Respiratory Index Sodium Chloride Glucose Lactate FiO2 Crit Value Called To Crit Value Called By Crit Value Read Back Blood Gas Notified Time Potassium Carbon Dioxide Anion Gap BUN Creatinine Est GFR ( Amer) Est GFR (Non-Af Amer) Random Glucose Calcium Phosphorus Magnesium Total Bilirubin AST ALT Alkaline Phosphatase Total Protein Albumin Globulin Albumin/Globulin Ratio Arterial Blood Potassium Urine Color Urine Clarity Urine pH Ur Specific [place] Urine Protein Urine Glucose (UA) Urine Ketones Urine Blood Urine Nitrate Urine Bilirubin Urine Urobilinogen Ur Leukocyte Esterase Urine WBC (Auto) Urine RBC (Auto) Urine Bacteria Urine Osmolality Ur Random Sodium Ur Random Potassium Ur Random Calcium Vancomycin Trough Blood Type Antibody Screen Critical Care Progress Note - Nutrition Nutrition: Nutrition Category Date Time Status NPO Diet [DIET] Diets 08/29/17 Breakfast Active Assessment/Plan (1) Change in mental status Current Visit: Yes Status: Acute Comment: most likely secondary to meningitis Status post lumbar puncture with elevated protein Continue IV antibiotics Neurology follow-up Continue ICU observation Attending/Attestation - Attestation I have personally seen and examined this patient.: Yes I have fully participated in the care of the patient.: Yes I have reviewed all pertinent clinical information: Yes Notes (Text): 08/29/17 17:02 I have seen and examined the patient. Medical records, lab studies, and imaging were reviewed by me and a management plan was formulated on multidisciplinary rounds with resident Dr. Espitia. I agree with their documented assessment and plan. Patient's hypernatremia slowly improving, but may have to consider that she has diabetes insipidus. Would consider administering DDAVP. Will discuss with nephrology environmental consultant. Also discussed DNR/DNI and hospice options with family, awaiting decision. Critical Care Time 35 minutes. Multi-disciplinary rounds were performed with house staff, nursing, speech therapy, respiratory therapy, pharmacy and nutrition with integrated input from the primary team/attending and other consulting services. The documented time is cumulative and includes review of patient data/exams/labs/chart review and examination of the patient on rounds and throughout the day; time is exclusive of any procedures or teaching time.
--- NOTE | 2017-08-29 16:35 | CP.PCM.PN ---
Subjective - Date & Time of Evaluation Date of Evaluation: 08/29/17 Time of Evaluation: 08:00 - Subjective Subjective: less agitated remains confused / bedridden NAD Objective - Vital Signs/Intake and Output Vital Signs (last 24 hours): Temp Pulse Resp BP Pulse Ox 98.1 F 108 H 16 105/69 100 08/29/17 16:00 08/29/17 16:00 08/29/17 16:00 08/29/17 16:00 08/29/17 16:00 Intake and Output: 08/29/17 08/29/17 06:59 18:59 Intake Total 3200 1355 Output Total 1855 1235 Balance 1345 120 - Medications Medications: Current Medications Famotidine (Pepcid) 20 mg IVP Q12 [facility] Gabapentin (Neurontin) 400 mg PO DAILY [facility] Last Admin: 08/29/17 10:22 Dose: 400 mg Home Med (Exemestane [Aromasin]) 25 mg PO DAILY [facility] Aztreonam 2 gm/ Sodium (Chloride) 100 mls @ 200 mls/hr IVPB Q8H [facility] Last Admin: 08/29/17 16:05 Dose: 200 mls/hr Vancomycin/Sodium Chloride (Vancomycin 1 Gm/Ns 200 Ml) 1 gm in 200 mls @ 133.333 mls/hr IVPB Q12H [facility] Stop: 08/30/17 22:01 Last Admin: 08/29/17 10:18 Dose: Not Given Acyclovir 500 mg/ Sodium (Chloride) 100 mls @ 100 mls/hr IV Q8H [facility] Last Admin: 08/29/17 10:23 Dose: 100 mls/hr Sodium Bicarbonate 50 meq/ (Dextrose) 1,000 mls @ 100 mls/hr IV .Q10H [facility] Last Admin: 08/29/17 12:26 Dose: 100 mls/hr Magnesium Oxide (Mag-Ox) 400 mg PO DAILY [facility] Last Admin: 08/29/17 10:22 Dose: 400 mg Polyethylene Glycol (Miralax) 17 gm PO BID [facility] Last Admin: 08/29/17 10:17 Dose: Not Given - Labs Labs: 08/29/17 06:20 08/29/17 06:20 PT 17.2 SECONDS (9.7-12.2) H D 08/28/17 06:43 INR 1.5 D 08/28/17 06:43 APTT 32 SECONDS (21-34) D 08/28/17 06:43 - Constitutional Appears: Non-toxic, No Acute Distress - Head Exam Head Exam: NORMOCEPHALIC - Eye Exam Eye Exam: absent: Nystagmus - ENT Exam ENT Exam: Mucous Membranes Dry - Neck Exam Neck Exam: absent: Lymphadenopathy - Respiratory Exam Respiratory Exam: Decreased Breath Sounds, Rhonchi - Cardiovascular Exam Cardiovascular Exam: REGULAR RHYTHM, +S1, +S2 - GI/Abdominal Exam GI & Abdominal Exam: Distended, Soft - Rectal Exam Rectal Exam: Deferred - Exam Exam: NORMAL INSPECTION - Extremities Exam Extremities Exam: Full ROM - Back Exam Back Exam: absent: CVA tenderness (L), CVA tenderness (R) - Neurological Exam Neurological Exam: Altered Assessment and Plan (1) Change in mental status Status: Acute (2) Leukocytosis Status: Acute (3) Metastatic cancer to liver Status: Acute (4) Ovarian ca Status: Acute - Assessment and Plan (Free Text) Assessment: cont empiric rx
--- NOTE | 2017-08-29 17:21 | CP.PCM.PN ---
Subjective - Date & Time of Evaluation Date of Evaluation: 08/29/17 Time of Evaluation: 17:19 - Subjective Subjective: patient was seen and examined no events unable to obtain ros due to ams labs noted Objective - Vital Signs/Intake and Output Vital Signs (last 24 hours): Temp Pulse Resp BP Pulse Ox 98.1 F 124 H 16 135/76 100 08/29/17 16:00 08/29/17 17:00 08/29/17 17:00 08/29/17 17:00 08/29/17 17:00 Intake and Output: 08/29/17 08/29/17 06:59 18:59 Intake Total 3200 1655 Output Total 1855 1515 Balance 1345 140 - Medications Medications: Current Medications Famotidine (Pepcid) 20 mg IVP Q12 [facility] Gabapentin (Neurontin) 400 mg PO DAILY [facility] Last Admin: 08/29/17 10:22 Dose: 400 mg Home Med (Exemestane [Aromasin]) 25 mg PO DAILY [facility] Aztreonam 2 gm/ Sodium (Chloride) 100 mls @ 200 mls/hr IVPB Q8H [facility] Last Admin: 08/29/17 16:05 Dose: 200 mls/hr Acyclovir 500 mg/ Sodium (Chloride) 100 mls @ 100 mls/hr IV Q8H [facility] Last Admin: 08/29/17 17:05 Dose: 100 mls/hr Sodium Bicarbonate 50 meq/ (Dextrose) 1,000 mls @ 100 mls/hr IV .Q10H [facility] Last Admin: 08/29/17 12:26 Dose: 100 mls/hr Magnesium Oxide (Mag-Ox) 400 mg PO DAILY [facility] Last Admin: 08/29/17 10:22 Dose: 400 mg Polyethylene Glycol (Miralax) 17 gm PO BID [facility] Last Admin: 08/29/17 17:07 Dose: Not Given - Labs Labs: 08/29/17 06:20 08/29/17 06:20 PT 17.2 SECONDS (9.7-12.2) H D 08/28/17 06:43 INR 1.5 D 08/28/17 06:43 APTT 32 SECONDS (21-34) D 08/28/17 06:43 - Constitutional Appears: No Acute Distress, Unkempt, Agitated, Confused, Chronically Ill - Head Exam Head Exam: NORMAL INSPECTION - Eye Exam Eye Exam: Normal appearance, PERRL - ENT Exam ENT Exam: Mucous Membranes Dry - Neck Exam Neck Exam: Full ROM, Normal Inspection - Respiratory Exam Respiratory Exam: Decreased Breath Sounds, NORMAL BREATHING PATTERN - Cardiovascular Exam Cardiovascular Exam: Tachycardia, REGULAR RHYTHM - GI/Abdominal Exam GI & Abdominal Exam: Distended, Soft, Normal Bowel Sounds - Extremities Exam Extremities Exam: Normal Inspection, Pedal Edema - Neurological Exam Neurological Exam: Altered, Awake - Skin Skin Exam: Dry Assessment and Plan (1) Metabolic acidemia Status: Acute (2) Change in mental status Status: Acute (3) Coagulopathy Status: Acute (4) Hypernatremia Status: Acute (5) Metastatic cancer to liver Status: Acute (6) Thrombocytopenia Status: Acute - Assessment and Plan (Free Text) Assessment: improving sodium fluid overload on exam -change ivf to bicarb gtt -lower ivf rate
[2017-08-29] MEDS ORDERED: Potassium Phosphate 3 mmol/ml Inj IV ONE (17:22)
[2017-08-29] MEDS ORDERED: POTASSIUM PHOSPHATE IV ONE (18:00)
[2017-08-29] MEDS ORDERED: SODIUM CHLORIDE IV ONE (18:00)
[2017-08-29] MEDS: WATER IV SCH (18:04)
[2017-08-29] MEDS: DEXTROSE 5% IV SCH (18:04)
[2017-08-29] MEDS: SODIUM BICARBONATE IV SCH (18:04)
--- NOTE | 2017-08-29 20:09 | CARD ---
APPROVED REPORT EKG Measurement Heart [id number] <Conclusion> Sinus tachycardia with short [place] Nonspecific ST and T wave abnormality Abnormal ECG
[2017-08-30] MEDS: Acyclovir 500 MG in Sodium Chloride 0.9% 100 ML IV SCH ×3 (02:30→18:18)
[2017-08-30 06:28] LABS: HEMOGLOBIN 6.9 g/dL (11.0-16.0); MEAN CELL VOLUME 89.4 fL (81.0-99.0); MEAN CORPUSCULAR HGB CONC 33.6 g/dL (33.0-37.0); MEAN PLATELET VOLUME 9.9 fL (7.2-11.7); RBC 2.29 Mil/uL (3.80-5.20); RED CELL DISTRIBUTION WIDTH 20.8 % (11.5-14.5)
[2017-08-30 06:35] LABS: WHITE BLOOD COUNT 0.4 K/uL (4.8-10.8)
[2017-08-30 06:40] LABS: ALB/GLOB RATIO 0.7 (1.0-2.1); ALBUMIN 2.2 g/dL (3.5-5.0); CALCIUM 7.4 mg/dl (8.6-10.4); MAGNESIUM 1.6 mg/dL (1.6-2.3)
[2017-08-30] MEDS: WATER IV SCH ×3 (07:00→22:26)
[2017-08-30] MEDS: SODIUM BICARBONATE IV SCH ×3 (07:00→22:26)
[2017-08-30] MEDS: DEXTROSE 5% IV SCH ×3 (07:00→22:26)
[2017-08-30] MEDS: Aztreonam 2 GM in Sodium Chloride 0.9% 100 ML IVPB SCH ×3 (08:12→17:39)
[2017-08-30 09:42] LABS: LYMPH # 0.2 K/uL (1.0-4.3); NEUT # 0.2 K/uL (1.8-7.0)
[2017-08-30] MEDS: Magnesium Oxide 400 mg Tab UD PO SCH (10:00)
--- NOTE | 2017-08-30 10:23 | EEG ---
DATE: 08/29/2017 This is a 16-channel electroencephalogram of a lethargic adult. The study was performed at the bedside. The study shows low-amplitude diffuse delta activities seen in bilateral cortical leads associating with some frontal and temporal muscle artifact contaminated the background rhythm. Distal activities continuously noted without any increasing or slowing in the activities. The photic stimulation did not evoke driving response noted at 2 to 20 Hz. IMPRESSION: This is a globally abnormal electroencephalogram because of persistent slowing throughout the record suggestive of bilateral cerebral dysfunction. This is probably secondary to metabolic vascular degenerative process. Please correlate the finding with the neurological and radiological studies. Reginald Badillo MD
[2017-08-30] MEDS: POLYETHYLENE GLYCOL 3350 17 GM/Dose PACKET PO SCH ×2 (10:51→18:18)
--- NOTE | 2017-08-30 11:39 | PN ---
DATE: 08/30/2017 NEUROLOGIC PROBLEM: Encephalopathy secondary to infectious versus malignant process. PHYSICAL EXAMINATION: VITAL SIGNS: Blood pressure 120/71, mean arterial pressure of 79, respiratory rate 18, temperature afebrile with pulse rate of 128. NEUROLOGIC: The patient is arousable on calling name. Moves left upper extremity with diffuse weakness of the leg more than arms. The patient seems to be quadriparetic. Deep tendon reflexes are absent. Plantars are mute. The patient's CSF analysis has been reviewed. Cytology is still pending. The patient's condition had been discussed with the pathologist to address the cytology. When medically stable, the patient should have a repeat MRI of the brain as well as the cervical spine to rule out localized pathology that could explain her problem. However, previous MRI of the brain was contaminated with fully artifactual effect. The patient will be following closely with you. Reginald Badillo MD
[2017-08-30 11:43] LABS: VENOUS BLOOD GAS BASE EXCESS -12.4 mmol/L (0.0-2.0); VENOUS BLOOD GAS PCO2 26 mmHg (40-60); VENOUS BLOOD GAS PO2 32 mm/Hg (30-55); VENOUS BLOOD PH 7.29 (7.32-7.43)
--- NOTE | 2017-08-30 13:01 | CP.CCUPN ---
<Makayla Espitia - Last Filed: 08/30/17 12:57> CCU Subjective - Physician Review Subjective (Free Text): 08/30/17 12:57 Patient seen and examined at bedside. Patient resting in bed. No acute events over night. Patient with AMS and nonverbal at this time. ROS unattainable. CCU Objective - Vital Signs / Intake & Output Vital Signs (Last 4 hours): Vital Signs Pulse Resp BP Pulse Ox 08/30/17 09:01 130 H 17 132/76 100 Intake and Output (Last 8hrs): Intake & Output 08/29/17 08/30/17 08/30/17 22:59 06:59 14:59 Intake Total 1460 1360 70 Output Total 1020 635 100 Balance 440 725 -30 Weight 131 lb 4.8 oz Intake: Intake, IV Amount 1160 760 70 Left External Jugular 450 200 Left Port-A-Cath 710 560 70 Tube Feeding 300 Other 600 Output: Urine 820 635 100 Urethral ([place]) 820 635 100 Stool 200 Other: # Bowel Movements 1 1 - Physical Exam Head: Positive for: Atraumatic, Normocephalic Extroacular Muscles: Negative for: Gaze Palsy Mouth: Positive for: Moist Mucous Membranes Neck: Negative for: JVD, Lymphadenopathy Respiratory/Chest: Positive for: Clear to Auscultation, Good Air Exchange. Negative for: Wheezes, Rales, Rhonchi Cardiovascular: Positive for: Normal S1, S2, Tachycardic Abdomen: Positive for: Tenderness, Distention, Normal Bowel Sounds. Negative for: Peritoneal Signs, Guarding Upper Extremity: Positive for: Normal Inspection, Tenderness (generalized ). Negative for: Cyanosis, Edema Lower Extremity: Positive for: Edema, Tenderness (generalized ) Neurological: Positive for: Other (GCS=10 ) Skin: Positive for: Warm, Dry, Erythematous (feet b/l ). Negative for: Rashes Psychiatric: Positive for: Alert - Medications Active Medications: Active Medications Generic Name Dose Route Start Last Admin Trade Name Freq PRN Reason Stop Dose Admin Famotidine 20 mg 08/29/17 22:00 08/30/17 10:00 Pepcid IVP 20 mg Q12 HAN Administration Gabapentin 400 mg 08/25/17 10:00 08/30/17 10:00 Neurontin PO 400 mg DAILY HAN Administration Home Med 25 mg 08/25/17 10:00 Exemestane [Aromasin] PO DAILY HAN Aztreonam 2 gm/ Sodium 100 mls @ 200 mls/hr 08/25/17 01:00 08/30/17 08:12 Chloride IVPB 200 mls/hr Q8H HAN Administration Acyclovir 500 mg/ Sodium 100 mls @ 100 mls/hr 08/25/17 18:00 08/30/17 10:00 Chloride IV 100 mls/hr Q8H HAN Administration Sodium Bicarbonate 100 meq/ 1,050 mls @ 70 mls/hr 08/29/17 17:18 08/30/17 08: 27 Dextrose IV Not Given .Q15H HAN Potassium Chloride 20 meq in 100 mls @ 50 mls/hr 08/30/17 08:00 08/30/17 12: 09 Potassium Chloride 20 Meq/100 Ml IVPB 08/30/17 21:59 50 mls/hr Q4 HAN Administration Desmopressin Acetate 1 mcg/ 50.25 mls @ 100 mls/hr 08/30/17 11:00 08/30/17 12 :08 Sodium Chloride IV 100 mls/hr Q12H HAN Administration Magnesium Oxide 400 mg 08/25/17 10:00 08/30/17 10:00 Mag-Ox PO 400 mg DAILY HAN Administration Polyethylene Glycol 17 gm 08/27/17 10:00 08/30/17 10:51 Miralax PO Not Given BID HAN Sodium Bicarbonate 650 mg 08/30/17 00:00 08/30/17 12:27 Sodium Bicarbonate Tab PO 650 mg Q6 HAN Administration - Patient Studies Lab Studies: Microbiology Studies 08/25/17 19:55 Gram Stain - Final Cerebral Spinal Fluid CSF Culture - Final No growth. 08/24/17 14:15 Blood Culture - Final Blood NO GROWTH AFTER 5 DAYS Gram Stain - Final TEST NOT PERFORMED 08/24/17 14:45 Blood Culture - Final Blood NO GROWTH AFTER 5 DAYS Gram Stain - Final TEST NOT PERFORMED Lab Studies 08/30/17 08/30/17 08/30/17 Range/Units 11:40 09:53 06:17 WBC (4.8-10.8) K/uL RBC (3.80-5.20) Mil/uL Hgb (11.0-16.0) g/dL Hct (34.0-47.0) % MCV (81.0-99.0) fL MCH (27.0-31.0) pg MCHC (33.0-37.0) g/dL RDW (11.5-14.5) % Plt Count (130-400) K/uL MPV (7.2-11.7) fL Neut % (Auto) (50.0-75.0) % Lymph % (Auto) (20.0-40.0) % [place] % (Auto) (0.0-10.0) % Eos % (Auto) (0.0-4.0) % Baso % (Auto) (0.0-2.0) % Neut # (1.8-7.0) K/uL Lymph # (1.0-4.3) K/uL [place] # (0.0-0.8) K/uL Eos # (0.0-0.7) K/uL Baso # (0.0-0.2) K/uL Fibrinogen (200-400) mg/dL Puncture Site Venous pO2 32 (30-55) mm/Hg Ranjith Test Na VBG pH 7.29 L (7.32-7.43) VBG pCO2 26 L (40-60) mmHg VBG HCO3 14.0 mmol/L VBG O2 Sat (Calc) 74.2 H (40-65) % VBG Base Excess -12.4 L (0.0-2.0) mmol/L Sodium 158 H (132-148) mmol/L Potassium 2.8 L (3.6-5.2) mmol/L Chloride 139 H (98-107) mmol/L Carbon Dioxide 14 L (22-30) mmol/L Anion Gap 8 L (10-20) BUN 25 H (7-17) mg/dL Creatinine 1.4 H (0.7-1.2) mg/dL Est GFR ( Amer) 46 Est GFR (Non-Af Amer) 38 Random Glucose 94 (65-105) mg/dL Calcium 7.4 L (8.6-10.4) mg/dl Phosphorus 2.3 L (2.5-4.5) mg/dL Magnesium 1.6 (1.6-2.3) mg/dL Total Bilirubin 1.2 (0.2-1.3) mg/dL AST 64 H D (14-36) U/L ALT 70 H (9-52) U/L Alkaline Phosphatase 548 H (38-126) U/L Total Protein 5.3 L (6.3-8.3) g/dL Albumin 2.2 L (3.5-5.0) g/dL Globulin 3.1 (2.2-3.9) gm/dL Albumin/Globulin Ratio 0.7 L (1.0-2.1) PTH Intact Whole Molec (14-64) pg/mL Urine Chloride (32-290) mmol/L Random Vancomycin ug/mL Blood Type B POSITIVE Antibody Screen Negative Crossmatch See Detail 08/30/17 08/30/17 08/30/17 Range/Units 06:17 06:15 06:15 WBC 0.4 L* D (4.8-10.8) K/uL RBC 2.29 L (3.80-5.20) Mil/uL Hgb 6.9 L (11.0-16.0) g/dL Hct 20.4 L (34.0-47.0) % MCV 89.4 D (81.0-99.0) fL MCH 30.0 (27.0-31.0) pg MCHC 33.6 (33.0-37.0) g/dL RDW 20.8 H (11.5-14.5) % Plt Count 10 L* D (130-400) K/uL MPV 9.9 (7.2-11.7) fL Neut % (Auto) 52.0 (50.0-75.0) % Lymph % (Auto) 40.0 (20.0-40.0) % [place] % (Auto) 2.0 (0.0-10.0) % Eos % (Auto) 4.0 (0.0-4.0) % Baso % (Auto) 2.0 (0.0-2.0) % Neut # 0.2 L (1.8-7.0) K/uL Lymph # 0.2 L (1.0-4.3) K/uL [place] # 0.0 (0.0-0.8) K/uL Eos # 0.0 (0.0-0.7) K/uL Baso # 0.0 (0.0-0.2) K/uL Fibrinogen 604 H (200-400) mg/dL Puncture Site pO2 (30-55) mm/Hg Ranjith Test VBG pH (7.32-7.43) VBG pCO2 (40-60) mmHg VBG HCO3 mmol/L VBG O2 Sat (Calc) (40-65) % VBG Base Excess (0.0-2.0) mmol/L Sodium (132-148) mmol/L Potassium (3.6-5.2) mmol/L Chloride (98-107) mmol/L Carbon Dioxide (22-30) mmol/L Anion Gap (10-20) BUN (7-17) mg/dL Creatinine (0.7-1.2) mg/dL Est GFR ( Amer) Est GFR (Non-Af Amer) Random Glucose (65-105) mg/dL Calcium (8.6-10.4) mg/dl Phosphorus (2.5-4.5) mg/dL Magnesium (1.6-2.3) mg/dL Total Bilirubin (0.2-1.3) mg/dL AST (14-36) U/L ALT (9-52) U/L Alkaline Phosphatase (38-126) U/L Total Protein (6.3-8.3) g/dL Albumin (3.5-5.0) g/dL Globulin (2.2-3.9) gm/dL Albumin/Globulin Ratio (1.0-2.1) PTH Intact Whole Molec (14-64) pg/mL Urine Chloride (32-290) mmol/L Random Vancomycin 44.17 ug/mL Blood Type Antibody Screen Crossmatch 08/28/17 08/28/17 Range/Units 22:33 14:53 WBC (4.8-10.8) K/uL RBC (3.80-5.20) Mil/uL Hgb (11.0-16.0) g/dL Hct (34.0-47.0) % MCV (81.0-99.0) fL MCH (27.0-31.0) pg MCHC (33.0-37.0) g/dL RDW (11.5-14.5) % Plt Count (130-400) K/uL MPV (7.2-11.7) fL Neut % (Auto) (50.0-75.0) % Lymph % (Auto) (20.0-40.0) % [place] % (Auto) (0.0-10.0) % Eos % (Auto) (0.0-4.0) % Baso % (Auto) (0.0-2.0) % Neut # (1.8-7.0) K/uL Lymph # (1.0-4.3) K/uL [place] # (0.0-0.8) K/uL Eos # (0.0-0.7) K/uL Baso # (0.0-0.2) K/uL Fibrinogen (200-400) mg/dL Puncture Site pO2 (30-55) mm/Hg Ranjith Test VBG pH (7.32-7.43) VBG pCO2 (40-60) mmHg VBG HCO3 mmol/L VBG O2 Sat (Calc) (40-65) % VBG Base Excess (0.0-2.0) mmol/L Sodium (132-148) mmol/L Potassium (3.6-5.2) mmol/L Chloride (98-107) mmol/L Carbon Dioxide (22-30) mmol/L Anion Gap (10-20) BUN (7-17) mg/dL Creatinine (0.7-1.2) mg/dL Est GFR ( Amer) Est GFR (Non-Af Amer) Random Glucose (65-105) mg/dL Calcium (8.6-10.4) mg/dl Phosphorus (2.5-4.5) mg/dL Magnesium (1.6-2.3) mg/dL Total Bilirubin (0.2-1.3) mg/dL AST (14-36) U/L ALT (9-52) U/L Alkaline Phosphatase (38-126) U/L Total Protein (6.3-8.3) g/dL Albumin (3.5-5.0) g/dL Globulin (2.2-3.9) gm/dL Albumin/Globulin Ratio (1.0-2.1) PTH Intact Whole Molec 161 H (14-64) pg/mL Urine Chloride 49 (32-290) mmol/L Random Vancomycin ug/mL Blood Type Antibody Screen Crossmatch Laboratory Results - last 24 hr 08/28/17 08/28/1718 14:53 22:33 06:15 WBC RBC Hgb Hct MCV MCH MCHC RDW Plt Count MPV Neut % (Auto) Lymph % (Auto) [place] % (Auto) Eos % (Auto) Baso % (Auto) Neut # Lymph # [place] # Eos # Baso # Fibrinogen 604 H Puncture Site pO2 Ranjith Test VBG pH VBG pCO2 VBG HCO3 VBG O2 Sat (Calc) VBG Base Excess Sodium Potassium Chloride Carbon Dioxide Anion Gap BUN Creatinine Est GFR ( Amer) Est GFR (Non-Af Amer) Random Glucose Calcium Phosphorus Magnesium Total Bilirubin AST ALT Alkaline Phosphatase Total Protein Albumin Globulin Albumin/Globulin Ratio PTH Intact Whole Molec 161 H Urine Chloride 49 Random Vancomycin Blood Type Antibody Screen Crossmatch 08/30/17 08/30/17 08/30/17 06:15 06:17 06:17 WBC 0.4 L* D RBC 2.29 L Hgb 6.9 L Hct 20.4 L MCV 89.4 D MCH 30.0 MCHC 33.6 RDW 20.8 H Plt Count 10 L* D MPV 9.9 Neut % (Auto) 52.0 Lymph % (Auto) 40.0 [place] % (Auto) 2.0 Eos % (Auto) 4.0 Baso % (Auto) 2.0 Neut # 0.2 L Lymph # 0.2 L [place] # 0.0 Eos # 0.0 Baso # 0.0 Fibrinogen Puncture Site pO2 Ranjith Test VBG pH VBG pCO2 VBG HCO3 VBG O2 Sat (Calc) VBG Base Excess Sodium 158 H Potassium 2.8 L Chloride 139 H Carbon Dioxide 14 L Anion Gap 8 L BUN 25 H Creatinine 1.4 H Est GFR ( Amer) 46 Est GFR (Non-Af Amer) 38 Random Glucose 94 Calcium 7.4 L Phosphorus 2.3 L Magnesium 1.6 Total Bilirubin 1.2 AST 64 H D ALT 70 H Alkaline Phosphatase 548 H Total Protein 5.3 L Albumin 2.2 L Globulin 3.1 Albumin/Globulin Ratio 0.7 L PTH Intact Whole Molec Urine Chloride Random Vancomycin 44.17 Blood Type Antibody Screen Crossmatch 08/30/17 08/30/17 09:53 11:40 WBC RBC Hgb Hct MCV MCH MCHC RDW Plt Count MPV Neut % (Auto) Lymph % (Auto) [place] % (Auto) Eos % (Auto) Baso % (Auto) Neut # Lymph # [place] # Eos # Baso # Fibrinogen Puncture Site Venous pO2 32 Ranjith Test Na VBG pH 7.29 L VBG pCO2 26 L VBG HCO3 14.0 VBG O2 Sat (Calc) 74.2 H VBG Base Excess -12.4 L Sodium Potassium Chloride Carbon Dioxide Anion Gap BUN Creatinine Est GFR ( Amer) Est GFR (Non-Af Amer) Random Glucose Calcium Phosphorus Magnesium Total Bilirubin AST ALT Alkaline Phosphatase Total Protein Albumin Globulin Albumin/Globulin Ratio PTH Intact Whole Molec Urine Chloride Random Vancomycin Blood Type B POSITIVE Antibody Screen Negative Crossmatch See Detail Fingerstick Blood Sugar Results: 91 Review of Systems - Review of Systems Systems not reviewed;Unavailable: Altered Mental Status Critical Care Progress Note - Nutrition Nutrition: Nutrition Category Date Time Status NPO Diet [DIET] Diets 08/29/17 Breakfast Active Assessment/Plan - Assessment and Plan (Free Text) Assessment: 62F with PMH metastatic endometrial cancer, breast cancer, ovarian cysts, recent right femoral DVT on Lovenox, and poliomyelitis presenting with AMS and found to be septic Plan: Infectious disease - Sepsis * Afebrile * 08/24: 95.2 - warming blanket given in ED * BP currently 132/76 * bolus 3L of NS in the ED on 08/24 * Tachycardic * Lactate 0.9 (08/28/17) * 08/24: 1.6 * On arrival 08/24: 4.1 * WBC: 0.4 * 1.2 (08/29/17) * 08/25: 14.6 * On arrival 08/24: 21.1 with bands 1% * procal: 44.30 (08/26), 62.48 (08/25) * ID consulted (Dr. Ibarra) - recs appreciated * Aztreonam 2g IV Q8H * Acyclovir 500 mg IV Q8h * 08/29/17: Hold Vanc 1g daily due to high vanc trough (71.4) * 07/30/17 random vanc 44.17 * Blood cultures x2 negative * Urine culture negative * MRSA negative * CSF culture negative * CSF armin ink negative * Hep panel - negative * HIV negative * Flu negative Neuro - AMS (encephalitis vs metastatic disease) * Neuro consulted (Dr. Badillo) - recs appreciated * Altered, not speaking although usually verbal at baseline * Hx of poliomyelitis - does not ambulate. ambulates with metal prosthesis and wheelchair at home. * CT head: No intracranial mass, hemorrhage or evidence of acute infarct. * CSF studies: * Appearance: cloudy * WBC: 6 * RBC: 1436.0 * Neutrophils: 100 * Glucose 66 * Protein 156 * Cryptococcus Ag negative * f/u cytology * culture negative * armin ink negative * Ammonia: 51 - hold lactulose for now 2/2 low potassium * Gabapentin 400 mg PO daily * Desmopressin 1mcg BID Cardiovascular - history of DVT * currently normotensive * Tachycardic * EKG on admission: Sinus tachycardia at 114 with short TX interval, nonspecific ST-T wave abnormalities * Venous duplex LE: negative bilaterally * Arterial Doppler LE: LAMIN 0.75 (right) and 0.78 (left) * Vascular surgeon Dr. Eddy consulted, help appreciated. * Spoke with surgical brace maker who says no intervention is likely needed at this time due to adequate arterial supply MSK - s/p fall * Pelvis X Ray: no acute fracture. remodeling of right acetabulum with superior subluxation right femoral head. Respiratory * 100% on RA * VB.29/26/74.2/14 * 08/24: pH 7.16 pCO2 41 pO2 27 HCO3 12.6 * repeat 08/24: 7.25/34/48/15.5 * ABG (08/28/17): 7.27/18/171/12.3 * CXR: No interval acute cardiopulmonary pathology noted Hematology/Onc - history of metastatic endometrial CA and breast CA; history of right femoral DVT * H&H 6.9/20.4 - transfused 1U pRBCs * Plt 10 - transfused 1U plts * PT/PTT/INR (08/24): 33.9/35/2.9 * repeat 08/25: 40.2/40/3.4 * 08/28/17: 17.2/32/1.5 * fibrinogen 604 * Oncologist Dr. Lemos consulted, help appreciated. * hold home Lovenox 90mg SC daily * Granix 480mcg (08/29/17, 08/30/17) Fluids, electrolytes and nutrition * Na 158 * Desmopressin 1mcg BID * K 2.8 - replaced, monitor * Cl 139 * HCO3 14 * Calcium 7.4 * Phosphorous 2.3 * albumin 2.2 * Fluids: D5 w/ sodium bicarb @100cc/h * NG tube - [facility] - intraperitoneal/mesenteric metastatic lesions * AST/ALT: 64/70 - trending down * 08/24: 1933/432 * 08/25: >750/330 * TBili: 1.2 * Abdominal US (08/24): 13.8 x 13.6 cm heterogenous solid mass in the right abdomen, abutting the liver; moderate abdominal and pelvic free fluid; sludge filled gallbladder; pericholecystic fluid; no gallbladder wall thickening or sonographic Vuong's sign; milk pelviectasis of the right kidney without randall hydronephrosis * CT angio Abd/Pelvis (08/24): Compared to previous CT (resluts below), increase in abdominal/pelvic free fluid, now moderate/large amount; diffuse subcutaneous edema/anasarca; heterogenous liver enhancement, most likely due to patchy fatty infiltration * CT Abd/Pel from previous admission (07/23/17) showed intraperitoneal and mesenteric metastatic lesions some of which have increased in size; largest lesion in the nadeen hepatis region compresses the liver, pancreas, gallbladder and IVC * Zofran 4mg PRN Renal * Fluid balance: +1300 * BUN 24 * Cr 1.4 * Desmopressin 1mcg BID * UA - negative * urine culture - negative PPX: * GI: protonix 40 mg * 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 * Hold Lovenox 40 mg SC daily Palliative care consult - Nicole awaiting family's decision on DNR/DNI status and hospice care. <Cyril Mojica S - Last Filed: 08/30/17 16:20> CCU Objective - Vital Signs / Intake & Output Vital Signs (Last 4 hours): Vital Signs Temp Pulse Resp BP Pulse Ox 08/30/17 16:01 131 H 14 138/77 100 08/30/17 15:21 122 H 16 137/74 100 08/30/17 15:20 98.6 F 122 H 12 137/74 08/30/17 15:02 127 H 14 141/72 100 08/30/17 14:25 137 H 14 115/67 100 08/30/17 14:20 98.6 F 137 H 17 115/67 08/30/17 14:01 135 H 17 111/58 L 100 08/30/17 13:51 129 H 14 116/64 100 08/30/17 13:50 98.5 F 131 H 17 116/64 08/30/17 13:37 132 H 15 137/62 100 08/30/17 13:35 98.5 F 134 H 15 137/62 08/30/17 13:22 134 H 16 134/62 100 08/30/17 13:20 98.6 F 135 H 15 134/62 08/30/17 13:09 139 H 14 122/70 100 08/30/17 13:07 98.6 F 139 H 18 122/70 08/30/17 13:01 142 H 15 126/70 100 Intake and Output (Last 8hrs): Intake & Output 08/30/17 08/30/17 08/30/17 06:59 14:59 22:59 Intake Total 1360 1110 390 Output Total 635 485 200 Balance 725 625 190 Weight 131 lb 4.8 oz Intake: Intake, IV Amount 760 1110 390 L Port Y Site 340 140 Left External Jugular 200 500 200 Left Port-A-Cath 560 270 50 Blood Product 0 Red Blood Cells Cpd As1 0 Lr Unit [id number] Other 600 Output: Urine 635 485 200 Urethral ([place]) 635 485 200 Other: # Bowel Movements 1 - Medications Active Medications: Active Medications Generic Name Dose Route Start Last Admin Trade Name Freq PRN Reason Stop Dose Admin Famotidine 20 mg 08/29/17 22:00 08/30/17 10:00 Pepcid IVP 20 mg Q12 HAN Administration Gabapentin 400 mg 08/25/17 10:00 08/30/17 10:00 Neurontin PO 400 mg DAILY HAN Administration Home Med 25 mg 08/25/17 10:00 Exemestane [Aromasin] PO DAILY HAN Aztreonam 2 gm/ Sodium 100 mls @ 200 mls/hr 08/25/17 01:00 08/30/17 08:12 Chloride IVPB 200 mls/hr Q8H HAN Administration Acyclovir 500 mg/ Sodium 100 mls @ 100 mls/hr 08/25/17 18:00 08/30/17 10:00 Chloride IV 100 mls/hr Q8H HAN Administration Sodium Bicarbonate 100 meq/ 1,050 mls @ 70 mls/hr 08/29/17 17:18 08/30/17 08: 27 Dextrose IV Not Given .Q15H HAN Potassium Chloride 20 meq in 100 mls @ 50 mls/hr 08/30/17 08:00 08/30/17 15: 32 Potassium Chloride 20 Meq/100 Ml IVPB 08/30/17 21:59 50 mls/hr Q4 HAN Administration Desmopressin Acetate 1 mcg/ 50.25 mls @ 100 mls/hr 08/30/17 11:00 08/30/17 12 :08 Sodium Chloride IV 100 mls/hr Q12H HAN Administration Magnesium Oxide 400 mg 08/25/17 10:00 08/30/17 10:00 Mag-Ox PO 400 mg DAILY HAN Administration Polyethylene Glycol 17 gm 08/27/17 10:00 08/30/17 10:51 Miralax PO Not Given BID HAN Sodium Bicarbonate 650 mg 08/30/17 00:00 08/30/17 12:27 Sodium Bicarbonate Tab PO 650 mg Q6 HAN Administration - Patient Studies Lab Studies: Microbiology Studies 08/25/17 19:55 Gram Stain - Final Cerebral Spinal Fluid CSF Culture - Final No growth. 08/24/17 14:15 Blood Culture - Final Blood NO GROWTH AFTER 5 DAYS Gram Stain - Final TEST NOT PERFORMED 08/24/17 14:45 Blood Culture - Final Blood NO GROWTH AFTER 5 DAYS Gram Stain - Final TEST NOT PERFORMED Lab Studies 08/30/17 08/30/17 08/30/17 Range/Units 11:40 09:53 06:17 WBC (4.8-10.8) K/uL RBC (3.80-5.20) Mil/uL Hgb (11.0-16.0) g/dL Hct (34.0-47.0) % MCV (81.0-99.0) fL MCH (27.0-31.0) pg MCHC (33.0-37.0) g/dL RDW (11.5-14.5) % Plt Count (130-400) K/uL MPV (7.2-11.7) fL Neut % (Auto) (50.0-75.0) % Lymph % (Auto) (20.0-40.0) % [place] % (Auto) (0.0-10.0) % Eos % (Auto) (0.0-4.0) % Baso % (Auto) (0.0-2.0) % Neut # (1.8-7.0) K/uL Lymph # (1.0-4.3) K/uL [place] # (0.0-0.8) K/uL Eos # (0.0-0.7) K/uL Baso # (0.0-0.2) K/uL Fibrinogen (200-400) mg/dL Puncture Site Venous pO2 32 (30-55) mm/Hg Ranjith Test Na VBG pH 7.29 L (7.32-7.43) VBG pCO2 26 L (40-60) mmHg VBG HCO3 14.0 mmol/L VBG O2 Sat (Calc) 74.2 H (40-65) % VBG Base Excess -12.4 L (0.0-2.0) mmol/L Sodium 158 H (132-148) mmol/L Potassium 2.8 L (3.6-5.2) mmol/L Chloride 139 H (98-107) mmol/L Carbon Dioxide 14 L (22-30) mmol/L Anion Gap 8 L (10-20) BUN 25 H (7-17) mg/dL Creatinine 1.4 H (0.7-1.2) mg/dL Est GFR ( Amer) 46 Est GFR (Non-Af Amer) 38 Random Glucose 94 (65-105) mg/dL Calcium 7.4 L (8.6-10.4) mg/dl Phosphorus 2.3 L (2.5-4.5) mg/dL Magnesium 1.6 (1.6-2.3) mg/dL Total Bilirubin 1.2 (0.2-1.3) mg/dL AST 64 H D (14-36) U/L ALT 70 H (9-52) U/L Alkaline Phosphatase 548 H (38-126) U/L Total Protein 5.3 L (6.3-8.3) g/dL Albumin 2.2 L (3.5-5.0) g/dL Globulin 3.1 (2.2-3.9) gm/dL Albumin/Globulin Ratio 0.7 L (1.0-2.1) PTH Intact Whole Molec (14-64) pg/mL Urine Chloride (32-290) mmol/L Random Vancomycin ug/mL Blood Type B POSITIVE Antibody Screen Negative Crossmatch See Detail 08/30/17 08/30/17 08/30/17 Range/Units 06:17 06:15 06:15 WBC 0.4 L* D (4.8-10.8) K/uL RBC 2.29 L (3.80-5.20) Mil/uL Hgb 6.9 L (11.0-16.0) g/dL Hct 20.4 L (34.0-47.0) % MCV 89.4 D (81.0-99.0) fL MCH 30.0 (27.0-31.0) pg MCHC 33.6 (33.0-37.0) g/dL RDW 20.8 H (11.5-14.5) % Plt Count 10 L* D (130-400) K/uL MPV 9.9 (7.2-11.7) fL Neut % (Auto) 52.0 (50.0-75.0) % Lymph % (Auto) 40.0 (20.0-40.0) % [place] % (Auto) 2.0 (0.0-10.0) % Eos % (Auto) 4.0 (0.0-4.0) % Baso % (Auto) 2.0 (0.0-2.0) % Neut # 0.2 L (1.8-7.0) K/uL Lymph # 0.2 L (1.0-4.3) K/uL [place] # 0.0 (0.0-0.8) K/uL Eos # 0.0 (0.0-0.7) K/uL Baso # 0.0 (0.0-0.2) K/uL Fibrinogen 604 H (200-400) mg/dL Puncture Site pO2 (30-55) mm/Hg Ranjith Test VBG pH (7.32-7.43) VBG pCO2 (40-60) mmHg VBG HCO3 mmol/L VBG O2 Sat (Calc) (40-65) % VBG Base Excess (0.0-2.0) mmol/L Sodium (132-148) mmol/L Potassium (3.6-5.2) mmol/L Chloride (98-107) mmol/L Carbon Dioxide (22-30) mmol/L Anion Gap (10-20) BUN (7-17) mg/dL Creatinine (0.7-1.2) mg/dL Est GFR ( Amer) Est GFR (Non-Af Amer) Random Glucose (65-105) mg/dL Calcium (8.6-10.4) mg/dl Phosphorus (2.5-4.5) mg/dL Magnesium (1.6-2.3) mg/dL Total Bilirubin (0.2-1.3) mg/dL AST (14-36) U/L ALT (9-52) U/L Alkaline Phosphatase (38-126) U/L Total Protein (6.3-8.3) g/dL Albumin (3.5-5.0) g/dL Globulin (2.2-3.9) gm/dL Albumin/Globulin Ratio (1.0-2.1) PTH Intact Whole Molec (14-64) pg/mL Urine Chloride (32-290) mmol/L Random Vancomycin 44.17 ug/mL Blood Type Antibody Screen Crossmatch 08/28/17 08/28/17 Range/Units 22:33 14:53 WBC (4.8-10.8) K/uL RBC (3.80-5.20) Mil/uL Hgb (11.0-16.0) g/dL Hct (34.0-47.0) % MCV (81.0-99.0) fL MCH (27.0-31.0) pg MCHC (33.0-37.0) g/dL RDW (11.5-14.5) % Plt Count (130-400) K/uL MPV (7.2-11.7) fL Neut % (Auto) (50.0-75.0) % Lymph % (Auto) (20.0-40.0) % [place] % (Auto) (0.0-10.0) % Eos % (Auto) (0.0-4.0) % Baso % (Auto) (0.0-2.0) % Neut # (1.8-7.0) K/uL Lymph # (1.0-4.3) K/uL [place] # (0.0-0.8) K/uL Eos # (0.0-0.7) K/uL Baso # (0.0-0.2) K/uL Fibrinogen (200-400) mg/dL Puncture Site pO2 (30-55) mm/Hg Ranjith Test VBG pH (7.32-7.43) VBG pCO2 (40-60) mmHg VBG HCO3 mmol/L VBG O2 Sat (Calc) (40-65) % VBG Base Excess (0.0-2.0) mmol/L Sodium (132-148) mmol/L Potassium (3.6-5.2) mmol/L Chloride (98-107) mmol/L Carbon Dioxide (22-30) mmol/L Anion Gap (10-20) BUN (7-17) mg/dL Creatinine (0.7-1.2) mg/dL Est GFR ( Amer) Est GFR (Non-Af Amer) Random Glucose (65-105) mg/dL Calcium (8.6-10.4) mg/dl Phosphorus (2.5-4.5) mg/dL Magnesium (1.6-2.3) mg/dL Total Bilirubin (0.2-1.3) mg/dL AST (14-36) U/L ALT (9-52) U/L Alkaline Phosphatase (38-126) U/L Total Protein (6.3-8.3) g/dL Albumin (3.5-5.0) g/dL Globulin (2.2-3.9) gm/dL Albumin/Globulin Ratio (1.0-2.1) PTH Intact Whole Molec 161 H (14-64) pg/mL Urine Chloride 49 (32-290) mmol/L Random Vancomycin ug/mL Blood Type Antibody Screen Crossmatch Laboratory Results - last 24 hr 08/28/17 08/28/17 08/30/17 14:53 22:33 06:15 WBC RBC Hgb Hct MCV MCH MCHC RDW Plt Count MPV Neut % (Auto) Lymph % (Auto) [place] % (Auto) Eos % (Auto) Baso % (Auto) Neut # Lymph # [place] # Eos # Baso # Fibrinogen 604 H Puncture Site pO2 Ranjith Test VBG pH VBG pCO2 VBG HCO3 VBG O2 Sat (Calc) VBG Base Excess Sodium Potassium Chloride Carbon Dioxide Anion Gap BUN Creatinine Est GFR ( Amer) Est GFR (Non-Af Amer) Random Glucose Calcium Phosphorus Magnesium Total Bilirubin AST ALT Alkaline Phosphatase Total Protein Albumin Globulin Albumin/Globulin Ratio PTH Intact Whole Molec 161 H Urine Chloride 49 Random Vancomycin Blood Type Antibody Screen Crossmatch 08/30/17 08/30/17 08/30/17 06:15 06:17 06:17 WBC 0.4 L* D RBC 2.29 L Hgb 6.9 L Hct 20.4 L MCV 89.4 D MCH 30.0 MCHC 33.6 RDW 20.8 H Plt Count 10 L* D MPV 9.9 Neut % (Auto) 52.0 Lymph % (Auto) 40.0 [place] % (Auto) 2.0 Eos % (Auto) 4.0 Baso % (Auto) 2.0 Neut # 0.2 L Lymph # 0.2 L [place] # 0.0 Eos # 0.0 Baso # 0.0 Fibrinogen Puncture Site pO2 Ranjith Test VBG pH VBG pCO2 VBG HCO3 VBG O2 Sat (Calc) VBG Base Excess Sodium 158 H Potassium 2.8 L Chloride 139 H Carbon Dioxide 14 L Anion Gap 8 L BUN 25 H Creatinine 1.4 H Est GFR ( Amer) 46 Est GFR (Non-Af Amer) 38 Random Glucose 94 Calcium 7.4 L Phosphorus 2.3 L Magnesium 1.6 Total Bilirubin 1.2 AST 64 H D ALT 70 H Alkaline Phosphatase 548 H Total Protein 5.3 L Albumin 2.2 L Globulin 3.1 Albumin/Globulin Ratio 0.7 L PTH Intact Whole Molec Urine Chloride Random Vancomycin 44.17 Blood Type Antibody Screen Crossmatch 08/30/17 08/30/17 09:53 11:40 WBC RBC Hgb Hct MCV MCH MCHC RDW Plt Count MPV Neut % (Auto) Lymph % (Auto) [place] % (Auto) Eos % (Auto) Baso % (Auto) Neut # Lymph # [place] # Eos # Baso # Fibrinogen Puncture Site Venous pO2 32 Ranjith Test Na VBG pH 7.29 L VBG pCO2 26 L VBG HCO3 14.0 VBG O2 Sat (Calc) 74.2 H VBG Base Excess -12.4 L Sodium Potassium Chloride Carbon Dioxide Anion Gap BUN Creatinine Est GFR ( Amer) Est GFR (Non-Af Amer) Random Glucose Calcium Phosphorus Magnesium Total Bilirubin AST ALT Alkaline Phosphatase Total Protein Albumin Globulin Albumin/Globulin Ratio PTH Intact Whole Molec Urine Chloride Random Vancomycin Blood Type B POSITIVE Antibody Screen Negative Crossmatch See Detail Critical Care Progress Note - Nutrition Nutrition: Nutrition Category Date Time Status NPO Diet [DIET] Diets 08/29/17 Breakfast Active Assessment/Plan (1) Change in mental status Current Visit: Yes Status: Acute Comment: most likely secondary to meningitis Status post lumbar puncture with elevated protein Continue IV antibiotics Neurology follow-up Continue ICU observation (2) Anemia Current Visit: No Status: Acute Comment: transfuse packed RBCs (3) Leukocytosis Current Visit: Yes Status: Acute (4) Metastatic cancer Current Visit: No Status: Chronic Attending/Attestation - Attestation I have personally seen and examined this patient.: Yes I have fully participated in the care of the patient.: Yes I have reviewed all pertinent clinical information: Yes Notes (Text): 08/30/17 16:17 patient seen and examined in the intensive care Case discussed with house staff in the morning rounds Continue present treatment for now Transfuse platelets and packed RBCs started on desmopressin for hyponatremia and DI prognosis poor
--- NOTE | 2017-08-30 15:50 | CP.PCM.PN ---
Subjective - Date & Time of Evaluation Date of Evaluation: 08/30/17 Time of Evaluation: 14:40 - Subjective Subjective: lethargic, minimally verbal unable to obtain ROS labs noted Objective - Vital Signs/Intake and Output Vital Signs (last 24 hours): Temp Pulse Resp BP Pulse Ox 98.6 F 122 H 12 137/74 100 08/30/17 15:20 08/30/17 15:20 08/30/17 15:20 08/30/17 15:20 08/30/17 15:02 Intake and Output: 08/30/17 08/30/17 06:59 18:59 Intake Total 1860 1280 Output Total 1080 485 Balance 780 795 - Medications Medications: Current Medications Famotidine (Pepcid) 20 mg IVP Q12 [facility] Last Admin: 08/30/17 10:00 Dose: 20 mg Gabapentin (Neurontin) 400 mg PO DAILY [facility] Last Admin: 08/30/17 10:00 Dose: 400 mg Home Med (Exemestane [Aromasin]) 25 mg PO DAILY [facility] Aztreonam 2 gm/ Sodium (Chloride) 100 mls @ 200 mls/hr IVPB Q8H [facility] Last Admin: 08/30/17 08:12 Dose: 200 mls/hr Acyclovir 500 mg/ Sodium (Chloride) 100 mls @ 100 mls/hr IV Q8H [facility] Last Admin: 08/30/17 10:00 Dose: 100 mls/hr Sodium Bicarbonate 100 meq/ (Dextrose) 1,050 mls @ 70 mls/hr IV .Q15H [facility] Last Admin: 08/30/17 08:27 Dose: Not Given Potassium Chloride (Potassium Chloride 20 Meq/100 Ml) 20 meq in 100 mls @ 50 mls/hr IVPB Q4 [facility] Stop: 08/30/17 21:59 Last Admin: 08/30/17 15:32 Dose: 50 mls/hr Desmopressin Acetate 1 mcg/ (Sodium Chloride) 50.25 mls @ 100 mls/hr IV Q12H [facility] Last Admin: 08/30/17 12:08 Dose: 100 mls/hr Magnesium Oxide (Mag-Ox) 400 mg PO DAILY [facility] Last Admin: 08/30/17 10:00 Dose: 400 mg Polyethylene Glycol (Miralax) 17 gm PO BID [facility] Last Admin: 08/30/17 10:51 Dose: Not Given Sodium Bicarbonate (Sodium Bicarbonate Tab) 650 mg PO Q6 [facility] Last Admin: 08/30/17 12:27 Dose: 650 mg - Labs Labs: 08/30/17 06:15 08/30/17 06:17 PT 17.2 SECONDS (9.7-12.2) H D 08/28/17 06:43 INR 1.5 D 08/28/17 06:43 APTT 32 SECONDS (21-34) D 08/28/17 06:43 - Constitutional Appears: Toxic, Chronically Ill - ENT Exam ENT Exam: Mucous Membranes Dry - Neck Exam Neck Exam: Full ROM. absent: Lymphadenopathy - Respiratory Exam Respiratory Exam: Decreased Breath Sounds - Cardiovascular Exam Cardiovascular Exam: Tachycardia. absent: Rubs - GI/Abdominal Exam GI & Abdominal Exam: Distended. absent: Guarding - Neurological Exam Neurological Exam: absent: Alert Assessment and Plan - Assessment and Plan (Free Text) Plan: hypernatremia metastatic cancer pancytopenia altered mental status noted urine osmolarity of 500 may have partial concentrating defect can use desmopressin, but cautious administration and avoid too rapid overcorrection, ie more then 6-8 meq per 24 hrs
--- NOTE | 2017-08-30 19:18 | CP.PCM.PN ---
Subjective - Date & Time of Evaluation Date of Evaluation: 08/30/17 Time of Evaluation: 07:00 - Subjective Subjective: non verbal afebrile nad Objective - Vital Signs/Intake and Output Vital Signs (last 24 hours): Temp Pulse Resp BP Pulse Ox 98.6 F 128 H 17 128/73 100 08/30/17 16:44 08/30/17 18:01 08/30/17 18:01 08/30/17 18:01 08/30/17 18:01 Intake and Output: 08/30/17 08/31/17 18:59 06:59 Intake Total 2315 Output Total 845 Balance 1470 - Medications Medications: Current Medications Famotidine (Pepcid) 20 mg IVP Q12 [facility] Last Admin: 08/30/17 10:00 Dose: 20 mg Gabapentin (Neurontin) 400 mg PO DAILY [facility] Last Admin: 08/30/17 10:00 Dose: 400 mg Home Med (Exemestane [Aromasin]) 25 mg PO DAILY [facility] Aztreonam 2 gm/ Sodium (Chloride) 100 mls @ 200 mls/hr IVPB Q8H [facility] Last Admin: 08/30/17 17:39 Dose: 200 mls/hr Acyclovir 500 mg/ Sodium (Chloride) 100 mls @ 100 mls/hr IV Q8H [facility] Last Admin: 08/30/17 18:18 Dose: 100 mls/hr Sodium Bicarbonate 100 meq/ (Dextrose) 1,050 mls @ 70 mls/hr IV .Q15H [facility] Last Admin: 08/30/17 08:27 Dose: Not Given Potassium Chloride (Potassium Chloride 20 Meq/100 Ml) 20 meq in 100 mls @ 50 mls/hr IVPB Q4 [facility] Stop: 08/30/17 21:59 Last Admin: 08/30/17 15:32 Dose: 50 mls/hr Desmopressin Acetate 1 mcg/ (Sodium Chloride) 50.25 mls @ 100 mls/hr IV Q12H [facility] Last Admin: 08/30/17 12:08 Dose: 100 mls/hr Magnesium Oxide (Mag-Ox) 400 mg PO DAILY [facility] Last Admin: 08/30/17 10:00 Dose: 400 mg Polyethylene Glycol (Miralax) 17 gm PO BID [facility] Last Admin: 08/30/17 18:18 Dose: 17 gm Sodium Bicarbonate (Sodium Bicarbonate Tab) 650 mg PO Q6 [facility] Last Admin: 08/30/17 18:18 Dose: 650 mg - Labs Labs: 08/30/17 06:15 08/30/17 06:17 PT 17.2 SECONDS (9.7-12.2) H D 08/28/17 06:43 INR 1.5 D 08/28/17 06:43 APTT 32 SECONDS (21-34) D 08/28/17 06:43 - Constitutional Appears: Non-toxic, Chronically Ill - Head Exam Head Exam: NORMOCEPHALIC - Eye Exam Eye Exam: EOMI - ENT Exam ENT Exam: Mucous Membranes Dry - Neck Exam Neck Exam: absent: Lymphadenopathy - Respiratory Exam Respiratory Exam: Decreased Breath Sounds - Cardiovascular Exam Cardiovascular Exam: REGULAR RHYTHM - GI/Abdominal Exam GI & Abdominal Exam: Distended Assessment and Plan (1) Change in mental status Status: Acute (2) Leukocytosis Status: Acute (3) Metastatic cancer to liver Status: Acute (4) Ovarian ca Status: Acute
--- NOTE | 2017-08-30 19:26 | CP.PCM.PN ---
Subjective - Date & Time of Evaluation Date of Evaluation: 08/30/17 Time of Evaluation: 14:00 - Subjective Subjective: clinically same Objective - Vital Signs/Intake and Output Vital Signs (last 24 hours): Temp Pulse Resp BP Pulse Ox 98.6 F 128 H 17 128/73 100 08/30/17 16:44 08/30/17 18:01 08/30/17 18:01 08/30/17 18:01 08/30/17 18:01 Intake and Output: 08/30/17 08/31/17 18:59 06:59 Intake Total 2315 Output Total 845 Balance 1470 - Medications Medications: Current Medications Famotidine (Pepcid) 20 mg IVP Q12 [facility] Last Admin: 08/30/17 10:00 Dose: 20 mg Gabapentin (Neurontin) 400 mg PO DAILY [facility] Last Admin: 08/30/17 10:00 Dose: 400 mg Home Med (Exemestane [Aromasin]) 25 mg PO DAILY [facility] Aztreonam 2 gm/ Sodium (Chloride) 100 mls @ 200 mls/hr IVPB Q8H [facility] Last Admin: 08/30/17 17:39 Dose: 200 mls/hr Acyclovir 500 mg/ Sodium (Chloride) 100 mls @ 100 mls/hr IV Q8H [facility] Last Admin: 08/30/17 18:18 Dose: 100 mls/hr Sodium Bicarbonate 100 meq/ (Dextrose) 1,050 mls @ 70 mls/hr IV .Q15H [facility] Last Admin: 08/30/17 08:27 Dose: Not Given Potassium Chloride (Potassium Chloride 20 Meq/100 Ml) 20 meq in 100 mls @ 50 mls/hr IVPB Q4 [facility] Stop: 08/30/17 21:59 Last Admin: 08/30/17 15:32 Dose: 50 mls/hr Desmopressin Acetate 1 mcg/ (Sodium Chloride) 50.25 mls @ 100 mls/hr IV Q12H [facility] Last Admin: 08/30/17 12:08 Dose: 100 mls/hr Magnesium Oxide (Mag-Ox) 400 mg PO DAILY [facility] Last Admin: 08/30/17 10:00 Dose: 400 mg Polyethylene Glycol (Miralax) 17 gm PO BID [facility] Last Admin: 08/30/17 18:18 Dose: 17 gm Sodium Bicarbonate (Sodium Bicarbonate Tab) 650 mg PO Q6 [facility] Last Admin: 08/30/17 18:18 Dose: 650 mg - Labs Labs: 08/30/17 06:15 08/30/17 06:17 PT 17.2 SECONDS (9.7-12.2) H D 08/28/17 06:43 INR 1.5 D 08/28/17 06:43 APTT 32 SECONDS (21-34) D 08/28/17 06:43 - Constitutional Appears: Well - Head Exam Head Exam: ATRAUMATIC, NORMAL INSPECTION, NORMOCEPHALIC - Eye Exam Eye Exam: EOMI, Normal appearance, PERRL Pupil Exam: NORMAL ACCOMODATION, PERRL - ENT Exam ENT Exam: Mucous Membranes Moist, Normal Exam - Neck Exam Neck Exam: Full ROM, Normal Inspection. absent: Lymphadenopathy - Respiratory Exam Respiratory Exam: Decreased Breath Sounds - Cardiovascular Exam Cardiovascular Exam: +S1, +S2 - GI/Abdominal Exam GI & Abdominal Exam: Soft, Diminished Bowel Sounds - Rectal Exam Rectal Exam: Deferred
[2017-08-30 20:27] LABS: SOURCE CSF
--- NOTE | 2017-08-30 23:01 | CP.PCM.PN ---
Subjective - Date & Time of Evaluation Date of Evaluation: 08/30/17 Time of Evaluation: 10:00 - Subjective Subjective: Mental status slightly improved Objective - Vital Signs/Intake and Output Vital Signs (last 24 hours): Temp Pulse Resp BP Pulse Ox 97.6 F 128 H 16 141/70 100 08/30/17 22:20 08/30/17 22:20 08/30/17 22:20 08/30/17 22:20 08/30/17 21:01 Intake and Output: 08/30/17 08/31/17 18:59 06:59 Intake Total 2315 850 Output Total 845 200 Balance 1470 650 - Medications Medications: Current Medications Famotidine (Pepcid) 20 mg IVP Q12 [facility] Last Admin: 08/30/17 21:54 Dose: 20 mg Gabapentin (Neurontin) 400 mg PO DAILY [facility] Last Admin: 08/30/17 10:00 Dose: 400 mg Home Med (Exemestane [Aromasin]) 25 mg PO DAILY [facility] Aztreonam 2 gm/ Sodium (Chloride) 100 mls @ 200 mls/hr IVPB Q8H [facility] Last Admin: 08/30/17 17:39 Dose: 200 mls/hr Acyclovir 500 mg/ Sodium (Chloride) 100 mls @ 100 mls/hr IV Q8H [facility] Last Admin: 08/30/17 18:18 Dose: 100 mls/hr Sodium Bicarbonate 100 meq/ (Dextrose) 1,050 mls @ 70 mls/hr IV .Q15H [facility] Last Admin: 08/30/17 22:26 Dose: 70 mls/hr Desmopressin Acetate 1 mcg/ (Sodium Chloride) 50.25 mls @ 100 mls/hr IV Q12H [facility] Last Admin: 08/30/17 22:15 Dose: 100 mls/hr Magnesium Oxide (Mag-Ox) 400 mg PO DAILY [facility] Last Admin: 08/30/17 10:00 Dose: 400 mg Polyethylene Glycol (Miralax) 17 gm PO BID [facility] Last Admin: 08/30/17 18:18 Dose: 17 gm Sodium Bicarbonate (Sodium Bicarbonate Tab) 650 mg PO Q6 [facility] Last Admin: 08/30/17 18:18 Dose: 650 mg - Labs Labs: 08/30/17 06:15 08/30/17 06:17 PT 17.2 SECONDS (9.7-12.2) H D 08/28/17 06:43 INR 1.5 D 08/28/17 06:43 APTT 32 SECONDS (21-34) D 08/28/17 06:43 - Head Exam Head Exam: ATRAUMATIC - Eye Exam Eye Exam: Normal appearance - ENT Exam ENT Exam: Mucous Membranes Dry - Respiratory Exam Respiratory Exam: NORMAL BREATHING PATTERN - Cardiovascular Exam Cardiovascular Exam: +S1, +S2 - GI/Abdominal Exam GI & Abdominal Exam: Normal Bowel Sounds Assessment and Plan (1) Pancytopenia Assessment & Plan: secondary to chemotherapy growth factor suppport transfusion support Status: Acute (2) Coagulopathy Assessment & Plan: nutritional Status: Acute (3) Metastatic cancer Assessment & Plan: had family meeting with pts sister and niece discussed code status and hospice they would like to think about it more Status: Chronic
[2017-08-31] MEDS: Aztreonam 2 GM in Sodium Chloride 0.9% 100 ML IVPB SCH ×2 (05:21→10:27)
[2017-08-31] MEDS: Acyclovir 500 MG in Sodium Chloride 0.9% 100 ML IV SCH (05:22)
[2017-08-31 06:35] LABS: HEMOGLOBIN 9.1 g/dL (11.0-16.0); MEAN CELL VOLUME 89.5 fL (81.0-99.0); MEAN CORPUSCULAR HEMOGLOBIN 30.3 pg (27.0-31.0); MEAN CORPUSCULAR HGB CONC 33.8 g/dL (33.0-37.0); MEAN PLATELET VOLUME 8.2 fL (7.2-11.7); RBC 3.01 Mil/uL (3.80-5.20); RED CELL DISTRIBUTION WIDTH 17.8 % (11.5-14.5)
[2017-08-31 06:39] LABS: WHITE BLOOD COUNT 0.3 K/uL (4.8-10.8)
[2017-08-31 06:58] LABS: ALB/GLOB RATIO 0.7 (1.0-2.1); ALBUMIN 2.3 g/dL (3.5-5.0); CALCIUM 7.2 mg/dl (8.6-10.4); MAGNESIUM 1.6 mg/dL (1.6-2.3)
[2017-08-31 09:04] LABS: EOS % 2.1 % (0.0-4.0); LYMPH % 42.6 % (20.0-40.0); MONO % 9.1 % (0.0-10.0); NEUT % 42.2 % (50.0-75.0); NRBC % 2.5 % (0.0-2.0)
[2017-08-31 09:05] LABS: LYMPH # 0.1 K/uL (1.0-4.3); NEUT # 0.1 K/uL (1.8-7.0)
--- NOTE | 2017-08-31 10:15 | CP.PCM.PN ---
Subjective - Date & Time of Evaluation Date of Evaluation: 08/31/17 Time of Evaluation: 10:12 - Subjective Subjective: Unresponsive, unable to offer complaints Objective - Vital Signs/Intake and Output Vital Signs (last 24 hours): Temp Pulse Resp BP Pulse Ox 98.3 F 105 H 13 108/72 100 08/31/17 04:00 08/31/17 09:01 08/31/17 09:01 08/31/17 09:01 08/31/17 09:01 Intake and Output: 08/31/17 08/31/17 06:59 18:59 Intake Total 1640 Output Total 702 Balance 938 - Medications Medications: Current Medications Morphine Sulfate 250 mg/ (Sodium Chloride) 250 mls @ 2 mls/hr IV .Q24H [facility] Reason: Protocol Stop: 09/01/17 09:57 - Labs Labs: 08/31/17 06:18 08/31/17 06:20 PT 17.2 SECONDS (9.7-12.2) H D 08/28/17 06:43 INR 1.5 D 08/28/17 06:43 APTT 32 SECONDS (21-34) D 08/28/17 06:43 - Constitutional Appears: In Acute Distress, Chronically Ill - Head Exam Head Exam: ATRAUMATIC, NORMAL INSPECTION, NORMOCEPHALIC - Eye Exam Eye Exam: EOMI, Normal appearance, PERRL Pupil Exam: NORMAL ACCOMODATION, PERRL - ENT Exam Additional comments: NGT to suction - Neck Exam Neck Exam: Normal Inspection - Respiratory Exam Respiratory Exam: Decreased Breath Sounds, NORMAL BREATHING PATTERN - Cardiovascular Exam Cardiovascular Exam: Tachycardia - GI/Abdominal Exam GI & Abdominal Exam: Distended, Diminished Bowel Sounds - Rectal Exam Rectal Exam: Deferred - Extremities Exam Extremities Exam: Pedal Edema - Back Exam Back Exam: NORMAL INSPECTION - Neurological Exam Neurological Exam: Motor Sensory Deficit Neuro motor strength exam: Left Upper Extremity: 2/1, Right Upper Extremity: 2/1 , Left Lower Extremity: 2/1, Right Lower Extremity: 2/1 - Psychiatric Exam Psychiatric exam: Flat Affect - Skin Skin Exam: Pallor Assessment and Plan - Assessment and Plan (Free Text) Assessment: Patient seen and examined in bed, looking very ill. Skin is pale, Hb 10.0. Patient is unresponsive to verbal stimuli. WBC 0.3, platelts 43. Abdomen distended, diminished bowel sounds , there is pedal edema present, active ROM minimal or absent. BP 108/76, HR106. Patient's condition discussed with Doctor Cam and nursing. We all agreed that comfort care would be the best level of care for this dying patient. In phone discussion with Avis , the niece I sonal my concerns regarding the poor quality of life and grave prognosis. At the same time, Doctor Cam was on the phone with patient's sister Jessica, discussing patient's poor prognosis. Both, the sister and niece agreed that they would want patient to be kept comfortable and without any further interventions. I discussed Code status with Avis as well. On the previous family meeting , patient's sister Jessica stated preference for Avis to be talked to regarding important medical issues as " she understands it better'. I advised Avis to talk to her mother before making decision. She was clear that her and her mother had made decision already . After discussing patient's condition with Doctor Lemos, they came to realize that the cure is not expected and that quality of life was very poor. They wish the patient was to be allowed natural without further sufferings. I had Libby the primary RN witnessing me on the phone for DNR/DNi satus. This was shared with ICU team and manager [place]. Impression * This is terminally ill lady with stage IV [employer] cancer, where no further chemo Tx was suggested * Patient had declined rapidly even over last few days * Sister Jessica and niece Avis are requesting comfort measures and DNR/DNi status Suggestions * Would stop all further diagnostic studies * Agree with hospice care * Hospice care agricultural sales representative to be called to evaluate patient for admission to hospice, preferably in house hospice
--- NOTE | 2017-08-31 13:36 | CP.CCUPN ---
<Makayla Espitia - Last Filed: 08/31/17 13:33> CCU Subjective - Physician Review Subjective (Free Text): 08/31/17 13:33 Patient seen and examined at bedside. Patient still nonverbal and not improving. Dr. Levy had a conversation with the family today who wishes to make the patient DNR/DNI and placed on hospice care. CCU Objective - Vital Signs / Intake & Output Vital Signs (Last 4 hours): Vital Signs Temp Pulse Resp BP Pulse Ox 08/31/17 13:00 107 H 10 L 100 08/31/17 12:11 107 H 12 95/53 L 100 08/31/17 12:00 96.4 F L 103 H 15 100 08/31/17 11:00 110 H 20 100 08/31/17 10:29 104 H 14 111/59 L 100 08/31/17 10:00 105 H 15 111/59 L 100 Intake and Output (Last 8hrs): Intake & Output 08/30/17 08/31/17 08/31/17 22:59 06:59 14:59 Intake Total 2055 790 286 Output Total 560 502 240 Balance 1495 288 46 Weight 138 lb Intake: Intake, IV Amount 1630 490 286 L Port Y Site 630 490 286 Left External Jugular 850 Left Port-A-Cath 150 Oral 0 Blood Product 325 300 Apheresis Plts Acda Lr 0 300 Irr Unit [id number] Red Blood Cells Cpd As1 325 Lr Unit [id number] Other 100 Red Blood Cells Cpd As1 100 Lr Unit [id number] Output: Urine 560 502 240 Urethral ([place]) 560 502 240 Stool 0 Other: # Bowel Movements 1 0 - Physical Exam Head: Positive for: Atraumatic, Normocephalic Extroacular Muscles: Negative for: Gaze Palsy Mouth: Positive for: Moist Mucous Membranes Neck: Negative for: JVD, Lymphadenopathy Respiratory/Chest: Positive for: Clear to Auscultation, Good Air Exchange. Negative for: Wheezes, Rales, Rhonchi Cardiovascular: Positive for: Normal S1, S2, Tachycardic Abdomen: Positive for: Tenderness, Distention, Normal Bowel Sounds. Negative for: Peritoneal Signs, Guarding Upper Extremity: Positive for: Normal Inspection, Tenderness (generalized ). Negative for: Cyanosis, Edema Lower Extremity: Positive for: Edema, Tenderness (generalized ) Neurological: Positive for: Other (GCS=10 ) Skin: Positive for: Warm, Dry, Erythematous (feet b/l ). Negative for: Rashes Psychiatric: Positive for: Alert - Medications Active Medications: Active Medications Generic Name Dose Route Start Last Admin Trade Name Freq PRN Reason Stop Dose Admin Morphine Sulfate 250 mg/ 250 mls @ 2 mls/hr 08/31/17 09:58 08/31/17 10:30 Sodium Chloride IV 09/01/17 09:57 2 mg/hr .Q24H ONE 2 mls/hr Protocol Administration - Patient Studies Lab Studies: Microbiology Studies 08/25/17 19:55 Gram Stain - Final Cerebral Spinal Fluid CSF Culture - Final No growth. Lab Studies 08/31/17 08/31/17 08/30/17 Range/Units 06:20 06:18 09:53 WBC 0.3 L* (4.8-10.8) K/uL RBC 3.01 L (3.80-5.20) Mil/uL Hgb 9.1 L D (11.0-16.0) g/dL Hct 26.9 L (34.0-47.0) % MCV 89.5 (81.0-99.0) fL MCH 30.3 (27.0-31.0) pg MCHC 33.8 (33.0-37.0) g/dL RDW 17.8 H (11.5-14.5) % Plt Count 43 L D (130-400) K/uL MPV 8.2 (7.2-11.7) fL Neut % (Auto) 42.2 L (50.0-75.0) % Lymph % (Auto) 42.6 H (20.0-40.0) % Winkler % (Auto) 9.1 (0.0-10.0) % Eos % (Auto) 2.1 (0.0-4.0) % Baso % (Auto) 4.0 H (0.0-2.0) % Neut # 0.1 L (1.8-7.0) K/uL Lymph # 0.1 L (1.0-4.3) K/uL Winkler # 0.0 (0.0-0.8) K/uL Eos # 0.0 (0.0-0.7) K/uL Baso # 0.0 (0.0-0.2) K/uL Total Counted Cancelled Neutrophils % (Manual) Cancelled Band Neutrophils % Cancelled Lymphocytes % (Manual) Cancelled Reactive Lymphs % Cancelled Monocytes % (Manual) Cancelled Eosinophils % (Manual) Cancelled Basophils % (Manual) Cancelled Metamyelocytes % Cancelled Myelocytes % Cancelled Promyelocytes % Cancelled Blast Cells % Cancelled Plasma Cell % (Manual) Cancelled Nucleated RBC % Cancelled Hypersegmented Polys Cancelled Smudge Cells Cancelled Toxic Granulation Cancelled Dohle Bodies Cancelled Perry Rods Cancelled Platelet Estimate Cancelled Plt Clumps, EDTA Cancelled Large Platelets Cancelled Giant Platelets Cancelled RBC Morphology Cancelled Polychromasia Cancelled Hypochromasia (manual) Cancelled Poikilocytosis (manual Cancelled Basophilic Stippling Cancelled Anisocytosis (manual) Cancelled Microcytosis (manual) Cancelled Macrocytosis (manual) Cancelled Spherocytes Cancelled Sickle Cells Cancelled Target Cells Cancelled Tear Drop Cells Cancelled Ovalocytes Cancelled Stomatocytes Cancelled Helmet Cells Cancelled [place] Bodies Cancelled Mariah Cells Cancelled Acanthocytes (Spur) Cancelled Rouleaux Cancelled Schistocytes Cancelled Sodium 155 H (132-148) mmol/L Potassium 3.0 L (3.6-5.2) mmol/L Chloride 132 H (98-107) mmol/L Carbon Dioxide 18 L (22-30) mmol/L Anion Gap 8 L (10-20) BUN 23 H (7-17) mg/dL Creatinine 1.4 H (0.7-1.2) mg/dL Est GFR ( Amer) 46 Est GFR (Non-Af Amer) 38 Random Glucose 114 H (65-105) mg/dL Calcium 7.2 L (8.6-10.4) mg/dl Phosphorus 2.3 L (2.5-4.5) mg/dL Magnesium 1.6 (1.6-2.3) mg/dL Total Bilirubin 1.2 (0.2-1.3) mg/dL AST 38 H D (14-36) U/L ALT 56 H (9-52) U/L Alkaline Phosphatase 419 H D (38-126) U/L Total Protein 5.4 L (6.3-8.3) g/dL Albumin 2.3 L (3.5-5.0) g/dL Globulin 3.1 (2.2-3.9) gm/dL Albumin/Globulin Ratio 0.7 L (1.0-2.1) CSF Lyme IgG Antibody CSF Lyme Disease DNA CSF West Nile IgG Ab CSF West Nile IgM Ab Lyme Specimen Source Lyme Bands Present VZV IgG Antibody (POSITIVE) Blood Type B POSITIVE Antibody Screen Negative Crossmatch See Detail 08/26/17 08/25/17 08/25/17 Range/Units 06:19 18:57 08:38 WBC (4.8-10.8) K/uL RBC (3.80-5.20) Mil/uL Hgb (11.0-16.0) g/dL Hct (34.0-47.0) % MCV (81.0-99.0) fL MCH (27.0-31.0) pg MCHC (33.0-37.0) g/dL RDW (11.5-14.5) % Plt Count (130-400) K/uL MPV (7.2-11.7) fL Neut % (Auto) (50.0-75.0) % Lymph % (Auto) (20.0-40.0) % Winkler % (Auto) (0.0-10.0) % Eos % (Auto) (0.0-4.0) % Baso % (Auto) (0.0-2.0) % Neut # (1.8-7.0) K/uL Lymph # (1.0-4.3) K/uL Winkler # (0.0-0.8) K/uL Eos # (0.0-0.7) K/uL Baso # (0.0-0.2) K/uL Total Counted Neutrophils % (Manual) Band Neutrophils % Lymphocytes % (Manual) Reactive Lymphs % Monocytes % (Manual) Eosinophils % (Manual) Basophils % (Manual) Metamyelocytes % Myelocytes % Promyelocytes % Blast Cells % Plasma Cell % (Manual) Nucleated RBC % Hypersegmented Polys Smudge Cells Toxic Granulation Dohle Bodies Perry Rods Platelet Estimate Plt Clumps, EDTA Large Platelets Giant Platelets RBC Morphology Polychromasia Hypochromasia (manual) Poikilocytosis (manual Basophilic Stippling Anisocytosis (manual) Microcytosis (manual) Macrocytosis (manual) Spherocytes Sickle Cells Target Cells Tear Drop Cells Ovalocytes Stomatocytes Helmet Cells [place] Bodies Mariah Cells Acanthocytes (Spur) Rouleaux Schistocytes Sodium (132-148) mmol/L Potassium (3.6-5.2) mmol/L Chloride (98-107) mmol/L Carbon Dioxide (22-30) mmol/L Anion Gap (10-20) BUN (7-17) mg/dL Creatinine (0.7-1.2) mg/dL Est GFR ( Amer) Est GFR (Non-Af Amer) Random Glucose (65-105) mg/dL Calcium (8.6-10.4) mg/dl Phosphorus (2.5-4.5) mg/dL Magnesium (1.6-2.3) mg/dL Total Bilirubin (0.2-1.3) mg/dL AST (14-36) U/L ALT (9-52) U/L Alkaline Phosphatase (38-126) U/L Total Protein (6.3-8.3) g/dL Albumin (3.5-5.0) g/dL Globulin (2.2-3.9) gm/dL Albumin/Globulin Ratio (1.0-2.1) CSF Lyme IgG Antibody TNP CSF Lyme Disease DNA Not detected CSF West Nile IgG Ab 2.32 H CSF West Nile IgM Ab 0.05 Lyme Specimen Source Csf Lyme Bands Present TNP VZV IgG Antibody Equivocal (POSITIVE) Blood Type Antibody Screen Crossmatch Laboratory Results - last 24 hr 08/25/17 08/25/17 08/26/17 08:38 18:57 06:19 WBC RBC Hgb Hct MCV MCH MCHC RDW Plt Count MPV Neut % (Auto) Lymph % (Auto) Winkler % (Auto) Eos % (Auto) Baso % (Auto) Neut # Lymph # Winkler # Eos # Baso # Total Counted Neutrophils % (Manual) Band Neutrophils % Lymphocytes % (Manual) Reactive Lymphs % Monocytes % (Manual) Eosinophils % (Manual) Basophils % (Manual) Metamyelocytes % Myelocytes % Promyelocytes % Blast Cells % Plasma Cell % (Manual) Nucleated RBC % Hypersegmented Polys Smudge Cells Toxic Granulation Dohle Bodies Perry Rods Platelet Estimate Plt Clumps, EDTA Large Platelets Giant Platelets RBC Morphology Polychromasia Hypochromasia (manual) Poikilocytosis (manual Basophilic Stippling Anisocytosis (manual) Microcytosis (manual) Macrocytosis (manual) Spherocytes Sickle Cells Target Cells Tear Drop Cells Ovalocytes Stomatocytes Helmet Cells Ley[place] Bodies [place] Cells Acanthocytes (Spur) Rouleaux Schistocytes Sodium Potassium Chloride Carbon Dioxide Anion Gap BUN Creatinine Est GFR ( Amer) Est GFR (Non-Af Amer) Random Glucose Calcium Phosphorus Magnesium Total Bilirubin AST ALT Alkaline Phosphatase Total Protein Albumin Globulin Albumin/Globulin Ratio CSF Lyme IgG Antibody TNP CSF Lyme Disease DNA Not detected CSF West Nile IgG Ab 2.32 H CSF West Nile IgM Ab 0.05 Lyme Specimen Source Csf Lyme Bands Present TNP VZV IgG Antibody Equivocal Blood Type Antibody Screen Crossmatch 08/30/17 08/31/17 08/31/17 09:53 06:18 06:20 WBC 0.3 L* RBC 3.01 L Hgb 9.1 L D Hct 26.9 L MCV 89.5 MCH 30.3 MCHC 33.8 RDW 17.8 H Plt Count 43 L D MPV 8.2 Neut % (Auto) 42.2 L Lymph % (Auto) 42.6 H Winkler % (Auto) 9.1 Eos % (Auto) 2.1 Baso % (Auto) 4.0 H Neut # 0.1 L Lymph # 0.1 L Winkler # 0.0 Eos # 0.0 Baso # 0.0 Total Counted Cancelled Neutrophils % (Manual) Cancelled Band Neutrophils % Cancelled Lymphocytes % (Manual) Cancelled Reactive Lymphs % Cancelled Monocytes % (Manual) Cancelled Eosinophils % (Manual) Cancelled Basophils % (Manual) Cancelled Metamyelocytes % Cancelled Myelocytes % Cancelled Promyelocytes % Cancelled Blast Cells % Cancelled Plasma Cell % (Manual) Cancelled Nucleated RBC % Cancelled Hypersegmented Polys Cancelled Smudge Cells Cancelled Toxic Granulation Cancelled Dohle Bodies Cancelled Perry Rods Cancelled Platelet Estimate Cancelled Plt Clumps, EDTA Cancelled Large Platelets Cancelled Giant Platelets Cancelled RBC Morphology Cancelled Polychromasia Cancelled Hypochromasia (manual) Cancelled Poikilocytosis (manual Cancelled Basophilic Stippling Cancelled Anisocytosis (manual) Cancelled Microcytosis (manual) Cancelled Macrocytosis (manual) Cancelled Spherocytes Cancelled Sickle Cells Cancelled Target Cells Cancelled Tear Drop Cells Cancelled Ovalocytes Cancelled Stomatocytes Cancelled Helmet Cells Cancelled [place] Bodies Cancelled Mariah Cells Cancelled Acanthocytes (Spur) Cancelled Rouleaux Cancelled Schistocytes Cancelled Sodium 155 H Potassium 3.0 L Chloride 132 H Carbon Dioxide 18 L Anion Gap 8 L BUN 23 H Creatinine 1.4 H Est GFR ( Amer) 46 Est GFR (Non-Af Amer) 38 Random Glucose 114 H Calcium 7.2 L Phosphorus 2.3 L Magnesium 1.6 Total Bilirubin 1.2 AST 38 H D ALT 56 H Alkaline Phosphatase 419 H D Total Protein 5.4 L Albumin 2.3 L Globulin 3.1 Albumin/Globulin Ratio 0.7 L CSF Lyme IgG Antibody CSF Lyme Disease DNA CSF West Nile IgG Ab CSF West Nile IgM Ab Lyme Specimen Source Lyme Bands Present VZV IgG Antibody Blood Type B POSITIVE Antibody Screen Negative Crossmatch See Detail Fingerstick Blood Sugar Results: 91 Review of Systems - Review of Systems Systems not reviewed;Unavailable: Acuity of Condition Critical Care Progress Note - Nutrition Nutrition: Nutrition Category Date Time Status NPO Diet [DIET] Diets 08/29/17 Breakfast Active Assessment/Plan - Assessment and Plan (Free Text) Assessment: 62F with PMH metastatic endometrial cancer, breast cancer, ovarian cysts, recent right femoral DVT on Lovenox, and poliomyelitis presenting with AMS and 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 Plan: Patient transferred to regular floor and hospice eval ordered. Placed on morphine drip. <Mario Levy - Last Filed: 08/31/17 15:51> CCU Objective - Vital Signs / Intake & Output Vital Signs (Last 4 hours): Vital Signs Temp Pulse Resp BP Pulse Ox 08/31/17 13:00 107 H 10 L 100 08/31/17 12:11 107 H 12 95/53 L 100 08/31/17 12:00 96.4 F L 103 H 15 100 Intake and Output (Last 8hrs): Intake & Output 08/31/17 08/31/17 08/31/17 06:59 14:59 22:59 Intake Total 790 286 Output Total 502 240 Balance 288 46 Weight 138 lb Intake: Intake, IV Amount 490 286 L Port Y Site 490 286 Oral 0 Blood Product 300 Apheresis Plts Acda Lr 300 Irr Unit [id number] Output: Urine 502 240 Urethral ([place]) 502 240 Other: # Bowel Movements 0 - Medications Active Medications: Active Medications Generic Name Dose Route Start Last Admin Trade Name Digna PRN Reason Stop Dose Admin Morphine Sulfate 250 mg/ 250 mls @ 2 mls/hr 08/31/17 09:58 08/31/17 10:30 Sodium Chloride IV 09/01/17 09:57 2 mg/hr .Q24H ONE 2 mls/hr Protocol Administration - Patient Studies Lab Studies: Microbiology Studies 08/25/17 19:55 Gram Stain - Final Cerebral Spinal Fluid CSF Culture - Final No growth. Lab Studies 08/31/17 08/31/17 08/30/17 Range/Units 06:20 06:18 09:53 WBC 0.3 L* (4.8-10.8) K/uL RBC 3.01 L (3.80-5.20) Mil/uL Hgb 9.1 L D (11.0-16.0) g/dL Hct 26.9 L (34.0-47.0) % MCV 89.5 (81.0-99.0) fL MCH 30.3 (27.0-31.0) pg MCHC 33.8 (33.0-37.0) g/dL RDW 17.8 H (11.5-14.5) % Plt Count 43 L D (130-400) K/uL MPV 8.2 (7.2-11.7) fL Neut % (Auto) 42.2 L (50.0-75.0) % Lymph % (Auto) 42.6 H (20.0-40.0) % Winkler % (Auto) 9.1 (0.0-10.0) % Eos % (Auto) 2.1 (0.0-4.0) % Baso % (Auto) 4.0 H (0.0-2.0) % Neut # 0.1 L (1.8-7.0) K/uL Lymph # 0.1 L (1.0-4.3) K/uL Winkler # 0.0 (0.0-0.8) K/uL Eos # 0.0 (0.0-0.7) K/uL Baso # 0.0 (0.0-0.2) K/uL Total Counted Cancelled Neutrophils % (Manual) Cancelled Band Neutrophils % Cancelled Lymphocytes % (Manual) Cancelled Reactive Lymphs % Cancelled Monocytes % (Manual) Cancelled Eosinophils % (Manual) Cancelled Basophils % (Manual) Cancelled Metamyelocytes % Cancelled Myelocytes % Cancelled Promyelocytes % Cancelled Blast Cells % Cancelled Plasma Cell % (Manual) Cancelled Nucleated RBC % Cancelled Hypersegmented Polys Cancelled Smudge Cells Cancelled Toxic Granulation Cancelled Dohle Bodies Cancelled Perry Rods Cancelled Platelet Estimate Cancelled Plt Clumps, EDTA Cancelled Large Platelets Cancelled Giant Platelets Cancelled RBC Morphology Cancelled Polychromasia Cancelled Hypochromasia (manual) Cancelled Poikilocytosis (manual Cancelled Basophilic Stippling Cancelled Anisocytosis (manual) Cancelled Microcytosis (manual) Cancelled Macrocytosis (manual) Cancelled Spherocytes Cancelled Sickle Cells Cancelled Target Cells Cancelled Tear Drop Cells Cancelled Ovalocytes Cancelled Stomatocytes Cancelled Helmet Cells Cancelled [place] Bodies Cancelled [place] Cells Cancelled Acanthocytes (Spur) Cancelled Rouleaux Cancelled Schistocytes Cancelled Sodium 155 H (132-148) mmol/L Potassium 3.0 L (3.6-5.2) mmol/L Chloride 132 H (98-107) mmol/L Carbon Dioxide 18 L (22-30) mmol/L Anion Gap 8 L (10-20) BUN 23 H (7-17) mg/dL Creatinine 1.4 H (0.7-1.2) mg/dL Est GFR ( Amer) 46 Est GFR (Non-Af Amer) 38 Random Glucose 114 H (65-105) mg/dL Calcium 7.2 L (8.6-10.4) mg/dl Phosphorus 2.3 L (2.5-4.5) mg/dL Magnesium 1.6 (1.6-2.3) mg/dL Total Bilirubin 1.2 (0.2-1.3) mg/dL AST 38 H D (14-36) U/L ALT 56 H (9-52) U/L Alkaline Phosphatase 419 H D (38-126) U/L Total Protein 5.4 L (6.3-8.3) g/dL Albumin 2.3 L (3.5-5.0) g/dL Globulin 3.1 (2.2-3.9) gm/dL Albumin/Globulin Ratio 0.7 L (1.0-2.1) CSF Lyme IgG Antibody CSF Lyme Disease DNA CSF West Nile IgG Ab CSF West Nile IgM Ab Lyme Specimen Source Lyme Bands Present VZV IgG Antibody (POSITIVE) Blood Type B POSITIVE Antibody Screen Negative Crossmatch See Detail 08/26/17 08/25/17 08/25/17 Range/Units 06:19 18:57 08:38 WBC (4.8-10.8) K/uL RBC (3.80-5.20) Mil/uL Hgb (11.0-16.0) g/dL Hct (34.0-47.0) % MCV (81.0-99.0) fL MCH (27.0-31.0) pg MCHC (33.0-37.0) g/dL RDW (11.5-14.5) % Plt Count (130-400) K/uL MPV (7.2-11.7) fL Neut % (Auto) (50.0-75.0) % Lymph % (Auto) (20.0-40.0) % Winkler % (Auto) (0.0-10.0) % Eos % (Auto) (0.0-4.0) % Baso % (Auto) (0.0-2.0) % Neut # (1.8-7.0) K/uL Lymph # (1.0-4.3) K/uL Winkler # (0.0-0.8) K/uL Eos # (0.0-0.7) K/uL Baso # (0.0-0.2) K/uL Total Counted Neutrophils % (Manual) Band Neutrophils % Lymphocytes % (Manual) Reactive Lymphs % Monocytes % (Manual) Eosinophils % (Manual) Basophils % (Manual) Metamyelocytes % Myelocytes % Promyelocytes % Blast Cells % Plasma Cell % (Manual) Nucleated RBC % Hypersegmented Polys Smudge Cells Toxic Granulation Dohle Bodies Perry Rods Platelet Estimate Plt Clumps, EDTA Large Platelets Giant Platelets RBC Morphology Polychromasia Hypochromasia (manual) Poikilocytosis (manual Basophilic Stippling Anisocytosis (manual) Microcytosis (manual) Macrocytosis (manual) Spherocytes Sickle Cells Target Cells Tear Drop Cells Ovalocytes Stomatocytes Helmet Cells [place] Bodies Mariah Cells Acanthocytes (Spur) Rouleaux Schistocytes Sodium (132-148) mmol/L Potassium (3.6-5.2) mmol/L Chloride (98-107) mmol/L Carbon Dioxide (22-30) mmol/L Anion Gap (10-20) BUN (7-17) mg/dL Creatinine (0.7-1.2) mg/dL Est GFR ( Amer) Est GFR (Non-Af Amer) Random Glucose (65-105) mg/dL Calcium (8.6-10.4) mg/dl Phosphorus (2.5-4.5) mg/dL Magnesium (1.6-2.3) mg/dL Total Bilirubin (0.2-1.3) mg/dL AST (14-36) U/L ALT (9-52) U/L Alkaline Phosphatase (38-126) U/L Total Protein (6.3-8.3) g/dL Albumin (3.5-5.0) g/dL Globulin (2.2-3.9) gm/dL Albumin/Globulin Ratio (1.0-2.1) CSF Lyme IgG Antibody TNP CSF Lyme Disease DNA Not detected CSF West Nile IgG Ab 2.32 H CSF West Nile IgM Ab 0.05 Lyme Specimen Source Csf Lyme Bands Present TNP VZV IgG Antibody Equivocal (POSITIVE) Blood Type Antibody Screen Crossmatch Laboratory Results - last 24 hr 08/25/17 08/25/17 08/26/17 08:38 18:57 06:19 WBC RBC Hgb Hct MCV MCH MCHC RDW Plt Count MPV Neut % (Auto) Lymph % (Auto) Winkler % (Auto) Eos % (Auto) Baso % (Auto) Neut # Lymph # [place]ink[place] # Eos # Baso # Total Counted Neutrophils % (Manual) Band Neutrophils % Lymphocytes % (Manual) Reactive Lymphs % Monocytes % (Manual) Eosinophils % (Manual) Basophils % (Manual) Metamyelocytes % Myelocytes % Promyelocytes % Blast Cells % Plasma Cell % (Manual) Nucleated RBC % Hypersegmented Polys Smudge Cells Toxic Granulation Dohle Bodies Perry Rods Platelet Estimate Plt Clumps, EDTA Large Platelets Giant Platelets RBC Morphology Polychromasia Hypochromasia (manual) Poikilocytosis (manual Basophilic Stippling Anisocytosis (manual) Microcytosis (manual) Macrocytosis (manual) Spherocytes Sickle Cells Target Cells Tear Drop Cells Ovalocytes Stomatocytes Helmet Cells [place] Bodies Mariah Cells Acanthocytes (Spur) Rouleaux Schistocytes Sodium Potassium Chloride Carbon Dioxide Anion Gap BUN Creatinine Est GFR ( Amer) Est GFR (Non-Af Amer) Random Glucose Calcium Phosphorus Magnesium Total Bilirubin AST ALT Alkaline Phosphatase Total Protein Albumin Globulin Albumin/Globulin Ratio CSF Lyme IgG Antibody TNP CSF Lyme Disease DNA Not detected CSF West Nile IgG Ab 2.32 H CSF West Nile IgM Ab 0.05 Lyme Specimen Source Csf Lyme Bands Present TNP VZV IgG Antibody Equivocal Blood Type Antibody Screen Crossmatch 08/30/17 08/31/17 08/31/17 09:53 06:18 06:20 WBC 0.3 L* RBC 3.01 L Hgb 9.1 L D Hct 26.9 L MCV 89.5 MCH 30.3 MCHC 33.8 RDW 17.8 H Plt Count 43 L D MPV 8.2 Neut % (Auto) 42.2 L Lymph % (Auto) 42.6 H Winkler % (Auto) 9.1 Eos % (Auto) 2.1 Baso % (Auto) 4.0 H Neut # 0.1 L Lymph # 0.1 L Winkler # 0.0 Eos # 0.0 Baso # 0.0 Total Counted Cancelled Neutrophils % (Manual) Cancelled Band Neutrophils % Cancelled Lymphocytes % (Manual) Cancelled Reactive Lymphs % Cancelled Monocytes % (Manual) Cancelled Eosinophils % (Manual) Cancelled Basophils % (Manual) Cancelled Metamyelocytes % Cancelled Myelocytes % Cancelled Promyelocytes % Cancelled Blast Cells % Cancelled Plasma Cell % (Manual) Cancelled Nucleated RBC % Cancelled Hypersegmented Polys Cancelled Smudge Cells Cancelled Toxic Granulation Cancelled Dohle Bodies Cancelled Perry Rods Cancelled Platelet Estimate Cancelled Plt Clumps, EDTA Cancelled Large Platelets Cancelled Giant Platelets Cancelled RBC Morphology Cancelled Polychromasia Cancelled Hypochromasia (manual) Cancelled Poikilocytosis (manual Cancelled Basophilic Stippling Cancelled Anisocytosis (manual) Cancelled Microcytosis (manual) Cancelled Macrocytosis (manual) Cancelled Spherocytes Cancelled Sickle Cells Cancelled Target Cells Cancelled Tear Drop Cells Cancelled Ovalocytes Cancelled Stomatocytes Cancelled Helmet Cells Cancelled [place] Bodies Cancelled Mariah Cells Cancelled Acanthocytes (Spur) Cancelled Rouleaux Cancelled Schistocytes Cancelled Sodium 155 H Potassium 3.0 L Chloride 132 H Carbon Dioxide 18 L Anion Gap 8 L BUN 23 H Creatinine 1.4 H Est GFR ( Amer) 46 Est GFR (Non-Af Amer) 38 Random Glucose 114 H Calcium 7.2 L Phosphorus 2.3 L Magnesium 1.6 Total Bilirubin 1.2 AST 38 H D ALT 56 H Alkaline Phosphatase 419 H D Total Protein 5.4 L Albumin 2.3 L Globulin 3.1 Albumin/Globulin Ratio 0.7 L CSF Lyme IgG Antibody CSF Lyme Disease DNA CSF West Nile IgG Ab CSF West Nile IgM Ab Lyme Specimen Source Lyme Bands Present VZV IgG Antibody Blood Type B POSITIVE Antibody Screen Negative Crossmatch See Detail Critical Care Progress Note - Nutrition Nutrition: Nutrition Category Date Time Status NPO Diet [DIET] Diets 08/29/17 Breakfast Active Assessment/Plan (1) Change in mental status Current Visit: Yes Status: Acute Comment: most likely secondary to meningitis Status post lumbar puncture with elevated protein Continue IV antibiotics Neurology follow-up Continue ICU observation Attending/Attestation - Attestation I have personally seen and examined this patient.: Yes I have fully participated in the care of the patient.: Yes I have reviewed all pertinent clinical information: Yes Notes (Text): 08/31/17 15:49 I have seen and examined the patient. Medical records, lab studies, and imaging were reviewed by me and a management plan was formulated on multidisciplinary rounds with resident Dr. Espitia. I agree with their documented assessment and plan. Had a conversation with sister and, Palliative care spoke with niece, who both agree for DNR/DNI and hospice care. Stopping all medications not related to making patient comfortable. Will downgrade to general medical floor. Starting low dose morphine drip for pain, patient appears to be in pain. Critical Care Time 35 minutes. Multi-disciplinary rounds were performed with house staff, nursing, speech therapy, respiratory therapy, pharmacy and nutrition with integrated input from the primary team/attending and other consulting services. The documented time is cumulative and includes review of patient data/exams/labs/chart review and examination of the patient on rounds and throughout the day; time is exclusive of any procedures or teaching time.
--- NOTE | 2017-08-31 19:23 | CP.PCM.PN ---
Subjective - Date & Time of Evaluation Date of Evaluation: 08/31/17 Time of Evaluation: 13:00 - Subjective Subjective: clinically same Objective - Vital Signs/Intake and Output Vital Signs (last 24 hours): Temp Pulse Resp BP Pulse Ox 96.2 F L 110 H 122 H 95/53 L 100 08/31/17 16:00 08/31/17 16:00 08/31/17 16:00 08/31/17 12:11 08/31/17 16:00 Intake and Output: 08/31/17 09/01/17 18:59 06:59 Intake Total 296 Output Total 340 Balance -44 - Medications Medications: Current Medications Morphine Sulfate 250 mg/ (Sodium Chloride) 250 mls @ 2 mls/hr IV .Q24H ONE PRN Reason: Protocol Stop: 09/01/17 09:57 Last Admin: 08/31/17 10:30 Dose: 2 mg/hr, 2 mls/hr Potassium Chloride (Potassium Chloride 20 Meq/100 Ml) 20 meq in 100 mls @ 50 mls/hr IVPB Q2 HAN Stop: 08/31/17 21:59 Last Admin: 08/31/17 17:45 Dose: 50 mls/hr - Labs Labs: 08/31/17 06:18 08/31/17 06:20 PT 17.2 SECONDS (9.7-12.2) H D 08/28/17 06:43 INR 1.5 D 08/28/17 06:43 APTT 32 SECONDS (21-34) D 08/28/17 06:43
--- NOTE | 2017-09-01 07:56 | PN ---
DATE: 09/01/2017 NEUROLOGICAL PROBLEM: Possible viral meningoencephalitis. PHYSICAL EXAMINATION: VITAL SIGNS: Blood pressure 71/33, mean arterial pressure of 50, respiratory rate 13, pulse rate 106. NEUROLOGIC: The patient is obtunded, eyes are closed. The patient kept on comfort care. Very sluggish response to the painful stimuli. Pupils reactive to light. Some rolling conjugate gaze noted. Rest of the examination is unchanged. ASSESSMENT AND PLAN: Electroencephalogram had been reviewed. It showed diffuse delta activities throughout the recording. There are no paroxysmal activities or focal slowing noted. Her cytology turned out no malignant cells in the cerebrospinal fluid. Continue the present management. Reginald Badillo MD
--- NOTE | 2017-09-01 08:41 | CP.PCM.PN ---
Subjective - Date & Time of Evaluation Date of Evaluation: 09/01/17 Time of Evaluation: 08:39 - Subjective Subjective: Events noted Sedated on MS drip Comfort care measures noted Objective - Vital Signs/Intake and Output Vital Signs (last 24 hours): Temp Pulse Resp BP Pulse Ox 96.1 F L 104 H 12 71/33 L 100 09/01/17 08:00 09/01/17 08:00 09/01/17 08:00 09/01/17 08:00 09/01/17 08:00 Intake and Output: 09/01/17 09/01/17 06:59 18:59 Intake Total 24 4 Balance 24 4 - Medications Medications: Current Medications Morphine Sulfate 250 mg/ (Sodium Chloride) 250 mls @ 2 mls/hr IV .Q24H ONE PRN Reason: Protocol Stop: 09/01/17 09:57 Last Admin: 08/31/17 10:30 Dose: 2 mg/hr, 2 mls/hr - Labs Labs: 08/31/17 06:18 08/31/17 06:20 PT 17.2 SECONDS (9.7-12.2) H D 08/28/17 06:43 INR 1.5 D 08/28/17 06:43 APTT 32 SECONDS (21-34) D 08/28/17 06:43 - Constitutional Appears: Confused, Cachectic, Chronically Ill - Head Exam Head Exam: ATRAUMATIC, NORMAL INSPECTION - Eye Exam Eye Exam: EOMI, Normal appearance - Neck Exam Neck Exam: Normal Inspection. absent: Tenderness - Cardiovascular Exam Cardiovascular Exam: Tachycardia, +S1 - GI/Abdominal Exam GI & Abdominal Exam: Soft. absent: Tenderness - Extremities Exam Extremities Exam: Normal Inspection. absent: Tenderness - Neurological Exam Neurological Exam: Altered, CN II-XII Intact - Skin Skin Exam: Dry, Warm Assessment and Plan (1) Ovarian ca Status: Acute (2) Metastatic cancer to liver Status: Acute (3) Hypernatremia Status: Acute (4) Type II RTA Status: Acute (5) Metastatic cancer Status: Chronic - Assessment and Plan (Free Text) Plan: Off D5W comfort care measures will sign off
--- NOTE | 2017-09-01 16:28 | CP.PCM.PN ---
Subjective - Date & Time of Evaluation Date of Evaluation: 09/01/17 Time of Evaluation: 12:20 - Subjective Subjective: clinically same Objective - Vital Signs/Intake and Output Vital Signs (last 24 hours): Temp Pulse Resp BP Pulse Ox 96.0 F L 102 H 10 L 65/30 L 72 L 09/01/17 12:00 09/01/17 12:00 09/01/17 12:00 09/01/17 12:00 09/01/17 12:00 Intake and Output: 09/01/17 09/01/17 06:59 18:59 Intake Total 24 14 Output Total 100 Balance 24 -86 - Labs Labs: 08/31/17 06:18 08/31/17 06:20 PT 17.2 SECONDS (9.7-12.2) H D 08/28/17 06:43 INR 1.5 D 08/28/17 06:43 APTT 32 SECONDS (21-34) D 08/28/17 06:43
--- NOTE | 2017-09-01 17:15 | CP.PCM.PN ---
Subjective - Date & Time of Evaluation Date of Evaluation: 09/01/17 Time of Evaluation: 07:00 - Subjective Subjective: iv rx in progress Objective - Vital Signs/Intake and Output Vital Signs (last 24 hours): Temp Pulse Resp BP Pulse Ox 96.0 F L 102 H 10 L 65/30 L 72 L 09/01/17 12:00 09/01/17 12:00 09/01/17 12:00 09/01/17 12:00 09/01/17 12:00 Intake and Output: 09/01/17 09/01/17 06:59 18:59 Intake Total 24 14 Output Total 100 Balance 24 -86 - Labs Labs: 08/31/17 06:18 08/31/17 06:20 PT 17.2 SECONDS (9.7-12.2) H D 08/28/17 06:43 INR 1.5 D 08/28/17 06:43 APTT 32 SECONDS (21-34) D 08/28/17 06:43 - Constitutional Appears: Confused, Cachectic, Chronically Ill - Head Exam Head Exam: NORMOCEPHALIC - Eye Exam Eye Exam: PERRL - ENT Exam ENT Exam: Mucous Membranes Dry - Neck Exam Neck Exam: absent: Lymphadenopathy - Respiratory Exam Respiratory Exam: Decreased Breath Sounds - Cardiovascular Exam Cardiovascular Exam: REGULAR RHYTHM - GI/Abdominal Exam GI & Abdominal Exam: Distended, Soft - Rectal Exam Rectal Exam: Deferred - Exam Exam: NORMAL INSPECTION - Extremities Exam Extremities Exam: absent: Pedal Edema - Back Exam Back Exam: absent: CVA tenderness (L), CVA tenderness (R) - Neurological Exam Neurological Exam: Altered - Psychiatric Exam Psychiatric exam: Depressed - Skin Skin Exam: Dry Assessment and Plan (1) Change in mental status Status: Acute (2) Leukocytosis Status: Acute (3) Metastatic cancer to liver Status: Acute (4) Ovarian ca Status: Acute
[2017-09-02 08:11] VITALS: TEMP 98.6; O2SAT 72
[2017-09-02 12:40] VITALS: BP 67/32; PULSE 98; RESP 15
== END 2017-09-02 13:13 | DRG 871 ==
LOC: C.ER 12:40 → C.9I 16:08
PROVIDERS: ADMIT Internal Medicine Nephrology; ATTEND Internal Medicine Nephrology
PROC: 009U3ZX Drainage of Spinal Canal, Percutaneous Approach, Diagnostic (ICD-10-PCS; principal; 2017-08-25)
DX: A41.9 Sepsis, unspecified organism (principal); R65.21 Severe sepsis with septic shock; D61.818 Other pancytopenia; C78.6 Secondary malignant neoplasm of retroperitoneum and peritoneum; C78.7 Secondary malignant neoplasm of liver and intrahepatic bile duct; C79.51 Secondary malignant neoplasm of bone; E87.2 Acidosis; E83.51 Hypocalcemia; D68.9 Coagulation defect, unspecified; C56.9 Malignant neoplasm of unspecified ovary; E87.0 Hyperosmolality and hypernatremia; E87.1 Hypo-osmolality and hyponatremia; G82.20 Paraplegia, unspecified; R18.8 Other ascites; I82.5Z1 Chronic embolism and thrombosis of unspecified deep veins of right distal lower extremity; C54.1 Malignant neoplasm of endometrium; E87.70 Fluid overload, unspecified; R09.02 Hypoxemia; R32 Unspecified urinary incontinence; Z51.5 Encounter for palliative care; Z66 Do not resuscitate; Z86.12 Personal history of poliomyelitis; Z88.0 Allergy status to penicillin; Z68.21 Body mass index [BMI] 21.0-21.9, adult; D63.8 Anemia in other chronic diseases classified elsewhere

== ENCOUNTER 2017-09-02 13:33 | Inpatient (IN) | payer OTHER ==
[2017-09-02 13:48] VITALS: BMI 21.6
[2017-09-02] MEDS ORDERED: Morphine Sulfate 250 MG in Dextrose 5% In Water 240 ML IV ONE (14:30)
[2017-09-03 00:26] VITALS: BP 64/28; PULSE 108; RESP 15; TEMP 94.9
--- NOTE | 2017-09-03 02:54 | CP.PCM.PRO ---
Pronouncement of Note - Clinical Findings Physical Exam: Absent Peripheral Pulses{Carotid & Femoral}, Absent Heart & Breath Sounds, No Pupillary Light Reflex, No Corneal Reflex, Pupils Fixed & Dilated, Absence of Vital Signs - Pronouncement Time Time of Pronouncement of : 02:18 - Notifications Pronouncement Notifications: Family Notified Rattling Machine Tender Notified: Yes - Autopsy Autopsy Requested: No - [place] [id number]
== END 2017-09-03 02:20 | DRG 755 ==
LOC: C.9I 13:33
PROVIDERS: ADMIT Internal Medicine Nephrology; ATTEND Internal Medicine Nephrology
DX: C54.1 Malignant neoplasm of endometrium (principal); C79.81 Secondary malignant neoplasm of breast; C79.60 Secondary malignant neoplasm of unspecified ovary